=== PATIENT | female | born 1970 | race Caucasian/White ===

== ENCOUNTER 2023-09-16 08:14 | Outpatient (OUT) | payer BC, SELFPAY ==
--- NOTE | 2023-09-16 08:17 | MM_ITS ---
Patient Name: NILDA JONES MR#: [id number] : 1970 Exam Date: 09/16/2023 Ordering Doctor: DR. TOLU FRAGA . RADIOLOGY REPORT PROCEDURE: MM TOMOSYNTHESIS SCREENING BI COMPARISON: MG MAMM SCREEN IRISH W CAD, 04/11/2018. MG MAMM SCREEN 3D IRISH CAD, 01/25/2021. INDICATIONS: Screening Calculator Name NCI Breast Cancer Risk Assessment Tool 5 Year Breast Cancer Risk 0.60% Lifetime Breast Cancer Risk 4.20% Personal Breast Cancer No Personal Ovarian Cancer No Treatments None Family Cancers None LOCATION: [facility] BREAST COMPOSITION: Extremely dense, which lowers the sensitivity of mammography. FINDINGS: DIAGNOSTIC CATEGORY 1--NEGATIVE. NO CHANGE FROM COMPARISON ASSESSMENT. RIGHT BREAST: No significant suspicious finding. LEFT BREAST: No significant suspicious finding. RECOMMENDATIONS: ROUTINE MAMMOGRAM AND CLINICAL EVALUATION IN 12 MONTHS. PLEASE NOTE: A NORMAL MAMMOGRAM DOES NOT EXCLUDE THE POSSIBILITY OF BREAST CANCER. A CLINICALLY SUSPICIOUS PALPABLE LUMP SHOULD BE BIOPSIED. Dictated by: Justin Rodríguez MD on 09/16/2023 at 14:34 Approved by: Justin Rodríguez MD on 09/16/2023 at 14:35
== END 2023-09-16 08:15 | disposition home or self-care (01) ==
LOC: MAMMO 08:14
PROVIDERS: PCP Family Medicine; Visit Provider Family Medicine
DX: Z12.31 Encounter for screening mammogram for malignant neoplasm of breast (principal)
CPT/HCPCS: 77063; 77067

== ENCOUNTER 2025-07-26 10:32 | Outpatient (OUT) | payer BC, SELFPAY ==
--- OUTSIDE RECORDS SUMMARY | 2025-07-26 10:39 | XMS_ITS | Clinical Summary ---
Author Organization [facility] Address [id number] [place] [address] Care Team Providers Care [employer] Dispatcher Name Role Phone Gisela Barry MD Primary Care Provider [phone] Allergies Active AllergyReactionsCriticalityNoted FkvrVppcplwuKndudyzjeai73/19/2018 Medications MedicationSigDispense QuantityRefillsLast FilledStart DateEnd DateStatus ibuprofen (ADVIL,MOTRIN) 400 mg tablet Take 400 mg by mouth every 6 (six) hours as needed for pain.Active doxycycline (VIBRAMYCIN) 100 mg capsule Take 1 capsule (100 mg total) by mouth 2 (two) times a day. 20 capsule 07/30/2019Active Family History Medical HistoryRelationNameCommentsNo Known ProblemsFatherNo Known Problems MotherRelationNameStatusCommentsFatherAliveMotherAlive Social History Tobacco UseTypesPacks/DayYears UsedDateSmoking Tobacco: Every DayCigarettes Smokeless Tobacco: NeverAlcohol UseStandard Drinks/WeekCommentsYes1 (1 standard drink = 0.6 oz pure alcohol)dailyChildcareAnswerDate RecordedChildcareUnknown 03/12/2019EmploymentAnswerDate TxumyhcnRcddcrreqtDxuymcw01/13/2019Purpose - Life AnswerDate RecordedPurpose and direction in waetQzmezqh58/11/2021 CommentsNoSex and Gender InformationValueDate RecordedSex Assigned at BirthNot on fileLegal GqiYkwcfw40/19/2018 12:46 PM EDTGender IdentityNot on fileSexual OrientationNot on file Last Filed Vital Signs Vital SignReadingTime TakenCommentsBlood Tkixidoa125/8710 5:04 PM EDT Tnvty5364/ 6:09 PM HSKInmualolknq07.7 ??C (98 ??F)07/30/2019 3:56 PM EDT Respiratory Jasw1516 6:09 PM EDTOxygen Uzgyjwdsby42%07/30/2019 6:09 PM EDTInhaled Oxygen Concentration--Qlbpnd20.4 kg (120 lb)07/30/2019 3:56 PM EDT Yfkamy905.6 cm (5' 4 )07/30/2019 3:56 PM EDTBody Mass Index20.610 3:56 PM EDT Plan of Treatment Health MaintenanceDue DateLast DoneCommentsDepression Ivtcydvwe72/23/1982Tobacco Axjpasmkq28/23/1982Adult BMI Hsynsijpu85/23/1988DTaP,Tdap and Td Vaccines (1 - Tdap)1988Pap Smear1990Zoster (Shingles) Vaccine (1 of 2)12/21/2019 Influenza Ufahqcu5005/31/2025 Medical Devices Not on file Insurance Care Teams Team MemberRelationshipSpecialtyStart DateEnd Gisela Barry MD PCP - GeneralFamily Medicine12/15/18
--- OUTSIDE RECORDS SUMMARY | 2025-07-26 10:46 | XMS_ITS | CCD ---
Author Organization [facility] Care Team Providers Care Grid Caster Name Role Phone DR GISELA BARRY Admitting Unavailable ROBBI, DR GISELA De Jesus Attending Unavailable ROBBI, DR GISELA De Jesus Consulting Unavailable ROBBI, DR GISELA De Jesus Primary Care Unavailable ROBBI, DR GISELA De Jesus Attending Unavailable ROBBI, DR GISELA De Jesus Consulting Unavailable ROBBI, DR GISELA De Jesus Admitting Unavailable NO FAMILY, PHYSICIAN Primary Care Provider Unava ilable Community, Outreach Attending Provider [facility], Outreach Attending Provider MD Gisela Barry Primary Care Provider MD Gisela Barry Primary Care Provider [phone] [facility], Outreach Attending Provider [facility], Outreach Attending Provider [phone] NO FAMILY, PHYSICIAN Primary Care Provider Unava ilable Thaddeus Mojica Primary Care Physician NO FAMILY, PHYSICIAN Primary Care Provider Unava ilable [facility], Outreach Attending Provider Stacy, SKULL SPLITTER Mara L Admitting Unavailable Stacy, SKULL SPLITTER Mara L Attending Unavailable Stacy, SKULL SPLITTER Mara L Attending Unavailable Stacy, SKULL SPLITTER Mara L Attending Unavailable Stacy, SKULL SPLITTER Mara L Attending Unavailable Stacy, SKULL SPLITTER Mara L Admitting Unavailable Stacy, SKULL SPLITTER Mara L Attending Unavailable Stacy, Mara L Attending Unavailable Stacy, Mara L Admitting Unavailable Jorje VALERIO, Scottie Kinney Attending Jaylin Barry MD, Gisela Francis Primary Care Unavailmarie Recinos MD, Scottie Kinney Attending Jaylin Barry MD, Gisela Francis Primary Care Unavailmarie Barry MD, Gisela Francis Primary Care Unavailmarie Jordan MD, Stephen Carter Attending Jaylin Jordan MD, Stephen Carter Attending Jaylin Barry MD, Gisela Francis Primary Care Unavailabl e NO FAMILY, PHYSICIAN Primary Care Provider Unava ilable Community, Outreach Attending Provider [phone] Community, Outreach Attending Unavailable Community, Outreach Admitting Unavailable NO FAMILY, PHYSICIAN Primary Care Unavailable Allergies Allergy ClassificationReported Allergen(s)Allergy TypeDate of OnsetReaction(s) FacilityPenicillins (antibiotic) (1 source)PenicillinsDrug Zitjokx22-07-5235Ysr [facility] Repository (4 sources)Penicillin; Translations: [penicillin][facility]ergy[facility] Medications Current Medications MedicationDrug Class(es)DatesSig (Normalized)Sig (Original)esomeprazole 40 mg delayed release oral capsule (2 sources)Proton Pump InhibitorStart: 03-12-2024 End: 42-55-5557qztw 1 capsule by mouth once dailyNexium 40 mg Cap-EC 40 mg = 1 cap(s), Oral, Daily, X 90 day(s), # 90 cap(s), Refills(s) 3, Pharmacy: [facility] [id number], 159, cm, 03/09/24 10:08:00 EDT, Height/Length Dosing, 56.9, kg, 03/09/2410:08:00 EDT, Weight Dosing Start Date: 03/12/24 Stop Date: 03/07/25 Status: OrderedStart: 57-07-2425muai 1 capsule by mouth once dailyNexium 40 mg Cap-EC 40 mg = 1 cap(s), Oral, Daily, # 90 cap(s), Refills(s) 1, Pharmacy: [facility]/pharmacy #[id number], 158, cm, 09/09/23 10:57:00 EST, Height/Length Dosing, 58.2, kg, 09/09/23 10:57:00 EST, Weight Dosing Start Date: 09/09/23 Status: Ordered Problems Problem ClassificationProblemDateDocumented DateEpisodic/ChronicAllergic reactions (2 sources)Allergic disorder of jxbi62-38-7799WrbrceyhMwyubqqy of urinary tract (1 source)Renal zmpo61-77-0709OeacfoqvCmmshhvfm of lipid metabolism (3 sources)Hyperlipidemia; Translations: [Hypercholesterolemia]06-24-6389Dvadmbb Esophageal disorders (3 sources)Gastroesophageal reflux disease without esophagitis; Translations: [Gastro-esophageal reflux disease without esophagitis]51-15-0148BuxauroNflxs circulatory disease (2 sources)Raynaud's lfcqppifxk40-57-0802UxiyjfqUyvds screening for suspected conditions (not mental disorders or infectious disease) (8 sources)Encounter for screening mammogram for malignant neoplasm of breast; Translations: [Encounter for screening for malignant neoplasm of cervix]Onset: 01-57-3012KpbfpplwWxjzx upper respiratory disease (2 sources)Allergic isvnchqq18-30-7197YyaiyemXbjvsf media and related conditions (1 source)Finding of fluid behind tympanic kbmpufbb08-72-9382QtlpwoxaBdtkyrzij and history of mental health and substance abuse codes (2 sources)Jr-cniabw88-03tnfqgk14-62-7297ZajcixlcHmyvwmbywsk; intervertebral disc disorders; other back problems (2 sources)Yiyqkpxujsllprdfn68-95-5839HgpjltjTlhiyqsga-zdlcdiy disorders (2 sources)Marijuana phfz35-78-4983CnaqygjrZcdlbdovgamx (2 sources)Body mass index 20-24 - vslgot76-23-2950Rxtqsptlmmyk (4 sources)Patient encounter jaxovi60-36-5137 Results Test NameValueInterpretationReference RangeFacilityAlanine aminotransferase [Enzymatic activity/volume] in Serum or PlasmaOrdered By: OUTREACH COMMUNITY on 60-17-0500JFO [Catalytic activity/Vol]16 U/LNormal7-52[facility] HospitalComment on above:Performed By: #### MARVINNOASHLEERELAKISHA, OUTREACH CMP, OUTREACH LIPID #### [facility] [address] [place] [address] USAAlbumin [Mass/volume] in Serum or Plasma by Bromocresol green (BCG) dye binding methoOrdered By: OUTREACH COMMUNITY on 77-26-1212Nxcpbex BCG dye [Mass/Vol]4.5 g/dL3.5-5.7FLake County Memorial Hospital - WestAlkaline phosphatase [Enzymatic activity/volume] in Serum or PlasmaOrdered By: OUTREACH COMMUNITY on 05-94-7592BZT [Catalytic activity/Vol]73 U/RZcrfht84-930GrzdjbvgfEast [place] Regional HospitalComment on above:Performed By: #### CBCNOOUTREACH, OUTREACH CMP, OUTREACH LIPID #### [facility] [address] [place] [address] USAAspartate aminotransferase [Enzymatic activity/volume] in Serum or PlasmaOrdered By: OUTREACH COMMUNITY on 71-81-4414GJJ [Catalytic activity/Vol]18 U/LOumqam15-14WvtksmqvdEast Ohio Regional HospitalComment on above: Performed By: #### CBCNOOUTREACH, OUTREACH CMP, OUTREACH LIPID #### [facility] [address] [place] [address] USABilirubin.total [Mass/volume] in Serum or PlasmaOrdered By: OUTREACH COMMUNITY on 34-84-3485Akwpxggtw [Mass/Vol]0.4 mg/dLNormal0.3-1.0 [facility] HospitalComment on above:Performed By: #### CBCNOOUTREACH, OUTREACH CMP, OUTREACH LIPID #### [facility] [address] [place] [address] USACBC Without Differentialon 39-49-5928Qkho Corpuscular HGB Conc34.4 g/zNRhvalz02.0-35.0[facility] Physician GroupComment on above: Performed By: #### CBCNOOUTREACH, OUTREACH CMP, OUTREACH LIPID #### [facility] [address] [place] [address] USAWhite Blood Count6.5 [CFU]/mLNormal3.8-11.6[facility] Physician GroupComment on above:Performed By: #### CBCNOOUTREACH, OUTREACH CMP, OUTREACH LIPID #### [facility] [address] [place] [address] USACMP Outreachon 08-72-6353Xnlwoce [Mass/Vol]4.5 g/dLNormal 3.5-5.7[facility] Physician GroupComment on above:Performed By: #### CBCNOOUTREACH, OUTREACH CMP, OUTREACH LIPID #### [facility] [address] [place] [address] USAGFR/1.73 sq M.predicted MDRD (S/P/Bld) [Vol rate/Area] mL/min/{1.73_m2}NormalThe [facility] Hospital Physician GroupComment on above:Performed By: #### CBCNOOUTREACH, OUTREACH CMP, OUTREACH LIPID #### [facility] [address] [place] [address] USACalcium [Mass/volume] in Serum or PlasmaOrdered By: OUTREACH COMMUNITY on 82-72-2484Wwcddpu [Mass/Vol]9.4 mg/dLNormal8.6-10.3 [facility] [place] [facility] HospitalComment on above:Performed By: #### MARVINNOASHLEEREACH, OUTREACH CMP, OUTREACH LIPID #### [facility] [address] [place] [id number] USACarbon dioxide, total [Moles/volume] in Serum or Plasma Ordered By: OUTREACH COMMUNITY on 90-32-0217LR7 [Moles/Vol]31.4 mmol/LHigh 21.0-31.0[facility] HospitalComment on above:Performed By: #### CBCNOOUTREACH, OUTREACH CMP, OUTREACH LIPID #### [facility] [address] [place] [address] USAChloride [Moles/volume] in Serum or PlasmaOrdered By: OUTREACH COMMUNITY on 30-74-1314Fknlbdmy [Moles/Vol]103 mmol/JShadka90-595 [facility] HospitalComment on above:Performed By: #### MARVINNOOUTRELAKISHA, OUTREACH CMP, OUTREACH LIPID #### [facility] [address] [place] [address] USACholesterol [Mass/volume] in Serum or PlasmaOrdered By: OUTREACH COMMUNITY on 02-45-3020Qtgdjzcnqsl [Mass/Vol]256 mg/qZFywm286-508 [facility] HospitalComment on above:Chol less than 200 mg/dl low riskChol 201-239 mg/dl borderline riskChol 240 mg/dl and greater high riskResult Comment: Chol less than 200 mg/dl low risk Chol 201-239 mg/dl borderline risk Chol 240 mg/dl and greater high riskPerformed By: #### CBCNOOUTREACH, OUTREACH CMP, OUTREACH LIPID #### [facility] [address] [place] [address] USACholesterol in HDL [Mass/volume] in Serum or PlasmaOrdered By: OUTREACH COMMUNITY on 22-98-1958Qaquheofztm in HDL [Mass/Vol]73 mg/dLNormal 23-92[facility] [place] [facility] HospitalComment on above:HDL CHOL ATP-III CLASSIFICATION Cardiovascular RiskHDL > or equal to 60 mg/dL LOWHDL < 40 mg/dL HIGHResult Comment: HDL CHOL ATP-III CLASSIFICATION Cardiovascular Risk HDL > or equal to 60 mg/dL LOW HDL < 40 mg/dL HIGHPerformed By: #### MARVINNOASHLEEREACH, OUTREACH CMP, OUTREACH LIPID #### [facility] [address] [place] [id number] USACholesterol in LDL Calc [Mass/Vol]Ordered By: OUTREACH COMMUNITY on 07-50-5032Ifnfcavekkf in LDL [Mass/Vol]164 mg/dLHigh0-100[facility] HospitalComment on above:LDL ATP III CLASSIFICATIONLDL less than 100 mg/dL OptimalLDL 100-129 mg/dL Near or above avbmeyyTGR685-852 mg/dL Borderline highLDL 160-189 mg/dL HighLDL greater than 189 mg/dL Very high Cholesterol in VLDL Calc [Mass/Vol]Ordered By: OUTREACH [facility] on 04-17-2025 Cholesterol in VLDL [Mass/Vol]18 mg/dLEast [facility] Regional Hospital Creatinine [Mass/volume] in Serum or PlasmaOrdered By: [facility] on 93-76-0195Ysscdkewln [Mass/Vol]0.69 mg/dLNormal0.60-1.20[facility] [place] [facility] HospitalComment on above:Performed By: #### MADISYN, OUTREACH CMP, OUTREACH LIPID #### [facility] [address] [place] [address] USAErythrocyte distribution width [Ratio] by Automated count Ordered By: OUTREACH [facility] on 72-88-4918Ekkvxcdmdqn distribution width (RBC) [Ratio]12.9 %Piqoof45.9-15.3FLake County Memorial Hospital - WestComment on above: Performed By: #### MADISYN, OUTREACH CMP, OUTREACH LIPID #### [facility] [address] [place] [id number] USAErythrocytes [#/volume] in Blood by Automated countOrdered By: OUTREACH COMMUNITY on 17-34-1808DYI (Bld) [#/Vol]4.23 10*6/uLNormal 3.60-5.00[facility] [place] [facility] HospitalComment on above:Performed By: #### CBCNOOUTREACH, OUTREACH CMP, OUTREACH LIPID #### [facility] [address] [place] [address] USAGlucose [Mass/volume] in Serum or PlasmaOrdered By: [facility] on 89-17-1582Efllqcq [Mass/Vol]102 mg/eIDfhe63-067DmvdmxxtzEast [place] Regional HospitalComment on above:ADA recommended reference rangeRandom Glucose Reference Range is dependent on time and content of last meal. Glucose of more than 200 mg/dL in a nonstressed, ambulatory subject supports the diagnosisof Diabetes Mellitus.Result Comment: Random Glucose Reference Range is dependent on time and content of last meal. Glucose of more than 200 mg/dL in a nonstressed, ambulatory subject supports the diagnosis of Diabetes Mellitus. ADA recommended reference rangePerformed By: #### CBCNOOUTREACH, OUTREACH CMP, OUTREACH LIPID #### [facility] [address] [place] [address] USAHematocrit [Volume Fraction] of Blood by Automated count Ordered By: [facility] on 54-80-6758Fjdbqkgcpw (Bld) [Volume fraction] 38.9 %Umkdsy82.0-46.4FLake County Memorial Hospital - WestComment on above:Performed By: #### CBCNOOUTREACH, [facility] CMP, OUTREACH LIPID #### [facility] [address] [place] [address] USAHemoglobin [Mass/volume] in BloodOrdered By: [facility] on 34-94-5616Dmzrllchwj (Bld) [Mass/Vol]13.4 g/xVKffkbg74.8-15.4 [facility] [place] [facility] HospitalComment on above:Performed By: #### CBCNOOUTREACH, OUTREACH CMP, OUTREACH LIPID #### [facility] [address] [place] [address] USALeukocytes [#/volume] corrected for nucleated erythrocytes in Blood by Automated counOrdered By: [facility] on 57-69-0761YIV corrected for nucl RBC Auto (Bld) [#/Vol]6.5 10*3/uL3.8-11.6FLake County Memorial Hospital - WestLipid Profile Outreachon 00-63-6279SJC Cholesterol,Beceaygxtj169 mg/dLHigh0-100[facility] Physician [facility] HospitalComment on above:Result Comment: LDL ATP III CLASSIFICATION LDL less than 100 mg/dL Optimal LDL 100-129 mg/dL Near or above optimal LDL 130-159 mg/dL Borderline high LDL 160-189 mg/dL High LDL greater than 189 mg/dL Very highPerformed By: #### CBCNOOUTREACH, OUTREACH CMP, OUTREACH LIPID #### [facility] [address] [place] [address] USATriglyceride w/Qgqtkt77 mg/dLNormal0-149[facility] Physician GroupComment on above:Result Comment: TRIG ATP III CLASSIFICATION TRIG less than 150 mg/dL Normal TRIG 150-199 mg/dL Borderline high TRIG 200-500 mg/dL High TRIG greater than 500 mg/dL Very high Standard traceable to the Center for Disease Conrtrol and Prevention (CDC) test method.Performed By: #### CBCNOOUTREACH, OUTREACH CMP, OUTREACH LIPID #### [facility] [address] [place] [address] USAVLDL FZBESMCJKVL56 mg/dLNormalThe [facility] Physician [facility] HospitalComment on above:Performed By: #### CBCNOOUTREACH, OUTREACH CMP, OUTREACH LIPID #### [facility] [address] [Entitic mass] by Automated countOrdered By: OUTREACH COMMUNITY on 71-92-3567ZWU (RBC) [Entitic mass]31.7 ipLqyrqu11.7-34.3FLake County Memorial Hospital - WestComment on above:Performed By: #### CBCNOOUTREACH, OUTREACH CMP, OUTREACH LIPID #### [facility] [address] [place] [id number] [facility] Auto (RBC) [Mass/Vol]Ordered By: OUTREACH COMMUNITY on 70-25-1203UEWH (RBC) [Mass/Vol]34.4 g/dL32.0-35.0[facility] [place] [facility] HospitalMCV [Entitic volume] by Automated countOrdered By: OUTREACH COMMUNITY on 15-98-0733UYX (RBC) [Entitic vol]92.1 uGGebjvb06-712SyqbhzyopEast Ohio Regional HospitalComment on above:Performed By: #### CBCNOOUTREACH, OUTREACH CMP, OUTREACH LIPID #### [facility] [address] [place] [id number] USANo Panel InformationOrdered By: OUTREACH COMMUNITY on 24-18-1345Okqimmddi GFR (CKD-EPI)> 60.0 mL/MinEast [facility] Regional Hospital Pharmacy Creatinine Clearance (ChemN/AFLake County Memorial Hospital - WestPlatelet mean volume [Entitic volume] in Blood by Automated countOrdered By: OUTREACH COMMUNITY on 72-77-8761Fgazrjgm mean volume (Bld) [Entitic vol]8.0 fLNormal 6.3-10.7FLake County Memorial Hospital - WestComment on above:Result Comment: PERFORMED BY: [place] [address] PATHOLOGIST PELLETIZER TENDER SARAH BETH LORENZO M.D.Performed By: #### CBCNOOUTREACH, OUTREACH CMP, OUTREACH LIPID #### [facility] [address] [place], [place] [address] USAPlatelets [#/volume] in Blood by Automated countOrdered By: [facility] on 04-29-5965Gafqroblf (Bld) [#/Vol]293 10*3/uLNormal 150-450[facility] [place] [facility] HospitalComment on above:Performed By: #### CBCNOOUTREACH, OUTREACH CMP, OUTREACH LIPID #### [place] [id number] USAPotassium [Moles/volume] in Serum or PlasmaOrdered By: OUTREACH COMMUNITY on 08-87-5435Hfenzrgfk [Moles/Vol]4.7 mmol/LNormal3.5-5.1 [facility] HospitalComment on above:Performed By: #### CBCNOOUTREACH, OUTREACH CMP, OUTREACH LIPID #### [facility] [address] [place], [place] [address] USAProtein [Mass/volume] in Serum or PlasmaOrdered By: OUTREACH COMMUNITY on 25-37-5241Uhempqu [Mass/Vol]6.9 g/dLNormal6.4-8.9[facility] HospitalComment on above:Performed By: #### CBCNOOUTREACH, OUTREACH CMP, OUTREACH LIPID #### [facility] [address] [place] [address] USASerum or plasma anion gap determinationOrdered By: [facility] on 95-82-5717Vgjns gap [Moles/Vol]10.3 mmol/LNormal6.0-15.0 [facility] HospitalComment on above:Performed By: #### CBCNOOUTREACH, OUTREACH CMP, OUTREACH LIPID #### [facility] [address] [place] [id number] USASerum or plasma total cholesterol/high density lipoprotein (HDL) cholesterol mass ratOrdered By: [facility] on 04-17-2025 Cholesterol.total/Cholesterol in HDL [Mass ratio]3.5 {ratio}Normal<5.0[facility] HospitalComment on above:Result Comment: PERFORMED BY: [place] [id number] PATHOLOGIST PELLETIZER TENDER SARAH BETH LORENZO M.D.Performed By: #### CBCNOASHLEEREACH, OUTREACH CMP, OUTREACH LIPID #### [address] [address] USASodium [Moles/volume] in Serum or PlasmaOrdered By: [facility] on 33-21-2293Rpvscl [Moles/Vol]140 mmol/OFssyee155-988 [facility] HospitalComment on above:Performed By: #### CBCNOOUTREACH, OUTREACH CMP, OUTREACH LIPID #### [facility] [address] [place] [address] USATriglyceride [Mass/volume] in Serum or PlasmaOrdered By: OUTREACH [facility] on 02-65-5419Lzycifsfmbva [Mass/Vol]93 mg/dL0-149[facility] [place] [facility] HospitalComment on above:TRIG ATP III CLASSIFICATIONTRIG less than 150 mg/dL NormalTRIG 150-199 mg/dL Borderline highTRIG 200-500 mg/dL High TRIG greater than 500 mg/dL Very highStandard traceable to the Center for Disease Conrtrol and Prevention (CDC) test method.Urea nitrogen [Mass/volume] in Serum or PlasmaOrdered By: OUTREACH COMMUNITY on 26-09-3933Hhhs nitrogen [Mass/Vol]14 mg/dLNormal7-25[facility] [place] [facility] HospitalComment on above: Performed By: #### CBCNOOUTREACH, OUTREACH CMP, OUTREACH LIPID #### [facility] [address] [place] [id number] USACT Abdomen w/ IV Contraston 37-65-0588IM Abdomen w/ IV ContrastEXAMINATION: CT Abdomen w/ IV Contrast HISTORY: Other (please specify), abdominal mass, suspected hernia COMPARISON: None. TECHNIQUE: Following IV contrast utilization, helical images were acquired from lung bases through iliac crests Dose reduction techniques were achieved by using automated exposure control and/or adjustment of mAand/or kV according to patient size and/or use of iterative reconstruction technique. FINDINGS: There is granulomatous change in the left lung base. There is no pleural or pericardial effusion. There is no hepatic mass and no biliary ductal dilatation. Liver, spleen, adrenal glands, and pancreas are normal. There is no renal mass, hydronephrosis, renal calculi, or perinephric fluid collection. There is no bowel distention. Normal appendix is visualized. There is no significant adenopathy. There is atherosclerotic change in normal caliber abdominal aorta. There is no abdominal wall hernia. No significant adenopathy. There is no free fluid. There is no free intraperitoneal air. There is no osseous lesion. IMPRESSION: No significant finding. No evidence of abdominal wall hernia. Radiation Dose Estimate: CTDI(mGy):0.980107 / / / kVp:130.293892 / mAs:0.489136 / / / DLP(mGy- cm):3.659816Chxo Part: Abdomen CTDI(mGy):8.971597 / / / kVp:130.714560 / mAs:45.585028 / / / DLP(mGy- cm):264.529016Umsp Part: Abdomen Final Dictated by: Sara Mccarty MD Dictated DT/TM: 09.25.2024 10:04 am Signed by: Sara Mccarty MD Signed (Electronic Signature): 09.25.2024 10:10 am (If Report Is Signed, Electronically Signed in Other Vendor System)Normal [facility] 75-84-1284OilpzgfeuPqfuoyclm From: Mara Rosario To: B - Clinical; Sent: 09/15/2024 08:26:20 EST Show up: 09/15/2024 08:27:00 EST Subject: Ambulatory Reminder Due Date/Time: 09/16/2024 08:26:00 EST Labs look good. kidney function is great! Results: Date Result Name Value Ref Range 09/14/2024 9:18 Glucose Lvl 107 mg/dL (55 - 199) 09/14/2024 9:18 BUN 10 mg/dL (5 - 21) 09/14/2024 9:18 Creatinine 0.6 mg/dL (0.5 - 1.3) 09/14/2024 9:18 eGFR 106 mL/min/1.73 m2 (>=59 - ) 09/14/2024 9:18 BUN/Creat Ratio 17 (10 - 20) 09/14/2024 9:18 Sodium Lvl 139 mmol/L (135 - 145) 09/14/2024 9:18 Potassium Lvl 3.9 mmol/L (3.5 - 5.3) 09/14/2024 9:18 Chloride 101 mmol/L (101 - 111) 09/14/2024 9:18 CO2 28 mmol/L (21 - 31) 09/14/2024 9:18 AGAP 14 mEq/L (6 - 16) 09/14/2024 9:18 Calcium Lvl 10.2 mg/dL (8.9 - 11.1) [facility]ilda called and [facility] Summaryon 20-71-5076Xlvjdyoadj Visit SummaryAmbulatory Visit Summary NILDA ALMARAZ :1970 Visit Date:09/14/2024 Ambulatory Visit Instructions Your Diagnosis Kidney pain Your Care Team Attending Physician - Mara Rosario Primary Care Physician - Thaddeus Mojica MD This Is Your Medications List esomeprazole (Nexium 40 mg Cap-EC) Procedures Performed EGD (esophagogastroduodenoscopic) electrohydraulic lithotripsy of bezoar in stomach (08/30/2022), Colonoscopy, Tympanostomy. Discharge Vitals Temperature (Tympanic) 36.0 ???C Heart Rate (Peripheral) 88 Respiratory Rate 18 Blood Pressure 132/80 Height 159 cm Height 63 in Weight 59.3 kg Weight 130.734 lb BMI 23.46 What to do next You Need to Complete the Following Basic Metabolic Panel, Blood, Routine collect, 09/14/24, Order for future visit, Lab Collect, Kidney pain, Print Label By Order Location Medications What How Much When Instructions Unchanged esomeprazole (Nexium 40 mg Cap-EC) 1 Capsules By Mouth Every day Duration: 90 Days Allergies penicillin Problems Ongoing - Any problem that you are currently receiving treatment for. Acid reflux Allergic dermatitis Allergic rhinitis BMI 23.0-23.9, adult Breast cancer screening Fluid level behind tympanic membrane of both ears Former smoker Gastroesophageal reflux disease without esophagitis HLD (hyperlipidemia) Hypercholesteremia Kidney pain Marijuana user Raynauds phenomenon Spondyloarthritis, cervical region Well woman exam Patient Survey You may receive a survey via text or e-mail asking about your office visit. Please share your experience with us by completing your survey. We appreciate your feedback and thank you for choosing us for your care. NormalTrihealth Bethesda North HospitalBMPon 26-17-7686Qsinq gap [Moles/Vol]14 mmol/LNormal6-16[facility] HospitalComment on above: Performed By: #### [id number] #### [facility] [address] [place], [place] [address]Gbhpreq [Mass/Vol]10.2 mg/dLNormal8.9-11.1[facility] And HospitalComment on above:Performed By: #### [id number] #### [facility] [address] [place], [place] [address]Bxvbbqva [Moles/Vol]101 mmol/HArxnpc812-445DoadfhTrihealth Bethesda North HospitalComment on above:Performed By: #### [id number] #### [facility] [address] [place], [place] [address]HW9 [Moles/Vol]28 mmol/PIafkkc72-58IlrvxrTrihealth Bethesda North Hospital Comment on above:Performed By: #### [id number] #### [facility] [address] [place], [place] [address]Jsjnzpywqt [Mass/Vol]0.6 mg/dLNormal0.5-1.3[facility] And HospitalComment on above:Performed By: #### [id number] #### [facility] [address] [place], [place] [address]Wbrbzpl [Mass/Vol]107 mg/pRHugorn41-428GkdsvkTrihealth Bethesda North HospitalComment on above:Performed By: #### [id number] #### [facility] [address] [place], [place] [address]Ircrdtdsh [Moles/Vol]3.9 mmol/LNormal3.5-5.3[facility] And HospitalComment on above:Performed By: #### [id number] #### [facility] [address] [place], [place] [address]Erxayj [Moles/Vol]139 mmol/IAheppz862-401JzqkobTrihealth Bethesda North HospitalComment on above:Performed By: #### [id number] #### [facility] [address] [place], [place] [address]Nnqk nitrogen [Mass/Vol]10 mg/dLNormal5-21[facility] North HospitalComment on above:Performed By: #### [id number] #### [facility] [address] [place], [place] [address]Fsmn nitrogen/Creatinine [Mass ratio]17 No SiutzWkanaj87-77 [facility] North HospitalComment on above:Performed By: #### [id number] #### [facility] [address] [place], [place] [address]UCXDFMAOXNkpwwzd By: SYSTEM SYSTEM on 62-50-1310Psbbo gap [Moles/Vol]14 mmol/LNormal6 - 16 mEq/LRemisol ChemCalcium [Mass/Vol]10.2 mg/dL Normal8.9 - 11.1 mg/dLRemisol ChemChloride [Moles/Vol]101 mmol/FZchkmu552 - 111 mmol/LRemisol ChemCO2 [Moles/Vol]28 mmol/YStdwwu55 - 31 mmol/LRemisol Chem Creatinine [Mass/Vol]0.6 mg/dLNormal0.5 - 1.3 mg/dLRemisol CdjquHUE092 mL/min/1.73 c1Yfxrxv>=59mL/min/1.73 j9Nntfrym ChemGlucose [Mass/Vol]107 mg/dL Kopilm71 - 199 mg/dLRemisol ChemPotassium [Moles/Vol]3.9 mmol/LNormal3.5 - 5.3 mmol/LRemisol ChemSodium [Moles/Vol]139 mmol/CWpzbfi673 - 145 mmol/LRemisol Chem Urea nitrogen [Mass/Vol]10 mg/dLNormal5 - 21 mg/dLRemisol ChemUrea nitrogen/Creatinine [Mass ratio]17 mg/gzScjgcd41 - 20Remisol ChemFaarbour-hri hospital Medicine Office/Clinic Noteon 04-33-9425Wuaymb Medicine Office/Clinic NoteFaarbour-hri hospital Medicine Office/Clinic Note Chief Complaint Acute Sick Visit HPI Staff Pt presents today for acute sick visit. Has been having intermittent kidney issues for the past month. GI ordered CT due to hernia. Scheduled for 09/25/24 Concerned with the iodine that will be administered. History of Present Illness pt presents today with c/o left lower back pain Review of Systems PHQ Score Initial Depression Screen Score: 0 SCORE Physical Exam Vitals & Measurements T: 36.0 ???C(Tympanic) HR: 88(Peripheral) RR: 18 BP: 132/80 SpO2: 99% HT: 63 in HT: 159 cm WT: 59.3 kg WT: 130.734 lb BMI: 23.46 General: alert, no acute distress ENMT: oral mucosa moist, no pharyngeal erythema or exudate Cardiovascular: regular rate and rhythm, normal peripheral perfusion Respiratory: Lungs CTA, respirations non labored Extremities: no deformity, no trauma Neurological: oriented x 4, LOC appropriate for age, CN II-XII intact, motor strength equal & normal bilaterally, speech normal Assessment/Plan 1. Kidney pain (N23: Unspecified renal colic) pt is scheduled for CT of abdomen and pelvis on 09/24. she is concerned that her kidneys are not working correctly because of this left sided low back ache she is having. will draw BMP in office today to reassure her that her kidneys will tolerate that CT contrast. much reassurance provided. RTC asneeded Ordered: Basic Metabolic Panel 2. BMI 23.0-23.9, adult (Z68.23: Body mass index [BMI] 23.0-23.9, adult) BMI education given Follow-up No qualifying data available Problem List/Past Medical History Ongoing Acid reflux Allergic dermatitis Allergic rhinitis BMI 23.0-23.9, adult Breast cancer screening Fluid level behind tympanic membrane of both ears Former smoker Gastroesophageal reflux disease without esophagitis HLD (hyperlipidemia) Hypercholesteremia Kidney pain Marijuana user Raynauds phenomenon Spondyloarthritis, cervical region Well woman exam Historical No qualifying data Procedure/Surgical History EGD (esophagogastroduodenoscopic) electrohydraulic lithotripsy of bezoar in stomach (08/30/2022), Colonoscopy, Tympanostomy. Medications Nexium 40 mg Cap-EC, 40 mg= 1 cap(s), Oral, Daily, 3 refills Allergies penicillin Social History Tobacco Former smoker, quit more than 30 days ago Tobacco Use:. Never Smokeless Tobacco Use:. Household tobacco concerns: No. Yes, 09/14/2024 Family History Primary malignant neoplasm of female breast: Grandparent. Immunizations Vaccine Date Status Comments SARS-CoV-2 (COVID-19) mRNA-1273 vaccine 01/07/2021 Recorded 2023-08-28: 50 SARS-CoV-2 (COVID-19) mRNA-1273 vaccine 12/10/2020 RecordedNormSalem City HospitalComment on above:Result Comment: Electronically Signed By: Mara Rosario\.br\Date and Time Signed: 09/14/24 09:19 ESTeGFRon 71-92-9665zQRS701 mL/min/1.73 b7Wblqoo>=59[facility] North HospitalComment on above:Performed By: #### [id number] #### [facility] [address], [place] [address]Xrjmmahfudnkawpo Office/Clinic Noteon 09-09-2024 Gastroenterology Office/Clinic NoteChief Complaint f/u constipation History of Present Illness 53-year-old female presents in followup of dysphagia. Patient underwent EGD with findings as below status post dilation of a Schatzki's ring with resolution of symptoms. GERD continues to remain stable on PPI. Constipation stable with prn laxatives. Notes abdominal wall mass present which has increased per her report. Patient notes significant concern. No additional complaints today. [3] EGD 08/30/2022 ?Few linear furrows and circular rings in the esophagus. Biopsied. ? Schatzki's ring. Dilated. ? Gastric erythema. Biopsied. ? Normal duodenum [1] Part A: Stomach, biopsy: Mild chronic inflammation. Part B: Distal esophagus, biopsy: Slight chronic inflammation. Part C: Mid esophagus, biopsy: No significant pathologic change. [1] Physical Exam General: Alert and oriented, well nourished, no acute distress Eye: tracks well, anicteric sclera HENT: Normocephalic, external ear normal, no discharge, moist oral mucosa Neck: Supple, non-tender, trachea midline Lungs: symmetrical expansion, nonlabored respirations Heart: regular rate, distal pulses intact Abdomen: soft, nontender, nondistended Musculoskeletal: no deformity, normal ambulation, no swelling Skin: clean, dry, intact, no jaundice Neurologic: A&Ox3, no focal deficits Psychiatric: Cooperative, appropriate mood and affect Additional Vitals No qualifying data available. Assessment/Plan 53-year-old female with 1. Dysphagia: EGD as above with findings of a Schatzki's ring which was dilated. Symptoms have resolved following. ? Continue PPI as below 2. GERD: Stable ? Continue PPI. Will decrease ppi to 20 mg daily from 40 mg daily. Rx provided for esomeprazole 20 mg daily. Prescription drug management performed. 3. Constipation: stable - miralax, fiber 4. Abdominal wall lump: suspect hernia, patient with significant concerns and requests imaging - obtain ct abd in further workup 5. Screening for malignant neoplasm of colon: ?Patient reports prior colonoscopy, would be due, she will contact us this spring [place]. RTC 1 year [2] Medical Decision Making Chronic conditions NOT treated during this visit that affected my overall medical decision making: [] Treatment plans discussed but not opted for at this time: [] Prescribed medication that requires intensive monitoring for toxicity: [] I have reviewed the patient?s medication list for medication interactions/contraindications and/or for upcoming procedures: [yes or no] Time Spent with the Patient I have personally spent [] minutes on this date, directly related to today's patient visit, including pre and post visit work, for this date of service. Time listed does not include time spent on separately billable services. Problem List/Past Medical History Ongoing Chronic idiopathic constipation Dysphagia High cholesterol Reflux esophagitis Historical No qualifying data Procedure/Surgical History No surgery Medications esomeprazole 40 mg oral delayed release capsule, 40 mg= 1 caps, Oral, Daily, 3 refills Allergies penicillin (unknown) Social History Alcohol Current, Beer, Daily Substance Abuse Current, Marijuana, Daily Tobacco Former smoker, quit more than 1 year ago Use:. Cigarettes, Packs, 10 year(s). Family History Family history is negative [1] Office Visit Note; Stephen Jordan MD 09/11/2023 13:17 EST [2] Office Visit Note; Stephen Jordan MD 09/11/2023 13:17 EST Electronically signed by Stephen Jordan MD 09/09/24 13:49 [facility] Office/Clinic Noteon [id number] Office/Clinic Note Chief Complaint Patient states I am coming in for acid reflux and tongue issues. History of Present Illness The patient returns today anxious in terms of having some irritation on her tongue is concerned there could be something else going on. She is seen the GI people may have done esophagoscopy and dilated her esophagus. Her reflux symptoms seem to be much better and controlled now with the Nexium. Shehas not obtained a bite appliance and states that when she had braces she could not tolerate the retainer. Otherwise her ear pressure symptoms have resolved. Physical Exam Vitals & Measurements T: 36.5 ?C (Temporal Artery) HR: 76 (Peripheral) BP: 156/89 General: [Alert and oriented, well nourished, no acute distress]. Eye: [PERRL, EOMI, normal conjunctiva]. HENT: [Normocephalic OC/OP: Moist mucous membranes. Dental repair is intact with caps and significant repair on her molars. Her anterior incisors of changes significant for bruxism. She also has sammie of the hard palate and mandible. Oropharynx is unremarkable evidence of tonsillectomy with a small left tonsillar tag. Neck: [Supple, non-tender, no lymphadenopathy]. Skin: [Skin is warm, dry and pink, no rashes or lesions]. Neurologic: [Awake, alert, and oriented X3, CN II-XII intact]. Psychiatric: [Cooperative, appropriate mood and affect]. Additional Vitals BP Position/Location: Sitting, Right arm Assessment/Plan 1. LPRD (laryngopharyngeal reflux disease) 2. TMJ pain dysfunction syndrome Recommendation: I have explained the patient at the most likely cause for the tongue irritation is bruxism likely at night when she sleeping. She will make an attempt to try a bite appliance though this may not be successful as she has a history of not tolerating such devices. She is unsatisfied with my explanation and overall is doing much better. We will see her as needed. Medical Decision Making Chronic conditions NOT treated during this visit that affected my overall medical decision making: [] Treatment plans discussed but not opted for at this time: [] Prescribed medication that requires intensive monitoring for toxicity: [] I have reviewed the patient?s medication list for medication interactions/contraindications and/or for upcoming procedures: [yes or no] Time Spent with the Patient I have personally spent [] minutes on this date, directly related to today's patient visit, including pre and post visit work, for this date of service. Time listed does not include time spent on separately billable services. Problem List/Past Medical History Ongoing Chronic idiopathic constipation Dysphagia High cholesterol Reflux esophagitis Historical No qualifying data Procedure/Surgical History No surgery Medications esomeprazole 40 mg oral delayed release capsule, 40 mg= 1 caps, Oral, Daily, 3 refills Allergies penicillin (unknown) Social History Alcohol Current, Beer, Daily Substance Abuse Current, Marijuana, Daily Tobacco Former smoker, quit more than 1 year ago Use:. Cigarettes, Packs, 10 year(s). Family History Family history is negative Electronically signed by Scottie Recinos MD 07/14/24 10:25 [facility] Otolaryngology Office/Clinic Noteon [id number] Office/Clinic Note Chief Complaint Pt states was here for ear fullness, not having problem anymore. Wanted to talk about acid reflux. History of Present Illness This is a very pleasant 53-year-old woman who has been seen in the past been told she has laryngealreflux. She takes Nexium in the morning with a cup of coffee. She normally does not eat until the afternoon. The reason she made this appointment today as she felt she had fullness in her ears but this is since resolved. There is been no associated hearing loss tinnitus or pain with this. She does have symptoms of throat clearing and globus. Review of Systems General Cardiovascular EENMT Dental pain: No Ear drainage: No Ear pain: No Mouth lesions: No Other EENMT: Yes Gastrointestinal Genitourinary Hematologic/Lymphatic Musculoskeletal Neurological Psychiatric Respiratory Skin Physical Exam Vitals & Measurements T: 33.7 ?C (Temporal Artery) HR: 63 (Peripheral) BP: 148/86 General: [Alert and oriented, well nourished, no acute distress]. Eye: [PERRL, EOMI, normal conjunctiva]. HENT: [Normocephalic Ears: Both external ears are healthy without deformity. The canals are clear with normal TMs and aerated middle ear space. Nose: External nose is healthy without deformity. The nasal septum is midline with a patent airway there is no intranasal purulence or stasis. OC/OP: Moist healthy mucous membranes. Good dental repair with Sammie mandibulari. Oropharynx is status post tonsillectomy without evidence of erythema. Neck: [Supple, mild left TMJ pain to palpation worse with jaw motion., no lymphadenopathy]. Lungs: [Clear to auscultation and percussion, non-labored respiration]. Heart: [Normal rate, regular rhythm, no murmur, gallop or edema]. Skin: [Skin is warm, dry and pink, no rashes or lesions]. Neurologic: [Awake, alert, and oriented X3, CN II-XII intact]. Psychiatric: [Cooperative, appropriate mood and affect]. Additional Vitals BP Position/Location: Sitting Assessment/Plan 1. LPRD (laryngopharyngeal reflux disease) 2. TMJ syndrome Recommendation: I have advised the patient to take the Nexium in the morning on an empty stomach. Ihave urged her to use decaf coffee as caffeine can relax the GE sphincter. I also feel that the earfullness she had is most likely related to TMJ I have given her a TMJ handout and discussed this with her. Medical Decision Making Chronic conditions NOT treated during this visit that affected my overall medical decision making: [] Treatment plans discussed but not opted for at this time: [] Prescribed medication that requires intensive monitoring for toxicity: [] I have reviewed the patient?s medication list for medication interactions/contraindications and/or for upcoming procedures: [yes or no] Time Spent with the Patient I have personally spent [] minutes on this date, directly related to today's patient visit, including pre and post visit work, for this date of service. Time listed does not include time spent on separately billable services. Problem List/Past Medical History Ongoing Chronic idiopathic constipation Dysphagia High cholesterol Reflux esophagitis Historical No qualifying data Procedure/Surgical History No surgery Medications esomeprazole 40 mg oral delayed release capsule, 40 mg= 1 caps, Oral, Daily, 3 refills NexIUM 40 mg oral delayed release capsule, 40 mg= 1 caps, Oral, BID Allergies penicillin (unknown) Social History Alcohol Current, Beer, Daily Substance Abuse Current, Marijuana, Daily Tobacco Former smoker, quit more than 1 year ago Use:. Cigarettes, Packs, 10 year(s). Family History Family history is negative Electronically signed by Scottie Recinos MD 03/31/24 08:46 [facility] Lab Reportson [id number] Reports [id number]#1.00[facility] HospitalAmbulatory Visit Summaryon 01-08-4142Sibcnxduja Visit Summary NILDA ALMARAZ :1970 Visit Date:03/09/2024 Ambulatory Visit Instructions Your Diagnosis BMI 22.0-22.9, adult Non-smoker Your Care Team Attending Physician - Mara Rosario Primary Care Physician - Yunior VALERIO, Thaddeus Mcknight This Is Your Medications List esomeprazole (Nexium 40 mg Cap-EC) Procedures Performed EGD (esophagogastroduodenoscopic) electrohydraulic lithotripsy of bezoar in stomach (08/30/2022), Colonoscopy, Tympanostomy. Discharge Vitals Heart Rate (Peripheral) 72 Respiratory Rate 18 Blood Pressure 126/85 Height 159.0 cm Height 63 in Weight 56.9 kg Weight 125.18 lb BMI 22.51 Medications What How Much When Instructions Unchanged esomeprazole (Nexium 40 mg Cap-EC) 1 Capsules By Mouth Every day Allergies penicillin Problems Ongoing - Any problem that you are currently receiving treatment for. Allergic dermatitis Allergic rhinitis BMI 23.0-23.9, adult Breast cancer screening Former smoker Gastroesophageal reflux disease without esophagitis HLD (hyperlipidemia) Marijuana user Raynauds phenomenon Spondyloarthritis, cervical region Well woman exam Patient Survey You may receive a survey via text or e-mail asking about your office visit. Please share your experience with us by completing your survey. We appreciate your feedback and thank you for choosing us for your care. [facility] [id number] [id number]#1.00TIFFNormUniversity Hospitals [facility] Medicine Office/Clinic Noteon [id number] Medicine Office/Clinic NoteI Staff Nilda is a 53 year old female presenting for physical Health Maintenance: Colonoscopy: TB normal 4 year ago Mammo: 08/2023 normal Pap: 01/13/24 Last Labs: 02/15/24 Pt had been on a statin in the past and states she didn't feel good while taking it so hasn't been on it. pt would like to do discuss esomeprazole, Does see GI Pt would like left ear looked at pt states few year ago had to see ENT and had to have her ear drumcut and sucked stuff out. Pt does leave tomorrow on a flight would like a Kenalog shot. History of Present Illness pt presents today to go over lab work. and to discuss medications Review of Systems PHQ Score Initial Depression Screen Score: 0 SCORE Physical Exam Vitals & Measurements HR: 72(Peripheral) RR: 18 BP: 126/85 SpO2: 99% HT: 63 in HT: 159.0 cm WT: 56.9 kg WT: 125.18 lb BMI: 22.51 General: alert, no acute distress ENMT: oral mucosa moist, no pharyngeal erythema or exudate Cardiovascular: regular rate and rhythm, normal peripheral perfusion Respiratory: Lungs CTA, respirations non labored Extremities: no deformity, no trauma Neurological: oriented x 4, LOC appropriate for age, CN II-XII intact, motor strength equal & normal bilaterally, speech normal Assessment/Plan 1. HLD (hyperlipidemia) (E78.5: Hyperlipidemia, unspecified) pt has been monitoring cholesterol for years. Dr. Barry put her on a statin but she did not like i=how it made her feel. reviewed her most recent labs. and discussed pros and cons of not starting back on statin. pt would like to continue monitoring it for now. states If I stop drinking that would probably help. all questions answered. RTC as needed 2. Acid reflux (K21.9: Gastro-esophageal reflux disease without esophagitis) pt has been to GI and was told she had silent acid reflux. refills sent 3. Fluid level behind tympanic membrane of both ears (H65.93: Unspecified nonsuppurative otitis media, bilateral) IRISH TM full of clear fluid 4. Allergies (T78.40XA: Allergy, unspecified, initial encounter) kenalog given in office Ordered: triamcinolone, 40 mg = 1 mL, Injection, IntraMuscular, Once, Stop date 03/09/24 10:46:00 EDT, Routine, Start date 03/09/24 10:46:00 EDT, 03/09/24 10:46:00 EDT 5. BMI 22.0-22.9, adult (Z68.22: Body mass index [BMI] 22.0-22.9, adult) BMI education complete Ordered: triamcinolone, 40 mg = 1 mL, Injection, IntraMuscular, Once, Stop date 03/09/24 10:46:00 EDT, Routine, Start date 03/09/24 10:46:00 EDT, 03/09/24 10:46:00 EDT 6. Non-smoker (Z78.9: Other specified health status) continue not smoking Ordered: triamcinolone, 40 mg = 1 mL, Injection, IntraMuscular, Once, Stop date 03/09/24 10:46:00 EDT, Routine, Start date 03/09/24 10:46:00 EDT, 03/09/24 10:46:00 EDT Orders: esomeprazole, 40 mg = 1 cap(s), Oral, Daily, # 90 cap(s), Refills(s) 1, Pharmacy: [facility]/pharmacy #[id number], 158, cm, 09/09/23 10:57:00 EST, Height/Length Dosing, 58.2, kg, 09/09/23 10:57:00 EST, Weight Dosing esomeprazole, 40 mg = 1 cap(s), Oral, Daily, X 90 day(s), # 90 cap(s), Refills(s) 3, Pharmacy: [facility] #[id number], 159, cm, 03/09/24 10:08:00 EDT, Height/Length Dosing, 56.9, kg, 03/09/24 10:08:00 EDT, Weight Dosing Follow-up No qualifying data available Problem List/Past Medical History Ongoing Acid reflux Allergic dermatitis Allergic rhinitis BMI 23.0-23.9, adult Breast cancer screening Fluid level behind tympanic membrane of both ears Former smoker Gastroesophageal reflux disease without esophagitis HLD (hyperlipidemia) Hypercholesteremia Marijuana user Raynauds phenomenon Spondyloarthritis, cervical region Well woman exam Historical No qualifying data Procedure/Surgical History EGD (esophagogastroduodenoscopic) electrohydraulic lithotripsy of bezoar in stomach (08/30/2022), Colonoscopy, Tympanostomy. Medications Nexium 40 mg Cap-EC, 40 mg= 1 cap(s), Oral, Daily, 3 refills Allergies penicillin Social History Tobacco Former smoker, quit more than 30 days ago Tobacco Use:. Cigarettes, Household tobacco concerns: No., 03/09/2024 Family History Primary malignant neoplasm of female breast: Grandparent. Immunizations Vaccine Date Status Comments SARS-CoV-2 (COVID-19) mRNA-1273 vaccine 01/07/2021 Recorded 2023-08-28: 50 SARS-CoV-2 (COVID-19) mRNA-1273 vaccine 12/10/2020 RecordedBrecksville VA / Crille HospitalComment on above:Result Comment: Electronically Signed By: Mara Rosario.br\Date and Time Signed: 03/09/24 11:18 EDTPatient Logson [id number] [id number] [facility] North HospitalAlanine aminotransferase [Enzymatic activity/volume] in Serum or PlasmaOrdered By: [employer] on 75-39-7890UDD [Catalytic activity/Vol]14 U/L7-52[facility] [place] [facility] HospitalAlbumin [Mass/volume] in Serum or Plasma by Bromocresol green (BCG) dye binding methoOrdered By: [employer] [employer] on 19-91-0153Nawynxj BCG dye [Mass/Vol]4.8 g/dL3.5-5.7 [facility] [place] [facility] HospitalAlkaline phosphatase [Enzymatic activity/volume] in Serum or PlasmaOrdered By: [facility] [employer] on 02-15-2024 ALP [Catalytic activity/Vol]79 U/O65-686JiwlwzfwzEast [place] [facility] Hospital Aspartate aminotransferase [Enzymatic activity/volume] in Serum or PlasmaOrdered By: [facility] [employer] on 59-47-8011EFN [Catalytic activity/Vol]18 U/L13-39 [facility] [place] [facility] HospitalBilirubin.total [Mass/volume] in Serum or PlasmaOrdered By: [employer] on 16-36-3826Ulnwafxaq [Mass/Vol]0.6 mg/dL 0.3-1.0[facility] [place] [facility] HospitalCalcium [Mass/volume] in Serum or Plasma Ordered By: [employer] on 71-15-1303Adjdbff [Mass/Vol]9.8 mg/dL8.6-10.3 [facility] [place] [facility] HospitalCarbon dioxide, total [Moles/volume] in Serum or PlasmaOrdered By: [employer] on 25-21-6336BE4 [Moles/Vol]28.1 mmol/L 21.0-31.0[facility] [place] [facility] HospitalChloride [Moles/volume] in Serum or PlasmaOrdered By: [employer] on 84-88-4384Abbhjfqc [Moles/Vol]101 mmol/L 98-107[facility] [place] [facility] HospitalCholesterol [Mass/volume] in Serum or PlasmaOrdered By: [employer] on 19-98-7721Pthvdjqlyas [Mass/Vol]248 mg/nL123-366SidzveigsEast [place] Regional HospitalComment on above:Chol less than 200 mg/dl low riskChol 201-239 mg/dl borderline riskChol 240 mg/dl and greater high riskCholesterol in LDL Calc [Mass/Vol]Ordered By: [facility] on 71-84-4600Lgyfwzjclhe in LDL [Mass/Vol]154 mg/dL0-100[facility] [place] [facility] HospitalComment on above:LDL ATP III CLASSIFICATIONLDL less than 100 mg/dL OptimalLDL 100-129 mg/dL Near or above zxteqceODG768-950 mg/dL Borderline highLDL 160-189 mg/dL HighLDL greater than 189 mg/dL Very highCholesterol in VLDL Calc [Mass/Vol]Ordered By: [facility] on 53-78-2517Bkyhajrlkjh in VLDL [Mass/Vol]16 mg/dLEast [place] Regional HospitalCreatinine [Mass/volume] in Serum or PlasmaOrdered By: [facility] on 83-48-2907Tefjfvwnbl [Mass/Vol]0.65 mg/dL0.60-1.20[facility] [place] [facility] HospitalErythrocyte distribution width Auto (RBC) [Ratio]Ordered By: [facility] on 06-05-8324Vulameyzekv distribution width (RBC) [Ratio]13.0 %11.9-15.3FLake County Memorial Hospital - WestGlucose [Mass/volume] in Serum or PlasmaOrdered By: [facility] on 95-73-2910Uiaoezn [Mass/Vol]99 mg/xN98-486BznjwvptsEast [place] Regional HospitalComment on above:ADA recommended reference rangeRandom Glucose Reference Range is dependent on time and content of last meal. Glucose of more than 200 mg/dL in a nonstressed, ambulatory subject supports the diagnosisof Diabetes Mellitus.Hematocrit Auto (Bld) [Volume fraction]Ordered By: [facility] on 06-79-9068Umtwapjuya (Bld) [Volume fraction]37.8 % 34.0-46.4FLake County Memorial Hospital - WestHemoglobin [Mass/volume] in Blood Ordered By: [facility] on 65-83-2794Mnpofnnufs (Bld) [Mass/Vol]12.9 g/dL 11.8-15.4FLake County Memorial Hospital - WestLeukocytes [#/volume] corrected for nucleated erythrocytes in Blood by Automated counOrdered By: [facility] on 11-95-2745IJP corrected for nucl RBC Auto (Bld) [#/Vol]8.9 10*3/uL3.8-11.6 [facility] Auto (RBC) [Entitic mass]Ordered By: [employer] on 56-50-7003QDX (RBC) [Entitic mass]31.6 pg24.7-34.3 [facility] HospitalHC Auto (RBC) [Mass/Vol]Ordered By: [employer] on 50-77-9594IFFH (RBC) [Mass/Vol]34.2 g/dL32.0-35.0[facility] HospitalMCV Auto (RBC) [Entitic vol]Ordered By: [facility] on 88-78-7120MWR (RBC) [Entitic vol]92.5 bX24-921GmnujsjaqEast [place] Regional Hospital No Panel InformationOrdered By: [facility]REACH COMMUNITY on 52-73-7374Jjcpryslt GFR (CKD-EPI)> 60.0 mL/MinEast Ohio Regional HospitalPharmacy Creatinine Clearance (ChemN/[facility] HospitalPlatelet mean volume Auto (Bld) [Entitic vol]Ordered By: [facility] on 31-13-9834Fwxzxdrg mean volume (Bld) [Entitic vol]7.7 fL6.3-10.7FLake [facility] Platelets Auto (Bld) [#/Vol]Ordered By: [facility] on 02-15-2024 Platelets (Bld) [#/Vol]297 10*3/zA394-014RltfwzqogEast [place] Regional Hospital Potassium [Moles/volume] in Serum or PlasmaOrdered By: [facility]REACH COMM[facility] on 26-30-5076Sjlggackr [Moles/Vol]4.2 mmol/L3.5-5.1FLake County Memorial Hospital - WestProtein [Mass/volume] in Serum or PlasmaOrdered By: [facility]REACH COMMUNITY on 43-80-9382Oaakokh [Mass/Vol]7.2 g/dL6.4-8.9[facility] [place] [facility] HospitalRBC Auto (Bld) [#/Vol]Ordered By: [facility]ACH COMM[facility] on 06-55-9985RKP (Bld) [#/Vol] 4.08 10*6/uL3.60-5.00[facility] Hospitalerum or plasma anion gap determinationOrdered By: OUTREACH COMMUNITY on 81-11-4271Gmdlb gap [Moles/Vol] 12.1 mmol/L6.0-15.0[facility] Hospitalerum or plasma high density lipoprotein (HDL) cholesterol measurementOrdered By: OUTREACH COMMUNITY on 83-04-9370Ykcdwejwxgr in HDL [Mass/Vol]78 mg/qN85-18TucezhnpqEast [place] Regional HospitalComment on above:HDL CHOL ATP-III CLASSIFICATION Cardiovascular RiskHDL > or equal to 60 mg/dL LOWHDL < 40 mg/dL HIGHSerum or plasma total cholesterol/high density lipoprotein (HDL) cholesterol mass ratOrdered By: [facility]REACH [facility] on 04-19-1592Wssbbylztoi.total/Cholesterol in HDL [Mass ratio]3.2 {ratio}<5.0[facility] Hospitalodium [Moles/volume] in Serum or PlasmaOrdered By: [facility] on 34-95-8319Vatbja [Moles/Vol]137 mmol/W218-883CjyqwvmurEast Ohio Regional HospitalTriglyceride [Mass/volume] in Serum or PlasmaOrdered By: [facility] on 16-34-4463Ahmddiqrstsl [Mass/Vol]82 mg/dL0-149[facility] [place] [facility] HospitalComment on above:TRIG ATP III CLASSIFICATIONTRIG less than 150 mg/dL NormalTRIG 150-199 mg/dL Borderline highTRIG 200-500 mg/dL High TRIG greater than 500 mg/dL Very highStandard traceable to the Center for Disease Conrtrol and Prevention (CDC) test method.Urea nitrogen [Mass/volume] in Serum or PlasmaOrdered By: [facility] on 64-08-6336Yaue nitrogen [Mass/Vol]9 mg/dL7-25[facility] [place] [facility] HospitalReminderson 34-43-8329Iswooohaz From: Mara Rosario To: [facility] - Clinical; Sent: 01/20/2024 08:21:24 EDT Show up: 01/20/2024 08:22:00 EDT Subject: Ambulatory Reminder Due Date/Time: 01/21/2024 08:21:00 EDT Pap and HPV was negative Results: Date Result Name Value Ref Range 01/13/2024 9:08 HPV Aptima Negative (Negative - ) 01/13/2024 9:08 PAP Note Patient informed and voiced understanding.[facility] [id number] 50-40-2028Hbvbyebg report Cyto stain Doc (Cvx/Vag)NoteInvalid Interpretation ChrissyTrihealth Bethesda North HospitalComment on above:Result Comment: TESTS RESULT FLAG UNITS REF RANGE LAB Clinician Provided Cytology Information Source.............Endocervix No. of containers..01 ThinPrep Vial DIAGNOSIS: 01 NEGATIVE FOR INTRAEPITHELIAL LESION OR MALIGNANCY. Specimen adequacy: 01 Satisfactory for evaluation. Endocervical and/or squamous metaplastic cells (endocervical component) are present. Performed by: 01 Marjan Covington, Insurance Case Manager ([facility]) . 01 Note: Note 01 The Pap smear is a screening test designed to aid in the detection of premalignant and malignant conditions of the uterine cervix. It is not a diagnostic procedure and should not be used as the sole means of detecting cervical cancer. Both false-positive and false-negative reports do occur. Test Methodology: Note 01 This liquid based ThinPrep(R) pap test was screened with the use of an image guided system. HPV Genotype Reflex Note 01 Criteria not met, HPV Genotype not performed. FLAG LEGEND: L-Low Normal,H-High Normal,LL-Alert Low,HH-Alert High <-Panic Low,>-Panic High,A-Abnormal,AA-Critical Abnormal Performed at: [facility] Lab[address] [address] Latia Lennon MD, Fkkmhpwya By: #### [id number] ####Josef [facility] [address], [id number] 16+18+31+33+35+39+45+51+52+56+58+59+66+68 DNA Probe+sig amp Ql (Cvx)Negative Invalid Interpretation CodeNegativeTrihealth Bethesda North HospitalComment on above: Result Comment: This nucleic acid amplification test detects fourteen high-risk HPV types (16,18,31,33,35,39,45,51,52,56,58,59,66,68) without differentiation. Performed at: [facility] [address], [place] [id number] MD Saji Jeffery Performed at: =G [facility] [id number] MD Saji JefferyPerformed By: #### [id number] ####Josef [facility] [address], [id number] 01-17-2024 Reminders From: Mara Rosario To: [facility] - Clinical; Sent: 01/17/2024 08:22:42 EDT Show up: 01/17/2024 08:23:00 EDT Subject: Ambulatory Reminder Due Date/Time: 01/18/2024 08:22:00 EDT Pap is negative Results: Date Result Name Value Ref Range 01/13/2024 9:08 HPV Aptima Negative (Negative - ) 01/13/2024 9:08 PAP Note Patient informed and voiced understanding.NormalTrihealth Bethesda North Hospital Ambulatory Visit Summaryon [id number] Visit Summary NILDA ALMARAZ :1970 Visit Date:01/13/2024 Ambulatory Visit Instructions Your Diagnosis BMI 23.0-23.9, adult Former smoker Your Care Team Attending Physician - Mara Rosario Primary Care Physician - Thaddeus Mojica MD This Is Your Medications List esomeprazole (Nexium 40 mg Cap-EC) Procedures Performed EGD (esophagogastroduodenoscopic) electrohydraulic lithotripsy of bezoar in stomach (08/30/2022), Colonoscopy, Tympanostomy. Discharge Vitals Heart Rate (Peripheral) 72 Respiratory Rate 18 Blood Pressure 134/80 Height 159.0 cm Height 63 in Weight 58.9 kg Weight 129.58 lb BMI 23.3 What to do next Scheduled Follow-Up Appointments Saturday 9:15 AM EDT With: Thaddeus Mojica MD Where: [facility] Family Medicine [facility] Medicine Office/Clinic Noteon 77-58-4423Xwluns Medicine Office/Clinic NoteHPI Staff Nilda is a 53 year old female presenting for well woman Woman check up: Last pap: Last Loretta: 09/16/23 negative Results of lap pap: Where was it done: Dr barry hx: # of pregnancies..2. abortions... live births...2 living children...2 menstrual cycle (normal,heavy,ect): n/a History of STD: no Do you want tested for STD today: no Vaginal discharge, odor, itching: no Self breast exam at home? yes Hx of breast, cervical or uterine cancer in the family: great grandma with breast cancer would like order for Loretta to [facility] History of Present Illness pt presents today for well woman exam Review of Systems PHQ Score Initial Depression Screen Score: 0 SCORE Physical Exam Vitals & Measurements HR: 72(Peripheral) RR: 18 BP: 134/80 SpO2: 98% HT: 63 in HT: 159.0 cm WT: 58.9 kg WT: 129.58 lb BMI: 23.3 General: Well developed, well nourished, in no acute distress Neck: Neck supple. No masses or palpable cervical nodes. Trachea midline. Thyroid without nodules, masses, tenderness, or enlargement Breast: No mass, nodule, discharge, or erythema bilaterally, and no axillary lymphadenopathy Lungs: Normal respiratory effort and clear to auscultation Cardio: Regular rate and rhythm, normal S1 and S2, no murmur, no rub Abdomen: Soft, non-distended, non-tender, normal bowel sounds x4 Gyno: normal external genitalia. Urethra no discharge. Vagina normal without lesions, no vaginal discharge. Cervix normal, without lesions. Uterus normal. No adnexal masses. Pap obtained Neurologic: Grossly normal Skin: [place], moist, no tenting Lymph Nodes: No cervical adenopathy, nodes normal Mental Status: Alert and oriented x3. Normal mood and affect Assessment/Plan 1. Well woman exam (Z01.419: Encounter for gynecological examination (general) (routine) without abnormal findings) pt presents today for well woman exam. pt is doing well denies needs. has always had negative paps.pap obtained without difficulty. RTC 1 year. due for mammogram in August 31. BMI 23.0-23.9, adult (Z68.23: Body mass index [BMI] 23.0-23.9, adult) BMI education complete Ordered: PAP w/ HPV and Genotype rflx 3. Former smoker (Z87.891: Personal history of nicotine dependence) continue not smoking Ordered: PAP w/ HPV and Genotype rflx Follow-up No qualifying data available Problem List/Past Medical History Ongoing Allergic dermatitis Allergic rhinitis BMI 23.0-23.9, adult Breast cancer screening Former smoker Gastroesophageal reflux disease without esophagitis HLD (hyperlipidemia) Marijuana user Raynauds phenomenon Spondyloarthritis, cervical region Well woman exam Historical No qualifying data Procedure/Surgical History EGD (esophagogastroduodenoscopic) electrohydraulic lithotripsy of bezoar in stomach (08/30/2022), Colonoscopy, Tympanostomy. Medications Nexium 40 mg Cap-EC, 40 mg= 1 cap(s), Oral, Daily, 1 refills, Still taking, not as prescribed: is taking 20mg OTC Allergies penicillin Social History Tobacco Former smoker, quit more than 30 days ago Tobacco Use:. Cigarettes, Household tobacco concerns: No., 01/13/2024 Family History Primary malignant neoplasm of female breast: Grandparent. Immunizations Vaccine Date Status Comments SARS-CoV-2 (COVID-19) mRNA-1273 vaccine 01/07/2021 Recorded 2023-08-28: 49 SARS-CoV-2 (COVID-19) mRNA-1273 vaccine 12/10/2020 RecordedBrecksville VA / Crille HospitalComment on above:Result Comment: Electronically Signed By: Mara Rosario.thaddeus\Date and Time Signed: 01/13/24 09:28 EDTPAP [id number] 01-13-2024 Gynecological Body SiteENDOCERVIXBrecksville VA / Crille HospitalComment on above:Performed By: #### [id number] ####Bahena [facility] [address], [id number] Mammographyon 09-17-2023 Outside [id number]#1.00Holzer HospitalAlanine aminotransferase [Enzymatic activity/volume] in Serum or PlasmaOrdered By: [facility]ACH [facility] on 62-03-4058QAD [Catalytic activity/Vol]18 U/L7-52[facility] [place] [facility] HospitalAlbumin [Mass/volume] in Serum or Plasma by Bromocresol green (BCG) dye binding methoOrdered By: [facility] COMM[facility] on 29-04-1253Ogxxubw BCG dye [Mass/Vol]4.5 g/dL3.5-5.7 [facility] [place] [facility] HospitalAlkaline phosphatase [Enzymatic activity/volume] in Serum or PlasmaOrdered By: [facility]ACH COMM[facility] on 08-31-2023 ALP [Catalytic activity/Vol]84 U/U52-103SnfnmhawhEast [facility] Regional Hospital Aspartate aminotransferase [Enzymatic activity/volume] in Serum or PlasmaOrdered By: [facility]ACH COMM[facility] on 64-36-9563HXQ [Catalytic activity/Vol]22 U/L13-39 [facility] [place] [facility] HospitalBilirubin.total [Mass/volume] in Serum or PlasmaOrdered By: [facility] on 83-74-4294Jzsbacbte [Mass/Vol]0.3 mg/dL 0.3-1.0[facility] [place] [facility] HospitalCalcium [Mass/volume] in Serum or Plasma Ordered By: [facility] on 35-57-0527Msngtqf [Mass/Vol]9.4 mg/dL8.6-10.3 [facility] [place] [facility] HospitalCarbon dioxide, total [Moles/volume] in Serum or PlasmaOrdered By: [facility] on 15-79-8406KT9 [Moles/Vol]30.5 mmol/L 21.0-31.0[facility] [place] [facility] HospitalChloride [Moles/volume] in Serum or PlasmaOrdered By: [facility] on 60-94-2804Ihvuinzc [Moles/Vol]103 mmol/L 98-107[facility] [place] [facility] HospitalCholesterol [Mass/volume] in Serum or PlasmaOrdered By: OUTREACH [facility] on 38-98-3499Qtzffelowpb [Mass/Vol]230 mg/qL809-914AlwdnrafcEast Ohio Regional HospitalComment on above:Chol less than 200 mg/dl low riskChol 201-239 mg/dl borderline riskChol 240 mg/dl and greater high riskCholesterol in LDL Calc [Mass/Vol]Ordered By: [facility] on 53-88-1316Hjcswfjnqyn in LDL [Mass/Vol]141 mg/dL0-100[facility] [place] [facility] HospitalComment on above:LDL ATP III CLASSIFICATIONLDL less than 100 mg/dL OptimalLDL 100-129 mg/dL Near or above kouzjveNGV767-331 mg/dL Borderline highLDL 160-189 mg/dL HighLDL greater than 189 mg/dL Very highCholesterol in VLDL Calc [Mass/Vol]Ordered By: [facility] on 90-61-5174Htjcoiyznwg in VLDL [Mass/Vol]18 mg/dLEast [place] Regional HospitalCreatinine [Mass/volume] in Serum or PlasmaOrdered By: [facility] on 69-95-5900Gbovegqffm [Mass/Vol]0.65 mg/dL0.60-1.20[facility] [place] [facility] HospitalErythrocyte distribution width Auto (RBC) [Ratio]Ordered By: [facility] on 33-09-1650Zrxdoserqun distribution width (RBC) [Ratio]12.8 %11.9-15.3FLake County Memorial Hospital - WestGlucose [Mass/volume] in Serum or PlasmaOrdered By: OUTREACH [facility] on 82-76-6326Dxlxuvc [Mass/Vol]103 mg/sQ80-962BurhfehknEast Ohio Regional HospitalComment on above:ADA recommended reference rangeRandom Glucose Reference Range is dependent on time and content of last meal. Glucose of more than 200 mg/dL in a nonstressed, ambulatory subject supports the diagnosisof Diabetes Mellitus.Hematocrit Auto (Bld) [Volume fraction]Ordered By: [facility] on 86-62-5640Ofozcmhbme (Bld) [Volume fraction]36.8 % 34.0-46.4FLake County Memorial Hospital - WestHemoglobin [Mass/volume] in Blood Ordered By: [facility] on 66-03-5582Nzqzookgkv (Bld) [Mass/Vol]12.5 g/dL 11.8-15.4FLake County Memorial Hospital - WestLeukocytes [#/volume] corrected for nucleated erythrocytes in Blood by Automated counOrdered By: [facility] COMM[facility] on 95-66-7235ZJO corrected for nucl RBC Auto (Bld) [#/Vol]6.9 10*3/uL3.8-11.6 [facility] HospitalH Auto (RBC) [Entitic mass]Ordered By: OUTREACH [facility] on 25-56-1220CSC (RBC) [Entitic mass]31.6 pg24.7-34.3 [facility] [place] [facility] HospitalMCHC Auto (RBC) [Mass/Vol]Ordered By: OUTREACH [facility] on 30-19-5868YQWX (RBC) [Mass/Vol]33.9 g/dL32.0-35.0[facility] [place] [facility] HospitalMCV Auto (RBC) [Entitic vol]Ordered By: [facility] on 33-55-3448JUI (RBC) [Entitic vol]93.1 aY37-769XkutmsismEast [facility] Regional Hospital No Panel InformationOrdered By: [facility] on 78-31-1505Yoynlhqni GFR (CKD-EPI)> 60.0 mL/MinEast [facility] Regional HospitalPharmacy Creatinine Clearance (ChemN/[facility] HospitalPlatelet mean volume Auto (Bld) [Entitic vol]Ordered By: OUTREACH [facility] on 54-43-4390Misxnpln mean volume (Bld) [Entitic vol]8.1 fL6.3-10.7FLake County Memorial Hospital [facility] West Platelets Auto (Bld) [#/Vol]Ordered By: [facility]ACH COMM[facility]ITY on 08-31-2023 Platelets (Bld) [#/Vol]275 10*3/pZ045-354PdgnxjbgzEast [facility] Hospital Potassium [Moles/volume] in Serum or PlasmaOrdered By: OUTREACH COMMUN[facility] on 46-63-6022Wkkqmavsd [Moles/Vol]4.2 mmol/L3.5-5.1FLake County Memorial Hospital - WestProtein [Mass/volume] in Serum or PlasmaOrdered By: [facility]REACH COMMUNITY on 82-87-0870Frxdnjt [Mass/Vol]6.9 g/dL6.4-8.9[facility] [place] [facility] HospitalRBC Auto (Bld) [#/Vol]Ordered By: [facility] COMM[facility] on 48-08-9032WRS (Bld) [#/Vol] 3.96 10*6/uL3.60-5.00[facility] Hospitalerum or plasma anion gap determinationOrdered By: OUTREACH COMMUNITY on 80-28-5481Dfmlw gap [Moles/Vol] 9.7 mmol/L6.0-15.0[facility] Hospitalerum or plasma high density lipoprotein (HDL) cholesterol measurementOrdered By: OUTREACH COMMUNITY on 67-79-4500Hmyeewrjnzp in HDL [Mass/Vol]70 mg/bP09-59TzfrrwojxEast [place] Regional HospitalComment on above:HDL CHOL ATP-III CLASSIFICATION Cardiovascular RiskHDL > or equal to 60 mg/dL LOWHDL < 40 mg/dL HIGHSerum or plasma total cholesterol/high density lipoprotein (HDL) cholesterol mass ratOrdered By: [facility]ACH COMMUN[facility] on 42-76-0565Ziywgeikefk.total/Cholesterol in HDL [Mass ratio]3.3 {ratio}<5.0[facility] Hospitalodium [Moles/volume] in Serum or PlasmaOrdered By: OUTREACH COMMUNITY on 95-43-5661Agquka [Moles/Vol]139 mmol/Y697-485SgqjaseumEast Ohio Regional HospitalTriglyceride [Mass/volume] in Serum or PlasmaOrdered By: OUTREACH COMMUNITY on 26-66-5672Soseovdekquc [Mass/Vol]93 mg/dL0-149[facility] [place] [facility] HospitalComment on above:TRIG ATP III CLASSIFICATIONTRIG less than 150 mg/dL NormalTRIG 150-199 mg/dL Borderline highTRIG 200-500 mg/dL High TRIG greater than 500 mg/dL Very highStandard traceable to the Center for Disease Conrtrol and Prevention (CDC) test method.Urea nitrogen [Mass/volume] in Serum or PlasmaOrdered By: OUTREACH COMMUNITY on 76-45-8269Frhd nitrogen [Mass/Vol]15 mg/dL7[facility] [place] [facility] HospitalAlanine aminotransferase [Enzymatic activity/volume] in Serum or PlasmaOrdered By: OUTREACH COMMUNITY on 99-63-9197BNP [Catalytic activity/Vol]17 U/L7[facility] [place] [facility] HospitalAlbumin [Mass/volume] in Serum or Plasma by Bromocresol green (BCG) dye binding methoOrdered By: OUTREACH COMMUNITY on 96-99-2912Cukkdyf BCG dye [Mass/Vol]4.8 g/dL3.5-5.7FLake County Memorial Hospital - WestAlkaline phosphatase [Enzymatic activity/volume] in Serum or PlasmaOrdered By: OUTREACH COMMUNITY on 44-87-6935JOF [Catalytic activity/Vol]89 U/L34-104 [facility] [place] [facility] HospitalAspartate aminotransferase [Enzymatic activity/volume] in Serum or PlasmaOrdered By: OUTREACH COMMUNITY on 03-16-2023 AST [Catalytic activity/Vol]19 U/F44-35XebfebrmfEast [facility] Regional Hospital Bilirubin.total [Mass/volume] in Serum or PlasmaOrdered By: OUTREACH COMMUNITY on 44-26-1715Kfqkajokt [Mass/Vol]0.4 mg/dL0.3-1.0[facility] [place] [facility] HospitalCalcium [Mass/volume] in Serum or PlasmaOrdered By: OUTREACH COMMUNITY on 79-47-7371Jhgljrx [Mass/Vol]9.4 mg/dL8.6-10.3FLake County Memorial Hospital - West Carbon dioxide, total [Moles/volume] in Serum or PlasmaOrdered By: OUTREACH COMMUNITY on 41-97-8932TL1 [Moles/Vol]28.6 mmol/L21.0-31.0[facility] [place] [facility] HospitalChloride [Moles/volume] in Serum or PlasmaOrdered By: OUTREACH COMMUNITY on 29-45-0240Xtwaiavx [Moles/Vol]104 mmol/B11-478XffkppcyuEast Ohio Regional HospitalCholesterol [Mass/volume] in Serum or PlasmaOrdered By: OUTREACH COMMUNITY on 08-86-4497Tbefsoxlnfe [Mass/Vol]193 mg/hV390-759BittwddcmEast Ohio Regional HospitalComment on above:Chol less than 200 mg/dl low riskChol 201-239 mg/dl borderline riskChol 240 mg/dl and greater high riskCholesterol in LDL Calc [Mass/Vol]Ordered By: [facility]ACH COMMUNITY on 59-67-7319Ncqvrjupimz in LDL [Mass/Vol]116 mg/dL0-100[facility] [place] [facility] HospitalComment on above:LDL ATP III CLASSIFICATIONLDL less than 100 mg/dL OptimalLDL 100-129 mg/dL Near or above xbzjesgEVM320-468 mg/dL Borderline highLDL 160-189 mg/dL HighLDL greater than 189 mg/dL Very highCholesterol in VLDL Calc [Mass/Vol]Ordered By: [facility] on 16-74-6606Yoohfwkhnwj in VLDL [Mass/Vol]14 mg/dLEast Ohio Regional HospitalCreatinine [Mass/volume] in Serum or PlasmaOrdered By: [facility] on 75-73-0908Xsylqaefdv [Mass/Vol]0.68 mg/dL0.60-1.20[facility] [place] [facility] HospitalErythrocyte distribution width Auto (RBC) [Ratio]Ordered By: [facility] on 11-40-0572Bozcdtcxiom distribution width (RBC) [Ratio] 12.6 %11.9-15.3FLake County Memorial Hospital - WestGlucose [Mass/volume] in Serum or PlasmaOrdered By: [facility] on 28-69-6264Apooxgj [Mass/Vol]98 mg/dL 70-100[facility] [place] [facility] HospitalComment on above:ADA recommended reference rangeRandom Glucose Reference Range is dependent on time and content of last meal. Glucose of more than 200 mg/dL in a nonstressed, ambulatory subject supports the diagnosisof Diabetes Mellitus.Hematocrit Auto (Bld) [Volume fraction]Ordered By: [facility] on 82-38-1286Htqfvcjllz (Bld) [Volume fraction]37.8 %34.0-46.4FLake County Memorial Hospital - WestHemoglobin [Mass/volume] in BloodOrdered By: [facility] on 69-62-1076Qtbkhvxczn (Bld) [Mass/Vol]12.9 g/dL11.8-15.4FLake County Memorial Hospital - WestLeukocytes [#/volume] corrected for nucleated erythrocytes in Blood by Automated coun Ordered By: [facility] on 31-93-4638CQK corrected for nucl RBC Auto (Bld) [#/Vol]7.0 10*3/uL3.8-11.6FAvita Health System [facility] Auto (RBC) [Entitic mass]Ordered By: [facility] on 37-31-2877JQX (RBC) [Entitic mass]31.0 pg24.7-34.3FLake County Memorial Hospital - WestMCHC Auto (RBC) [Mass/Vol] Ordered By: [facility] on 56-35-9687YXPS (RBC) [Mass/Vol]34.1 g/dL 32.0-35.0[facility] [place] [facility] HospitalMCV Auto (RBC) [Entitic vol]Ordered By: [facility] COMM[facility] on 21-58-5023IGA (RBC) [Entitic vol]91.0 aQ16-669 [facility] [place] [facility] HospitalNo Panel InformationOrdered By: [facility]REACH COMMUNITY on 21-28-2426Cmgaeygfm GFR (CKD-EPI)> 60.0 mL/MinEast [facility] Regional HospitalPharmacy Creatinine Clearance (ChemN/[facility]. Vincent HospitalPlatelet mean volume Auto (Bld) [Entitic vol]Ordered By: [facility] on 30-38-0768Omsrbnve mean volume (Bld) [Entitic vol]7.4 fL6.3-10.7 [facility] [place] [facility] HospitalPlatelets Auto (Bld) [#/Vol]Ordered By: OUTREACH [facility] on 22-87-5479Hrgqcncen (Bld) [#/Vol]307 10*3/jZ968-191 [facility] [place] [facility] HospitalPotassium [Moles/volume] in Serum or Plasma Ordered By: [facility] on 39-30-9311Hnbakatie [Moles/Vol]4.5 mmol/L 3.5-5.1FLake County Memorial Hospital - WestProtein [Mass/volume] in Serum or Plasma Ordered By: [facility] on 84-01-8390Xsgopjr [Mass/Vol]6.9 g/dL6.4-8.9 [facility] [place] [facility] HospitalRBC Auto (Bld) [#/Vol]Ordered By: [facility] on 61-15-9416FYM (Bld) [#/Vol]4.15 10*6/uL3.60-5.00[facility] Hospitalerum or plasma anion gap determinationOrdered By: [facility] on 15-84-4471Mjvyi gap [Moles/Vol]11.9 mmol/L6.0-15.0[facility] Hospitalerum or plasma high density lipoprotein (HDL) cholesterol measurementOrdered By: OUTREACH [facility] on 97-36-0963Iuibezfmeog in HDL [Mass/Vol]62 mg/pD27-87NbxnmkmifEast Ohio Regional HospitalComment on above: HDL CHOL ATP-III CLASSIFICATION Cardiovascular RiskHDL > or equal to 60 mg/dL LOWHDL < 40 mg/dL HIGHSerum or plasma total cholesterol/high density lipoprotein (HDL) cholesterol mass ratOrdered By: [facility] on 03-16-2023 Cholesterol.total/Cholesterol in HDL [Mass ratio]3.1 {ratio}<5.0[facility] Hospitalodium [Moles/volume] in Serum or PlasmaOrdered By: [facility] on 16-76-0475Emxadn [Moles/Vol]140 mmol/W688-041OywtpjeezEast [facility] Regional HospitalTriglyceride [Mass/volume] in Serum or PlasmaOrdered By: [facility] on 81-84-5033Qmjjpdcshwbe [Mass/Vol]74 mg/dL0-149[facility] [place] [facility] HospitalComment on above:TRIG ATP III CLASSIFICATIONTRIG less than 150 mg/dL NormalTRIG 150-199 mg/dL Borderline highTRIG 200-500 mg/dL High TRIG greater than 500 mg/dL Very highStandard traceable to the Center for Disease Conrtrol and Prevention (CDC) test method.Urea nitrogen [Mass/volume] in Serum or PlasmaOrdered By: [facility] on 33-13-0185Tsdc nitrogen [Mass/Vol]11 mg/dL7-25[facility] HospitalBody fluid albumin measurement (mass/volume)Ordered By: [facility] on 73-75-2154Iworlwk (Body fld) [Mass/Vol]4.0 g/dL3.2-5.5FLake County Memorial Hospital - WestCholesterol [Mass/volume] in Serum or PlasmaOrdered By: [facility] on 08-04-2022 Cholesterol [Mass/Vol]219 mg/cV768-155SfvxqaemjEast Ohio Regional HospitalComment on above:Chol less than 200 mg/dl low riskChol 201-239 mg/dl borderline riskChol 240 mg/dl and greater high riskCholesterol in LDL Calc [Mass/Vol]Ordered By: [facility] on 32-39-9400Afrktwdymmi in LDL [Mass/Vol]131 mg/dL0-100 [facility] [place] [facility] HospitalComment on above:LDL ATP III CLASSIFICATIONLDL less than 100 mg/dL OptimalLDL 100-129 mg/dL Near or above ifzhpyoACD252-856 mg/dL Borderline highLDL 160-189 mg/dL HighLDL greater than 189 mg/dL Very high Cholesterol in VLDL Calc [Mass/Vol]Ordered By: OUTREACH [facility] on 08-04-2022 Cholesterol in VLDL [Mass/Vol]10 mg/dLEast [facility] Regional Hospital Creatinine and Glomerular filtration rate.predicted panel (S/P/Bld)Ordered By: OUTREACH [facility] on 14-36-9465Gxhbpixhxv [Mass/Vol]0.64 mg/dL0.44-1.03 [facility] [place] [facility] HospitalErythrocyte distribution width Auto (RBC) [Ratio]Ordered By: [facility] on 01-64-9105Nmucsplofnm distribution width (RBC) [Ratio]12.6 %11.9-15.3FLake County Memorial Hospital - WestEstimated glomerular filtration rate (GFR) non- AmericanOrdered By: [facility] on 49-24-6739DVL/1.73 sq M.predicted among non-blacks MDRD (S/P/Bld) [Vol rate/Area]> 60 mL/MinEast [place] Regional HospitalHematocrit Auto (Bld) [Volume fraction]Ordered By: [facility] on 16-47-6704Ssylpclbca (Bld) [Volume fraction]37.9 %34.0-46.4FLake County Memorial Hospital - WestHemoglobin [Mass/volume] in BloodOrdered By: [facility] on 65-51-3587Lqzkkrfcyp (Bld) [Mass/Vol]13.1 g/dL11.8-15.4FAvita Health System [facility] Auto (RBC) [Entitic mass]Ordered By: [facility] on 60-94-6964ZEZ (RBC) [Entitic mass]31.8 pg24.7-34.3FOhioHealthHC Auto (RBC) [Mass/Vol]Ordered By: [facility] on 02-19-7882BQWA (RBC) [Mass/Vol]34.4 g/dL32.0-35.0Del[facility] HospitalV Auto (RBC) [Entitic vol] Ordered By: [facility] on 18-93-5164KWP (RBC) [Entitic vol]92.3 kV00-757 [facility] [place] Regional HospitalNo Panel InformationOrdered By: [facility] on 75-08-1450Grbzkzjll GFR ()> 60 mL/MinEast [place] Regional HospitalComment on above:GFR estimated reference range: According to KDOQI guidelines, <60 ml/min/1.73m2 is sufficient todiagnose a patient with chronic kidney disease.Pharmacy Creatinine Clearance (ChemN/[facility] HospitalTriglycerides Malasp54 mg/rX33-022GyhzewfbmEast [place] Regional HospitalComment on above:TRIG ATP III CLASSIFICATIONTRIG less than 150 mg/dL NormalTRIG 150-199 mg/dL Borderline highTRIG 200-500 mg/dL High TRIG greater than 500 mg/dL Very highStandard traceable to the Center for Disease Conrtrol and Prevention (CDC) test method.Platelet mean volume Auto (Bld) [Entitic vol] Ordered By: [facility] on 39-90-6445Oeirdayl mean volume (Bld) [Entitic vol]7.9 fL6.3-10.7FLake County Memorial Hospital - WestPlatelets Auto (Bld) [#/Vol] Ordered By: [facility] on 80-26-3220Giotyapwc (Bld) [#/Vol]312 10*3/uL 150-450East [place] Regional HospitalProtein [Mass/volume] in Serum or Plasma Ordered By: [facility] on 08-49-5536Eqjbkyh [Mass/Vol]6.7 g/dL6.1-7.9 [facility] [place] Regional HospitalRBC Auto (Bld) [#/Vol]Ordered By: [facility] on 24-34-0942HLB (Bld) [#/Vol]4.11 10*6/uL3.60-5.00UC [facility] Chester Hospitalerum or plasma alanine aminotransferase measurement without P-5'-P (enzymatic activiOrdered By: [facility] on 48-22-9886PTV No additional P-5'-P [Catalytic activity/Vol]29 U/L16-32SzyxpupstUC West Chester Hospitalerum or plasma alkaline phosphatase measurement (enzymatic activity/volume)Ordered By: [facility] on 20-11-6218HDJ [Catalytic activity/Vol]74 U/M49-49XqjyhrfyuUC West Chester Hospitalerum or plasma anion gap determinationOrdered By: [facility] on 31-05-5787Onsbo gap [Moles/Vol]13.1 mmol/L6.0-15.0UC [facility] Hospitalerum or plasma aspartate aminotransferase measurement (enzymatic activity/volume)Ordered By: [facility] on 18-15-2618PER [Catalytic activity/Vol]26 U/A49-51QmocdihttUC West Chester Hospitalerum or plasma calcium measurement (mass/volume)Ordered By: [facility] on 05-62-4536Etzolzo [Mass/Vol]9.7 mg/dL8.2-10.2FSt. Mary's Medical Center, Ironton Campuserum or plasma chloride measurement (moles/volume) Ordered By: [facility] on 56-26-3976Psvleldg [Moles/Vol]102 mmol/L95-114 [facility] Hospitalerum or plasma glucose measurement (mass/volume)Ordered By: [facility] on 06-42-8585Wuknxmv [Mass/Vol]103 mg/hE60-198YidnzqypzEast [place] Regional HospitalComment on above:ADA recommended reference rangeRandom Glucose Reference Range is dependent on time and content of last meal. Glucose of more than 200 mg/dL in a nonstressed, ambulatory subject supports the diagnosisof Diabetes Mellitus.Serum or plasma high density lipoprotein (HDL) cholesterol measurementOrdered By: [facility] on 02-16-6954Vmrpfihzmtp in HDL [Mass/Vol]78 mg/cO47-49LhwcaloicEast [place] Regional HospitalComment on above:HDL CHOL ATP-III CLASSIFICATION Cardiovascular RiskHDL > or equal to 60 mg/dL LOWHDL < 40 mg/dL HIGHSerum or plasma potassium measurement (moles/volume)Ordered By: [facility] on 84-02-1932Csplopims [Moles/Vol] 4.3 mmol/L3.5-5.1FSt. Mary's Medical Center, Ironton Campuserum or plasma sodium measurement (moles/volume)Ordered By: [facility] on 56-18-3274Wpjbkl [Moles/Vol]141 mmol/F623-764CknvonowsUC West Chester Hospitalerum or plasma total bilirubin measurement (mass/volume)Ordered By: [facility] on 42-27-5500Uxuqjbegc [Mass/Vol]0.5 mg/dL0.3-1.2FLake County Memorial Hospital - West Serum or plasma total carbon dioxide measurement (moles/volume)Ordered By: [facility] on 60-30-3451WP7 [Moles/Vol]30.2 mmol/L22.0-30.0UC [facility] Hospitalerum or plasma total cholesterol/high density lipoprotein (HDL) cholesterol mass ratOrdered By: [facility] on 96-49-8112Zqeejzwsufq.total/Cholesterol in HDL [Mass ratio]2.8 {ratio}<5.0 [facility] Hospitalerum or plasma urea nitrogen measurement (mass/volume)Ordered By: [facility] on 67-43-9655Kjcd nitrogen [Mass/Vol]9 mg/dL9-23East [place] Regional HospitalWBC Auto (Bld) [#/Vol] Ordered By: [facility] on 13-36-3647QPC (Bld) [#/Vol]6.0 10*3/uL3.8-11.6 [facility] [place] [facility] HospitalAlbumin [Mass/volume] in Serum or PlasmaOrdered By: [facility] on 91-56-2392Umslmsz [Mass/Vol]4.3 g/dL3.2-5.5FLake County Memorial Hospital - WestBlood hemoglobin measurement (mass/volume)Ordered By: [facility] on 85-67-9969Djqdxmoaqh (Bld) [Mass/Vol]13.0 g/dL11.8-15.4 [facility] [place] [facility] HospitalCholesterol [Mass/volume] in Serum or Plasma Ordered By: [facility] on 29-05-6566Kdhppuajpvs [Mass/Vol]218 mg/dL 140-200East [place] Regional HospitalComment on above:Chol less than 200 mg/dl low risk Chol 201-239 mg/dl borderline risk Chol 240 mg/dl and greater high riskCholesterol in LDL Calc [Mass/Vol]Ordered By: [facility] on 54-90-9265Laxuzubbdwy in LDL [Mass/Vol]126 mg/dL0-100 [facility] [place] [facility] HospitalComment on above:LDL ATP III CLASSIFICATION LDL less than 100 mg/dL Optimal LDL 100-129 mg/dL Near or above optimal LDL 130-159 mg/dL Borderline high LDL 160-189 mg/dL High LDL greater than 189 mg/dL Very highCholesterol in VLDL Calc [Mass/Vol]Ordered By: [facility] on 55-24-9188Vjrefwawpor in VLDL [Mass/Vol]9 mg/dL [facility] [place] [facility] HospitalCreatinine and Glomerular filtration rate.predicted panel (S/P/Bld)Ordered By: [facility] on 02-10-2022 Creatinine [Mass/Vol]0.67 mg/dL0.44-1.03[facility] [place] [facility] Erythrocyte distribution width Auto (RBC) [Ratio]Ordered By: [facility] on 94-38-0820Azqcdldxmyp distribution width (RBC) [Ratio]13.2 %11.9-15.3 [facility] [place] [facility] HospitalEstimated glomerular filtration rate (GFR) non- AmericanOrdered By: [facility] on 96-62-7287OFY/1.73 sq M.predicted among non-blacks MDRD (S/P/Bld) [Vol rate/Area]> 60 mL/MinEast [place] Regional HospitalHematocrit Auto (Bld) [Volume fraction]Ordered By: [facility] on 81-24-4821Uhwihbpany (Bld) [Volume fraction]39.0 % 34.0-46.4FAvita Health System [facility] Hospital Auto (RBC) [Entitic mass]Ordered By: [facility] on 41-12-3291NFO (RBC) [Entitic mass]30.7 pg24.7-34.3 [facility] Auto (RBC) [Mass/Vol]Ordered By: [facility] on 89-76-7837YAOF (RBC) [Mass/Vol]33.4 g/dL32.0-35.0Del[facility] HospitalV Auto (RBC) [Entitic vol]Ordered By: [facility] on 35-19-1442NKR (RBC) [Entitic vol]91.7 xG62-959SygxejjbwEast [place] Regional Hospital No Panel InformationOrdered By: [facility] on 32-64-5620Pdkfjctls GFR ()> 60 mL/MinEast [place] Regional HospitalComment on above: GFR estimated reference range: According to KDOQI guidelines, <60 ml/min/1.73m2 is sufficient todiagnose a patient with chronic kidney disease.Pharmacy Creatinine Clearance (ChemN/[facility]. Vincent HospitalTriglycerides Jujzso79 mg/eK57-398GmbtvmasnEast [place] Regional HospitalComment on above:TRIG ATP III CLASSIFICATION TRIG less than 150 mg/dL Normal TRIG 150-199 mg/dL Borderline high TRIG 200-500 mg/dL High TRIG greater than 500 mg/dL Very high Standard traceable to the Center for Disease Conrtrol and Prevention (CDC) test method.Platelet mean volume Auto (Bld) [Entitic vol]Ordered By: [facility] on 35-51-2491Xzuonpmn mean volume (Bld) [Entitic vol]7.8 fL6.3-10.7 [facility] [place] Regional HospitalPlatelets Auto (Bld) [#/Vol]Ordered By: [facility] on 96-67-3457Xqikmftks (Bld) [#/Vol]277 10*3/kB365-272 [facility] [place] [facility] HospitalProtein [Mass/volume] in Serum or PlasmaOrdered By: [facility] on 42-65-3126Jlznogl [Mass/Vol]7.0 g/dL6.1-7.9East [place] Regional HospitalRBC Auto (Bld) [#/Vol]Ordered By: [facility] on 52-52-1651CHP (Bld) [#/Vol]4.25 10*6/uL3.60-5.00UC [facility] Hospitalerum or plasma alanine aminotransferase measurement without P-5'-P (enzymatic activiOrdered By: [facility] on 20-57-9008VFV No additional P-5'-P [Catalytic activity/Vol]26 U/I93-03AazyqivikUC West Chester Hospitalerum or plasma alkaline phosphatase measurement (enzymatic activity/volume)Ordered By: [facility] on 49-90-8871FZB [Catalytic activity/Vol]74 U/L32-92 [facility] Hospitalerum or plasma aspartate aminotransferase measurement (enzymatic activity/volume)Ordered By: [facility] on 17-87-3989QYY [Catalytic activity/Vol]24 U/H56-22LlrqxusrlUC West Chester Hospitalerum or plasma calcium measurement (mass/volume)Ordered By: [facility] on 10-24-9140Sefrmfc [Mass/Vol]9.4 mg/dL8.2-10.2FSt. Mary's Medical Center, Ironton Campuserum or plasma chloride measurement (moles/volume)Ordered By: [facility] on 00-37-8617Yfrpycih [Moles/Vol]100 mmol/D22-833TdrgfvxotUC West Chester Hospitalerum or plasma glucose measurement (mass/volume)Ordered By: [facility] on 45-95-0759Cwgcgez [Mass/Vol]92 mg/kP78-465EyuarykvcEast [place] Regional HospitalComment on above:ADA recommended reference range Random Glucose Reference Range is dependent on time and content of last meal. Glucose of more than 200 mg/dL in a nonstressed, ambulatory subject supports the diagnosis of Diabetes Mellitus.Serum or plasma high density lipoprotein (HDL) cholesterol measurementOrdered By: [facility] on 18-58-8006Epttdeptyhx in HDL [Mass/Vol]82 mg/zQ52-39XrsobwovlEast [place] Regional HospitalComment on above: HDL CHOL ATP-III CLASSIFICATION Cardiovascular Risk HDL > or equal to 60 mg/dL LOW HDL < 40 mg/dL HIGHSerum or plasma potassium measurement (moles/volume)Ordered By: [facility] on 19-97-4993Uasltzqav [Moles/Vol]4.1 mmol/L3.5-5.1 [facility] Hospitalerum or plasma sodium measurement (moles/volume)Ordered By: [facility] on 57-82-7139Homumo [Moles/Vol]136 mmol/N275-108QmpuijkelUC West Chester Hospitalerum or plasma total bilirubin measurement (mass/volume)Ordered By: [facility] on 28-33-9700Hqhbeawhb [Mass/Vol]0.6 mg/dL0.3-1.2FSt. Mary's Medical Center, Ironton Campuserum or plasma total carbon dioxide measurement (moles/volume)Ordered By: [facility] on 76-89-2600RH4 [Moles/Vol]26.9 mmol/L22.0-30.0[facility] [place] [facility] Serum or plasma total cholesterol/high density lipoprotein (HDL) cholesterol mass ratOrdered By: [facility] on 02-10-2022 Cholesterol.total/Cholesterol in HDL [Mass ratio]2.7 {ratio}[facility] Hospitalerum or plasma urea nitrogen measurement (mass/volume)Ordered By: [facility] on 09-52-4710Rojg nitrogen [Mass/Vol]10 mg/dL9-[facility] [place] Regional HospitalWBC Auto (Bld) [#/Vol]Ordered By: [facility] on 42-00-7440CHK (Bld) [#/Vol]6.2 10*3/uL3.8-11.6FLake County Memorial Hospital - West MG MAMM SCREEN 3D IRISH CADon 04-85-6489SO MAMM SCREEN 3D IRISH CADPatient: NILDA ALMARAZSoren Exam Date: 01/25/2021 : 1970 Gender:F Ordering : DR GISELA BARRY . Admission #: [id number] Family : Order #: [id number] CLICK HERE TO VIEW EXAM 02/15/2021 Admission number added to report [facility] RADIOLOGY REPORT PROCEDURE: MAMMOGRAM SCREENING 3D BILATERAL CAD COMPARISON: MG MAMM IRISH SCRN W CAD DIG, 07/24/2013. MG MAMM SCREEN IRISH W CAD, 04/11/2018. INDICATIONS: Screening exam Calculator Name NCI Breast Cancer Risk Assessment Tool 5 Year Breast Cancer Risk 0.50% Lifetime Breast Cancer Risk 4.40% Personal Breast Cancer No Personal Ovarian Cancer No Treatments None Family Cancers None LOCATION: [facility] BREAST COMPOSITION: Extremely dense, which lowers the sensitivity of mammography. FINDINGS: DIAGNOSTIC CATEGORY 1--NEGATIVE ASSESSMENT. RIGHT BREAST: No significant suspicious finding. No significant change has occurred. LEFT BREAST: No significant suspicious finding. No significant change has occurred. RECOMMENDATIONS: ROUTINE MAMMOGRAM AND CLINICAL EVALUATION IN 12 MONTHS. PLEASE NOTE: A NORMAL MAMMOGRAM DOES NOT EXCLUDE THE POSSIBILITY OF BREAST CANCER. A CLINICALLY SUSPICIOUS PALPABLE LUMP SHOULD BE BIOPSIED. Dictated by: Handy Rivera M.D. on 01/25/2021 at 07:45 Approved by: Handy Rivera M.D. on 01/25/2021 at 07:48Bl[facility] Valley Health SystemOG PANEL 2: 30 to 65on 01-13-2021..NormalUniversity Hospitals Samaritan Medical Center Comment on above:Result Comment: Performed at: WBPerformed By: #### [id number] #### [facility] [address] [id number] Christiane Monae Gdln ACOG Hhurxwb44-32TuswfmTlnVeterans Health AdministrationComment on above:Performed By: #### [id number] #### [facility] [address], [place] [address] Christiane KarenDIAGNOSIS:CommentCentervilleCombrighton hospital on above:Result Comment: NEGATIVE FOR INTRAEPITHELIAL LESION OR MALIGNANCY. Performed at: WBPerformed By: #### [id number] #### [facility] [address], [place] [address] Christiane KarenHPV AptimaNegativeNormalNegativeUniversity Hospitals Samaritan Medical CenterComment on above:Result Comment: This nucleic acid amplification test detects fourteen high-risk HPV types (16,18,31,33,35,39,45,51,52,56,58,59,66,68) without differentiation. Performed at: =GPerformed By: #### [id number] #### [facility] [address] [place] [address] Christiane ConstantindianneMethodology:CommentPaulding County Hospital on above: Result Comment: This liquid based ThinPrep(R) pap test was screened with the use of an image guided system. Performed at: WBPerformed By: #### [id number] #### [facility] [address] [place] [address] Christiane KillianenNote:CommentNoBarberton Citizens Hospital on above:Result Comment: The Pap smear is a screening test designed to aid in the detection of premalignant and malignant conditions of the uterine cervix. It is not a diagnostic procedure and should not be used as the sole means of detecting cervical cancer. Both false-positive and false-negative reports do occur. . Performed at: WBPerformed By: #### [id number] #### [facility] [address] [place] [address] Christiane VieiraPerformed by:CommentPaulding County Hospital on above: Result Comment: Marjan Covington, Insurance Case Manager (ASCP) Performed at: WBPerformed By: #### [id number] #### [facility] [address] [place] [address] Christiane Langstonpecimen adequacy:[facility] on above:Result Comment: Satisfactory for evaluation. Endocervical and/or squamous metaplastic cells (endocervical component) are present. Performed at: WBPerformed By: #### [id number] #### [facility] [address] [place] [address] Christiane Isha Encounters Encounter DateEncounter TypeCare ProviderFacilityStart: 04-17-2025 End: 82-72-3372Dlhoosue ReferredOUTREACH COMMUNITY-Community Outreach Work Phone: Start: 04-17-2025 End: 03-32-7427lzjvbznqxlXVAALFFTW NO [facility] Work Phone: Start: 09-25-2024 End: 19-89-6683qkweiylooxFmxptAmanda Jordan MDFacility:[facility] PracticeStart: 09-14-2024 End: 11-10-7012Cog Drop offJodi L Stacy [facility] Start: 09-14-2024 End: 90-51-4553irevniyaawPJI Mara L SchwabFacility:[facility] FM BellevueStart: 09-09-2024 End: 59-34-9394lihxecmcmgOegRhonda Barry MDFacility:[facility] HospitalStart: 07-14-2024 End: 36-27-6836azouzxnkibYivwNuria Recinos MDFacility:ENT SpecStart: 03-31-2024 End: 51-15-5260rmkpmowiwhGdhiNuria Recinos MDFacility:ENT SpecStart: 03-09-2024 End: 58-88-1733wnvcocixrqZSN Mara L SchwabFacility:[facility] BellevueStart: 02-15-2024 End: 13-80-9277ailvqqenbzFOCGKQQPC NO [facility] Work Phone: Start: 02-15-2024 End: 10-83-3333Lxlosmzf ReferredPHYSICIAN NO [facility]-Community Outreach Work Phone: Start: 01-13-2024 End: 73-73-1556Vfw Drop offJodi L Stacy [facility] Start: 01-13-2024 End: 75-86-6213lezwwvxibzGGO Mara L SchwabFacility:FTMCStart: 08-31-2023 End: 83-58-3361kkdxbjwrgyHJSPFBBFX NO [facility] Work Phone: Start: 08-31-2023 End: 35-31-8420Wwaytaij ReferredPHYSICIAN NO [facility]-Community Outreach Work Phone: Start: 03-16-2023 End: 52-40-5076mtynrzrclqEO Gisela De Jesus Barry Work Phone: [facility] Work Phone: Start: 03-16-2023 End: 20-45-5121Cfazrbdu ReferredMD Gisela Barry Work Phone: [facility] Out[facility] Work Phone: Start: 08-04-2022 End: 71-79-9148nblvsmptliPO Gisela Barry Work Phone: [facility] Work Phone: Start: 08-04-2022 End: 21-92-2928Ojlafwno ReferredMD Gisela Barry Work Phone: [facility] Outreach Start: 02-10-2022 End: 90-71-4301Uuzzbxfh ReferredPHYSICIAN NO [facility]-Community OutreachStart: 01-25-2021 End: 20-15-6381anoyxhjepnPG KIM E KNIGHTFacility:V3Ocmyf: 01-11-2021 End: 50-56-9637rdlgedwmicXM KIM E KNIGHTFacility:H1 Procedures DateProcedureProcedure DetailPerforming ClinicianStart: 08-30-2022 Esophagogastroduodenoscopic electrohydraulic lithotripsy of bezoar in stomach Mara Stacy ColonoscopyJodi Stacy Comment on above:2104 normalTympanostomyJodi Stacy Immunizations Immunization DateImmunizationNotesCare YscvrpppVttasspw51-30-4577DOLW-LoK-2 (COVID-19) mRNA-1273 vaccineJodi Stacy [phone]-XlesqMemorial Health System [facility] Comment on above:Result Comment: 2023-08-28: [id number]-CoV-2 (COVID-19) [id number] Tyesha Ortaab [phone]-BplwxMemorial Health System [facility] Hospital Payers DatePayer CategoryPayerPolicy [id number] 2.16.840.1.763021.3.579.2.01353-82-8550Nfrvheg [id number] 2.840.1.545927.3.57[id number] 2.840.1.658802.3.57[id number] 2..840.1.982028.3.57[id number] 2.0.1.817153.3.57[id number] 2..1.518654.3.57[id number] 2.16840.1.658963.3.57[id number] 2.840.1.204407.3.57[id number] 2.840.1.648839.3.57[id number] 2.0.1.529300.3.57[id number] 2.16.840.1.304061.3.579.[id number] 2.16.840.1.272521.3.579.2.531 Social History DateTypeDetailFacilityTobacco smoking status NHISUnknown if ever smokedCleveland Clinic Ctr Work Phone: Start: 37-29-0657Uqx [facility]igned At [facility]tart: 01-13-2024 End: 36-84-6646Ckuqmdl smoking statusEx-smoker (finding)[facility] HospitalueSex Assigned At [facility] HospitalTobacc smoking statusNeverMemorial Health System Selby General HospitalTothe [facility] smoking status NHISUnknown if ever smokedCleveland Clinic Ctr Work Phone: SexFemale (finding)[facility] [place] [facility] Evaluation + Plan note Note Date & TypeNoteFacilityEvaluation + Plan note Future Appointments Appointment Date:03/09/2024 09:15:00 AM Scheduled Provider:Thaddeus Mojica MD Location:[facility] Appointment Type: Open Diagnostic Tests Pending * PAP w/ HPV and Genotype rflx 01/13/24 [facility] Evaluation note Note Date & TypeNoteFacilityEvaluation noteNo assessment information available [facility] Work Phone: Hospital course Narrative Note Date & TypeNoteFacilityHospital course Narrative No data available for this section [facility] Hospital Discharge instructions Note Date & TypeNoteFacilityHospital Discharge instructions No data available for this section [facility] Progress note Note Date & TypeNoteFacilityProgress note No data available for this section [facility] Reason for referral (narrative) Note Date & TypeNoteFacilityReason for referral (narrative)No reason for referral information availableCleveland Clinic Ctr Work Phone: Summary Purpose Family History No Family History Records Found No data available for this section No Family History Records Found No data available for this section No Family History Records FoundNo Family History Records FoundNo Family History Records FoundNo Family History Records Found Advance Directives No Advanced Directives Records Found Advance Directive Response Recorded Date/ Time Advance Directives No August 02, 2022 4:45pm Advance Directive Response Recorded Date/ Time Advance Directives No August 02, 2022 5:45pm Chief Complaint and Reason for Visit Chief Complaint CBC, metabolic and l ipid panels Chief Complaint complete Chief Complaint cbc Chief Complaint Admit Date cbc April 17, 2025 8:27 am Additional Source Comments INFORMATION SOURCE (unrecogn ized section and content) DATE CREATED AUTHOR 02/22/2021 [facility] DATE CREATED AUTHOR AUTHOR'S ORGANIZ ATION 09/15/2024 [facility] DATE CREATED AUTHOR AUTHOR'S ORGANIZ ATION 09/17/2024 [facility] DATE CREATED AUTHOR AUTHOR'S ORGANIZ ATION 10/11/2024 [facility] DATE CREATED AUTHOR AUTHOR'S ORGANIZ ATION 04/20/2025 [facility] Care Teams (unrecognized sec tion and content) Team Status: Inactive Member Role Status Dates PHYSICIAN NO FAMILY Primary Care Provider Active Outreach CommunityAttending ProviderActive Team Status: Active Member Role Status Dates PHYSICIAN NO FAMILY Primary Care Provider Active Team Status: Inactive Member Role Status Dates Outreach Community Attending Provider Active Nuria Manning Care ProviderActive Team Status: Active Member Role Status Dates Gisela Barry MD Primary Care Provider Active Team Status: Inactive Member Role Status Dates Gisela Barry MD Primary Care Provider Active Outreach CommunityAttending ProviderActive Team Status: Inactive Member Role Status Dates Outreach Community Attending Provider Active PHYSICIAN NO FAMILYPrimary Care ProviderActive Team Status: Inactive Member Role Status Dates PHYSICIAN NO FAMILY Primary Care Provider Active Start: February 15, 2024 End: February 15, 2024Outreach CommunityAttending ProviderActiveStart: February 15, 2024 End: February 15, 2024 Team Status: Inactive Member Role Status Dates PHYSICIAN NO FAMILY Primary Care Provider Active Start: April 17, 2025 End: April 17, 2025Outreach CommunityAttending ProviderActiveStart: April 17, 2025 End: April 17, 2025 Goals (unrecognized section and content) Goals may be documented in a n alternate sectionGoals may be documented in an alternate sectionGoals may be documented in an alternate sectionGoals may be documented in an alternate section No data available for this sectionGoals may be documented in an alternate section No data available for this sectionGoals may be documented in an alternate section FOR RECORDS PERTAINING TO PATIENTS WHO ARE OR HAVE BEEN ENROLLED IN A CHEMICAL DEPENDENCY/SUBSTANCEABUSE PROGRAM, SOME INFORMATION MAY BE OMITTED. This clinical summary was aggregated from multiple sources. Caution should be exercised in using it in the provision of clinical care. This summary normalizes information from multiple sources, and as a consequence, information in this document may materially change the coding, format and clinical context of patient data. In addition, data may be omitted in some cases. CLINICAL DECISIONS SHOULD BE BASED ON THE PRIMARY CLINICAL RECORDS. [facility]. provides no warranty or guarantee of the accuracy or completeness of information in this document.
[2025-07-26 11:45] LABS: Alanine Aminotransferase 30 U/L (14-59); Albumin Globulin Ratio 1.2; Albumin Level 4.3 g/dL (3.4-5.0); Alkaline Phosphatase 97 U/L (46-116); Anion Gap 14.1; Aspartate Amino Transferase 19 U/L (15-37); Blood Urea Nitrogen 9.0 mg/dL (7.0-18.0); Calcium 9.3 mg/dL (8.5-10.1); Carbon Dioxide 30.7 mmol/L (21.0-32.0); Chloride 100 mmol/L (98-107); Cholesterol 246 mg/dL (<=200); Estimated GFR (African America >60 (>=60 mL/min/1.73m^2); Estimated GFR (Non-African Ame >60 (>=60 mL/min/1.73m^2); Globulin 3.5 g/dL; Glucose 102 mg/dL (74-106); HDL Cholesterol 91 mg/dL (40-60); Potassium 3.8 mmol/L (3.5-5.1); Sodium 141 mmol/L (136-145); Thyroid Stimulating Hormone 7.535 uIU/mL (0.358-3.740); Total Protein 7.8 g/dL (6.4-8.2); Triglycerides 88 mg/dL (<=150); VLDL CHOLESTEROL 17.6 mg/dL
== END 2025-07-26 10:33 | disposition home or self-care (01) ==
PROVIDERS: PCP Family Medicine; Visit Provider Family Medicine
DX: Z00.00 Encounter for general adult medical examination without abnormal findings (principal)
CPT/HCPCS: 36415; 80053; 80061; 84439; 84443; 86618

== ENCOUNTER 2025-08-11 07:51 | Outpatient (OUT) | payer BC, SELFPAY ==
--- OUTSIDE RECORDS SUMMARY | 2025-07-28 05:30 | XMS_ITS ---
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 Measuring Machine Operator Name Role Phone Mina Chan Primary Care Provider Allergies Allergen (clinical drug ingredient) Drug/Non Drug Allergy documented on EMR Reaction Allergy Type Onset Date Status PenicillinchildhoodDrug AllergyActive REASON FOR VISIT multiple issues, Discuss best time to take Thyroid medication with other meds, Got andreeold of Dr Jordan in [place]- [place]- wants records sent here- filled out records request- was told has umbilical hernia, Cholesterol elevated still but good cholesterol is done, Would like kindey function retested withrepeat thyroid labs Medications Medication SIG (Take, Route, Frequency, Duration) Notes Start Date End Date Status Atorvastatin Calcium 10 MG 1 tablet Orally Once a day; Duration: 30 days 5ActiveLevothyroxine Sodium 50 MCG1 tablet in the morning on an empty stomach Orally Once a day; Duration: 30 days5ActiveNexIUM 40 MG1 capsule 1/2 to 1 hour before morning meal Orally Once a day; Duration: 30 days 5Active Social History Tobacco Use: Social History Observation Description Date Details (start date - stop date) Former Smoker 03/30/1987 - 03/30/2020 Tobacco Control (Standard) Question Answer Notes Tobacco use: Former smoker When did you start smoking?03/30/1987When did you stop smoking?03/30/2020How long has it been since you last smoked?5-10 yearsAdditional Findings: Tobacco xrz-qduoHv-frnucbse cigarette smoker (10-19/day)Section Notes: Patient does smoke Marijuana Problems Problem Type SNOMED Code ICD Code Onset Dates Problem Status W/U Status Risk Notes Problem Coronary artery disease (97460512) Noriega ry artery disease (I25.10) Activeconfirmed Vital Signs Weight 127.4 lbs 07/28/2025 Height 64 in 07/28/2025 Blood pressure systolic 148 mm Hg 07/28/20 Blood pressure diastolic 82 mm Hg 025 BMI 21.87 kg/m2 07/28/2025 Procedures Procedure Date Ordered Date Performed Result Body Sit e CARDIO Stress Test - Cardiolite 07/28/2025 N/A Encounters Encounter Location Date Provider Diagnosis [facility] [address] [place] [address] 07/28/2025 Mina Chan Coronary artery disease I25.10 Assessments Encounter Date Diagnosis (ICD Code) Assessment Notes Treatment Notes Treatment Clinical Notes Section Notes 07/28/2025 Coronary artery disease (ICD-10 - I25.10) Plan Of Treatment Pending Test Test Name Order Date CARDIO Stress Test - Cardiolite 07/28/20 Progress Notes * Amee ALMARAZ ADOB: 0 (54 yo F)Acc No.[id number]:07/28/2025 Progress Note Patient: Amee GAVIRIA :?Rip Chan ([facility]), MDDOB:1970???Age: 54 Y???Sex:FemaleDate:07/28/2025Phone:[phone]:[address] [place], [place] [id number] In:10:21 AM ESTCheck Out:11:20 AM EST Subjective: * Chief Complaints: * M ultiple issuesDiscuss best time to take Thyroid medication with other medsGot yareli of Dr Jordan in [place]- [place]- wants records sent here- filled out records request- was told has umbilical herniaCholesterol elevated still but good cholesterol is doneWould like kindey function retested with repeat thyroid labs * HPI: ???General:? Getting thyroid labs repeatd more syjpotms disssed chola nd abn calciiuj score. * ROS: ???EENT:?hearing changes?denies.?visual changes?denies. non-healing mouth sores?denies.?swollen glands or neck lumps?denies.?hoarseness?denies.?sore throat?denies.?difficulty swallowing?denies.?nose bleeds?denies.?nasal congestion?denies.?ear ache?denies.?ear discharge denies.?ringing in ears?denies.?light sensitivity?denies.?eye pain?denies.?blurring?denies.?eye irritation?denies.?double vision?denies. vision loss?denies.?General/Constitutional:?Sweats:?Denies.?Fatigue?denies.?Sleep proble ms?denies.?Anorexia?denies.?Malaise?denies.?Weight loss?denies. Fatigue or Weakness?denies.?Fever or Chills?denies.?Cardiovascular:?Shortness of Breath w/lying flat?denies.?Lightheadedne ss/dizziness?denies.?Chest tightness/ heavy pressure?denies.?Swelling of legs, a nkles, or feet?denies.?Waking up with shortness of breath?denies.?Chest pain&#16 0;denies.?Palpitations?denies.?Weight gain?denies.?Respiratory:?Chronic or frequent cough?denies.?Coughing up blood&#1 60;denies.?Difficulty breathing?denies.?Productive cough?denies.?Snoring&#1 60;denies.?Shortness of breath that awakens from sleep (PND)?denies.?Chest pain? denies.?Sputum production?denies.?Wheezing?denies.?Musculoskeletal:?Joint pain?denies.?Joint Fluid?denies.?Backpain?denies.?Knee pain?denies.?Neck pain?denies.?Joint Stiffness?denies.?Muscle cramps?denies.?Weakness of muscles?denies.?Arthritis?denies.?Muscle aches?denies.?Pain in shoulder(s)?denies.?Swollen joints?denies.? * Active Problem List E78.00 Hypercholesteremia Modified On:04/29/2025U Status:ifqmgfufmN38.00Well adult Modified On:04/29/2025U Status:szewmwefwC50.90Hyperthyroidism Modified On:07/27/2025U Status:uxxxcnpenI33.10Coronary artery disease Modified On:07/28/2025 Status:confirmed * Medical History: * Surgical History: D enies Past Surgical History * Hospitalization/Major Diagno stic Procedure: D enies Past Hospitalization * Family History: F ather: , Asthma, Colon Polyp. M other: alive, HTN, Thyroid Disease. B rother(s): Asthma. S on(s): alive, Asthma. P aternal Grandfather: . P aternal Grandmother: . M aternal Grandfather: . M aternal Grandmother: . 2 brother(s) . 2 son(s) - healthy. . 1 Brother . * Social History: ???Tobacco Use:?Tobacco Control (Standard)?Tobacco use:?Former smoker ?When did you start smoking??03/30/1987 ?When did you stop smoking??03/30/2020 ?How long has it been since you last smoked? 5-10 years ?Additional Findings: Tobacco non-user?Ex-moderate cigarette smoker (10-19/day) ???Patient does smoke Marijuana. * Medications: T akingAtorvastatin Calcium 10 MG Tablet 1 tablet Orally Once a day Levothyroxine Sodium 50 MCG Tablet 1 tablet in the morning on an empty stomach Orally Once a day NexIUM(Esomeprazole Magnesium) 40 MG Capsule Delayed Release 1 capsule 1/2 to 1 hour before morning meal Orally Once a day Taking Atorvastatin Calcium 10 MG Tablet 1 tablet Orally Once a day Taking Levothyroxine Sodium 50 MCG Tablet 1 tablet in the morning on an empty stomach Orally Once a day Taking NexIUM(Esomeprazole Magnesium) 40 MG Capsule Delayed Release 1 capsule 1/2 to 1 hour before morning meal Orally Once a day DiscontinuedpredniSONE 20 MG Tablet 3 tablets Orally Once a day Triamcinolone Acetonide 0.1 % Cream 1 application Externally bid Medication List reviewed and reconciled with the patientDiscontinued predniSONE 20 MG Tablet 3 tablets Orally Once a day Discontinued Triamcinolone Acetonide 0.1 % Cream 1 application Externally bid Medication List reviewed and reconciled with the patient * Allergies: P enicillin: childhood - Allergyno[Allergies Verified] Objective: * Vitals: W t:127.4lbs, Ht: 64 in, BP:148/82mm Hg, BMI:21.87Index, Ht-cm: 162.56 cm, Wt-k.79 kg. * Examination: ???Physical Exam: ?GENERAL:?well developed, well nourished, in no acute distress.?HEAD:?normocephalic/atraumatic.?EYES:?pupils equal, round and reactive to light, conjunctivae and sclerae normal.?EARS:?no deformity or lesion of external ear, canals and TM appear normal bilaterally, TM's intact, not inflamed with normal light reflex, hearing grossly normal to conversational speech.?NOSE:?no deformity, discharge, inflammation, or lesions. ?MOUTH:?mucous membranes moist, normal oropharynx and posterior pharynx without lesions or exudates, tongue normal, dentition normal.?NECK:?neck supple, no masses or palpable cervical nodes, trachea midline, thyroid without nodules, masses, tenderness, or enlargement.?CHEST:?no chest wall deformity, no chest wall tenderness. ?LUNGS:?normal respiratory effort and clear to auscultation, no wheezes, rales, or rhonchi, good air exchange.?CARDIO:?regular rate and rhythm, normal S1 and S2, nor murmur, rub, or gallop.?PULSES:?normal capillary refill.?ABDOMEN:?soft, non-distended, non-tender, no masses.?MUSCULOSKELETAL:?no deformity or scoliosis noted, normal range of motion, joints normal, no erythema, edema, effusion, or ecchymosis.?EXTREMITY:?no clubbing, cyanosis, edema, or deformity withnormal ROM in both upper and lower bilateral extremities.?NEUROLOGIC:?grossly normal.?SKIN:?no rashes, ulcerations, or suspicious lesions.?LYMPH NODES:?no cervical adenopathy, nodes normal.?MENTAL STATUS:?alert and oriented x3, normal mood and affect.? Assessment: * Assessment: 1.?Coronary artery disease - I25.10 (Primary)??? Plan: * Treatment: ?Procedure: CARDIO Stress Test - Cardiolite * Procedure Codes: * * Sign off status: CompletedVisit Status:?CHK (Check Out) true * Provider: Brando Chan ([facility])MD Date: 1 Generated for Printing/Faxing/eTransmitting on:?08/11/2025 07:56 AM EST History and Physical Notes * HPI (History of Present Illness) CategorySub-CategoryDetailNotesCategory NotesGeneral Getting thyroid labs repeatd more syjpotms disssed chola nd abn calciiuj score Examination CategorySub-CategoryDetailNotesCategory NotesPhysical ExamGENERAL:well developed, well nourished, in no acute distressHEAD:normocephalic/atraumatic EYES:pupils equal, round and reactive to light, conjunctivae and sclerae normal EARS:no deformity or lesion of external ear, canals and TM appear normal bilaterally, TM's intact, not inflamed with normal light reflex, hearing grossly normal to conversational speechNOSE:no deformity, discharge, inflammation, or lesionsMOUTH:mucous membranes moist, normal oropharynx and posterior pharynx without lesions or exudates, tonguenormal, dentition normalNECK:neck supple, no masses or palpable cervical nodes, trachea midline, thyroid without nodules, masses, tenderness, or enlargementCHEST:no chest wall deformity, no chest wall tendernessLUNGS:normal respiratory effort and clear to auscultation, no wheezes, rales, or rhonchi, good air exchangeCARDIO:regular rate and rhythm, normal S1 and S2, nor murmur, rub, or gallopPULSES:normal capillary refillABDOMEN:soft, non-distended, non-tender, no massesRECTAL:MUSCULOSKELETAL:no deformity or scoliosis noted, normal range of motion, joints normal, no erythema, edema, effusion, or ecchymosisEXTREMITY:no clubbing, cyanosis, edema, or deformity with normal ROM in both upper and lower bilateral extremitiesNEUROLOGIC:grossly normalSKIN:no rashes, ulcerations, or suspicious lesionsLYMPH NODES:no cervical adenopathy, nodes normalMENTAL STATUS:alert and oriented x3, normal mood and affect
--- NOTE | 2025-08-11 07:40 | NM_ITS ---
Patient Name: NILDA JONES MR#: [id number] : 1970 Exam Date: 08/11/2025 Ordering Doctor: DR WHITNEY TSANG . RADIOLOGY REPORT PROCEDURE: NM LIZETT PERF SPECT REST STR COMPARISON: None. INDICATIONS: CORONARY ARTERY DISEASE, FAMILY HISTORY TECHNIQUE: Exam Description: Stress/Rest two day protocol gated SPECT Rest Imagin.9 mCi Tc-99m Cardiolite IV on 08/11/2025 Stress Imaging 30.5 mCi Tc-99m Cardiolite IV on 08/11/2025 Exercise Protocol: Compa Heart Rate (bpm): Rest: 77 Max: 166 PMHR: 100 Blood Pressure: Rest: 158/92 Max: 164/88 Exercise Time: Minutes: 7 Seconds: 38 Stage Reached: Stage: 3 Mets 10.1 Symptoms: Rest and peak stress ECG findings were pending, and the exercise portion of the study was pending per attending physician [facility]. For more details, please see separate cardiac stress test report. FINDINGS: QUALITY OF STUDY: Good PERFUSION DEFECT: LOCATION: N/A SIZE: N/A SEVERITY: N/A TYPE: N/A WALL MOTION: Normal wall motion LV SIZE: 70 mL. TID / TCD: 0.8 LVEF: Calculated EF 71%. SUMMARY: Myocardial perfusion imaging study is normal CONCLUSION: 1. Myocardial perfusion is normal 2. Global left ventricular systolic function is normal; EF 71% 3. No transient ischemic dilatation Dictated by: Beata Segovia M.D. on 08/11/2025 at 15:46 Approved by: Beata Segovia M.D. on 08/11/2025 at 15:48
--- OUTSIDE RECORDS SUMMARY | 2025-08-11 07:56 | XMS_ITS | Clinical Summary ---
Author Organization [facility] Address [id number] [place] [address] Care Team Providers Care Commissioning Engineer Name Role Phone Gisela Barry MD Primary Care Provider [phone] Allergies Active AllergyReactionsCriticalityNoted PxihZnzmodauIpgpgwqrgey05/19/2018 Medications MedicationSigDispense QuantityRefillsLast FilledStart DateEnd DateStatus ibuprofen [...] = 0.6 oz pure alcohol)dailyChildcareAnswerDate RecordedChildcareUnknown 03/12/2019EmploymentAnswerDate ZapscqnbJkuteyqxtjHfmzjaz66/13/2019Purpose - Life AnswerDate RecordedPurpose and direction in dcnmAkovzzg35/11/2021 CommentsNoSex and Gender InformationValueDate RecordedSex Assigned at BirthNot on fileLegal NayHyeopy70/19/2018 12:46 PM EDTGender IdentityNot on fileSexual OrientationNot on file Last Filed Vital Signs Vital SignReadingTime TakenCommentsBlood Vawthlwr288/8710 5:04 PM EDT Csdti5466/ 6:09 PM JIPXklfgjkplnu78.7 ??C (98 ??F)07/30/2019 3:56 PM EDT Respiratory Thoe6522 6:09 PM EDTOxygen Rvotjgpdxe23%07/30/2019 6:09 PM EDTInhaled Oxygen Concentration--Yjfhkj90.4 kg (120 lb)07/30/2019 3:56 PM EDT Zoazln086.6 cm (5' 4 )07/30/2019 3:56 PM EDTBody Mass Index20.610 3:56 PM EDT Plan of Treatment Health MaintenanceDue DateLast DoneCommentsDepression Msfilqyhw94/23/1982Tobacco Cisycuxwv79/23/1982Adult BMI Sjijmaikh98/23/1988DTaP,Tdap and Td Vaccines (1 - Tdap)1988Pap Smear1990Zoster (Shingles) Vaccine (1 of 2)12/21/2019 Influenza Pxpyyam7905/31/2025 Medical Devices Not on file Insurance Care Teams Team MemberRelationshipSpecialtyStart DateEnd Gisela Barry MD PCP - GeneralFamily Medicine12/15/18
--- OUTSIDE RECORDS SUMMARY | 2025-08-11 07:57 | XMS_ITS | Patient Health Record ---
Author Organization [facility] in [place] Address [address] [place] [address] Care Team Providers Care Ticket Machine Operator Name Role Phone Mina Chan Primary Care Provider Allergies Allergen (clinical drug ingredient) Drug/Non Drug Allergy documented on EMR Reaction Allergy Type Onset Date Status PenicillinchildhoodDrug AllergyActive Results Component Value Reference Range Notes Lyme Disease Serology w/Refl ex Reviewed date:07/27/2025 07:22:24 PM Interpretation: Performing Lab: Notes/Report: [facility] , Lyme Total Antibody JONAH Negative Negative recently infected (less than or equal to 14 days) with B. burgdorferi. If recent infection is suspected, repeat Lyme antibodies not detected. Reflex testing is not No laboratory evidence of infection with B. burgdorferi (Lyme disease). Negative results may occur in patients Performed at: - [facility] Automatic Corn Grinder Operator: Luis F Hooper PhD, Phone: [phone] testing on a new sample collected in 7 to 14 days is indicated. recommended. [address], [place] [id number] Performing Lab: see note - [facility] LBTSH Reviewed date:07/26/2025 06:44:46 PM Interpretation: Performing Lab: Notes/Report: [facility] ,Thyroid Stimulating Hormone7.5350.358-3.740 uIU/mLPerforming Lab:see note - [facility] LBPROF 14(COMP METB) Reviewed date:07/26/2025 06:44:46 PM Interpretation: Performing Lab: Notes/Report: [facility] ,Urkzqx137328-118 mmol/LPotassium3.83.5-5.1 mmol/REjpzgjzq77562-486 mmol/LCarbon Vfmztzv88.721.0-32.0 mmol/LAnion Gap14.1Sfweycd77281-080 mg/dLBlood Urea Nitrogen9.07.0-18.0 mg/dLCreatinine0.500.55-1.02 mg/dLEstimated GFR ( Sarah>60>=60 mL/min/1.73m 2Estimated GFR (Non- Debra>60>=60 mL/min/1.73m 2BUN Creatinine Ratio18.8Gavcduf1.38.5-10.1 mg/dLBilirubin Total0.50.2-1.0 mg/dL Aspartate Amino Xjwkagorlyq9378-75 U/LAlanine Dsypfznfxsmeiksu3012-85 U/L Alkaline Rngiigdfvun1928-964 U/LTotal Protein7.86.4-8.2 g/dLAlbumin Level4.33.4- 5.0 g/dLGlobulin3.5Albumin Globulin Ratio1.2Performing Lab:see note - [facility] LBLIPID PROFILE Reviewed date:07/26/2025 06:44:46 PM Interpretation: Performing Lab: Notes/Report: [facility] ,Qmmhckwpzcmoe10<=150 mg/rKZejsqesemdw540<=200 mg/dLHDL Vaqxfwoxxyt1330-80 mg/dL <40 mg/dl - HIGH CARDIOVASCULAR RISK > or =60 mg/dl - LOW CARDIOVASCULAR RISK LDL Cholesterol Hrrlwqypzj984.0 160-189 mg/dl HIGH 100-129 mg/dl NEAR OR ABOVE OPTIMAL <100 mg/dl OPTIMAL >190 mg/dl VERY HIGH 130-159 mg/dl BORDERLINE HIGH VLDL XPQSBABEORZ87.6Chol HDL Ratio2.7 7.1 - 11.0 MODERATE RISK 4.4 - 7.1 AVERAGE RISK >11.0 HIGH RISK 3.3 - 4.4 LOW RISK Performing Lab:see note - [facility] LBFREE T4 Reviewed date:07/26/2025 06:44:46 PM Interpretation: Performing Lab: Notes/Report: [facility] ,Free T40.820.76-1.46 ng/dLPerforming Lab:see noteML - [facility] LB Reason For Referral No Information Medications Medication SIG (Take, Route, Frequency, Duration) [...] since you last smoked?5-10 yearsAdditional Findings: Tobacco nmb-nrljJj-ojnpeobx cigarette smoker (10-19/day)AUDIT-C (Standard) Question Answer Notes Did you have a drink containing alcohol in the p ast year? No Cztcar3FeuzvgklznjtyhLbvqgnkeAhxgwgk Notes: Patient does smoke Marijuana Patient does smoke Marijuana Patient does smoke Marijuana Problems Problem Type SNOMED Code ICD Code Onset Dates Problem Status W/U Status Risk Notes Problem Hypothyroidism (05362111) Hypothyroidism (E03.9) ActiveconfirmedProblemCoronary artery disease (35418512)Coronary artery disease (I25.10)ActiveconfirmedProblemWell adult (615590806)Well adult (Z00.00)Active confirmedProblemhypercholesterolemia (disorder) (74285929)Hypercholesteremia (E78.00)Activeconfirmed Vital Signs Blood pressure diastolic 82 mm Hg 07/28/2025 Qikgqd75 in07/28/2025lood pressure snlbkvyq050 mm Hg07/28/20257067Gwwieh888.4 lbs 07/28/2025BMI21.87 kg/m207/28/2025 Procedures Procedure Date Ordered Date Performed Result Body Sit e CARDIO Stress Test - Cardiolite 07/28/2025 N/A Encounters Encounter Location Date Provider Diagnosis [facility] [address] [place] [address] 04/29/2025 Mina Chan Well adult Z00.00 [facility] [address] [facility] [place] [address] 05/12/2025 Mina Chan Contact dermatitis L25.9 [facility] [address] [facility] [place] [address] 07/28/2025 Mina Chan Coronary artery disease I25.10 [facility] [address] [facility] [place] [address] 04/29/2025 Mina Aly [facility] [facility] [place] [address] 05/14/2025[facility] [facility] [place] [address]/Do HoyHyperthyroidism E05.90[facility] [facility] [place] [address]/[facility] [facility] [place] [address]/12/2024 Mina Melendezelizabeth Assessments Encounter Date Diagnosis (ICD Code) Assessment Notes Treatment Notes Treatment Clinical Notes Section Notes 04/29/2025 Well adult (ICD-10 - Z00.00) 5Contact dermatitis (ICD-10 - L25.9)txehiwd2107/28/2025oronary artery disease (ICD-10 - I25.10)07/26/2025Hyperthyroidism (ICD-10 - E05.90) Plan Of Treatment Pending Test Test Name Order Date CARDIO Stress Test - Cardiolite 07/28/20 25 LIPID PROFILE 04/29/2025 LYME DISEASE, WESTERN BLOT 04/29/2025 PROF 14(COMP METB) 04/29/2025 THYROID PROFILE WITH TSH 04/29/2025 THYROID PANEL (T4/TSH/FREE T3) 5 Insurance Providers Payer Name Payer Address Payer Phone Subscriber Number Group Number Insured Name Patient Relationship to Insured Coverage Start Date Coverage End Date [employer] PPO PLUS LOCAL PLAN [address] [place] [address] [id number] Jim - patient is the spouse of the insured Medications Administered Medication Instructions Date of Administration Dosage Notes Triamcinolone 40 mg/ml mg Medical (General) History Medical History History ICD Code Hypercholesteremia E78.00
--- OUTSIDE RECORDS SUMMARY | 2025-08-11 08:05 | XMS_ITS | CCD ---
Author Organization [facility] Care Team Providers Care Drop Forger Helper Name Role Phone DR GISELA BARRY Admitting Unavailable ROBBI, DR GISELA De Jesus Attending Unavailable ROBBI, DR GISELA De Jesus Consulting Unavailable ROBBI, DR GISELA De Jesus Primary Care Unavailable ROBBI, DR GISELA De Jesus Attending Unavailable ROBBI, DR GISELA De Jesus Consulting Unavailable ROBBI, DR GISELA De Jesus Admitting Unavailable NO FAMILY, PHYSICIAN Primary Care Provider Unava ilable Community, Outreach Attending Provider [facility], Outreach Attending Provider MD Gisela Barry Primary Care Provider [phone] MD Gisela Barry Primary Care Provider [phone] [facility], Outreach Attending Provider [phone] [facility], Outreach Attending Provider [phone] NO FAMILY, PHYSICIAN Primary Care Provider Unava ilable Thaddeus Mojcia Primary Care Physician [phone] NO FAMILY, PHYSICIAN Primary Care Provider Unava ilable [facility], Outreach Attending Provider Stacy, GREEN PLUMBER Mara L Admitting Unavailable Stacy, GREEN PLUMBER Mara L Attending Unavailable Stacy, GREEN PLUMBER Mara L Attending Unavailable Stacy, GREEN PLUMBER Mara L Attending Unavailable Satcy, GREEN PLUMBER Mara L Attending Unavailable Stacy, GREEN PLUMBER Mara L Admitting Unavailable Stacy, GREEN PLUMBER Mara L Attending Unavailable Stacy, Mara L [...] Provider Unava ilable Community, Outreach Attending Provider [phone] Community, Outreach Attending Unavailable Community, Outreach Admitting Unavailable NO FAMILY, PHYSICIAN Primary Care Unavailable Allergies Allergy ClassificationReported Allergen(s)Allergy TypeDate of OnsetReaction(s) FacilityPenicillins (antibiotic) (1 source)PenicillinsDrug Vyduzip70-93-2047Bbx [facility] (4 sources)Penicillin; Translations: [penicillin]Drug [facility]ergyC[facility] Medications Current Medications MedicationDrug Class(es)DatesSig (Normalized)Sig (Original)esomeprazole 40 mg delayed release oral capsule (2 sources)Proton Pump InhibitorStart: 03-12-2024 End: 58-36-7250tzul 1 capsule by mouth once dailyNexium 40 mg Cap-EC 40 mg = 1 cap(s), Oral, Daily, X 90 day(s), # 90 cap(s), Refills(s) 3, Pharmacy: [facility] [id number], 159, cm, 03/09/24 10:08:00 EDT, Height/Length Dosing, 56.9, kg, 03/09/2410:08:00 EDT, Weight Dosing Start Date: 03/12/24 Stop Date: 03/07/25 Status: OrderedStart: 09-93-4539wdqu 1 capsule by mouth once dailyNexium 40 mg Cap-EC 40 mg = 1 cap(s), Oral, Daily, # 90 cap(s), Refills(s) 1, Pharmacy: [facility]/pharmacy #[id number], 158, cm, 09/09/23 10:57:00 EST, Height/Length Dosing, 58.2, kg, 09/09/23 10:57:00 EST, Weight Dosing Start Date: 09/09/23 Status: Ordered Problems Problem ClassificationProblemDateDocumented DateEpisodic/ChronicAllergic reactions (2 sources)Allergic disorder of hwkk49-16-9090ZyrfmvybTikywwzx of urinary tract (1 source)Renal pbit45-75-0538PnkthslhCjhlohaql of lipid metabolism (3 sources)Hyperlipidemia; Translations: [Hypercholesterolemia]81-84-1301Owtondi Esophageal disorders (3 sources)Gastroesophageal reflux disease without esophagitis; Translations: [Gastro-esophageal reflux disease without esophagitis]96-35-8278OwotzmfAhweg circulatory disease (2 sources)Raynaud's xbtmijcrvz35-78-0634SgabaleMtnqz screening for suspected conditions (not mental disorders or infectious disease) (8 sources)Encounter for screening mammogram for malignant neoplasm of breast; Translations: [Encounter for screening for malignant neoplasm of cervix]Onset: 19-03-2978TowmnkquEacqn upper respiratory disease (2 sources)Allergic yncsprqo31-27-5250BnnvaggVzsqea media and related conditions (1 source)Finding of fluid behind tympanic -07-3267XojzehshQxxldsuxc and history of mental health and substance abuse codes (2 sources)Zg-iepdfb79-31eirzfx06-22-0376TbixnyogKnmtnpvcukd; intervertebral disc disorders; other back problems (2 sources)Rrgavslrsyctgjhve71-11-6961PwsjsvpFdetoqqmo-spunhzp disorders (2 sources)Marijuana fhbm58-15-7872SuiloebyFqoolyyndoai (2 sources)Body mass index 20-24 - uscipi50-04-2108Cpplgnajudpg (4 sources)Patient encounter -82-3816 Results Test NameValueInterpretationReference RangeFacilityAlanine aminotransferase [Enzymatic activity/volume] in Serum or PlasmaOrdered By: OUTREACH COMMUNITY on 15-84-0542KNS [Catalytic activity/Vol]16 U/LNormal7-52[facility]'S HospitalComment on above:Performed By: #### MARVINNOASHLEERELAKISHA, OUTREACH CMP, OUTREACH LIPID #### [facility] [address] [place] [address] USAAlbumin [Mass/volume] in Serum or Plasma by Bromocresol green (BCG) dye binding methoOrdered By: OUTREACH COMMUNITY on 20-26-2569Zymkhje BCG dye [Mass/Vol]4.5 g/dL3.5-5.7FSouthern Ohio Medical CenterAlkaline phosphatase [Enzymatic activity/volume] in Serum or PlasmaOrdered By: OUTREACH COMMUNITY on 19-57-0032EZQ [Catalytic activity/Vol]73 U/GVwnwvv22-295VhjejdtixAkron Children'S HospitalComment on above:Performed By: #### CBCNOOUTREACH, OUTREACH CMP, OUTREACH LIPID #### [facility] [address] [place] [address] USAAspartate aminotransferase [Enzymatic activity/volume] in Serum or PlasmaOrdered By: OUTREACH COMMUNITY on 09-40-6394UMW [Catalytic activity/Vol]18 U/BYekbsx33-90CofjswpfeAkron Children'S HospitalComment on above: Performed By: #### CBCNOOUTREACH, OUTREACH CMP, OUTREACH LIPID #### [facility] [address] [place] [address] USABilirubin.total [Mass/volume] in Serum or PlasmaOrdered By: OUTREACH COMMUNITY on 80-61-2702Mgwbqugjq [Mass/Vol]0.4 mg/dLNormal0.3-1.0 [facility] HospitalComment on above:Performed By: #### CBCNOOUTREACH, OUTREACH CMP, OUTREACH LIPID #### [facility] [address] [place] [address] USACBC Without Differentialon 31-43-0356Ersi Corpuscular HGB Conc34.4 g/gCRollbi92.0-35.0[facility] Physician GroupComment on above: Performed By: #### CBCNOOUTREACH, OUTREACH CMP, OUTREACH LIPID #### [facility] [address] [place] [address] USAWhite Blood Count6.5 [CFU]/mLNormal3.8-11.6[facility] Physician GroupComment on above:Performed By: #### CBCNOOUTREACH, OUTREACH CMP, OUTREACH LIPID #### [facility] [address] [place] [address] USACMP Outreachon 92-37-7782Zxtzwjh [Mass/Vol]4.5 g/dLNormal 3.5-5.7[facility] Physician GroupComment on above:Performed By: #### CBCNOOUTREACH, OUTREACH CMP, OUTREACH LIPID #### [facility] [address] [place] [address] USAGFR/1.73 sq M.predicted MDRD (S/P/Bld) [Vol rate/Area] mL/min/{1.73_m2}NormalThe [facility] University Physician GroupComment on above:Performed By: #### CBCNOOUTREACH, OUTREACH CMP, OUTREACH LIPID #### [facility] [address] [place] [address] USACalcium [Mass/volume] in Serum or PlasmaOrdered By: OUTREACH COMMUNITY on 29-18-8970Jhlkdfa [Mass/Vol]9.4 mg/dLNormal8.6-10.3 [facility]S HospitalComment on above:Performed By: #### MARVINNOASHLEEREACH, OUTREACH CMP, OUTREACH LIPID #### [facility] [address] [place] [id number] USACarbon dioxide, total [Moles/volume] in Serum or Plasma Ordered By: OUTREACH COMMUNITY on 34-76-0912OR1 [Moles/Vol]31.4 mmol/LHigh 21.0-31.0[facility]'S HospitalComment on above:Performed By: #### CBCNOOUTREACH, OUTREACH CMP, OUTREACH LIPID #### [facility] [address] [place] [address] USAChloride [Moles/volume] in Serum or PlasmaOrdered By: OUTREACH COMMUNITY on 08-96-5909Vrtkqdgm [Moles/Vol]103 mmol/ILccuby82-567 [facility] HospitalComment on above:Performed By: #### MARVINNOOUTRELAKISHA, OUTREACH CMP, OUTREACH LIPID #### [facility] [address] [place] [address] USACholesterol [Mass/volume] in Serum or PlasmaOrdered By: OUTREACH COMMUNITY on 02-67-9024Wrtnlpndqdp [Mass/Vol]256 mg/cUDsmt952-850 [facility]S HospitalComment on above:Chol less than 200 mg/dl low riskChol 201-239 mg/dl borderline riskChol 240 mg/dl and greater high riskResult Comment: Chol less than 200 mg/dl low risk Chol 201-239 mg/dl borderline risk Chol 240 mg/dl and greater high riskPerformed By: #### CBCNOOUTREACH, OUTREACH CMP, OUTREACH LIPID #### [facility] [address] [place] [address] USACholesterol in HDL [Mass/volume] in Serum or PlasmaOrdered By: OUTREACH COMMUNITY on 25-09-4496Xplchvtqhiv in HDL [Mass/Vol]73 mg/dLNormal 23-92[facility]S HospitalComment on above:HDL CHOL ATP-III CLASSIFICATION Cardiovascular RiskHDL > or equal to 60 mg/dL LOWHDL < 40 mg/dL HIGHResult Comment: HDL CHOL ATP-III CLASSIFICATION Cardiovascular Risk HDL > or equal to 60 mg/dL LOW HDL < 40 mg/dL HIGHPerformed By: #### MARVINNOASHLEEREACH, OUTREACH CMP, OUTREACH LIPID #### [facility] [address] [place] [id number] USACholesterol in LDL Calc [Mass/Vol]Ordered By: OUTREACH COMMUNITY on 16-47-5813Avxycgcfxvt in LDL [Mass/Vol]164 mg/dLHigh0-100[facility]S HospitalComment on above:LDL ATP III CLASSIFICATIONLDL less than 100 mg/dL OptimalLDL 100-129 mg/dL Near or above jtbyamqMFZ943-222 mg/dL Borderline highLDL 160-189 mg/dL HighLDL greater than 189 mg/dL Very high Cholesterol in VLDL Calc [Mass/Vol]Ordered By: OUTREACH [facility] on 04-17-2025 Cholesterol in VLDL [Mass/Vol]18 mg/dLAkron Children'S Hospital Creatinine [Mass/volume] in Serum or PlasmaOrdered By: [facility] on 12-65-4598Vqwkdoerlu [Mass/Vol]0.69 mg/dLNormal0.60-1.20[facility]S HospitalComment on above:Performed By: #### MADISYN, OUTREACH CMP, OUTREACH LIPID #### [facility] [address] [place] [address] USAErythrocyte distribution width [Ratio] by Automated count Ordered By: OUTREACH [facility] on 00-06-8597Bypjlnilgeq distribution width (RBC) [Ratio]12.9 %Cesqjc82.9-15.3FSouthern Ohio Medical CenterComment on above: Performed By: #### MADISYN, OUTREACH CMP, OUTREACH LIPID #### [facility] [address] [place] [id number] USAErythrocytes [#/volume] in Blood by Automated countOrdered By: OUTREACH COMMUNITY on 28-84-3593NNL (Bld) [#/Vol]4.23 10*6/uLNormal 3.60-5.00[facility]S HospitalComment on above:Performed By: #### CBCNOOUTREACH, OUTREACH CMP, OUTREACH LIPID #### [facility] [address] [place] [address] USAGlucose [Mass/volume] in Serum or PlasmaOrdered By: [facility] on 82-63-4213Ucfrlsc [Mass/Vol]102 mg/xYMgch08-436HubbtbinsAkron Children'S HospitalComment on above:ADA recommended reference rangeRandom Glucose [...] #### CBCNOOUTREACH, OUTREACH CMP, OUTREACH LIPID #### [facility] [address] [place] [address] USAHematocrit [Volume Fraction] of Blood by Automated count Ordered By: [facility] on 10-88-2846Vkfvvrqufk (Bld) [Volume fraction] 38.9 %Uykoik34.0-46.4FSouthern Ohio Medical CenterComment on above:Performed By: #### CBCNOOUTREACH, [facility] CMP, OUTREACH LIPID #### [facility] [address] [place] [address] USAHemoglobin [Mass/volume] in BloodOrdered By: [facility] on 28-31-3495Ifqopgmipv (Bld) [Mass/Vol]13.4 g/iWYildqg37.8-15.4 [facility]S HospitalComment on above:Performed By: #### CBCNOOUTREACH, OUTREACH CMP, OUTREACH LIPID #### [facility] [address] [place] [address] USALeukocytes [#/volume] corrected for nucleated erythrocytes in Blood by Automated counOrdered By: [facility] on 27-04-7477MNT corrected for nucl RBC Auto (Bld) [#/Vol]6.5 10*3/uL3.8-11.6FSouthern Ohio Medical CenterLipid Profile Outreachon 68-97-7275ZIP Cholesterol,Mkgnihrjrg130 mg/dLHigh0-100[facility] Physician [facility] HospitalComment on above:Result Comment: LDL ATP III CLASSIFICATION LDL less than 100 mg/dL Optimal LDL 100-129 mg/dL Near or above optimal LDL 130-159 mg/dL Borderline high LDL 160-189 mg/dL High LDL greater than 189 mg/dL Very highPerformed By: #### CBCNOOUTREACH, OUTREACH CMP, OUTREACH LIPID #### [facility] [address] [place] [address] USATriglyceride w/Qiugca06 mg/dLNormal0-149[facility] Physician GroupComment on above:Result Comment: TRIG ATP III CLASSIFICATION TRIG less than 150 mg/dL Normal TRIG 150-199 mg/dL Borderline high TRIG 200-500 mg/dL High TRIG greater than 500 mg/dL Very high Standard traceable to the Center for Disease Conrtrol and Prevention (CDC) test method.Performed By: #### CBCNOOUTREACH, OUTREACH CMP, OUTREACH LIPID #### [facility] [address] [place] [address] USAVLDL VIPFWEDQOUM62 mg/dLNormalThe [facility] Physician [facility] HospitalComment on above:Performed By: #### CBCNOOUTREACH, OUTREACH CMP, OUTREACH LIPID #### [facility] [address] [Entitic mass] by Automated countOrdered By: OUTREACH COMMUNITY on 99-56-5584IKD (RBC) [Entitic mass]31.7 toUbvead36.7-34.3FSouthern Ohio Medical CenterComment on above:Performed By: #### CBCNOOUTREACH, OUTREACH CMP, OUTREACH LIPID #### [facility] [address] [place] [id number] [facility] Auto (RBC) [Mass/Vol]Ordered By: OUTREACH COMMUNITY on 06-43-0338ANMA (RBC) [Mass/Vol]34.4 g/dL32.0-35.0[facility]'S HospitalMCV [Entitic volume] by Automated countOrdered By: OUTREACH COMMUNITY on 35-51-7033FNK (RBC) [Entitic vol]92.1 sENnhuxr34-469SgwznsbhtAkron Children'S HospitalComment on above:Performed By: #### CBCNOOUTREACH, OUTREACH CMP, OUTREACH LIPID #### [facility] [address] [place] [id number] USANo Panel InformationOrdered By: OUTREACH COMMUNITY on 45-89-5010Putmxijcc GFR (CKD-EPI)> 60.0 mL/MinAkron Children'S Hospital Pharmacy Creatinine Clearance (ChemN/AFSouthern Ohio Medical CenterPlatelet mean volume [Entitic volume] in Blood by Automated countOrdered By: OUTREACH COMMUNITY on 18-79-2240Dlsnxsed mean volume (Bld) [Entitic vol]8.0 fLNormal 6.3-10.7FSouthern Ohio Medical CenterComment on above:Result Comment: PERFORMED BY: [place] [id number] PATHOLOGIST MANAGER FORMS SARAH BETH LORENZO M.D.Performed By: #### CBCNOOUTREACH, OUTREACH CMP, OUTREACH LIPID #### [facility] [address] [place], [place] [address] USAPlatelets [#/volume] in Blood by Automated countOrdered By: [facility] on 89-10-4717Dqbqklpfo (Bld) [#/Vol]293 10*3/uLNormal 150-450[facility]'S HospitalComment on above:Performed By: #### CBCNOOUTREACH, OUTREACH CMP, OUTREACH LIPID #### [place] [id number] USAPotassium [Moles/volume] in Serum or PlasmaOrdered By: OUTREACH COMMUNITY on 87-83-3024Zwjqrpfai [Moles/Vol]4.7 mmol/LNormal3.5-5.1 [facility] HospitalComment on above:Performed By: #### CBCNOOUTREACH, OUTREACH CMP, OUTREACH LIPID #### [facility] [address] [place], [place] [address] USAProtein [Mass/volume] in Serum or PlasmaOrdered By: OUTREACH COMMUNITY on 99-53-7482Ezhiuho [Mass/Vol]6.9 g/dLNormal6.4-8.9[facility]S HospitalComment on above:Performed By: #### CBCNOOUTREACH, OUTREACH CMP, OUTREACH LIPID #### [facility] [address] [place] [address] USASerum or plasma anion gap determinationOrdered By: [facility] on 03-78-5735Widpg gap [Moles/Vol]10.3 mmol/LNormal6.0-15.0 [facility] HospitalComment on above:Performed By: #### CBCNOOUTREACH, OUTREACH CMP, OUTREACH LIPID #### [facility] [address] [place] [id number] USASerum or plasma total cholesterol/high density lipoprotein (HDL) cholesterol mass ratOrdered By: [facility] on 04-17-2025 Cholesterol.total/Cholesterol in HDL [Mass ratio]3.5 {ratio}Normal<5.0[facility]'S HospitalComment on above:Result Comment: PERFORMED BY: [place] [id number] PATHOLOGIST MANAGER FORMS SARAH BETH LORENZO M.D.Performed By: #### CBCNOASHLEEREACH, OUTREACH CMP, OUTREACH LIPID #### [address] [address] USASodium [Moles/volume] in Serum or PlasmaOrdered By: [facility] on 14-31-4039Rqmemv [Moles/Vol]140 mmol/SGcwqff407-854 [facility] HospitalComment on above:Performed By: #### CBCNOOUTREACH, OUTREACH CMP, OUTREACH LIPID #### [facility] [address] [place] [address] USATriglyceride [Mass/volume] in Serum or PlasmaOrdered By: OUTREACH [facility] on 85-27-3721Umjrnbliisyg [Mass/Vol]93 mg/dL0-149[facility]S HospitalComment on above:TRIG ATP III CLASSIFICATIONTRIG less than 150 mg/dL NormalTRIG 150-199 mg/dL Borderline highTRIG 200-500 mg/dL High TRIG greater than 500 mg/dL Very highStandard traceable to the Center for Disease Conrtrol and Prevention (CDC) test method.Urea nitrogen [Mass/volume] in Serum or PlasmaOrdered By: OUTREACH COMMUNITY on 67-35-3339Mprs nitrogen [Mass/Vol]14 mg/dLNormal7-25[facility] HospitalComment on above: Performed By: #### CBCNOOUTREACH, OUTREACH CMP, OUTREACH LIPID #### [facility] [address] [place] [id number] USACT Abdomen w/ IV Contraston 22-24-1768YP Abdomen w/ IV ContrastEXAMINATION: CT Abdomen w/ [...] of abdominal wall hernia. Radiation Dose Estimate: CTDI(mGy):0.923085 / / / kVp:130.844169 / mAs:0.995393 / / / DLP(mGy- cm):3.270838Jopg Part: Abdomen CTDI(mGy):8.367522 / / / kVp:130.517063 / mAs:45.578783 / / / DLP(mGy- cm):264.715847Kado Part: Abdomen Final Dictated by: Sara Mccarty MD Dictated DT/TM: 09.25.2024 10:04 am Signed by: Sara Mccarty MD Signed (Electronic Signature): 09.25.2024 10:10 am (If Report Is Signed, Electronically Signed in Other Vendor System)Normal [facility] 51-69-0512WucfomoozVcssoyyzc From: Mara Rosario To: B - Clinical; [...] 11.1) Nilda called and [facility] of [facility]Our [facility] Ambulatory Visit Summaryon 98-61-4895Rphylmmmoh Visit SummaryAmbulatory Visit Summary NILDA ALMARAZ :1970 [...] you for choosing us for your care. NormalMercy HospitalBMPon 19-40-1585Rllzk gap [Moles/Vol]14 mmol/LNormal6-16Mercy HospitalComment on above: Performed By: #### [id number] #### [facility] [address] [place], [place] [address]Rlohsiq [Mass/Vol]10.2 mg/dLNormal8.9-11.1[facility] Medical CenterComment on above:Performed By: #### [id number] #### [facility] [address] [place], [place] [address]Rtzewrad [Moles/Vol]101 mmol/KIcdjuu084-172JwykonMercy HospitalComment on above:Performed By: #### [id number] #### [facility] [address] [place], [place] [address]EM0 [Moles/Vol]28 mmol/XCgdrpb04-18GyiymfMercy Hospital Comment on above:Performed By: #### [id number] #### [facility] [address] [place], [place] [address]Kfzvjtjdjy [Mass/Vol]0.6 mg/dLNormal0.5-1.3[facility] Medical CenterComment on above:Performed By: #### [id number] #### [facility] [address] [place], [place] [address]Yspdlxb [Mass/Vol]107 mg/qERqjkxx56-515WanluvMercy HospitalComment on above:Performed By: #### [id number] #### [facility] [address] [place], [place] [address]Vbryclklg [Moles/Vol]3.9 mmol/LNormal3.5-5.3[facility] Medical CenterComment on above:Performed By: #### [id number] #### [facility] [address] [place], [place] [address]Ysbbfi [Moles/Vol]139 mmol/ZTpesex997-214YncyxiMercy HospitalComment on above:Performed By: #### [id number] #### [facility] [address] [place], [place] [address]Tjiy nitrogen [Mass/Vol]10 mg/dLNormal5-21Mercy HospitalComment on above:Performed By: #### [id number] #### [facility] [address] [place], [place] [address]Brih nitrogen/Creatinine [Mass ratio]17 No ZengmTxlusa18-75 [facility] HospitalComment on above:Performed By: #### [id number] #### [facility] [address] [place], [place] [address]CIWIFFVRUVkdvrcl By: SYSTEM SYSTEM on 21-53-5941Djyaj gap [Moles/Vol]14 mmol/LNormal6 - 16 mEq/LRemisol ChemCalcium [Mass/Vol]10.2 mg/dL Normal8.9 - 11.1 mg/dLRemisol ChemChloride [Moles/Vol]101 mmol/QCvzepg429 - 111 mmol/LRemisol ChemCO2 [Moles/Vol]28 mmol/UKgaiyz16 - 31 mmol/LRemisol Chem Creatinine [Mass/Vol]0.6 mg/dLNormal0.5 - 1.3 mg/dLRemisol JmbilWOX631 mL/min/1.73 n4Wgxsfb>=59mL/min/1.73 g4Wjtymgg ChemGlucose [Mass/Vol]107 mg/dL Aumqgo42 - 199 mg/dLRemisol ChemPotassium [Moles/Vol]3.9 mmol/LNormal3.5 - 5.3 mmol/LRemisol ChemSodium [Moles/Vol]139 mmol/MJofwwa041 - 145 mmol/LRemisol Chem Urea nitrogen [Mass/Vol]10 mg/dLNormal5 - 21 mg/dLRemisol ChemUrea nitrogen/Creatinine [Mass ratio]17 mg/jtJeqbcs40 - 20Remisol ChemFabeth israel [facility] Medicine Office/Clinic Noteon 66-52-9499[place] Medicine Office/Clinic NoteFabeth israel [facility] Medicine Office/Clinic Note Chief Complaint Acute [...] 2023-08-28: 50 SARS-CoV-2 (COVID-19) mRNA-1273 vaccine 12/10/2020 RecordedNormDayton VA Medical CenterComment on above:Result Comment: Electronically Signed By: Mara Rosario\.br\Date and Time Signed: 09/14/24 09:19 ESTeGFRon 57-61-4444oXPY471 mL/min/1.73 t9Ejpeem>=59Mercy HospitalComment on above:Performed By: #### [id number] #### [facility] [address] [place], [place] [address]Ykdpmoyywlzcdlxb Office/Clinic Noteon 09-09-2024 Gastroenterology Office/Clinic NoteChief Complaint [...] contact us this spring [place]. RTC 1 year [2] Medical [...] signed by Stephen Jordan MD 09/09/24 13:49 [facility]Ohio[facility]/Clinic Noteon 90-46-0785Eabslgkodyrmfw Office/Clinic Note Chief Complaint Patient states I [...] signed by Scottie Recinos MD 07/14/24 10:25 [facility] Otolaryngology Office/Clinic Noteon 73-90-0486Isawqztqsinbeo Office/Clinic Note Chief Complaint Pt states was [...] signed by Scottie Recinos MD 03/31/24 08:46 [facility] Lab Reportson 90-04-7158Ezu Reports [id number]#1.00Peoples HospitalAmbulatory Visit Summaryon 09-12-3476Npaejvuszh Visit Summary NILDA ALMARAZ :1970 Visit Date:03/09/2024 [...] you for choosing us for your care. [facility] 57-02-7763Kggjumc [id number]#1.00TIFFNormMercy Health [facility] Hospital Medicine Office/Clinic Noteon 92-05-9442[place] Medicine Office/Clinic NoteI Staff Nilda is a [...] Daily, # 90 cap(s), Refills(s) 1, Pharmacy: [facility]/pharmacy #[id number], 158, cm, 09/09/23 10:57:00 EST, Height/Length Dosing, 58.2, kg, 09/09/23 10:57:00 EST, Weight Dosing esomeprazole, 40 mg = 1 cap(s), Oral, Daily, X 90 day(s), # 90 cap(s), Refills(s) 3, Pharmacy: [id number], 159, cm, 03/09/24 10:08:00 EDT, Height/Length Dosing, [...] 2023-08-28: 50 SARS-CoV-2 (COVID-19) mRNA-1273 vaccine 12/10/2020 RecordedOur Lady of Mercy HospitalComment on above:Result Comment: Electronically Signed By: Mara Rosario.br\Date and Time Signed: 03/09/24 11:18 EDTPatient Logson 87-79-4472Ryqszqk [id number]#1.00TIFFNormal Mercy HospitalAlanine aminotransferase [Enzymatic activity/volume] in Serum or PlasmaOrdered By: OUTREACH COMMUNITY on 68-48-3099BSW [Catalytic activity/Vol]14 U/L7-52[facility]S HospitalAlbumin [Mass/volume] in Serum or Plasma by Bromocresol green (BCG) dye binding methoOrdered By: OUTREACH COMMUNITY on 30-36-5468Wwjfzjd BCG dye [Mass/Vol]4.8 g/dL3.5-5.7 [facility]S HospitalAlkaline phosphatase [Enzymatic activity/volume] in Serum or PlasmaOrdered By: OUTREACH COMMUNITY on 02-15-2024 ALP [Catalytic activity/Vol]79 U/D37-628RejikbnaaAkron Children'S Hospital Aspartate aminotransferase [Enzymatic activity/volume] in Serum or PlasmaOrdered By: OUTREACH COMMUNITY on 94-62-9792YFK [Catalytic activity/Vol]18 U/L13-39 [facility]S HospitalBilirubin.total [Mass/volume] in Serum or PlasmaOrdered By: OUTREACH COMMUNITY on 61-68-3767Xkkscykra [Mass/Vol]0.6 mg/dL 0.3-1.0[facility] HospitalCalcium [Mass/volume] in Serum or Plasma Ordered By: [facility]REACH COMM[facility]ITY on 12-32-0095Bgkfwwo [Mass/Vol]9.8 mg/dL8.6-10.3 [facility] HospitalCarbon dioxide, total [Moles/volume] in Serum or PlasmaOrdered By: OUTREACH COMMUNITY on 60-19-3898WK5 [Moles/Vol]28.1 mmol/L 21.0-31.0[facility] HospitalChloride [Moles/volume] in Serum or PlasmaOrdered By: OUTREACH COMMUNITY on 62-11-7735Xjuecnii [Moles/Vol]101 mmol/L 98-107[facility] HospitalCholesterol [Mass/volume] in Serum or PlasmaOrdered By: OUTREACH COMMUNITY on 92-29-8610Xsbiasaouef [Mass/Vol]248 mg/iP887-930WlmhusgviAkron Children'S HospitalComment on above:Chol less than 200 mg/dl low riskChol 201-239 mg/dl borderline riskChol 240 mg/dl and greater high riskCholesterol in LDL Calc [Mass/Vol]Ordered By: [facility] on 76-47-0324Evjgrlqpcer in LDL [Mass/Vol]154 mg/dL0-100[facility] HospitalComment on above:LDL ATP III CLASSIFICATIONLDL less than 100 mg/dL OptimalLDL 100-129 mg/dL Near or above egtohtcFVZ777-278 mg/dL Borderline highLDL 160-189 mg/dL HighLDL greater than 189 mg/dL Very highCholesterol in VLDL Calc [Mass/Vol]Ordered By: [facility] on 27-59-9943Fqvskybtjnw in VLDL [Mass/Vol]16 mg/dLAkron Children'S HospitalCreatinine [Mass/volume] in Serum or PlasmaOrdered By: [facility] on 43-14-8712Vyvkmmevff [Mass/Vol]0.65 mg/dL0.60-1.20[facility] HospitalErythrocyte distribution width Auto (RBC) [Ratio]Ordered By: [facility] on 56-47-7631Qngevvlnque distribution width (RBC) [Ratio]13.0 %11.9-15.3FSouthern Ohio Medical CenterGlucose [Mass/volume] in Serum or PlasmaOrdered By: [facility] on 22-24-9659Mouaptw [Mass/Vol]99 mg/eT62-121PpjsemszjAkron Children'S HospitalComment on above:ADA recommended reference rangeRandom Glucose Reference Range is dependent on time and content of last meal. Glucose of more than 200 mg/dL in a nonstressed, ambulatory subject supports the diagnosisof Diabetes Mellitus.Hematocrit Auto (Bld) [Volume fraction]Ordered By: [facility] on 82-27-9224Raqueeyuqd (Bld) [Volume fraction]37.8 % 34.0-46.4FSouthern Ohio Medical CenterHemoglobin [Mass/volume] in Blood Ordered By: [facility] on 23-82-4377Tkwdeyssyr (Bld) [Mass/Vol]12.9 g/dL 11.8-15.4FSouthern Ohio Medical CenterLeukocytes [#/volume] corrected for nucleated erythrocytes in Blood by Automated counOrdered By: [facility] on 37-46-8921XAG corrected for nucl RBC Auto (Bld) [#/Vol]8.9 10*3/uL3.8-11.[address] [facility] Auto (RBC) [Entitic mass]Ordered By: OUTREACH COMMUNITY on 93-45-7152LAM (RBC) [Entitic mass]31.6 pg24.7-34.3 [facility] HospitalHC Auto (RBC) [Mass/Vol]Ordered By: OUTREACH COMMUNITY on 18-42-6805TMOX (RBC) [Mass/Vol]34.2 g/dL32.0-35.0[facility] HospitalMCV Auto (RBC) [Entitic vol]Ordered By: [facility]REACH COMMUNITY on 06-79-6368ZXH (RBC) [Entitic vol]92.5 dQ44-949RxhhhvlsnAkron Children'S Hospital No Panel InformationOrdered By: OUTREACH COMMUNITY on 39-37-0554Eoehguyxe GFR (CKD-EPI)> 60.0 mL/MinAkron Children'S HospitalPharmacy Creatinine Clearance (ChemN/[facility] HospitalPlatelet mean volume Auto (Bld) [Entitic vol]Ordered By: OUTREACH COMMUNITY on 65-20-6693Ohipsspe mean volume (Bld) [Entitic vol]7.7 fL6.3-10.7FSouthern [facility] Medical Center Platelets Auto (Bld) [#/Vol]Ordered By: OUTREACH COMMUNITY on 02-15-2024 Platelets (Bld) [#/Vol]297 10*3/qI601-167JaojhjinfAkron Children'S Hospital Potassium [Moles/volume] in Serum or PlasmaOrdered By: OUTREACH COMMUNITY on 32-76-9185Ricqgxlcv [Moles/Vol]4.2 mmol/L3.5-5.1FSouthern Ohio Medical CenterProtein [Mass/volume] in Serum or PlasmaOrdered By: OUTREACH COMMUNITY on 22-76-3413Txwrmlg [Mass/Vol]7.2 g/dL6.4-8.9[facility] HospitalRBC Auto (Bld) [#/Vol]Ordered By: OUTREACH COMMUNITY on 67-31-6973MPT (Bld) [#/Vol] 4.08 10*6/uL3.60-5.00[facility]land District Hospitalerum or plasma anion gap determinationOrdered By: OUTREACH COMMUNITY on 41-80-1211Yaknc gap [Moles/Vol] 12.1 mmol/L6.0-15.0[facility] Hospitalerum or plasma high density lipoprotein (HDL) cholesterol measurementOrdered By: OUTREACH COMMUNITY on 05-37-5356Jlmkywtimkw in HDL [Mass/Vol]78 mg/kN62-76JuubqnimwAkron Children'S HospitalComment on above:HDL CHOL ATP-III CLASSIFICATION Cardiovascular RiskHDL > or equal to 60 mg/dL LOWHDL < 40 mg/dL HIGHSerum or plasma total cholesterol/high density lipoprotein (HDL) cholesterol mass ratOrdered By: OUTREACH COMMUNITY on 39-11-2271Lzkyyekvvvh.total/Cholesterol in HDL [Mass ratio]3.2 {ratio}<5.0[facility] Hospitalodium [Moles/volume] in Serum or PlasmaOrdered By: [facility]ITY on 97-48-4961Advsal [Moles/Vol]137 mmol/O805-327BjhrgmjrrAkron Children'S HospitalTriglyceride [Mass/volume] in Serum or PlasmaOrdered By: [facility] on 27-86-4122Ynkomhyghdsk [Mass/Vol]82 mg/dL0-149[facility] HospitalComment on above:TRIG ATP III CLASSIFICATIONTRIG less than 150 mg/dL NormalTRIG 150-199 mg/dL Borderline highTRIG 200-500 mg/dL High TRIG greater than 500 mg/dL Very highStandard traceable to the Center for Disease Conrtrol and Prevention (CDC) test method.Urea nitrogen [Mass/volume] in Serum or PlasmaOrdered By: [facility] COMMUNITY on 88-70-6585Raqd nitrogen [Mass/Vol]9 mg/dL7-25[facility]S HospitalReminderson 69-69-0905Djjqbpzmj From: Mara Rosario To: [facility] - Clinical; Sent: 01/20/2024 08:21:24 EDT Show up: 01/20/2024 08:22:00 EDT Subject: Ambulatory Reminder Due Date/Time: 01/21/2024 08:21:00 EDT Pap and HPV was negative Results: Date Result Name Value Ref Range 01/13/2024 9:08 HPV Aptima Negative (Negative - ) 01/13/2024 9:08 PAP Note Patient informed and voiced understanding.[facility] 257662mi 47-99-0329Vkvegour report Cyto stain Doc (Cvx/Vag)NoteInvalid Interpretation ChrissyMercy HospitalComment on above:Result Comment: TESTS RESULT FLAG UNITS REF RANGE LAB Clinician Provided Cytology Information Source.............Endocervix No. of containers..01 ThinPrep Vial DIAGNOSIS: 01 NEGATIVE FOR INTRAEPITHELIAL LESION OR MALIGNANCY. Specimen adequacy: 01 Satisfactory for evaluation. Endocervical and/or squamous metaplastic cells (endocervical component) are present. Performed by: 01 Marjan Covington, [employer] [place] [employer] ([facility]) . 01 Note: Note 01 The Pap [...] High <-Panic Low,>-Panic High,A-Abnormal,AA-Critical Abnormal Performed at: [facility] Lab[address] [id number] Latia Lennon MD, Shqaojwfh By: #### [id number] ####Josef [facility] [address] [place], [id number] 16+18+31+33+35+39+45+51+52+56+58+59+66+68 DNA Probe+sig amp Ql (Cvx)Negative Invalid Interpretation CodeNegativeMercy HospitalComment on above: Result Comment: This nucleic acid amplification test detects fourteen high-risk HPV types (16,18,31,33,35,39,45,51,52,56,58,59,66,68) without differentiation. Performed at: [facility] [address] [place], [place] [id number] MD Saji Jeffery Performed at: =[facility] [id number] MD Saji JefferyPerformed By: #### [id number] ####Josef [facility] [address] [place], [id number] 01-17-2024 Reminders From: Mara Rosario To: [facility] - Clinical; Sent: 01/17/2024 08:22:42 EDT Show up: 01/17/2024 08:23:00 EDT Subject: Ambulatory Reminder Due Date/Time: 01/18/2024 08:22:00 EDT Pap is negative Results: Date Result Name Value Ref Range 01/13/2024 9:08 HPV Aptima Negative (Negative - ) 01/13/2024 9:08 PAP Note Patient informed and voiced understanding.NormalMercy Hospital Ambulatory Visit Summaryon [id number] Visit Summary NILDA ALMARAZ :1970 Visit Date:01/13/2024 [...] AM EDT With: Thaddeus Mojica MD Where: [facility] Medicine Office/Clinic Noteon [id number] Medicine Office/Clinic NoteHPI Staff Nilda is a [...] cancer would like order for Loretta to [facility] History of Present Illness pt presents today [...] masses. Pap obtained Neurologic: Grossly normal Skin: [place], moist, no tenting Lymph Nodes: No cervical [...] 2023-08-28: 49 SARS-CoV-2 (COVID-19) mRNA-1273 vaccine 12/10/2020 RecordedOur Lady of Mercy HospitalComment on above:Result Comment: Electronically Signed By: Mara Rosario.thaddeus\Date and Time Signed: 01/13/24 09:28 EDTPAP [id number] 01-13-2024 Gynecological Body SiteENDOCERVIXOur Lady of Mercy HospitalComment on above:Performed By: #### [id number] ####Bahena [facility] [id number] [place], [id number] Mammographyon 09-17-2023 Outside [id number]#1.00Peoples HospitalAlanine aminotransferase [Enzymatic activity/volume] in Serum or PlasmaOrdered By: OUTREACH COMMUNITY on 28-92-6266KCQ [Catalytic activity/Vol]18 U/L7-52[facility] HospitalAlbumin [Mass/volume] in Serum or Plasma by Bromocresol green (BCG) dye binding methoOrdered By: OUTREACH COMMUNITY on 11-68-9836Flpzldx BCG dye [Mass/Vol]4.5 g/dL3.5-5.7 [facility] HospitalAlkaline phosphatase [Enzymatic activity/volume] in Serum or PlasmaOrdered By: OUTREACH COMMUNITY on 08-31-2023 ALP [Catalytic activity/Vol]84 U/I16-303AtvkykhcgAkron Children'S Hospital Aspartate aminotransferase [Enzymatic activity/volume] in Serum or PlasmaOrdered By: OUTREACH COMMUNITY on 83-43-4643OTZ [Catalytic activity/Vol]22 U/L13-39 [facility] HospitalBilirubin.total [Mass/volume] in Serum or PlasmaOrdered By: OUTREACH COMMUNITY on 34-93-7473Yyvinernh [Mass/Vol]0.3 mg/dL 0.3-1.0[facility] HospitalCalcium [Mass/volume] in Serum or Plasma Ordered By: [facility]REACH COMMUNITY on 43-85-5424Hcrygmd [Mass/Vol]9.4 mg/dL8.6-10.3 [facility] HospitalCarbon dioxide, total [Moles/volume] in Serum or PlasmaOrdered By: OUTREACH COMMUNITY on 53-19-0454BS6 [Moles/Vol]30.5 mmol/L 21.0-31.0[facility] HospitalChloride [Moles/volume] in Serum or PlasmaOrdered By: OUTREACH COMMUNITY on 34-31-2805Nvssqfga [Moles/Vol]103 mmol/L 98-107[facility] HospitalCholesterol [Mass/volume] in Serum or PlasmaOrdered By: OUTREACH [facility] on 19-41-5963Ikwsiixknim [Mass/Vol]230 mg/nJ697-701EybozzfnoAkron Children'S HospitalComment on above:Chol less than 200 mg/dl low riskChol 201-239 mg/dl borderline riskChol 240 mg/dl and greater high riskCholesterol in LDL Calc [Mass/Vol]Ordered By: [facility] on 40-77-1260Lbieelgvcsz in LDL [Mass/Vol]141 mg/dL0-100[facility] HospitalComment on above:LDL ATP III CLASSIFICATIONLDL less than 100 mg/dL OptimalLDL 100-129 mg/dL Near or above qtcebkzIZA893-340 mg/dL Borderline highLDL 160-189 mg/dL HighLDL greater than 189 mg/dL Very highCholesterol in VLDL Calc [Mass/Vol]Ordered By: [facility] on 38-77-3977Jlvapjtuygw in VLDL [Mass/Vol]18 mg/dLAkron Children'S HospitalCreatinine [Mass/volume] in Serum or PlasmaOrdered By: [facility] on 76-69-5462Hluxnmfltp [Mass/Vol]0.65 mg/dL0.60-1.20[facility] HospitalErythrocyte distribution width Auto (RBC) [Ratio]Ordered By: [facility] on 50-30-1514Zmnhdnowqnx distribution width (RBC) [Ratio]12.8 %11.9-15.3FSouthern Ohio Medical CenterGlucose [Mass/volume] in Serum or PlasmaOrdered By: OUTREACH [facility] on 73-95-4423Eyocsys [Mass/Vol]103 mg/aR70-318BpqwvijjiAkron Children'S HospitalComment on above:ADA recommended reference rangeRandom Glucose Reference Range is dependent on time and content of last meal. Glucose of more than 200 mg/dL in a nonstressed, ambulatory subject supports the diagnosisof Diabetes Mellitus.Hematocrit Auto (Bld) [Volume fraction]Ordered By: [facility] on 39-69-9361Ltluiakwur (Bld) [Volume fraction]36.8 % 34.0-46.4FSouthern Ohio Medical CenterHemoglobin [Mass/volume] in Blood Ordered By: [facility]REACH COMMUNITY on 98-76-6838Wkkzbnbsfu (Bld) [Mass/Vol]12.5 g/dL 11.8-15.4FSouthern Ohio Medical CenterLeukocytes [#/volume] corrected for nucleated erythrocytes in Blood by Automated counOrdered By: OUTREACH COMMUNITY on 60-13-1576JIL corrected for nucl RBC Auto (Bld) [#/Vol]6.9 10*3/uL3.8-11.6 [facility] HospitalH Auto (RBC) [Entitic mass]Ordered By: OUTREACH [facility] on 59-22-7902JTL (RBC) [Entitic mass]31.6 pg24.7-34.3 [facility]S HospitalMCHC Auto (RBC) [Mass/Vol]Ordered By: OUTREACH [facility] on 32-21-7066KEDF (RBC) [Mass/Vol]33.9 g/dL32.0-35.0[facility] HospitalMCV Auto (RBC) [Entitic vol]Ordered By: OUTREACH COMMUNITY on 74-81-8154WNZ (RBC) [Entitic vol]93.1 kO67-923UczajclvgAkron Children'S Hospital No Panel InformationOrdered By: [facility] on 85-92-3515Kukdrunji GFR (CKD-EPI)> 60.0 mL/MinAkron Children'S HospitalPharmacy Creatinine Clearance (ChemN/[facility] HospitalPlatelet mean volume Auto (Bld) [Entitic vol]Ordered By: OUTREACH [facility] on 70-51-2532Xjmpvahp mean volume (Bld) [Entitic vol]8.1 fL6.3-10.7FSouthern Ohio Medical Center Platelets Auto (Bld) [#/Vol]Ordered By: OUTREACH COMMUNITY on 08-31-2023 Platelets (Bld) [#/Vol]275 10*3/rA204-316WxnsnhkmkAkron Children'S Hospital Potassium [Moles/volume] in Serum or PlasmaOrdered By: OUTREACH COMMUNITY on 18-88-8789Xmqczueqa [Moles/Vol]4.2 mmol/L3.5-5.1FSouthern Ohio Medical CenterProtein [Mass/volume] in Serum or PlasmaOrdered By: OUTREACH COMMUNITY on 66-60-5720Rrvotot [Mass/Vol]6.9 g/dL6.4-8.9[facility] HospitalRBC Auto (Bld) [#/Vol]Ordered By: OUTREACH COMMUNITY on 44-64-8265IWF (Bld) [#/Vol] 3.96 10*6/uL3.60-5.00[facility] Hospitalerum or plasma anion gap determinationOrdered By: OUTREACH COMMUNITY on 41-68-7908Yqxrp gap [Moles/Vol] 9.7 mmol/L6.0-15.0[facility] Hospitalerum or plasma high density lipoprotein (HDL) cholesterol measurementOrdered By: OUTREACH COMMUNITY on 80-41-7579Vkievpihnmx in HDL [Mass/Vol]70 mg/hG55-83PjnwfuldqAkron Children'S HospitalComment on above:HDL CHOL ATP-III CLASSIFICATION Cardiovascular RiskHDL > or equal to 60 mg/dL LOWHDL < 40 mg/dL HIGHSerum or plasma total cholesterol/high density lipoprotein (HDL) cholesterol mass ratOrdered By: OUTREACH COMMUNITY on 48-31-5936Iygintbjbfs.total/Cholesterol in HDL [Mass ratio]3.3 {ratio}<5.0[facility] Hospitalodium [Moles/volume] in Serum or PlasmaOrdered By: OUTREACH COMMUNITY on 00-39-8611Zwvqlt [Moles/Vol]139 mmol/X163-802EznjigrfhAkron Children'S HospitalTriglyceride [Mass/volume] in Serum or PlasmaOrdered By: OUTREACH COMMUNITY on 22-62-8810Eufsnkwgqoto [Mass/Vol]93 mg/dL0-149[facility] HospitalComment on above:TRIG ATP III CLASSIFICATIONTRIG less than 150 mg/dL NormalTRIG 150-199 mg/dL Borderline highTRIG 200-500 mg/dL High TRIG greater than 500 mg/dL Very highStandard traceable to the Center for Disease Conrtrol and Prevention (CDC) test method.Urea nitrogen [Mass/volume] in Serum or PlasmaOrdered By: OUTREACH COMMUNITY on 78-80-0508Bhzj nitrogen [Mass/Vol]15 mg/dL7[facility]S HospitalAlanine aminotransferase [Enzymatic activity/volume] in Serum or PlasmaOrdered By: OUTREACH COMMUNITY on 38-51-4103JSL [Catalytic activity/Vol]17 U/L7[facility] HospitalAlbumin [Mass/volume] in Serum or Plasma by Bromocresol green (BCG) dye binding methoOrdered By: OUTREACH COMMUNITY on 62-63-1112Mjbgbmi BCG dye [Mass/Vol]4.8 g/dL3.5-5.7FSouthern Ohio Medical CenterAlkaline phosphatase [Enzymatic activity/volume] in Serum or PlasmaOrdered By: OUTREACH COMMUNITY on 18-40-3020GSV [Catalytic activity/Vol]89 U/L34-104 [facility] HospitalAspartate aminotransferase [Enzymatic activity/volume] in Serum or PlasmaOrdered By: OUTREACH COMMUNITY on 03-16-2023 AST [Catalytic activity/Vol]19 U/S50-62ErcqcgdisAkron Children'S Hospital Bilirubin.total [Mass/volume] in Serum or PlasmaOrdered By: OUTREACH COMMUNITY on 60-38-8665Jhqwubevl [Mass/Vol]0.4 mg/dL0.3-1.0[facility] HospitalCalcium [Mass/volume] in Serum or PlasmaOrdered By: OUTREACH COMMUNITY on 58-80-1811Vtqcmzm [Mass/Vol]9.4 mg/dL8.6-10.3FSouthern [facility] Center Carbon dioxide, total [Moles/volume] in Serum or PlasmaOrdered By: OUTREACH COMMUNITY on 52-42-9974SM5 [Moles/Vol]28.6 mmol/L21.0-31.0[facility] HospitalChloride [Moles/volume] in Serum or PlasmaOrdered By: OUTREACH COMMUNITY on 51-90-7186Hlrhduxu [Moles/Vol]104 mmol/C08-455LleqqeavbAkron Children'S HospitalCholesterol [Mass/volume] in Serum or PlasmaOrdered By: OUTREACH COMMUNITY on 92-15-9711Kexrfrsrzov [Mass/Vol]193 mg/eO805-955FhpptoxgpAkron Children'S HospitalComment on above:Chol less than 200 mg/dl low riskChol 201-239 mg/dl borderline riskChol 240 mg/dl and greater high riskCholesterol in LDL Calc [Mass/Vol]Ordered By: OUTREACH COMMUNITY on 39-89-6192Mjkaywsjhiq in LDL [Mass/Vol]116 mg/dL0-100[facility] HospitalComment on above:LDL ATP III CLASSIFICATIONLDL less than 100 mg/dL OptimalLDL 100-129 mg/dL Near or above rmltsfvXTD466-928 mg/dL Borderline highLDL 160-189 mg/dL HighLDL greater than 189 mg/dL Very highCholesterol in VLDL Calc [Mass/Vol]Ordered By: [facility] on 73-56-6638Vsbobzikrwo in VLDL [Mass/Vol]14 mg/dLAkron Children'S HospitalCreatinine [Mass/volume] in Serum or PlasmaOrdered By: [facility] on 65-29-4902Qemhmopsjb [Mass/Vol]0.68 mg/dL0.60-1.20[facility] HospitalErythrocyte distribution width Auto (RBC) [Ratio]Ordered By: [facility] on 56-08-4669Hrjoyqpzjcj distribution width (RBC) [Ratio] 12.6 %11.9-15.3FSouthern Ohio Medical CenterGlucose [Mass/volume] in Serum or PlasmaOrdered By: [facility] on 84-58-6127Jwyelmb [Mass/Vol]98 mg/dL 70-100[facility] HospitalComment on above:ADA recommended reference rangeRandom Glucose Reference Range is dependent on time and content of last meal. Glucose of more than 200 mg/dL in a nonstressed, ambulatory subject supports the diagnosisof Diabetes Mellitus.Hematocrit Auto (Bld) [Volume fraction]Ordered By: [facility] on 26-03-3884Lspkisbkrb (Bld) [Volume fraction]37.8 %34.0-46.4FSouthern Ohio Medical CenterHemoglobin [Mass/volume] in BloodOrdered By: [facility] on 98-56-0263Fhiaylzlpr (Bld) [Mass/Vol]12.9 g/dL11.8-15.4FSouthern Ohio Medical CenterLeukocytes [#/volume] corrected for nucleated erythrocytes in Blood by Automated coun Ordered By: [facility] on 86-11-8296OGD corrected for nucl RBC Auto (Bld) [#/Vol]7.0 10*3/uL3.8-11.6FKn[facility] Auto (RBC) [Entitic mass]Ordered By: [facility] on 41-01-8540PLT (RBC) [Entitic mass]31.0 pg24.7-34.3FSouthern Ohio Medical CenterMCHC Auto (RBC) [Mass/Vol] Ordered By: OUTREACH COMMUNITY on 16-35-1845ROYX (RBC) [Mass/Vol]34.1 g/dL 32.0-35.0[facility]S HospitalMCV Auto (RBC) [Entitic vol]Ordered By: OUTREACH COMMUNITY on 40-94-6488PHV (RBC) [Entitic vol]91.0 eX42-067 [facility] HospitalNo Panel InformationOrdered By: OUTREACH COMMUNITY on 93-00-8485Uftlwxqei GFR (CKD-EPI)> 60.0 mL/MinAkron Children'S HospitalPharmacy Creatinine Clearance (ChemN/[facility] HospitalPlatelet mean volume Auto (Bld) [Entitic vol]Ordered By: [facility] on 08-78-1129Gzluacjh mean volume (Bld) [Entitic vol]7.4 fL6.3-10.7 [facility] HospitalPlatelets Auto (Bld) [#/Vol]Ordered By: OUTREACH [facility] on 06-89-3022Arglacbok (Bld) [#/Vol]307 10*3/dF150-712 [facility] HospitalPotassium [Moles/volume] in Serum or Plasma Ordered By: [facility] on 54-77-3304Kgmaqqwav [Moles/Vol]4.5 mmol/L 3.5-5.1FSouthern Ohio Medical CenterProtein [Mass/volume] in Serum or Plasma Ordered By: [facility] on 07-20-0879Hnszmov [Mass/Vol]6.9 g/dL6.4-8.9 [facility] HospitalRBC Auto (Bld) [#/Vol]Ordered By: OUTREACH COMMUNITY on 94-38-9753SUN (Bld) [#/Vol]4.15 10*6/uL3.60-5.00[facility] Hospitalerum or plasma anion gap determinationOrdered By: [facility] on 41-79-2476Hpucq gap [Moles/Vol]11.9 mmol/L6.0-15.0[facility] Hospitalerum or plasma high density lipoprotein (HDL) cholesterol measurementOrdered By: OUTREACH [facility] on 06-99-4665Yvlwofvjfng in HDL [Mass/Vol]62 mg/aO92-40IqpuupnllAkron Children'S HospitalComment on above: HDL CHOL ATP-III CLASSIFICATION Cardiovascular RiskHDL > or equal to 60 mg/dL LOWHDL < 40 mg/dL HIGHSerum or plasma total cholesterol/high density lipoprotein (HDL) cholesterol mass ratOrdered By: [facility] on 03-16-2023 Cholesterol.total/Cholesterol in HDL [Mass ratio]3.1 {ratio}<5.0[facility] Hospitalodium [Moles/volume] in Serum or PlasmaOrdered By: [facility] on 52-15-5894Hmahwz [Moles/Vol]140 mmol/X205-288LmllgredxAkron Children'S HospitalTriglyceride [Mass/volume] in Serum or PlasmaOrdered By: [facility] on 89-46-4674Diuchiykdtmo [Mass/Vol]74 mg/dL0-149[facility]S HospitalComment on above:TRIG ATP III CLASSIFICATIONTRIG less than 150 mg/dL NormalTRIG 150-199 mg/dL Borderline highTRIG 200-500 mg/dL High TRIG greater than 500 mg/dL Very highStandard traceable to the Center for Disease Conrtrol and Prevention (CDC) test method.Urea nitrogen [Mass/volume] in Serum or PlasmaOrdered By: [facility] on 94-50-0815Booa nitrogen [Mass/Vol]11 mg/dL7-25[facility] HospitalBody fluid albumin measurement (mass/volume)Ordered By: [facility] on 57-16-7767Hixfuba (Body fld) [Mass/Vol]4.0 g/dL3.2-5.5FSouthern Ohio Medical CenterCholesterol [Mass/volume] in Serum or PlasmaOrdered By: [facility] on 08-04-2022 Cholesterol [Mass/Vol]219 mg/iS971-265ScxwdytwtAkron Children'S HospitalComment on above:Chol less than 200 mg/dl low riskChol 201-239 mg/dl borderline riskChol 240 mg/dl and greater high riskCholesterol in LDL Calc [Mass/Vol]Ordered By: [facility] on 91-85-0067Xxfkrjxpcjt in LDL [Mass/Vol]131 mg/dL0-100 [facility] HospitalComment on above:LDL ATP III CLASSIFICATIONLDL less than 100 mg/dL OptimalLDL 100-129 mg/dL Near or above gtkzyjyGPV719-176 mg/dL Borderline highLDL 160-189 mg/dL HighLDL greater than 189 mg/dL Very high Cholesterol in VLDL Calc [Mass/Vol]Ordered By: OUTREACH [facility] on 08-04-2022 Cholesterol in VLDL [Mass/Vol]10 mg/dLAkron Children'S Hospital Creatinine and Glomerular filtration rate.predicted panel (S/P/Bld)Ordered By: OUTREACH [facility] on 43-06-3401Rucviisnra [Mass/Vol]0.64 mg/dL0.44-1.03 [facility]S HospitalErythrocyte distribution width Auto (RBC) [Ratio]Ordered By: [facility] on 20-55-1610Vccwfxqgvce distribution width (RBC) [Ratio]12.6 %11.9-15.3FSouthern Ohio Medical CenterEstimated glomerular filtration rate (GFR) non- AmericanOrdered By: [facility] on 52-26-6298UIO/1.73 sq M.predicted among non-blacks MDRD (S/P/Bld) [Vol rate/Area]> 60 mL/MinAkron Children'S HospitalHematocrit Auto (Bld) [Volume fraction]Ordered By: [facility] on 24-08-2843Dxehygiiru (Bld) [Volume fraction]37.9 %34.0-46.4FSouthern [facility] Medical CenterHemoglobin [Mass/volume] in BloodOrdered By: [facility] on 61-85-3658Akfdsmgeua (Bld) [Mass/Vol]13.1 g/dL11.8-15.4FKnox Community Hospital Auto (RBC) [Entitic mass]Ordered By: [facility] on 23-18-4896PVC (RBC) [Entitic mass]31.8 pg24.7-34.3FSelect Medical Specialty Hospital - [facility]-FairhillHC Auto (RBC) [Mass/Vol]Ordered By: [facility] [facility] on 76-55-3823POWX (RBC) [Mass/Vol]34.4 g/dL32.0-35.0[facility] HospitalV Auto (RBC) [Entitic vol] Ordered By: OUTREACH [facility] on 24-90-9090FCP (RBC) [Entitic vol]92.3 dK22-083 [facility] HospitalNo Panel InformationOrdered By: OUTREACH [facility] on 72-80-4921Fgtluucaw GFR ()> 60 mL/MinAkron Children'S HospitalComment on above:GFR estimated reference range: According to KDOQI guidelines, <60 ml/min/1.73m2 is sufficient todiagnose a patient with chronic kidney disease.Pharmacy Creatinine Clearance (ChemN/[facility] HospitalTriglycerides Vlzeok33 mg/hH04-796GzaglojiqAkron Children'S HospitalComment on above:TRIG ATP III CLASSIFICATIONTRIG less than 150 mg/dL NormalTRIG 150-199 mg/dL Borderline highTRIG 200-500 mg/dL High TRIG greater than 500 mg/dL Very highStandard traceable to the Center for Disease Conrtrol and Prevention (CDC) test method.Platelet mean volume Auto (Bld) [Entitic vol] Ordered By: [facility]ACH [facility]ITY on 06-87-0229Eurfzblu mean volume (Bld) [Entitic vol]7.9 fL6.3-10.7FSouthern [place] Medical CenterPlatelets Auto (Bld) [#/Vol] Ordered By: [facility] on 48-24-2115Qhdopcaph (Bld) [#/Vol]312 10*3/uL 150-450[facility]S HospitalProtein [Mass/volume] in Serum or Plasma Ordered By: [facility]ACH [facility] on 86-04-9604Egeomuy [Mass/Vol]6.7 g/dL6.1-7.9 [facility]'S HospitalRBC Auto (Bld) [#/Vol]Ordered By: [facility]REACH COMM[facility] on 43-22-2928KUX (Bld) [#/Vol]4.11 10*6/uL3.60-5.00Highland District Hospitalerum or plasma alanine aminotransferase measurement without P-5'-P (enzymatic activiOrdered By: OUTREACH COMMUNITY on 04-19-3953NEC No additional P-5'-P [Catalytic activity/Vol]29 U/Z51-32HooljmedvHighland District Hospitalerum or plasma alkaline phosphatase measurement (enzymatic activity/volume)Ordered By: [facility]ACH COMM[facility] on 26-51-6853UPL [Catalytic activity/Vol]74 U/X09-72AitqgcypoHighland District Hospitalerum or plasma anion gap determinationOrdered By: OUTREACH COMMUNITY on 05-58-2716Rbxmo gap [Moles/Vol]13.1 mmol/L6.0-15.0[facility] Hospitalerum or plasma aspartate aminotransferase measurement (enzymatic activity/volume)Ordered By: [facility]ACH COMM[facility] on 37-99-7734YJL [Catalytic activity/Vol]26 U/K46-16YohvblmawHighland District Hospitalerum or plasma calcium measurement (mass/volume)Ordered By: [facility] on 52-95-6120Zwugrmc [Mass/Vol]9.7 mg/dL8.2-10.2FMarietta Osteopathic Clinicerum or plasma chloride measurement (moles/volume) Ordered By: OUTREACH [facility] on 55-31-2581Icklckag [Moles/Vol]102 mmol/L95-114 [facility] Hospitalerum or plasma glucose measurement (mass/volume)Ordered By: OUTREACH [facility] on 42-30-5820Kbefyxl [Mass/Vol]103 mg/jW56-557OfuhikvbmAkron Children'S HospitalComment on above:ADA recommended reference rangeRandom Glucose Reference Range is dependent on time and content of last meal. Glucose of more than 200 mg/dL in a nonstressed, ambulatory subject supports the diagnosisof Diabetes Mellitus.Serum or plasma high density lipoprotein (HDL) cholesterol measurementOrdered By: [facility] on 16-60-1767Mdsxeirewuj in HDL [Mass/Vol]78 mg/gV94-84QzqilkqrmAkron Children'S HospitalComment on above:HDL CHOL ATP-III CLASSIFICATION Cardiovascular RiskHDL > or equal to 60 mg/dL LOWHDL < 40 mg/dL HIGHSerum or plasma potassium measurement (moles/volume)Ordered By: [facility] on 09-23-8247Zvaovwyrl [Moles/Vol] 4.3 mmol/L3.5-5.1FMarietta Osteopathic Clinicerum or plasma sodium measurement (moles/volume)Ordered By: OUTREACH [facility] on 24-71-4533Vibrvy [Moles/Vol]141 mmol/B270-394LatcvnlwtHighland District Hospitalerum or plasma total bilirubin measurement (mass/volume)Ordered By: [facility] on 72-62-8197Mrjjbhiap [Mass/Vol]0.5 mg/dL0.3-1.2FSouthern [place] Medical Center Serum or plasma total carbon dioxide measurement (moles/volume)Ordered By: OUTREACH [facility] on 67-61-6569BJ2 [Moles/Vol]30.2 mmol/L22.0-30.0[facility] Hospitalerum or plasma total cholesterol/high density lipoprotein (HDL) cholesterol mass ratOrdered By: OUTREACH [facility] on 70-58-7284Rnjoaofehuk.total/Cholesterol in HDL [Mass ratio]2.8 {ratio}<5.0 [facility] Hospitalerum or plasma urea nitrogen measurement (mass/volume)Ordered By: OUTREACH [facility] on 72-74-8411Yvvf nitrogen [Mass/Vol]9 mg/dL9-23[facility]S HospitalWBC Auto (Bld) [#/Vol] Ordered By: [facility] on 52-40-0816MHZ (Bld) [#/Vol]6.0 10*3/uL3.8-11.6 [facility] HospitalAlbumin [Mass/volume] in Serum or PlasmaOrdered By: [facility] on 05-86-3495Aoyngyg [Mass/Vol]4.3 g/dL3.2-5.5FSouthern [place] Medical CenterBlood hemoglobin measurement (mass/volume)Ordered By: [facility] on 41-00-4850Hgkedwhzxp (Bld) [Mass/Vol]13.0 g/dL11.8-15.4 [facility] HospitalCholesterol [Mass/volume] in Serum or Plasma Ordered By: [facility] on 28-77-5936Kufrsfvqdzh [Mass/Vol]218 mg/dL 140-200[facility]S HospitalComment on above:Chol less than 200 mg/dl low risk Chol 201-239 mg/dl borderline risk Chol 240 mg/dl and greater high riskCholesterol in LDL Calc [Mass/Vol]Ordered By: [facility] on 29-38-2135Gcncicpoqeg in LDL [Mass/Vol]126 mg/dL0-100 [facility] HospitalComment on above:LDL ATP III CLASSIFICATION LDL less than 100 mg/dL Optimal LDL 100-129 mg/dL Near or above optimal LDL 130-159 mg/dL Borderline high LDL 160-189 mg/dL High LDL greater than 189 mg/dL Very highCholesterol in VLDL Calc [Mass/Vol]Ordered By: [facility] on 04-87-5325Oozxkhopnqn in VLDL [Mass/Vol]9 mg/dL [facility] HospitalCreatinine and Glomerular filtration rate.predicted panel (S/P/Bld)Ordered By: [facility] on 02-10-2022 Creatinine [Mass/Vol]0.67 mg/dL0.44-1.03[facility] Erythrocyte distribution width Auto (RBC) [Ratio]Ordered By: [facility] on 90-37-9669Ievoogffgty distribution width (RBC) [Ratio]13.2 %11.9-15.3 [facility] HospitalEstimated glomerular filtration rate (GFR) non- AmericanOrdered By: [facility] on 02-16-9585OXQ/1.73 sq M.predicted among non-blacks MDRD (S/P/Bld) [Vol rate/Area]> 60 mL/MinAkron Children'S HospitalHematocrit Auto (Bld) [Volume fraction]Ordered By: [facility] on 80-48-0309Hknigbjrlh (Bld) [Volume fraction]39.0 % 34.0-46.4FKnox Community Hospital Auto (RBC) [Entitic mass]Ordered By: [facility] on 43-70-1779FSG (RBC) [Entitic mass]30.7 pg24.7-34.3 [facility] Auto (RBC) [Mass/Vol]Ordered By: [facility] on 37-28-4921NJGT (RBC) [Mass/Vol]33.4 g/dL32.0-35.0[facility] HospitalV Auto (RBC) [Entitic vol]Ordered By: [facility] on 96-14-6526TAD (RBC) [Entitic vol]91.7 uZ93-431KzrkglsceAkron Children'S Hospital No Panel InformationOrdered By: [facility] on 44-40-9971Niqubiquv GFR ()> 60 mL/MinAkron Children'S HospitalComment on above: GFR estimated reference range: According to KDOQI guidelines, <60 ml/min/1.73m2 is sufficient todiagnose a patient with chronic kidney disease.Pharmacy Creatinine Clearance (ChemN/[facility] HospitalTriglycerides Sgkeog64 mg/eM03-564XjbksyuliAkron Children'S HospitalComment on above:TRIG ATP III CLASSIFICATION TRIG less than 150 mg/dL Normal TRIG 150-199 mg/dL Borderline high TRIG 200-500 mg/dL High TRIG greater than 500 mg/dL Very high Standard traceable to the Center for Disease Conrtrol and Prevention (CDC) test method.Platelet mean volume Auto (Bld) [Entitic vol]Ordered By: OUTREACH [facility] on 57-50-9714Ttmcbeui mean volume (Bld) [Entitic vol]7.8 fL6.3-10.7 [facility]S HospitalPlatelets Auto (Bld) [#/Vol]Ordered By: [facility]REACH COMM[facility] on 52-87-5552Bmwmsztjp (Bld) [#/Vol]277 10*3/sK478-048 [facility] HospitalProtein [Mass/volume] in Serum or PlasmaOrdered By: [facility]REACH [facility] on 52-31-4634Yqfjxcu [Mass/Vol]7.0 g/dL6.1-7.9[facility]S HospitalRBC Auto (Bld) [#/Vol]Ordered By: OUTREACH COMM[facility] on 22-44-1964MUO (Bld) [#/Vol]4.25 10*6/uL3.60-5.00[facility] Hospitalerum or plasma alanine aminotransferase measurement without P-5'-P (enzymatic activiOrdered By: [facility]REACH [facility] on 45-80-3619KAQ No additional P-5'-P [Catalytic activity/Vol]26 U/M96-84QxomcthphHighland District Hospitalerum or plasma alkaline phosphatase measurement (enzymatic activity/volume)Ordered By: OUTREACH [facility] on 72-69-9240FAF [Catalytic activity/Vol]74 U/L32-92 [facility] Hospitalerum or plasma aspartate aminotransferase measurement (enzymatic activity/volume)Ordered By: OUTREACH [facility] on 58-98-7663KVU [Catalytic activity/Vol]24 U/T57-19ErnhsgrbjHighland District Hospitalerum or plasma calcium measurement (mass/volume)Ordered By: [facility] on 66-77-9392Gqocxpg [Mass/Vol]9.4 mg/dL8.2-10.2FMarietta Osteopathic Clinicerum or plasma chloride measurement (moles/volume)Ordered By: OUTREACH [facility] on 78-99-6809Skvowdus [Moles/Vol]100 mmol/G45-482SskhtgwsbHighland District Hospitalerum or plasma glucose measurement (mass/volume)Ordered By: [facility]ACH COMM[facility] on 07-67-9440Rnujcvp [Mass/Vol]92 mg/xK86-117PgbjfnecfAkron Children'S HospitalComment on above:ADA recommended reference range Random Glucose Reference Range is dependent on time and content of last meal. Glucose of more than 200 mg/dL in a nonstressed, ambulatory subject supports the diagnosis of Diabetes Mellitus.Serum or plasma high density lipoprotein (HDL) cholesterol measurementOrdered By: OUTREACH [facility] on 48-63-9933Kdumbgqlbcb in HDL [Mass/Vol]82 mg/mN22-09RsojffqziAkron Children'S HospitalComment on above: HDL CHOL ATP-III CLASSIFICATION Cardiovascular Risk HDL > or equal to 60 mg/dL LOW HDL < 40 mg/dL HIGHSerum or plasma potassium measurement (moles/volume)Ordered By: OUTREACH [facility] on 02-44-4949Ajatdcnla [Moles/Vol]4.1 mmol/L3.5-5.1 [facility] Hospitalerum or plasma sodium measurement (moles/volume)Ordered By: OUTREACH [facility] on 09-78-9406Ibmkat [Moles/Vol]136 mmol/Y095-283ZsgvecnfbHighland District Hospitalerum or plasma total bilirubin measurement (mass/volume)Ordered By: [facility] on 58-48-9149Bgloftceg [Mass/Vol]0.6 mg/dL0.3-1.2FMarietta Osteopathic Clinicerum or plasma total carbon dioxide measurement (moles/volume)Ordered By: OUTREACH [facility] on 09-66-4101ES8 [Moles/Vol]26.9 mmol/L22.0-30.0[facility] Serum or plasma total cholesterol/high density lipoprotein (HDL) cholesterol mass ratOrdered By: [facility] on 02-10-2022 Cholesterol.total/Cholesterol in HDL [Mass ratio]2.7 {ratio}[facility] Hospitalerum or plasma urea nitrogen measurement (mass/volume)Ordered By: OUTREACH [facility] on 85-85-9964Nszu nitrogen [Mass/Vol]10 mg/dL9-[facility]'S HospitalWBC Auto (Bld) [#/Vol]Ordered By: OUTREACH COMMUNITY on 96-77-0139LFG (Bld) [#/Vol]6.2 10*3/uL3.8-11.6FSouthern [place] Medical Center MG MAMM SCREEN 3D IRISH CADon 09-03-8927YE MAMM SCREEN 3D IRISH CADPatient: NILDA ALMARAZSoren Exam Date: 01/25/2021 : 1970 Gender:F Ordering : DR GISELA BARRY . Admission #: [id number] Family : Order #: [id number] CLICK HERE TO VIEW EXAM 02/15/2021 Admission number added to report [facility] RADIOLOGY REPORT PROCEDURE: MAMMOGRAM SCREENING 3D BILATERAL CAD COMPARISON: MG MAMM IRISH SCRN W CAD DIG, 07/24/2013. MG MAMM SCREEN IRISH W CAD, 04/11/2018. INDICATIONS: Screening exam Calculator Name NCI Breast Cancer Risk Assessment Tool 5 Year Breast Cancer Risk 0.50% Lifetime Breast Cancer Risk 4.40% Personal Breast Cancer No Personal Ovarian Cancer No Treatments None Family Cancers None LOCATION: [facility] BREAST COMPOSITION: Extremely dense, which lowers the [...] by: Handy Rivera M.D. on 01/25/2021 at 07:48Prem[facility] Atrium Medical CenterOG PANEL 2: 30 to 65on 01-13-2021..NormalMartins Ferry Hospital Comment on above:Result Comment: Performed at: WBPerformed By: #### [id number] #### [facility] [address] [address] Christiane Monae Gdln ACOG Uxbodit53-72GpjqetHwqMercy Health Anderson HospitalComment on above:Performed By: #### [id number] #### [facility] [address] [place], [place] [address] Christiane KarenDIAGNOSIS:CommentTrinity Health System West CampusComhawthorn center on above:Result Comment: NEGATIVE FOR INTRAEPITHELIAL LESION OR MALIGNANCY. Performed at: WBPerformed By: #### [id number] #### [facility] [address], [place] [address] Christiane KarenHPV AptimaNegativeNormalNegativeMartins Ferry HospitalComment on above:Result Comment: This nucleic acid amplification test detects fourteen high-risk HPV types (16,18,31,33,35,39,45,51,52,56,58,59,66,68) without differentiation. Performed at: =GPerformed By: #### [id number] #### [facility] [address] [place] [address] Christiane ConstantindianneMethodology:CommentSelect Medical Specialty Hospital - Trumbull on above: Result Comment: This liquid based ThinPrep(R) pap test was screened with the use of an image guided system. Performed at: WBPerformed By: #### [id number] #### [facility] [address] [place] [address] Christiane KillianenNote:CommentNoFlower Hospital on above:Result Comment: The Pap smear is a screening test designed to aid in the detection of premalignant and malignant conditions of the uterine cervix. It is not a diagnostic procedure and should not be used as the sole means of detecting cervical cancer. Both false-positive and false-negative reports do occur. . Performed at: WBPerformed By: #### [id number] #### [facility] [address] [place] [address] Christiane VieiraPerformed by:CommentSelect Medical Specialty Hospital - Trumbull on above: Result Comment: Marjan Covington, [employer] (ASCP) Performed at: WBPerformed By: #### [id number] #### [facility] [address] [place] [address] Christiane Langstonpecimen adequacy:[facility] on above:Result Comment: Satisfactory for evaluation. Endocervical and/or squamous metaplastic cells (endocervical component) are present. Performed at: WBPerformed By: #### [id number] #### [facility] [address] [place] [address] Christiane Isha Encounters Encounter DateEncounter TypeCare ProviderFacilityStart: 04-17-2025 End: 88-66-6056Cjfxvxfp ReferredOUTREACH COMMUNITY-Community Outreach Work Phone: Start: 04-17-2025 End: 95-49-3215emeucmtqfdOVSJPZJQX NO [facility] Work Phone: Start: 09-25-2024 End: 20-31-0034yqpwbbtjnkKaeskAmanda Jordan MDFacility:[facility] PracticeStart: 09-14-2024 End: 01-67-3104Yrs Drop offJodi L Stacy [facility] Start: 09-14-2024 End: 88-87-8254mlyrwxoofnTQF Mara L SchwabFacility:[facility] BellevueStart: 09-09-2024 End: 10-63-0887umriebparrJzcRhonda Barry MDFacility:[facility] SouthStart: 07-14-2024 End: 08-66-3232mvlpghthvnTjyaNuria Recinos MDFacility:ENT SpecStart: 03-31-2024 End: 82-18-7327iqgueeqebcGbggNuria Recinos MDFacility:ENT SpecStart: 03-09-2024 End: 64-37-3798zqcqzkjhdnCCI Mara L SchwabFacility:[facility] BellevueStart: 02-15-2024 End: 83-33-4090tjsnbazwwhECTHQEWCO NO [facility] Work Phone: Start: 02-15-2024 End: 39-08-3543Bmbgurww ReferredPHYSICIAN NO [facility]-Community Outreach Work Phone: Start: 01-13-2024 End: 92-49-8268Oea Drop offJodi L Stacy [facility] Start: 01-13-2024 End: 46-55-4072gssafafdnrUJE Mara L SchwabFacility:FTMCStart: 08-31-2023 End: 32-82-0434phpkrzbxwdFDXOKJZZK NO [facility] Work Phone: Start: 08-31-2023 End: 79-95-3522Sxpvranq ReferredPHYSICIAN NO [facility]-Community Outreach Work Phone: Start: 03-16-2023 End: 28-58-3707bnppxxgzhoAU Gisela De Jesus Barry Work Phone: [facility] Work Phone: Start: 03-16-2023 End: 78-13-1425Awcuhqoe ReferredMD Gisela Barry Work Phone: [facility]-Community Outreach Work Phone: Start: 08-04-2022 End: 83-56-9116hmicnsonugTA Gisela Barry Work Phone: [facility] Work Phone: Start: 08-04-2022 End: 52-25-8520Wtjsqlym ReferredMD Gisela Barry Work Phone: [facility] Outreach Start: 02-10-2022 End: 39-75-8170Ebsdpjxe ReferredPHYSICIAN NO [facility]-Community OutreachStart: 01-25-2021 End: 77-47-7915wioxciuaktTQ KIM E KNIGHTFacility:H5Xtocf: 01-11-2021 End: 95-95-1787efnhxsfhqhKT KIM E KNIGHTFacility:H1 Procedures DateProcedureProcedure DetailPerforming ClinicianStart: 08-30-2022 Esophagogastroduodenoscopic electrohydraulic lithotripsy of bezoar in stomach Mara Stacy ColonoscopyJodi Stacy Comment on above:2104 normalTympanostomyJodi Stacy Immunizations Immunization DateImmunizationNotesCare NklwnujhFekvzqjx88-49-9710OXHS-YiW-7 (COVID-19) mRNA-1273 vaccineJodi Stacy [phone]-WudklCleveland Clinic South Pointe Hospital Comment on above:Result Comment: 2023-08-28: [id number]-CoV-2 (COVID-19) [id number] Tyesha Ortaab [phone]-HzpkcCleveland Clinic South Pointe Hospital Payers DatePayer CategoryPayerPolicy [id number] 2.16.840.1.015109.3.579.2.71371-93-5304Ongcisx [id number] 2.840.1.375720.3.57[id number] 2.840.1.569914.3.57[id number] 2..840.1.284367.3.57[id number] 2.0.1.888760.3.57[id number] 2..1.170639.3.57[id number] 2.16840.1.490168.3.57[id number] 2.840.1.313555.3.57[id number] 2.840.1.875266.3.57[id number] 2.0.1.912444.3.57[id number] 2.16.840.1.715859.3.579.[id number] 2.16.840.1.210399.3.579.2.531 Social History DateTypeDetailFacilityTobacco smoking status NHISUnknown if ever smokedChildren'S Hospital [facility]tr Work Phone: Start: 65-58-3856Tqy Assigned At [facility] Hospitaltart: 01-13-2024 End: 89-80-7513Mwayczo smoking statusEx-smoker (finding)[facility] HealthueSex Assigned At [facility] HospitalTobacc smoking statusNeverCleveland Clinic South Pointe HospitalTowaterbury hospital smoking status NHISUnknown if ever smokedChildren'S Hospital [facility] Work Phone: SexFemale (finding)[facility] Evaluation + Plan note Note Date & TypeNoteFacilityEvaluation + Plan note Future Appointments Appointment Date:03/09/2024 09:15:00 AM Scheduled Provider:Thaddeus Mojica MD Location:[facility] Appointment Type: Open Diagnostic Tests Pending * PAP w/ HPV and Genotype rflx 01/13/24 [facility] Evaluation note Note Date & TypeNoteFacilityEvaluation noteNo assessment information available [facility] Work Phone: Hospital course Narrative Note Date & TypeNoteFacilityHospital course Narrative No data available for this section [facility] Hospital Discharge instructions Note Date & TypeNoteFacilityHospital Discharge instructions No data available for this section [facility] Progress note Note Date & TypeNoteFacilityProgress note No data available for this section [facility] Reason for referral (narrative) Note Date & TypeNoteFacilityReason for referral (narrative)No reason for referral information availableChildren'S [facility]tr Work Phone: Summary Purpose Family History [...] section and content) DATE CREATED AUTHOR 02/22/2021 [facility] DATE CREATED AUTHOR AUTHOR'S ORGANIZ ATION 09/15/2024 [facility] DATE CREATED AUTHOR AUTHOR'S ORGANIZ ATION 09/17/2024 [facility] DATE CREATED AUTHOR AUTHOR'S ORGANIZ ATION 10/11/2024 [facility] DATE CREATED AUTHOR AUTHOR'S ORGANIZ ATION 04/20/2025 [facility] Care Teams (unrecognized sec tion [...] BE BASED ON THE PRIMARY CLINICAL RECORDS. [employer] [facility]. provides no warranty or guarantee of the accuracy or completeness of information in this document.
--- NOTE | 2025-08-11 09:48 | PC.NURSE ---
Patient tolerated walking cardiolyte stress test without problems. SOB with exertion which resolved with rest. Denies chest pain. Patient symptom free when leaving the stress lab.
--- NOTE | 2025-08-11 12:17 | PM.STRESS ---
Stress Test Stress Test Requesting physician: Rip Chan Procedure: Treadmill Cardiolite stress test General Information: Reason for Stress Test: [Coronary artery disease] Cardiac History and Risk Factors: [History of CAD, dyslipidemia] Resting 12 - Lead Electrocardiogram: Normal sinus rhythm Normal ECG Stress Test: Protocol: [Compa protocol; the patient exercised for 7 minutes and 38 seconds reaching stage III of the Compa protocol. He achieved 10.10 METS. Resting heart rate was 77 bpm increasing to a maximum of 166 bpm which is 100% of maximum predicted heart rate. Resting blood pressure was 158/92 with a peak blood pressure of 164/88] Exercise Capacity: [Functional capacity is good] Blood Pressure Response: [Resting hypertension, appropriate response] Rhythm: [Sinus rhythm, premature ventricular contractions] ST - Response: [No significant ST-T wave abnormalities] Patient Response: [No chest pain] Interpretation: 1. No ischemic ST-T wave abnormalities on treadmill exercise stress test. 2. Appropriate heart rate and blood pressure response to exercise. 3. Ricahrd Treadmill Score: +7.4. Estimated 1-Year Mortality: 0.5-0.6 %. Risk Category: Low Risk. Angiography: Usually not indicated. 4. Nuclear images to be read, interpreted, and reported separately.
== END 2025-08-11 07:52 | disposition home or self-care (01) ==
LOC: NM 07:51
PROVIDERS: PCP Family Medicine; Visit Provider Family Medicine
DX: I25.10 Atherosclerotic heart disease of native coronary artery without angina pectoris (principal)
CPT/HCPCS: 78452; 93017; A9500

== ENCOUNTER 2025-08-27 14:03 | Outpatient (OUT) | payer BC, SELFPAY ==
--- OUTSIDE RECORDS SUMMARY | 2025-08-27 14:06 | XMS_ITS | CCD ---
Author Organization [facility] Care Team Providers Care Director Of Planning Name Role Phone DR GISELA BARRY Admitting Unavailable ROBBI, DR GISELA De Jesus Attending Unavailable ROBBI, DR GISELA De Jesus Consulting Unavailable ROBBI, DR GISELA De Jesus Primary Care Unavailable ROBBI, DR GISELA De Jesus Attending Unavailable ROBBI, DR GISELA De Jesus Consulting Unavailable ROBBI, DR GISELA De Jesus Admitting Unavailable NO FAMILY, PHYSICIAN Primary Care Provider Unava ilable Community, Outreach Attending Provider [facility], Outreach Attending Provider MD Gisela Barry Primary Care Provider MD Gisela Barry Primary Care Provider [phone] [facility], Outreach Attending Provider [phone] [facility], Outreach Attending Provider [phone] NO FAMILY, PHYSICIAN Primary Care Provider Unava ilable Thaddeus Mojica Primary Care Physician [phone] NO FAMILY, PHYSICIAN Primary Care Provider Unava ilable [facility], Outreach Attending Provider [phone] Stacy, SENIOR TECHNICAL EDITOR Mara L Admitting Unavailable Stacy, SENIOR TECHNICAL EDITOR Mara L Attending Unavailable Stacy, SENIOR TECHNICAL EDITOR Mara L Attending Unavailable Stacy, SENIOR TECHNICAL EDITOR Mara L Attending Unavailable Stacy, SENIOR TECHNICAL EDITOR Mara L Attending Unavailable Stacy, SENIOR TECHNICAL EDITOR Mara L Admitting Unavailable Stacy, SENIOR TECHNICAL EDITOR Mara L Attending Unavailable Stacy, Mara L [...] Provider Unava ilable Community, Outreach Attending Provider Community, Outreach Attending Unavailable Community, Outreach Admitting Unavailable NO FAMILY, PHYSICIAN Primary Care Unavailable Allergies Allergy ClassificationReported Allergen(s)Allergy TypeDate of OnsetReaction(s) FacilityPenicillins (antibiotic) (1 source)PenicillinsDrug Kuwbsoe03-70-5285Ite [facility] Repository (4 sources)Penicillin; Translations: [penicillin]D[facility]Way[facility] Medications Current Medications MedicationDrug Class(es)DatesSig (Normalized)Sig (Original)esomeprazole 40 mg delayed release oral capsule (2 sources)Proton Pump InhibitorStart: 03-12-2024 End: 71-62-6261wytv 1 capsule by mouth once dailyNexium 40 mg Cap-EC 40 mg = 1 cap(s), Oral, Daily, X 90 day(s), # 90 cap(s), Refills(s) 3, Pharmacy: [facility] [id number], 159, cm, 03/09/24 10:08:00 EDT, Height/Length Dosing, 56.9, kg, 03/09/2410:08:00 EDT, Weight Dosing Start Date: 03/12/24 Stop Date: 03/07/25 Status: OrderedStart: 97-70-8209pfte 1 capsule by mouth once dailyNexium 40 mg Cap-EC 40 mg = 1 cap(s), Oral, Daily, # 90 cap(s), Refills(s) 1, Pharmacy: [facility]/pharmacy #[id number], 158, cm, 09/09/23 10:57:00 EST, Height/Length Dosing, 58.2, kg, 09/09/23 10:57:00 EST, Weight Dosing Start Date: 09/09/23 Status: Ordered Problems Problem ClassificationProblemDateDocumented DateEpisodic/ChronicAllergic reactions (2 sources)Allergic disorder of rsmw27-59-8011KizgmhxyXnfjuisc of urinary tract (1 source)Renal yzgm87-21-3933KlcanwnlLahrxjszj of lipid metabolism (3 sources)Hyperlipidemia; Translations: [Hypercholesterolemia]46-72-6235Pdjjnzz Esophageal disorders (3 sources)Gastroesophageal reflux disease without esophagitis; Translations: [Gastro-esophageal reflux disease without esophagitis]79-61-4686VdrdtyuIaxdt circulatory disease (2 sources)Raynaud's -18-2969LewhckuDstff screening for suspected conditions (not mental disorders or infectious disease) (8 sources)Encounter for screening mammogram for malignant neoplasm of breast; Translations: [Encounter for screening for malignant neoplasm of cervix]Onset: 79-46-4342BjhnpqrdMchha upper respiratory disease (2 sources)Allergic -35-5810FgjjnaaKzoxuq media and related conditions (1 source)Finding of fluid behind tympanic urqzaakh14-32-4891DvigvqlcYzgzgikdr and history of mental health and substance abuse codes (2 sources)Ml-jzeygp88-55kxgvqc63-11-4642OpabqxviNatvdbaesdn; intervertebral disc disorders; other back problems (2 sources)Uajycpeqjjwlkjfaz59-77-2983XqalvmfNwukgjofx-takektv disorders (2 sources)Marijuana nbju25-80-0515MwirszybSalrlrkhjotd (2 sources)Body mass index 20-24 - wynmoj48-85-4533Nzdjegwmxpja (4 sources)Patient encounter acfsbc34-40-6953 Results Test NameValueInterpretationReference RangeFacilityAlanine aminotransferase [Enzymatic activity/volume] in Serum or PlasmaOrdered By: OUTREACH COMMUNITY on 72-15-4602KGF [Catalytic activity/Vol]16 U/LNormal7-52Ohio[facility]len[facility] HospitalComment on above:Performed By: #### MARVINNOASHLEERELAKISHA, OUTREACH CMP, OUTREACH LIPID #### [facility] [address] [place] [address] USAAlbumin [Mass/volume] in Serum or Plasma by Bromocresol green (BCG) dye binding methoOrdered By: OUTREACH COMMUNITY on 86-30-9508Cbjtjck BCG dye [Mass/Vol]4.5 g/dL3.5-5.7FJ.W. Ruby Memorial HospitalAlkaline phosphatase [Enzymatic activity/volume] in Serum or PlasmaOrdered By: OUTREACH COMMUNITY on 16-41-5616ZZA [Catalytic activity/Vol]73 U/POiqjza39-886IbolkpbclOhiohealth O'Bleness HospitalComment on above:Performed By: #### CBCNOOUTREACH, OUTREACH CMP, OUTREACH LIPID #### [facility] [address] [place] [address] USAAspartate aminotransferase [Enzymatic activity/volume] in Serum or PlasmaOrdered By: OUTREACH COMMUNITY on 66-66-0401CNW [Catalytic activity/Vol]18 U/ZBceyzo69-87FtzvjpdbbOhiohealth O'Bleness HospitalComment on above: Performed By: #### CBCNOOUTREACH, OUTREACH CMP, OUTREACH LIPID #### [facility] [address] [place] [address] USABilirubin.total [Mass/volume] in Serum or PlasmaOrdered By: OUTREACH COMMUNITY on 79-59-7219Zhcpkkryh [Mass/Vol]0.4 mg/dLNormal0.3-1.0 [facility]len[facility] HospitalComment on above:Performed By: #### CBCNOOUTREACH, OUTREACH CMP, OUTREACH LIPID #### [facility] [address] [place] [address] USACBC Without Differentialon 71-07-5922Hyqj Corpuscular HGB Conc34.4 g/cFEvvcos78.0-35.0The [facility] Access Hospital Physician GroupComment on above: Performed By: #### CBCNOOUTREACH, OUTREACH CMP, OUTREACH LIPID #### [facility] [address] [place] [address] USAWhite Blood Count6.5 [CFU]/mLNormal3.8-11.6The [facility] Hospital Physician GroupComment on above:Performed By: #### CBCNOOUTREACH, OUTREACH CMP, OUTREACH LIPID #### [facility] [address] [place] [address] USACMP Outreachon 21-69-8222Ecqizkq [Mass/Vol]4.5 g/dLNormal 3.5-5.7The [facility] Hospital Physician GroupComment on above:Performed By: #### CBCNOOUTREACH, OUTREACH CMP, OUTREACH LIPID #### [facility] [address] [place] [address] USAGFR/1.73 sq M.predicted MDRD (S/P/Bld) [Vol rate/Area] mL/min/{1.73_m2}NormalThe Critical Access Hospital Physician GroupComment on above:Performed By: #### CBCNOOUTREACH, OUTREACH CMP, OUTREACH LIPID #### [facility] [address] [place] [address] USACalcium [Mass/volume] in Serum or PlasmaOrdered By: OUTREACH COMMUNITY on 20-90-2904Pymxqom [Mass/Vol]9.4 mg/dLNormal8.6-10.3 [facility]leness HospitalComment on above:Performed By: #### MARVINNOASHLEEREACH, OUTREACH CMP, OUTREACH LIPID #### [facility] [address] [place] [id number] USACarbon dioxide, total [Moles/volume] in Serum or Plasma Ordered By: OUTREACH COMMUNITY on 31-80-0330FH6 [Moles/Vol]31.4 mmol/LHigh 21.0-31.0Ohio[facility] O'Bleness HospitalComment on above:Performed By: #### CBCNOOUTREACH, OUTREACH CMP, OUTREACH LIPID #### [facility] [address] [place] [address] USAChloride [Moles/volume] in Serum or PlasmaOrdered By: OUTREACH COMMUNITY on 75-37-4427Dmkfkqbv [Moles/Vol]103 mmol/TOaeikt45-514 [facility] HospitalComment on above:Performed By: #### MARVINNOOUTRELAKISHA, OUTREACH CMP, OUTREACH LIPID #### [facility] [address] [place] [address] USACholesterol [Mass/volume] in Serum or PlasmaOrdered By: OUTREACH COMMUNITY on 72-36-2864Joyagcbkado [Mass/Vol]256 mg/qDLqxe426-791 [facility] HospitalComment on above:Chol less than 200 mg/dl low riskChol 201-239 mg/dl borderline riskChol 240 mg/dl and greater high riskResult Comment: Chol less than 200 mg/dl low risk Chol 201-239 mg/dl borderline risk Chol 240 mg/dl and greater high riskPerformed By: #### CBCNOOUTREACH, OUTREACH CMP, OUTREACH LIPID #### [facility] [address] [place] [address] USACholesterol in HDL [Mass/volume] in Serum or PlasmaOrdered By: OUTREACH COMMUNITY on 34-20-0297Yxsmkwkocgv in HDL [Mass/Vol]73 mg/dLNormal 23-92Ohio[facility] O'Bleness HospitalComment on above:HDL CHOL ATP-III CLASSIFICATION Cardiovascular RiskHDL > or equal to 60 mg/dL LOWHDL < 40 mg/dL HIGHResult Comment: HDL CHOL ATP-III CLASSIFICATION Cardiovascular Risk HDL > or equal to 60 mg/dL LOW HDL < 40 mg/dL HIGHPerformed By: #### MARVINNOASHLEEREACH, OUTREACH CMP, OUTREACH LIPID #### [facility] [address] [place] [id number] USACholesterol in LDL Calc [Mass/Vol]Ordered By: OUTREACH COMMUNITY on 69-80-3265Bkbkdohbkub in LDL [Mass/Vol]164 mg/dLHigh0-100[facility]'Bleness HospitalComment on above:LDL ATP III CLASSIFICATIONLDL less than 100 mg/dL OptimalLDL 100-129 mg/dL Near or above bccocpjKVM043-032 mg/dL Borderline highLDL 160-189 mg/dL HighLDL greater than 189 mg/dL Very high Cholesterol in VLDL Calc [Mass/Vol]Ordered By: OUTREACH [facility] on 04-17-2025 Cholesterol in VLDL [Mass/Vol]18 mg/dLOhiohealth O'Bleness Hospital Creatinine [Mass/volume] in Serum or PlasmaOrdered By: [facility] on 32-23-9082Khqdnqqsbk [Mass/Vol]0.69 mg/dLNormal0.60-1.20[facility] HospitalComment on above:Performed By: #### MADISYN, OUTREACH CMP, OUTREACH LIPID #### [facility] [address] [place] [address] USAErythrocyte distribution width [Ratio] by Automated count Ordered By: OUTREACH [facility] on 50-38-0737Zndfkzsvhiz distribution width (RBC) [Ratio]12.9 %Axikpz08.9-15.3FJ.W. Ruby Memorial HospitalComment on above: Performed By: #### MADISYN, OUTREACH CMP, OUTREACH LIPID #### [facility] [address] [place] [id number] USAErythrocytes [#/volume] in Blood by Automated countOrdered By: OUTREACH COMMUNITY on 81-46-5450NKK (Bld) [#/Vol]4.23 10*6/uLNormal 3.60-5.00[facility]len[facility] HospitalComment on above:Performed By: #### CBCNOOUTREACH, OUTREACH CMP, OUTREACH LIPID #### [facility] [address] [place] [address] USAGlucose [Mass/volume] in Serum or PlasmaOrdered By: [facility] on 48-75-2259Ooggcmy [Mass/Vol]102 mg/eSApuo93-773HzcrlzvttOhiohealth O'Bleness HospitalComment on above:ADA recommended reference rangeRandom Glucose [...] #### CBCNOOUTREACH, OUTREACH CMP, OUTREACH LIPID #### [facility] [address] [place] [address] USAHematocrit [Volume Fraction] of Blood by Automated count Ordered By: [facility] on 44-45-0421Fcvjocmkgu (Bld) [Volume fraction] 38.9 %Imembl93.0-46.4FJ.W. Ruby Memorial HospitalComment on above:Performed By: #### CBCNOOUTREACH, [facility] CMP, OUTREACH LIPID #### [facility] [address] [place] [address] USAHemoglobin [Mass/volume] in BloodOrdered By: [facility] on 25-47-6521Wneggonnfu (Bld) [Mass/Vol]13.4 g/iYGalbvj74.8-15.4 [facility] HospitalComment on above:Performed By: #### CBCNOOUTREACH, OUTREACH CMP, OUTREACH LIPID #### [facility] [address] [place] [address] USALeukocytes [#/volume] corrected for nucleated erythrocytes in Blood by Automated counOrdered By: [facility] on 94-63-5133BJV corrected for nucl RBC Auto (Bld) [#/Vol]6.5 10*3/uL3.8-11.6FJ.W. Ruby Memorial HospitalLipid Profile Outreachon 61-38-8278RWH Cholesterol,Utpxlltxuq291 mg/dLHigh0-100[facility] Physician [facility] MeridianComment on above:Result Comment: LDL ATP III CLASSIFICATION LDL less than 100 mg/dL Optimal LDL 100-129 mg/dL Near or above optimal LDL 130-159 mg/dL Borderline high LDL 160-189 mg/dL High LDL greater than 189 mg/dL Very highPerformed By: #### CBCNOOUTREACH, OUTREACH CMP, OUTREACH LIPID #### [facility] [address] [place] [address] USATriglyceride w/Virjfr32 mg/dLNormal0-149[facility] Physician GroupComment on above:Result Comment: TRIG ATP III CLASSIFICATION TRIG less than 150 mg/dL Normal TRIG 150-199 mg/dL Borderline high TRIG 200-500 mg/dL High TRIG greater than 500 mg/dL Very high Standard traceable to the Center for Disease Conrtrol and Prevention (CDC) test method.Performed By: #### CBCNOOUTREACH, OUTREACH CMP, OUTREACH LIPID #### [facility] [address] [place] [address] USAVLDL POTFOWHCUHG25 mg/dLNormalThe Critical Access Hospital Physician [facility] MeridianComment on above:Performed By: #### CBCNOOUTREACH, OUTREACH CMP, OUTREACH LIPID #### [facility] [address] [Entitic mass] by Automated countOrdered By: OUTREACH COMMUNITY on 95-29-4925AZI (RBC) [Entitic mass]31.7 wwExrzkg43.7-34.3FJ.W. Ruby Memorial HospitalComment on above:Performed By: #### CBCNOOUTREACH, OUTREACH CMP, OUTREACH LIPID #### [facility] [address] [place] [id number] [facility] Auto (RBC) [Mass/Vol]Ordered By: OUTREACH COMMUNITY on 97-34-7999TUZJ (RBC) [Mass/Vol]34.4 g/dL32.0-35.0Ohio[facility]'Bleness HospitalMCV [Entitic volume] by Automated countOrdered By: OUTREACH COMMUNITY on 50-84-5912XAG (RBC) [Entitic vol]92.1 xTDutgpb21-706NgclccjujOhiohealth O'Bleness HospitalComment on above:Performed By: #### CBCNOOUTREACH, OUTREACH CMP, OUTREACH LIPID #### [facility] [address] [place] [id number] USANo Panel InformationOrdered By: OUTREACH COMMUNITY on 82-27-7511Rsqoqdwjs GFR (CKD-EPI)> 60.0 mL/MinOhiohealth O'Bleness Hospital Pharmacy Creatinine Clearance (ChemN/AFJ.W. Ruby Memorial HospitalPlatelet mean volume [Entitic volume] in Blood by Automated countOrdered By: OUTREACH COMMUNITY on 21-62-2936Imyybsfy mean volume (Bld) [Entitic vol]8.0 fLNormal 6.3-10.7FJ.W. Ruby Memorial HospitalComment on above:Result Comment: PERFORMED BY: [place] [address] PATHOLOGIST OIL FIELD ROUSTABOUT SARAH BETH LORENZO M.D.Performed By: #### CBCNOOUTREACH, OUTREACH CMP, OUTREACH LIPID #### [facility] [address] [place], [place] [address] USAPlatelets [#/volume] in Blood by Automated countOrdered By: [facility] on 59-12-7709Yskeebkhm (Bld) [#/Vol]293 10*3/uLNormal 150-450Ohio[facility] O'Bleness HospitalComment on above:Performed By: #### CBCNOOUTREACH, OUTREACH CMP, OUTREACH LIPID #### [place] [id number] USAPotassium [Moles/volume] in Serum or PlasmaOrdered By: OUTREACH COMMUNITY on 38-02-6535Fkyowzntg [Moles/Vol]4.7 mmol/LNormal3.5-5.1 [facility] HospitalComment on above:Performed By: #### CBCNOOUTREACH, OUTREACH CMP, OUTREACH LIPID #### [facility] [address] [place], [place] [address] USAProtein [Mass/volume] in Serum or PlasmaOrdered By: OUTREACH COMMUNITY on 48-17-4598Cbxbkuh [Mass/Vol]6.9 g/dLNormal6.4-8.9[facility] HospitalComment on above:Performed By: #### CBCNOOUTREACH, OUTREACH CMP, OUTREACH LIPID #### [facility] [address] [place] [address] USASerum or plasma anion gap determinationOrdered By: [facility] on 71-45-8113Rujir gap [Moles/Vol]10.3 mmol/LNormal6.0-15.0 [facility]len[facility] HospitalComment on above:Performed By: #### CBCNOOUTREACH, OUTREACH CMP, OUTREACH LIPID #### [facility] [address] [place] [id number] USASerum or plasma total cholesterol/high density lipoprotein (HDL) cholesterol mass ratOrdered By: [facility] on 04-17-2025 Cholesterol.total/Cholesterol in HDL [Mass ratio]3.5 {ratio}Normal<5.0Ohio[facility] O'Bleness HospitalComment on above:Result Comment: PERFORMED BY: [place] [id number] PATHOLOGIST OIL FIELD ROUSTABOUT SARAH BETH LORENZO M.D.Performed By: #### CBCNOASHLEEREACH, OUTREACH CMP, OUTREACH LIPID #### [address] [address] USASodium [Moles/volume] in Serum or PlasmaOrdered By: [facility] on 80-21-1234Wyidbs [Moles/Vol]140 mmol/POsvyzg616-238 [facility] HospitalComment on above:Performed By: #### CBCNOOUTREACH, OUTREACH CMP, OUTREACH LIPID #### [facility] [address] [place] [address] USATriglyceride [Mass/volume] in Serum or PlasmaOrdered By: OUTREACH [facility] on 19-46-1411Taivluhmgbap [Mass/Vol]93 mg/dL0-149[facility]len[facility] HospitalComment on above:TRIG ATP III CLASSIFICATIONTRIG less than 150 mg/dL NormalTRIG 150-199 mg/dL Borderline highTRIG 200-500 mg/dL High TRIG greater than 500 mg/dL Very highStandard traceable to the Center for Disease Conrtrol and Prevention (CDC) test method.Urea nitrogen [Mass/volume] in Serum or PlasmaOrdered By: OUTREACH COMMUNITY on 23-35-7333Adem nitrogen [Mass/Vol]14 mg/dLNormal7-25[facility]leness HospitalComment on above: Performed By: #### CBCNOOUTREACH, OUTREACH CMP, OUTREACH LIPID #### [facility] [address] [place] [id number] USACT Abdomen w/ IV Contraston 90-06-2361PJ Abdomen w/ IV ContrastEXAMINATION: CT Abdomen w/ [...] of abdominal wall hernia. Radiation Dose Estimate: CTDI(mGy):0.955619 / / / kVp:130.254824 / mAs:0.107991 / / / DLP(mGy- cm):3.201559Htlu Part: Abdomen CTDI(mGy):8.356921 / / / kVp:130.628033 / mAs:45.098052 / / / DLP(mGy- cm):264.737036Wyek Part: Abdomen Final Dictated by: Sara Mccarty MD Dictated DT/TM: 09.25.2024 10:04 am Signed by: Sara Mccarty MD Signed (Electronic Signature): 09.25.2024 10:10 am (If Report Is Signed, Electronically Signed in Other Vendor System)Normal [facility] 32-80-2947ZodoeefuaPpawuoill From: Mara Rosario To: B - Clinical; [...] 11.1) Nilda called and advised of [facility] resultsSelect [facility] Visit Summaryon 05-84-4730Sokdncoiwd Visit SummaryAmbulatory Visit Summary NILDA ALMARAZ :1970 [...] for choosing us for your care. NormalMercy Health – The Jewish HospitalBMPon 61-91-8050Vhbkq gap [Moles/Vol]14 mmol/LNormal6-16[facility] HospitalComment on above: Performed By: #### [id number] #### [facility] [address] [place], [place] [address]Xppziyr [Mass/Vol]10.2 mg/dLNormal8.9-11.1[facility] Medical CenterComment on above:Performed By: #### [id number] #### [facility] [address] [place], [place] [address]Kacdqdde [Moles/Vol]101 mmol/TXwtuiu851-023CyrfexMercy Health – The Jewish HospitalComment on above:Performed By: #### [id number] #### [facility] [address] [place], [place] [address]EX8 [Moles/Vol]28 mmol/EYjldgc42-69EizivkMercy Health – The Jewish Hospital Comment on above:Performed By: #### [id number] #### [facility] [address] [place], [place] [address]Zlfohxasiy [Mass/Vol]0.6 mg/dLNormal0.5-1.3[facility] CenterComment on above:Performed By: #### [id number] #### [facility] [address] [place], [place] [address]Kecuxgy [Mass/Vol]107 mg/tKZnhjhj26-582MagxpgMercy Health – The Jewish HospitalComment on above:Performed By: #### [id number] #### [facility] [address] [place], [place] [address]Qxwkmtqnr [Moles/Vol]3.9 mmol/LNormal3.5-5.3[facility] CenterComment on above:Performed By: #### [id number] #### [facility] [address] [place], [place] [address]Xzfqox [Moles/Vol]139 mmol/TZbaace505-074WwsaudMercy Health – The Jewish HospitalComment on above:Performed By: #### [id number] #### [facility] [address] [place], [place] [address]Sozq nitrogen [Mass/Vol]10 mg/dLNormal5-21[facility] Jewish HospitalComment on above:Performed By: #### [id number] #### [facility] [address] [place], [place] [address]Wfqh nitrogen/Creatinine [Mass ratio]17 No AqeasOklbli69-17 [facility] HospitalComment on above:Performed By: #### [id number] #### [facility] [address] [place], [place] [address]TYSBPZGABWfxlhhg By: SYSTEM SYSTEM on 38-60-9149Xfjfx gap [Moles/Vol]14 mmol/LNormal6 - 16 mEq/LRemisol ChemCalcium [Mass/Vol]10.2 mg/dL Normal8.9 - 11.1 mg/dLRemisol ChemChloride [Moles/Vol]101 mmol/GKocjsk455 - 111 mmol/LRemisol ChemCO2 [Moles/Vol]28 mmol/ALontvr72 - 31 mmol/LRemisol Chem Creatinine [Mass/Vol]0.6 mg/dLNormal0.5 - 1.3 mg/dLRemisol QugusRZQ199 mL/min/1.73 n0Iggylj>=59mL/min/1.73 u8Lekgpoz ChemGlucose [Mass/Vol]107 mg/dL Yuuisy85 - 199 mg/dLRemisol ChemPotassium [Moles/Vol]3.9 mmol/LNormal3.5 - 5.3 mmol/LRemisol ChemSodium [Moles/Vol]139 mmol/LDhdijs989 - 145 mmol/LRemisol Chem Urea nitrogen [Mass/Vol]10 mg/dLNormal5 - 21 mg/dLRemisol ChemUrea nitrogen/Creatinine [Mass ratio]17 mg/wpTpxwov03 - 20Remisol ChemFavibra hospital of [facility] Medicine Office/Clinic Noteon 72-49-0062Zbickl Medicine Office/Clinic NoteFavibra hospital of [facility] Medicine Office/Clinic Note Chief Complaint Acute Sick [...] 2023-08-28: 50 SARS-CoV-2 (COVID-19) mRNA-1273 vaccine 12/10/2020 RecordedNormRegency Hospital Cleveland WestComment on above:Result Comment: Electronically Signed By: Mara Rosario\.br\Date and Time Signed: 09/14/24 09:19 ESTeGFRon 40-53-8618gFMV763 mL/min/1.73 k1Yylqxq>=59Mer[facility] Jewish HospitalComment on above:Performed By: #### [id number] #### [facility] [address] [place], [place] [address]Xwehcdyjmkwwqkio Office/Clinic Noteon 09-09-2024 Gastroenterology Office/Clinic NoteChief Complaint [...] contact us this spring [place]. RTC 1 year [2] Medical [...] signed by Stephen Jordan MD 09/09/24 13:49 [facility]/Clinic Noteon 17-75-3958Edbqycywjqmjis Office/Clinic Note Chief Complaint Patient states I [...] signed by Scottie Recinos MD 07/14/24 10:25 [facility] Otolaryngology Office/Clinic Noteon 51-14-3024Jxnyxwsoibfehy Office/Clinic Note Chief Complaint Pt states was [...] signed by Scottie Recinos MD 03/31/24 08:46 [facility] Lab Reportson 08-55-3698Pua Reports [id number]#1.00[facility] HospitalAmbulatory Visit Summaryon 24-97-6879Wqpnvllrnl Visit Summary NILDA ALMARAZ :1970 Visit Date:03/09/2024 [...] you for choosing us for your care. [facility] 34-01-3170Zirtqzm [id number]#1.00TIFFNormKettering Health Hamilton Medicine Office/Clinic Noteon 40-54-4199Kbydni Medicine Office/Clinic NoteI Staff Nilda is a [...] # 90 cap(s), Refills(s) 3, Pharmacy: [id number], 159, cm, 03/09/24 10:08:00 EDT, Height/Length Dosing, [...] 2023-08-28: 50 SARS-CoV-2 (COVID-19) mRNA-1273 vaccine 12/10/2020 RecordedSelect Medical Specialty Hospital - AkronComment on above:Result Comment: Electronically Signed By: Mara Rosario.br\Date and Time Signed: 03/09/24 11:18 EDTPatient Logson 62-07-9645Ovvoyjk [id number]#1.00TIFFNormal [facility] Jewish HospitalAlanine aminotransferase [Enzymatic activity/volume] in Serum or PlasmaOrdered By: OUTREACH COMMUNITY on 48-69-6386ORZ [Catalytic activity/Vol]14 U/L7-52[facility]leness HospitalAlbumin [Mass/volume] in Serum or Plasma by Bromocresol green (BCG) dye binding methoOrdered By: OUTREACH COMMUNITY on 08-93-9631Gxxynuz BCG dye [Mass/Vol]4.8 g/dL3.5-5.7 [facility]leness HospitalAlkaline phosphatase [Enzymatic activity/volume] in Serum or PlasmaOrdered By: OUTREACH COMMUNITY on 02-15-2024 ALP [Catalytic activity/Vol]79 U/R10-155PspzcmfoaOhiohealth O'Bleness Hospital Aspartate aminotransferase [Enzymatic activity/volume] in Serum or PlasmaOrdered By: OUTREACH COMMUNITY on 82-72-8782XFX [Catalytic activity/Vol]18 U/L13-39 [facility]leness HospitalBilirubin.total [Mass/volume] in Serum or PlasmaOrdered By: OUTREACH COMMUNITY on 98-92-7057Mxpfcmngy [Mass/Vol]0.6 mg/dL 0.3-1.0[facility]Bleness HospitalCalcium [Mass/volume] in Serum or Plasma Ordered By: OUTREACH COMMUNITY on 13-11-6149Uvsyhdp [Mass/Vol]9.8 mg/dL8.6-10.3 [facility]leness HospitalCarbon dioxide, total [Moles/volume] in Serum or PlasmaOrdered By: [facility] on 92-12-7479FF7 [Moles/Vol]28.1 mmol/L 21.0-31.0[facility] HospitalChloride [Moles/volume] in Serum or PlasmaOrdered By: [facility] on 47-31-0150Jdlplvjx [Moles/Vol]101 mmol/L 98-107[facility] HospitalCholesterol [Mass/volume] in Serum or PlasmaOrdered By: [facility] on 35-52-3374Vqrilbhytfx [Mass/Vol]248 mg/aA573-464IlmubcbxnOhiohealth O'Bleness HospitalComment on above:Chol less than 200 mg/dl low riskChol 201-239 mg/dl borderline riskChol 240 mg/dl and greater high riskCholesterol in LDL Calc [Mass/Vol]Ordered By: [facility] on 27-32-9466Mrmqqauujzb in LDL [Mass/Vol]154 mg/dL0-100[facility] HospitalComment on above:LDL ATP III CLASSIFICATIONLDL less than 100 mg/dL OptimalLDL 100-129 mg/dL Near or above yzienohCAP709-606 mg/dL Borderline highLDL 160-189 mg/dL HighLDL greater than 189 mg/dL Very highCholesterol in VLDL Calc [Mass/Vol]Ordered By: [facility] on 28-22-3063Kadxlcvjefx in VLDL [Mass/Vol]16 mg/dLOhiohealth O'Bleness HospitalCreatinine [Mass/volume] in Serum or PlasmaOrdered By: [facility] on 56-01-7243Utqvabcawo [Mass/Vol]0.65 mg/dL0.60-1.20[facility] HospitalErythrocyte distribution width Auto (RBC) [Ratio]Ordered By: [facility] on 83-91-2415Iclfrmicnmx distribution width (RBC) [Ratio]13.0 %11.9-15.3FJ.W. Ruby Memorial HospitalGlucose [Mass/volume] in Serum or PlasmaOrdered By: [facility] on 63-75-2106Ppcvvcl [Mass/Vol]99 mg/mW48-974CgroqsgxvOhiohealth O'Bleness HospitalComment on above:ADA recommended reference rangeRandom Glucose Reference Range is dependent on time and content of last meal. Glucose of more than 200 mg/dL in a nonstressed, ambulatory subject supports the diagnosisof Diabetes Mellitus.Hematocrit Auto (Bld) [Volume fraction]Ordered By: [facility] on 99-28-4324Bwrajgnasz (Bld) [Volume fraction]37.8 % 34.0-46.4FJ.W. Ruby Memorial HospitalHemoglobin [Mass/volume] in Blood Ordered By: [facility] on 58-30-3441Oyjxbzgpgk (Bld) [Mass/Vol]12.9 g/dL 11.8-15.4FJ.W. Ruby Memorial HospitalLeukocytes [#/volume] corrected for nucleated erythrocytes in Blood by Automated counOrdered By: [facility] on 84-93-3990FRY corrected for nucl RBC Auto (Bld) [#/Vol]8.9 10*3/uL3.8-11.6 [facility] Auto (RBC) [Entitic mass]Ordered By: [facility] on 08-07-9378YVW (RBC) [Entitic mass]31.6 pg24.7-34.3 [facility] CenterHC Auto (RBC) [Mass/Vol]Ordered By: [facility] on 47-65-4017BUZQ (RBC) [Mass/Vol]34.2 g/dL32.0-35.0[facility] HospitalMCV Auto (RBC) [Entitic vol]Ordered By: [facility] on 22-44-5469RAK (RBC) [Entitic vol]92.5 iW61-166NiddscwseOhiohealth O'Bleness Hospital No Panel InformationOrdered By: [facility] on 65-13-7332Ybctixrsn GFR (CKD-EPI)> 60.0 mL/MinOhiohealth O'Bleness HospitalPharmacy Creatinine Clearance (ChemN/[facility]ita Health SystemPlatelet mean volume Auto (Bld) [Entitic vol]Ordered By: [facility] on 23-28-0640Jacrrlsx mean volume (Bld) [Entitic vol]7.7 fL6.3-10.7FJ.W. [facility] Hospital Platelets Auto (Bld) [#/Vol]Ordered By: [facility] on 02-15-2024 Platelets (Bld) [#/Vol]297 10*3/yT595-624RnefoxbrfOhiohealth O'Bleness Hospital Potassium [Moles/volume] in Serum or PlasmaOrdered By: [facility] on 94-06-7420Afxbiygpw [Moles/Vol]4.2 mmol/L3.5-5.1FJ.W. Ruby Memorial HospitalProtein [Mass/volume] in Serum or PlasmaOrdered By: [facility] on 91-48-9124Tchmlql [Mass/Vol]7.2 g/dL6.4-8.9[facility] HospitalRBC Auto (Bld) [#/Vol]Ordered By: [facility] on 83-61-5903WDP (Bld) [#/Vol] 4.08 10*6/uL3.60-5.00[facility] Hospitalerum or plasma anion gap determinationOrdered By: [facility] on 61-66-3677Ibpfc gap [Moles/Vol] 12.1 mmol/L6.0-15.0[facility] Hospitalerum or plasma high density lipoprotein (HDL) cholesterol measurementOrdered By: [facility] on 23-68-6754Dqwdtrzgnbd in HDL [Mass/Vol]78 mg/zP72-77MedtobjciOhiohealth O'Bleness HospitalComment on above:HDL CHOL ATP-III CLASSIFICATION Cardiovascular RiskHDL > or equal to 60 mg/dL LOWHDL < 40 mg/dL HIGHSerum or plasma total cholesterol/high density lipoprotein (HDL) cholesterol mass ratOrdered By: [facility] on 45-12-8954Stekzemnocg.total/Cholesterol in HDL [Mass ratio]3.2 {ratio}<5.0[facility] Hospitalodium [Moles/volume] in Serum or PlasmaOrdered By: [facility] on 44-30-4540Iwzhbj [Moles/Vol]137 mmol/R812-672VrxxaqjprOhiohealth O'Bleness HospitalTriglyceride [Mass/volume] in Serum or PlasmaOrdered By: [facility] on 96-42-0387Jwpctqxxjjly [Mass/Vol]82 mg/dL0-149[facility] HospitalComment on above:TRIG ATP III CLASSIFICATIONTRIG less than 150 mg/dL NormalTRIG 150-199 mg/dL Borderline highTRIG 200-500 mg/dL High TRIG greater than 500 mg/dL Very highStandard traceable to the Center for Disease Conrtrol and Prevention (CDC) test method.Urea nitrogen [Mass/volume] in Serum or PlasmaOrdered By: [facility] on 14-97-6743Zhcz nitrogen [Mass/Vol]9 mg/dL7-25[facility] HospitalReminderson 62-21-0547Rnucidcrd From: Mara Rosario To: [facility] - Clinical; Sent: 01/20/2024 08:21:24 EDT Show up: 01/20/2024 08:22:00 EDT Subject: Ambulatory Reminder Due Date/Time: 01/21/2024 08:21:00 EDT Pap and HPV was negative Results: Date Result Name Value Ref Range 01/13/2024 9:08 HPV Aptima Negative (Negative - ) 01/13/2024 9:08 PAP Note Patient informed and voiced understanding.[facility] [id number] 50-86-7260Qzniuatl report Cyto stain Doc (Cvx/Vag)NoteInvalid Interpretation ChrissyMercy Health – The Jewish HospitalComment on above:Result Comment: TESTS RESULT FLAG UNITS REF RANGE LAB Clinician Provided Cytology Information Source.............Endocervix No. of containers..01 ThinPrep Vial DIAGNOSIS: 01 NEGATIVE FOR INTRAEPITHELIAL LESION OR MALIGNANCY. Specimen adequacy: 01 Satisfactory for evaluation. Endocervical and/or squamous metaplastic cells (endocervical component) are present. Performed by: 01 Marjan Covington, Cafe Server ([facility]) . 01 Note: Note 01 The [...] High <-Panic Low,>-Panic High,A-Abnormal,AA-Critical Abnormal Performed at: [facility] [address] Latia Lennon MD, Occypextr By: #### [id number] ####Josef [facility] [address], [id number] 16+18+31+33+35+39+45+51+52+56+58+59+66+68 DNA Probe+sig amp Ql (Cvx)Negative Invalid Interpretation CodeNegativeMercy Health – The Jewish HospitalComment on above: Result Comment: This nucleic acid amplification test detects fourteen high-risk HPV types (16,18,31,33,35,39,45,51,52,56,58,59,66,68) without differentiation. Performed at: [facility] [address] [place], [place] [id number] MD Saji Jeffery Performed at: =[facility] [id number] MD Saji JefferyPerformed By: #### [id number] ####Josef [facility] [address], [id number] 01-17-2024 Reminders From: Mara Rosario To: [facility] - Clinical; Sent: 01/17/2024 08:22:42 EDT Show up: 01/17/2024 08:23:00 EDT Subject: Ambulatory Reminder Due Date/Time: 01/18/2024 08:22:00 EDT Pap is negative Results: Date Result Name Value Ref Range 01/13/2024 9:08 HPV Aptima Negative (Negative - ) 01/13/2024 9:08 PAP Note Patient informed and voiced understanding.NormalMercy Health – The Jewish Hospital Ambulatory Visit Summaryon [id number] Visit Summary NILDA ALMARAZ :1970 Visit Date:01/13/2024 [...] AM EDT With: Thaddeus Mojica MD Where: [facility] Medicine Office/Clinic Noteon 22-07-9639Tyuykk Medicine Office/Clinic NoteHPI Staff Nilda is a [...] cancer would like order for Loretta to [facility] History of Present Illness pt presents today [...] masses. Pap obtained Neurologic: Grossly normal Skin: [place], moist, no tenting Lymph Nodes: No cervical [...] 2023-08-28: 49 SARS-CoV-2 (COVID-19) mRNA-1273 vaccine 12/10/2020 RecordedSelect Medical Specialty Hospital - AkronComment on above:Result Comment: Electronically Signed By: Mara Rosario.thaddeus\Date and Time Signed: 01/13/24 09:28 EDTPAP [id number] 01-13-2024 Gynecological Body SiteENDOCERVIXSelect Medical Specialty Hospital - AkronComment on above:Performed By: #### [id number] ####Bahena [facility] [address], [id number] Mammographyon 09-17-2023 Outside [id number]#1.00[facility] HospitalAlanine aminotransferase [Enzymatic activity/volume] in Serum or PlasmaOrdered By: [facility] on 42-79-3847JMN [Catalytic activity/Vol]18 U/L7-52[facility] HospitalAlbumin [Mass/volume] in Serum or Plasma by Bromocresol green (BCG) dye binding methoOrdered By: [facility] on 67-65-0191Pyibpym BCG dye [Mass/Vol]4.5 g/dL3.5-5.7 [facility] HospitalAlkaline phosphatase [Enzymatic activity/volume] in Serum or PlasmaOrdered By: [facility] on 08-31-2023 ALP [Catalytic activity/Vol]84 U/Y47-406AmybktlnyOhiohealth O'Bleness Hospital Aspartate aminotransferase [Enzymatic activity/volume] in Serum or PlasmaOrdered By: [facility] on 21-09-0963BZN [Catalytic activity/Vol]22 U/L13-39 [facility] HospitalBilirubin.total [Mass/volume] in Serum or PlasmaOrdered By: [facility] on 36-30-3934Ikuszuxwe [Mass/Vol]0.3 mg/dL 0.3-1.0[facility] HospitalCalcium [Mass/volume] in Serum or Plasma Ordered By: [facility] on 03-45-1356Cgtpvce [Mass/Vol]9.4 mg/dL8.6-10.3 [facility] HospitalCarbon dioxide, total [Moles/volume] in Serum or PlasmaOrdered By: [facility] on 33-75-9148LG6 [Moles/Vol]30.5 mmol/L 21.0-31.0[facility] HospitalChloride [Moles/volume] in Serum or PlasmaOrdered By: [facility] on 68-82-2369Wvvdphjj [Moles/Vol]103 mmol/L 98-107[facility] HospitalCholesterol [Mass/volume] in Serum or PlasmaOrdered By: [facility] on 20-11-6977Udrojyckznr [Mass/Vol]230 mg/nP012-016RrwxowwuvOhiohealth O'Bleness HospitalComment on above:Chol less than 200 mg/dl low riskChol 201-239 mg/dl borderline riskChol 240 mg/dl and greater high riskCholesterol in LDL Calc [Mass/Vol]Ordered By: [facility] on 35-04-2326Jlwyddarhnx in LDL [Mass/Vol]141 mg/dL0-100[facility] HospitalComment on above:LDL ATP III CLASSIFICATIONLDL less than 100 mg/dL OptimalLDL 100-129 mg/dL Near or above pxyrbsyBVE007-444 mg/dL Borderline highLDL 160-189 mg/dL HighLDL greater than 189 mg/dL Very highCholesterol in VLDL Calc [Mass/Vol]Ordered By: [facility] on 66-03-6669Stvgutsldgf in VLDL [Mass/Vol]18 mg/dLOhiohealth O'Bleness HospitalCreatinine [Mass/volume] in Serum or PlasmaOrdered By: [facility] on 08-04-0460Hunavrhgba [Mass/Vol]0.65 mg/dL0.60-1.20[facility] HospitalErythrocyte distribution width Auto (RBC) [Ratio]Ordered By: [facility] on 32-69-3859Dfzhtkybxcs distribution width (RBC) [Ratio]12.8 %11.9-15.3FJ.W. Ruby Memorial HospitalGlucose [Mass/volume] in Serum or PlasmaOrdered By: [facility] on 79-22-1400Jvzgifu [Mass/Vol]103 mg/pL17-028PrakdfjevOhiohealth O'Bleness HospitalComment on above:ADA recommended reference rangeRandom Glucose Reference Range is dependent on time and content of last meal. Glucose of more than 200 mg/dL in a nonstressed, ambulatory subject supports the diagnosisof Diabetes Mellitus.Hematocrit Auto (Bld) [Volume fraction]Ordered By: [facility] on 11-75-9497Xdaxofdbnk (Bld) [Volume fraction]36.8 % 34.0-46.4FJ.W. Ruby Memorial HospitalHemoglobin [Mass/volume] in Blood Ordered By: [facility] on 53-84-5161Bdrsfsubao (Bld) [Mass/Vol]12.5 g/dL 11.8-15.4FJ.W. Ruby Memorial HospitalLeukocytes [#/volume] corrected for nucleated erythrocytes in Blood by Automated counOrdered By: [facility] on 66-10-9584CHB corrected for nucl RBC Auto (Bld) [#/Vol]6.9 10*3/uL3.8-11.6 [facility] CenterH Auto (RBC) [Entitic mass]Ordered By: [facility] on 94-69-4231HEY (RBC) [Entitic mass]31.6 pg24.7-34.3 [facility] HospitalMCHC Auto (RBC) [Mass/Vol]Ordered By: [facility] on 74-12-6533WRWG (RBC) [Mass/Vol]33.9 g/dL32.0-35.0[facility] HospitalMCV Auto (RBC) [Entitic vol]Ordered By: [facility] on 88-66-3458QRD (RBC) [Entitic vol]93.1 xK40-976BlwlzdpjhOhiohealth O'Bleness Hospital No Panel InformationOrdered By: [facility] on 05-59-8550Eibdnmxyk GFR (CKD-EPI)> 60.0 mL/MinOhiohealth O'Bleness HospitalPharmacy Creatinine Clearance (ChemN/Avita Health SystemPlatelet mean volume Auto (Bld) [Entitic vol]Ordered By: [facility] on 57-49-4315Ktxrfaek mean volume (Bld) [Entitic vol]8.1 fL6.3-10.7FJ.[facility]. [facility] Platelets Auto (Bld) [#/Vol]Ordered By: [facility] on 08-31-2023 Platelets (Bld) [#/Vol]275 10*3/dY217-095TcfflkwewOhiohealth O'Bleness Hospital Potassium [Moles/volume] in Serum or PlasmaOrdered By: [facility] on 09-20-0860Jybthilub [Moles/Vol]4.2 mmol/L3.5-5.1FJ.W. Ruby Memorial HospitalProtein [Mass/volume] in Serum or PlasmaOrdered By: [facility] on 59-08-7315Zokqyle [Mass/Vol]6.9 g/dL6.4-8.9[facility] HospitalRBC Auto (Bld) [#/Vol]Ordered By: [facility] on 22-80-3518TFM (Bld) [#/Vol] 3.96 10*6/uL3.60-5.00[place] Hospitalerum or plasma anion gap determinationOrdered By: [facility] on 41-48-3461Wkerp gap [Moles/Vol] 9.7 mmol/L6.0-15.0[facility] Hospitalerum or plasma high density lipoprotein (HDL) cholesterol measurementOrdered By: [facility] on 94-46-2062Wrfinxnyxqc in HDL [Mass/Vol]70 mg/nP52-33ZnurfbmeqOhiohealth O'Bleness HospitalComment on above:HDL CHOL ATP-III CLASSIFICATION Cardiovascular RiskHDL > or equal to 60 mg/dL LOWHDL < 40 mg/dL HIGHSerum or plasma total cholesterol/high density lipoprotein (HDL) cholesterol mass ratOrdered By: [facility] on 20-25-3681Wllkjrucytm.total/Cholesterol in HDL [Mass ratio]3.3 {ratio}<5.0[facility] Hospitalodium [Moles/volume] in Serum or PlasmaOrdered By: [facility] on 57-43-0946Dtoebw [Moles/Vol]139 mmol/P817-012RocznuwhsOhiohealth O'Bleness HospitalTriglyceride [Mass/volume] in Serum or PlasmaOrdered By: [facility] on 80-77-0274Thhvjyabdkwd [Mass/Vol]93 mg/dL0-149[facility] HospitalComment on above:TRIG ATP III CLASSIFICATIONTRIG less than 150 mg/dL NormalTRIG 150-199 mg/dL Borderline highTRIG 200-500 mg/dL High TRIG greater than 500 mg/dL Very highStandard traceable to the Center for Disease Conrtrol and Prevention (CDC) test method.Urea nitrogen [Mass/volume] in Serum or PlasmaOrdered By: [facility] on 21-55-1889Vjtk nitrogen [Mass/Vol]15 mg/dL7[facility] HospitalAlanine aminotransferase [Enzymatic activity/volume] in Serum or PlasmaOrdered By: [facility] on 48-70-6118HXU [Catalytic activity/Vol]17 U/L7[facility] HospitalAlbumin [Mass/volume] in Serum or Plasma by Bromocresol green (BCG) dye binding methoOrdered By: [facility] on 61-65-2085Lqezirc BCG dye [Mass/Vol]4.8 g/dL3.5-5.7FJ.W. Ruby Memorial HospitalAlkaline phosphatase [Enzymatic activity/volume] in Serum or PlasmaOrdered By: [facility] on 11-79-6731XQP [Catalytic activity/Vol]89 U/L34-104 [facility] HospitalAspartate aminotransferase [Enzymatic activity/volume] in Serum or PlasmaOrdered By: [facility] on 03-16-2023 AST [Catalytic activity/Vol]19 U/N21-18WrkcsjxcgOhiohealth O'Bleness Hospital Bilirubin.total [Mass/volume] in Serum or PlasmaOrdered By: [facility] on 27-56-5505Sviapdivt [Mass/Vol]0.4 mg/dL0.3-1.0[facility] HospitalCalcium [Mass/volume] in Serum or PlasmaOrdered By: [facility] on 31-21-7462Lzwefec [Mass/Vol]9.4 mg/dL8.6-10.3FJ.W. [facility] Hospital Carbon dioxide, total [Moles/volume] in Serum or PlasmaOrdered By: [facility] on 00-58-7734FA7 [Moles/Vol]28.6 mmol/L21.0-31.0[facility] HospitalChloride [Moles/volume] in Serum or PlasmaOrdered By: [facility] on 20-62-3828Nxhnxrji [Moles/Vol]104 mmol/Z26-771BiesfajdwOhiohealth O'Bleness HospitalCholesterol [Mass/volume] in Serum or PlasmaOrdered By: [facility] on 33-78-5269Hoboqbezyvn [Mass/Vol]193 mg/bO124-035OepiwedtyOhiohealth O'Bleness HospitalComment on above:Chol less than 200 mg/dl low riskChol 201-239 mg/dl borderline riskChol 240 mg/dl and greater high riskCholesterol in LDL Calc [Mass/Vol]Ordered By: [facility] on 31-79-4184Dbytriwiziz in LDL [Mass/Vol]116 mg/dL0-100[facility] HospitalComment on above:LDL ATP III CLASSIFICATIONLDL less than 100 mg/dL OptimalLDL 100-129 mg/dL Near or above jibvymrLRV755-069 mg/dL Borderline highLDL 160-189 mg/dL HighLDL greater than 189 mg/dL Very highCholesterol in VLDL Calc [Mass/Vol]Ordered By: [facility] on 01-28-3433Jxyqrwlhgiy in VLDL [Mass/Vol]14 mg/dLOhiohealth O'Bleness HospitalCreatinine [Mass/volume] in Serum or PlasmaOrdered By: [facility] on 18-84-7356Kcbuuushkm [Mass/Vol]0.68 mg/dL0.60-1.20[facility] HospitalErythrocyte distribution width Auto (RBC) [Ratio]Ordered By: [facility] on 51-66-2652Rploxjwhyul distribution width (RBC) [Ratio] 12.6 %11.9-15.3FJ.W. Ruby Memorial HospitalGlucose [Mass/volume] in Serum or PlasmaOrdered By: [facility] on 45-04-9905Nbfmyrt [Mass/Vol]98 mg/dL 70-100[facility] HospitalComment on above:ADA recommended reference rangeRandom Glucose Reference Range is dependent on time and content of last meal. Glucose of more than 200 mg/dL in a nonstressed, ambulatory subject supports the diagnosisof Diabetes Mellitus.Hematocrit Auto (Bld) [Volume fraction]Ordered By: [facility] on 79-44-1033Cigmjiwnct (Bld) [Volume fraction]37.8 %34.0-46.4FJ.W. Ruby Memorial HospitalHemoglobin [Mass/volume] in BloodOrdered By: [facility] on 72-14-9170Eamhzryggq (Bld) [Mass/Vol]12.9 g/dL11.8-15.4FJ.W. Ruby Memorial HospitalLeukocytes [#/volume] corrected for nucleated erythrocytes in Blood by Automated coun Ordered By: [facility] on 13-37-4299GAQ corrected for nucl RBC Auto (Bld) [#/Vol]7.0 10*3/uL3.8-11.6FWay[facility] Auto (RBC) [Entitic mass]Ordered By: [facility] on 70-04-5079RRL (RBC) [Entitic mass]31.0 pg24.7-34.3FJ.W. Ruby Memorial HospitalMCHC Auto (RBC) [Mass/Vol] Ordered By: [facility] on 30-70-7349BNAB (RBC) [Mass/Vol]34.1 g/dL 32.0-35.0[facility] HospitalMCV Auto (RBC) [Entitic vol]Ordered By: [facility] on 19-29-6861OCX (RBC) [Entitic vol]91.0 pA03-171 [facility] HospitalNo Panel InformationOrdered By: [facility] on 74-15-5330Gmrlolfet GFR (CKD-EPI)> 60.0 mL/MinOhiohealth O'Bleness HospitalPharmacy Creatinine Clearance (ChemN/[facility]ita Health SystemPlatelet mean volume Auto (Bld) [Entitic vol]Ordered By: [facility] on 46-17-2983Smfakzel mean volume (Bld) [Entitic vol]7.4 fL6.3-10.7 [facility] HospitalPlatelets Auto (Bld) [#/Vol]Ordered By: OUTREACH [facility] on 50-83-8270Zbctxcsky (Bld) [#/Vol]307 10*3/fP522-497 [facility] HospitalPotassium [Moles/volume] in Serum or Plasma Ordered By: [facility] on 38-19-5346Mmenkrjhg [Moles/Vol]4.5 mmol/L 3.5-5.1FJ.W. Ruby Memorial HospitalProtein [Mass/volume] in Serum or Plasma Ordered By: [facility] on 54-29-8342Rexhmmb [Mass/Vol]6.9 g/dL6.4-8.9 [facility] HospitalRBC Auto (Bld) [#/Vol]Ordered By: [facility] on 87-77-0409XKM (Bld) [#/Vol]4.15 10*6/uL3.60-5.00[place] Hospitalerum or plasma anion gap determinationOrdered By: [facility] on 51-27-5263Icynv gap [Moles/Vol]11.9 mmol/L6.0-15.0[facility] Hospitalerum or plasma high density lipoprotein (HDL) cholesterol measurementOrdered By: OUTREACH [facility] on 90-78-3004Eryxundhodr in HDL [Mass/Vol]62 mg/lG94-92MnbjeymtgOhiohealth O'Bleness HospitalComment on above: HDL CHOL ATP-III CLASSIFICATION Cardiovascular RiskHDL > or equal to 60 mg/dL LOWHDL < 40 mg/dL HIGHSerum or plasma total cholesterol/high density lipoprotein (HDL) cholesterol mass ratOrdered By: [facility] on 03-16-2023 Cholesterol.total/Cholesterol in HDL [Mass ratio]3.1 {ratio}<5.0[facility] Hospitalodium [Moles/volume] in Serum or PlasmaOrdered By: [facility] on 30-72-0170Uhurhr [Moles/Vol]140 mmol/N820-820IdcbijwrwOhiohealth O'Bleness HospitalTriglyceride [Mass/volume] in Serum or PlasmaOrdered By: [facility] on 41-15-4792Hsukxbfesahg [Mass/Vol]74 mg/dL0-149[facility] HospitalComment on above:TRIG ATP III CLASSIFICATIONTRIG less than 150 mg/dL NormalTRIG 150-199 mg/dL Borderline highTRIG 200-500 mg/dL High TRIG greater than 500 mg/dL Very highStandard traceable to the Center for Disease Conrtrol and Prevention (CDC) test method.Urea nitrogen [Mass/volume] in Serum or PlasmaOrdered By: [facility] on 46-91-7846Vsfe nitrogen [Mass/Vol]11 mg/dL7-25[facility] HospitalBody fluid albumin measurement (mass/volume)Ordered By: [facility] on 90-76-3499Bfwgfwt (Body fld) [Mass/Vol]4.0 g/dL3.2-5.5FJ.W. Ruby Memorial HospitalCholesterol [Mass/volume] in Serum or PlasmaOrdered By: [facility] on 08-04-2022 Cholesterol [Mass/Vol]219 mg/rO679-602ChxjtzurrOhiohealth O'Bleness HospitalComment on above:Chol less than 200 mg/dl low riskChol 201-239 mg/dl borderline riskChol 240 mg/dl and greater high riskCholesterol in LDL Calc [Mass/Vol]Ordered By: [facility] on 99-29-5888Grbyuvztgxg in LDL [Mass/Vol]131 mg/dL0-100 [facility] HospitalComment on above:LDL ATP III CLASSIFICATIONLDL less than 100 mg/dL OptimalLDL 100-129 mg/dL Near or above agsvmogWZD954-030 mg/dL Borderline highLDL 160-189 mg/dL HighLDL greater than 189 mg/dL Very high Cholesterol in VLDL Calc [Mass/Vol]Ordered By: OUTREACH [facility] on 08-04-2022 Cholesterol in VLDL [Mass/Vol]10 mg/dLOhiohealth O'Bleness Hospital Creatinine and Glomerular filtration rate.predicted panel (S/P/Bld)Ordered By: OUTREACH [facility] on 53-41-0232Xtsgpszjmg [Mass/Vol]0.64 mg/dL0.44-1.03 [facility] HospitalErythrocyte distribution width Auto (RBC) [Ratio]Ordered By: [facility] on 90-82-2852Fhfyztenazd distribution width (RBC) [Ratio]12.6 %11.9-15.3FJ.W. Ruby Memorial HospitalEstimated glomerular filtration rate (GFR) non- AmericanOrdered By: [facility] on 22-35-7974GDC/1.73 sq M.predicted among non-blacks MDRD (S/P/Bld) [Vol rate/Area]> 60 mL/MinOhiohealth O'Bleness HospitalHematocrit Auto (Bld) [Volume fraction]Ordered By: [facility] on 13-54-8375Vhcrxxmzin (Bld) [Volume fraction]37.9 %34.0-46.4FJ.W. Ruby Memorial HospitalHemoglobin [Mass/volume] in BloodOrdered By: [facility] on 60-60-4969Mwoozymwtk (Bld) [Mass/Vol]13.1 g/dL11.8-15.4FWayne [facility] Auto (RBC) [Entitic mass]Ordered By: [facility] on 89-03-1638SIH (RBC) [Entitic mass]31.8 pg24.7-34.3FLouis Stokes Cleveland VA Medical CenterHC Auto (RBC) [Mass/Vol]Ordered By: [facility] on 03-66-5731NSBT (RBC) [Mass/Vol]34.4 g/dL32.0-35.0[facility] Medical CenterV Auto (RBC) [Entitic vol] Ordered By: [facility] on 43-75-0977EEO (RBC) [Entitic vol]92.3 qY74-401 [facility]leness HospitalNo Panel InformationOrdered By: OUTREACH [facility] on 67-21-7251Zduicdzmm GFR ()> 60 mL/MinOhiohealth O'Bleness HospitalComment on above:GFR estimated reference range: According to KDOQI guidelines, <60 ml/min/1.73m2 is sufficient todiagnose a patient with chronic kidney disease.Pharmacy Creatinine Clearance (ChemN/[facility] Health SystemTriglycerides Zlwqca40 mg/mC39-654WtrkpqpjoOhiohealth O'Bleness HospitalComment on above:TRIG ATP III CLASSIFICATIONTRIG less than 150 mg/dL NormalTRIG 150-199 mg/dL Borderline highTRIG 200-500 mg/dL High TRIG greater than 500 mg/dL Very highStandard traceable to the Center for Disease Conrtrol and Prevention (CDC) test method.Platelet mean volume Auto (Bld) [Entitic vol] Ordered By: [facility] on 34-67-5368Nxxusgpe mean volume (Bld) [Entitic vol]7.9 fL6.3-10.7FJ.W. Ruby Memorial HospitalPlatelets Auto (Bld) [#/Vol] Ordered By: [facility] on 88-40-5468Jaozmjwpx (Bld) [#/Vol]312 10*3/uL 150-450Ohiohealth O'Bleness HospitalProtein [Mass/volume] in Serum or Plasma Ordered By: [facility] on 09-42-3953Qzehuud [Mass/Vol]6.7 g/dL6.1-7.9 [facility]leness HospitalRBC Auto (Bld) [#/Vol]Ordered By: [facility] on 04-27-7880BYP (Bld) [#/Vol]4.11 10*6/uL3.60-5.00M[place]letown Hospitalerum or plasma alanine aminotransferase measurement without P-5'-P (enzymatic activiOrdered By: [facility] on 76-84-3624PYH No additional P-5'-P [Catalytic activity/Vol]29 U/W76-29LjtztsamkMiddletown Hospitalerum or plasma alkaline phosphatase measurement (enzymatic activity/volume)Ordered By: [facility] on 71-95-2347KKZ [Catalytic activity/Vol]74 U/N24-16SyjyparhuMiddletown Hospitalerum or plasma anion gap determinationOrdered By: [facility] on 92-26-2327Eukek gap [Moles/Vol]13.1 mmol/L6.0-15.0[facility] Hospitalerum or plasma aspartate aminotransferase measurement (enzymatic activity/volume)Ordered By: [facility] on 67-53-0897IWO [Catalytic activity/Vol]26 U/A25-21GmvvopzmsMiddletown Hospitalerum or plasma calcium measurement (mass/volume)Ordered By: [facility] on 12-46-8971Rezizxy [Mass/Vol]9.7 mg/dL8.2-10.2FSumma Health Wadsworth - Rittman Medical Centererum or plasma chloride measurement (moles/volume) Ordered By: OUTREACH [facility] on 06-14-7030Klljyxgp [Moles/Vol]102 mmol/L95-114 [facility] Hospitalerum or plasma glucose measurement (mass/volume)Ordered By: OUTREACH [facility] on 74-17-8831Oeqbldk [Mass/Vol]103 mg/oP51-262KhmaddrymOhiohealth O'Bleness HospitalComment on above:ADA recommended reference rangeRandom Glucose Reference Range is dependent on time and content of last meal. Glucose of more than 200 mg/dL in a nonstressed, ambulatory subject supports the diagnosisof Diabetes Mellitus.Serum or plasma high density lipoprotein (HDL) cholesterol measurementOrdered By: [facility] on 85-59-1720Jgrbezwaumk in HDL [Mass/Vol]78 mg/lL17-08SguygpqtuOhiohealth O'Bleness HospitalComment on above:HDL CHOL ATP-III CLASSIFICATION Cardiovascular RiskHDL > or equal to 60 mg/dL LOWHDL < 40 mg/dL HIGHSerum or plasma potassium measurement (moles/volume)Ordered By: [facility] on 32-80-9031Jqdacpgkx [Moles/Vol] 4.3 mmol/L3.5-5.1FSumma Health Wadsworth - Rittman Medical Centererum or plasma sodium measurement (moles/volume)Ordered By: OUTREACH [facility] on 81-01-0656Nfnsvp [Moles/Vol]141 mmol/C117-494QdvxwbctmMiddletown Hospitalerum or plasma total bilirubin measurement (mass/volume)Ordered By: [facility] on 99-46-4287Eimdbxflo [Mass/Vol]0.5 mg/dL0.3-1.2FJ.W. [facility] Hospital Serum or plasma total carbon dioxide measurement (moles/volume)Ordered By: OUTREACH [facility] on 53-35-2572WF2 [Moles/Vol]30.2 mmol/L22.0-30.0[facility] Hospitalerum or plasma total cholesterol/high density lipoprotein (HDL) cholesterol mass ratOrdered By: OUTREACH [facility] on 06-60-1109Bwjjqkmymqa.total/Cholesterol in HDL [Mass ratio]2.8 {ratio}<5.0 [facility] Hospitalerum or plasma urea nitrogen measurement (mass/volume)Ordered By: OUTREACH [facility] on 52-89-7165Dvpd nitrogen [Mass/Vol]9 mg/dL9-23Ohiohealth O'Bleness HospitalWBC Auto (Bld) [#/Vol] Ordered By: [facility] on 80-07-7940KNQ (Bld) [#/Vol]6.0 10*3/uL3.8-11.6 [facility] HospitalAlbumin [Mass/volume] in Serum or PlasmaOrdered By: [facility] on 59-38-1119Uqocbdl [Mass/Vol]4.3 g/dL3.2-5.5FJ.W. Ruby Memorial HospitalBlood hemoglobin measurement (mass/volume)Ordered By: [facility] on 56-39-9467Ppmqgrrzdy (Bld) [Mass/Vol]13.0 g/dL11.8-15.4 [facility] HospitalCholesterol [Mass/volume] in Serum or Plasma Ordered By: [facility] on 48-01-5521Qeumwjixwci [Mass/Vol]218 mg/dL 140-200Ohiohealth O'Bleness HospitalComment on above:Chol less than 200 mg/dl low risk Chol 201-239 mg/dl borderline risk Chol 240 mg/dl and greater high riskCholesterol in LDL Calc [Mass/Vol]Ordered By: [facility] on 57-58-7509Ukclakcwqsv in LDL [Mass/Vol]126 mg/dL0-100 [facility]len[facility] HospitalComment on above:LDL ATP III CLASSIFICATION LDL less than 100 mg/dL Optimal LDL 100-129 mg/dL Near or above optimal LDL 130-159 mg/dL Borderline high LDL 160-189 mg/dL High LDL greater than 189 mg/dL Very highCholesterol in VLDL Calc [Mass/Vol]Ordered By: [facility] on 69-57-7172Suztpjfjqog in VLDL [Mass/Vol]9 mg/dL [facility] HospitalCreatinine and Glomerular filtration rate.predicted panel (S/P/Bld)Ordered By: [facility] on 02-10-2022 Creatinine [Mass/Vol]0.67 mg/dL0.44-1.03[facility] Erythrocyte distribution width Auto (RBC) [Ratio]Ordered By: [facility] on 78-02-0748Wthibkrcuap distribution width (RBC) [Ratio]13.2 %11.9-15.3 [facility] HospitalEstimated glomerular filtration rate (GFR) non- AmericanOrdered By: [facility] on 75-24-9024TNG/1.73 sq M.predicted among non-blacks MDRD (S/P/Bld) [Vol rate/Area]> 60 mL/MinOhiohealth O'Bleness HospitalHematocrit Auto (Bld) [Volume fraction]Ordered By: [facility] on 91-55-1355Bjcyksparu (Bld) [Volume fraction]39.0 % 34.0-46.4FWayne HealthCare [facility] Auto (RBC) [Entitic mass]Ordered By: [facility] on 28-53-7124DJC (RBC) [Entitic mass]30.7 pg24.7-34.3 [facility] Auto (RBC) [Mass/Vol]Ordered By: [facility] on 73-03-1569ETME (RBC) [Mass/Vol]33.4 g/dL32.0-35.0Main Campus Medical CenterV Auto (RBC) [Entitic vol]Ordered By: [facility] on 18-52-2601EVI (RBC) [Entitic vol]91.7 lY55-457WweokksowOhiohealth O'Bleness Hospital No Panel InformationOrdered By: [facility] on 07-82-9924Nluaesqve GFR ()> 60 mL/MinOhiohealth O'Bleness HospitalComment on above: GFR estimated reference range: According to KDOQI guidelines, <60 ml/min/1.73m2 is sufficient todiagnose a patient with chronic kidney disease.Pharmacy Creatinine Clearance (ChemN/[facility]ita Health SystemTriglycerides Vrdbxj26 mg/gE48-600HkgfgmipsOhiohealth O'Bleness HospitalComment on above:TRIG ATP III CLASSIFICATION TRIG less than 150 mg/dL Normal TRIG 150-199 mg/dL Borderline high TRIG 200-500 mg/dL High TRIG greater than 500 mg/dL Very high Standard traceable to the Center for Disease Conrtrol and Prevention (CDC) test method.Platelet mean volume Auto (Bld) [Entitic vol]Ordered By: OUTREACH [facility] on 24-74-2415Vavteltu mean volume (Bld) [Entitic vol]7.8 fL6.3-10.7 [facility]'Bleness HospitalPlatelets Auto (Bld) [#/Vol]Ordered By: [facility] on 07-68-5386Poikyiopt (Bld) [#/Vol]277 10*3/jU019-346 [facility] HospitalProtein [Mass/volume] in Serum or PlasmaOrdered By: [facility] on 67-84-8679Ntjidka [Mass/Vol]7.0 g/dL6.1-7.9Ohio[facility] O'Bleness HospitalRBC Auto (Bld) [#/Vol]Ordered By: [facility] on 90-57-2881CSX (Bld) [#/Vol]4.25 10*6/uL3.60-5.00[place] Hospitalerum or plasma alanine aminotransferase measurement without P-5'-P (enzymatic activiOrdered By: [facility] on 70-02-3548HMX No additional P-5'-P [Catalytic activity/Vol]26 U/Y22-93IkkhrfukmMiddletown Hospitalerum or plasma alkaline phosphatase measurement (enzymatic activity/volume)Ordered By: OUTREACH [facility] on 64-34-9108KHS [Catalytic activity/Vol]74 U/L32-92 [facility] Hospitalerum or plasma aspartate aminotransferase measurement (enzymatic activity/volume)Ordered By: OUTREACH [facility] on 77-93-3266QOL [Catalytic activity/Vol]24 U/W41-42StflzewaxMiddletown Hospitalerum or plasma calcium measurement (mass/volume)Ordered By: [facility] on 98-60-5724Scrnsch [Mass/Vol]9.4 mg/dL8.2-10.2FSumma Health Wadsworth - Rittman Medical Centererum or plasma chloride measurement (moles/volume)Ordered By: OUTREACH [facility] on 23-62-9918Flzlfrmi [Moles/Vol]100 mmol/Y86-669MgljebewyMiddletown Hospitalerum or plasma glucose measurement (mass/volume)Ordered By: [facility] on 74-17-6616Bxmgcef [Mass/Vol]92 mg/vI95-450NhxahiwubOhiohealth O'Bleness HospitalComment on above:ADA recommended reference range Random Glucose Reference Range is dependent on time and content of last meal. Glucose of more than 200 mg/dL in a nonstressed, ambulatory subject supports the diagnosis of Diabetes Mellitus.Serum or plasma high density lipoprotein (HDL) cholesterol measurementOrdered By: OUTREACH [facility] on 10-61-3053Aspweovytve in HDL [Mass/Vol]82 mg/lX29-13GtlitzbmnOhiohealth O'Bleness HospitalComment on above: HDL CHOL ATP-III CLASSIFICATION Cardiovascular Risk HDL > or equal to 60 mg/dL LOW HDL < 40 mg/dL HIGHSerum or plasma potassium measurement (moles/volume)Ordered By: OUTREACH [facility] on 55-89-7617Jjbkbquxw [Moles/Vol]4.1 mmol/L3.5-5.1 [facility] Hospitalerum or plasma sodium measurement (moles/volume)Ordered By: OUTREACH [facility] on 91-81-5921Udsmak [Moles/Vol]136 mmol/M840-454NcfudjihiMiddletown Hospitalerum or plasma total bilirubin measurement (mass/volume)Ordered By: [facility] on 99-63-5847Aglvhacbj [Mass/Vol]0.6 mg/dL0.3-1.2FSumma Health Wadsworth - Rittman Medical Centererum or plasma total carbon dioxide measurement (moles/volume)Ordered By: OUTREACH [facility] on 29-53-3212LM6 [Moles/Vol]26.9 mmol/L22.0-30.0[facility] Serum or plasma total cholesterol/high density lipoprotein (HDL) cholesterol mass ratOrdered By: [facility] on 02-10-2022 Cholesterol.total/Cholesterol in HDL [Mass ratio]2.7 {ratio}[facility] Hospitalerum or plasma urea nitrogen measurement (mass/volume)Ordered By: OUTREACH [facility] on 57-12-8466Klyg nitrogen [Mass/Vol]10 mg/dL9-[facility]'Bleness HospitalWBC Auto (Bld) [#/Vol]Ordered By: [facility] on 69-08-1997PHM (Bld) [#/Vol]6.2 10*3/uL3.8-11.6FJ.W. [facility] MG MAMM SCREEN 3D IRISH CADon 55-40-2679NO MAMM SCREEN 3D IRISH CADPatient: NILDA ALMARAZSoren Exam Date: 01/25/2021 : 1970 Gender:F Ordering : DR GISELA BARRY . Admission #: [id number] Family : Order #: [id number] CLICK HERE TO VIEW EXAM 02/15/2021 Admission number added to report [facility] RADIOLOGY REPORT PROCEDURE: MAMMOGRAM SCREENING 3D BILATERAL CAD COMPARISON: MG MAMM IRISH SCRN W CAD DIG, 07/24/2013. MG MAMM SCREEN IRISH W CAD, 04/11/2018. INDICATIONS: Screening exam Calculator Name NCI Breast Cancer Risk Assessment Tool 5 Year Breast Cancer Risk 0.50% Lifetime Breast Cancer Risk 4.40% Personal Breast Cancer No Personal Ovarian Cancer No Treatments None Family Cancers None LOCATION: [facility] BREAST COMPOSITION: Extremely dense, which lowers the [...] by: Handy Rivera M.D. on 01/25/2021 at 07:48[facility] SpringfieldOG PANEL 2: 30 to 65on 01-13-2021..NormalWooster Community Hospital Comment on above:Result Comment: Performed at: WBPerformed By: #### [id number] #### [facility] [address] [id number] Christiane Monae Gdln ACOG Vdyzvxq78-66HywkhfTroKettering Health Main CampusComment on above:Performed By: #### [id number] #### [facility] [address] [place], [place] [address] Christiane KarenDIAGNOSIS:CommentMercy Health St. Rita's Medical CenterCominsight surgical hospital on above:Result Comment: NEGATIVE FOR INTRAEPITHELIAL LESION OR MALIGNANCY. Performed at: WBPerformed By: #### [id number] #### [facility] [address] [place], [place] [address] Christiane KarenHPV AptimaNegativeNormalNegativeWooster Community HospitalComment on above:Result Comment: This nucleic acid amplification test detects fourteen high-risk HPV types (16,18,31,33,35,39,45,51,52,56,58,59,66,68) without differentiation. Performed at: =GPerformed By: #### [id number] #### [facility] [address] [place] [address] Christiane ConstantindianneMethodology:CommentMetroHealth Parma Medical Center on above: Result Comment: This liquid based ThinPrep(R) pap test was screened with the use of an image guided system. Performed at: WBPerformed By: #### [id number] #### [facility] [address] [place] [address] Christiane KillianenNote:CommentNoParkview Health Montpelier Hospital on above:Result Comment: The Pap smear is a screening test designed to aid in the detection of premalignant and malignant conditions of the uterine cervix. It is not a diagnostic procedure and should not be used as the sole means of detecting cervical cancer. Both false-positive and false-negative reports do occur. . Performed at: WBPerformed By: #### [id number] #### [facility] [address] [place] [address] Christiane VieiraPerformed by:CommentMetroHealth Parma Medical Center on above: Result Comment: Marjan Covington, Cafe Server (ASCP) Performed at: WBPerformed By: #### [id number] #### [facility] [address] [place] [address] Christiane Langstonpecimen adequacy:[facility] on above:Result Comment: Satisfactory for evaluation. Endocervical and/or squamous metaplastic cells (endocervical component) are present. Performed at: WBPerformed By: #### [id number] #### [facility] [address] [place] [address] Christiane Isha Encounters Encounter DateEncounter TypeCare ProviderFacilityStart: 04-17-2025 End: 57-51-9199Fhhszqyw ReferredOUTREACH COMMUNITY-Community Outreach Work Phone: Start: 04-17-2025 End: 79-86-4493saywafcvrnUIVNKVBJI NO [facility] Work Phone: Start: 09-25-2024 End: 03-46-6382yeetebtbqxJswpkAmanda Jordan MDFacility:[facility] PracticeStart: 09-14-2024 End: 69-51-9400Kwl Drop offJodi L Stacy [facility] Start: 09-14-2024 End: 12-54-2420mlqocvjrxlLNX Mara L SchwabFacility:[facility] BellevueStart: 09-09-2024 End: 03-02-3065yyblkmrkvzQehRhonda Barry MDFacility:[facility] CenterStart: 07-14-2024 End: 90-71-1187bimypylfqcZlqlNuria Recinos MDFacility:ENT SpecStart: 03-31-2024 End: 79-16-7261xepgolqozhDnucNuria Recinos MDFacility:ENT SpecStart: 03-09-2024 End: 79-26-3300ijztlfxndlIAB Mara L SchwabFacility:[facility] BellevueStart: 02-15-2024 End: 96-45-4482abwspawymzRZGDHRHIB NO [facility] Work Phone: Start: 02-15-2024 End: 14-82-8501Wkutkabk ReferredPHYSICIAN NO [facility]-Community Outreach Work Phone: Start: 01-13-2024 End: 96-23-2037Snh Drop offJodi L Stacy [facility] Start: 01-13-2024 End: 20-56-4138vzeahimjkcIBK Mara L SchwabFacility:FTMCStart: 08-31-2023 End: 84-52-9476hoykkttrfeAWDZHVPPL NO [facility] Work Phone: Start: 08-31-2023 End: 70-93-5372Tnoaehhw ReferredPHYSICIAN NO [facility]-Community Outreach Work Phone: Start: 03-16-2023 End: 51-84-8000aqkfviiyrsCL Gisela De Jesus Barry Work Phone: [facility] Work Phone: Start: 03-16-2023 End: 52-69-2582Atufspnk ReferredMD Gisela Barry Work Phone: [facility] Outreach Work Phone: Start: 08-04-2022 End: 71-36-4732uhvvtkeqdyXZ Gisela Barry Work Phone: [facility] Work Phone: Start: 08-04-2022 End: 64-39-4659Uuhykckk ReferredMD Gisela Barry Work Phone: [facility] Outreach Start: 02-10-2022 End: 54-10-3451Tpvyumhi ReferredPHYSICIAN NO [facility]-Community OutreachStart: 01-25-2021 End: 53-53-5109qzwnlzenlsGU KIM E KNIGHTFacility:E2Juami: 01-11-2021 End: 65-48-3397gkwaioilltTU KIM E KNIGHTFacility:H1 Procedures DateProcedureProcedure DetailPerforming ClinicianStart: 08-30-2022 Esophagogastroduodenoscopic electrohydraulic lithotripsy of bezoar in stomach Mara Stacy ColonoscopyJodi Stacy Comment on above:2104 normalTympanostomyJodi Stacy Immunizations Immunization DateImmunizationNotesCare TrozsihyFdoejfrr80-63-9878TOBB-ZdT-4 (COVID-19) mRNA-1273 vaccineJodi Stacy [phone]-PfsndWayne Healthcare Main Campus Comment on above:Result Comment: 2023-08-28: 0203-26-7057GZNL-CoV-2 (COVID-19) [id number] Tyesha Ortaab [phone]-ImhwaWayne Healthcare Main Campus Payers DatePayer CategoryPayerPolicy [id number]-eth [id number] 2.16.840.1.788484.3.579.2.34950-52-1414Ojvpeca [id number] 2.840.1.628406.3.57[id number] 2.840.1.344317.3.57[id number] 2..840.1.958206.3.57[id number] 2.0.1.348867.3.57[id number] 2..1.200792.3.57[id number] 2.16840.1.133765.3.57[id number] 2.840.1.301259.3.57[id number] 2.840.1.215320.3.57[id number] 2.0.1.487142.3.57[id number] 2.16.840.1.777798.3.579.[id number] 2.16.840.1.490483.3.579.2.531 Social History DateTypeDetailFacilityTobacco smoking status NHISUnknown if ever smokedMiddletown Hospital Ctr Work Phone: Start: 17-59-4627Ylc Assigned At [facility] Hospitaltart: 01-13-2024 End: 16-23-4253Abcbhkz smoking statusEx-smoker (finding)[facility] HospitalueSex Assigned At [facility] CenterTobacc smoking statusNeverWayne Healthcare Main CampusTowindham hospital smoking status NHISUnknown if ever smokedMiddletown Hospital Ctr Work Phone: SexFemale (finding)[facility] Evaluation + Plan note Note Date & TypeNoteFacilityEvaluation + Plan note Future Appointments Appointment Date:03/09/2024 09:15:00 AM Scheduled Provider:Thaddeus Mojica MD Location:[facility] Appointment Type: Open Diagnostic Tests Pending * PAP w/ HPV and Genotype rflx 01/13/24 [facility] Evaluation note Note Date & TypeNoteFacilityEvaluation noteNo assessment information available [facility] Work Phone: Hospital course Narrative Note Date & TypeNoteFacilityHospital course Narrative No data available for this section [facility] Hospital Discharge instructions Note Date & TypeNoteFacilityHospital Discharge instructions No data available for this section [facility] Progress note Note Date & TypeNoteFacilityProgress note No data available for this section [facility] Reason for referral (narrative) Note Date & TypeNoteFacilityReason for referral (narrative)No reason for referral information availableMiddletown Hospital Ctr Work Phone: Summary Purpose Family History [...] section and content) DATE CREATED AUTHOR 02/22/2021 [facility] DATE CREATED AUTHOR AUTHOR'S ORGANIZ ATION 09/15/2024 [facility] DATE CREATED AUTHOR AUTHOR'S ORGANIZ ATION 09/17/2024 [facility] DATE CREATED AUTHOR AUTHOR'S ORGANIZ ATION 10/11/2024 [facility] DATE CREATED AUTHOR AUTHOR'S ORGANIZ ATION 04/20/2025 [facility] Care Teams (unrecognized sec [...] BE BASED ON THE PRIMARY CLINICAL RECORDS. [facility]. provides no warranty or guarantee of the accuracy or completeness of information in this document.
--- OUTSIDE RECORDS SUMMARY | 2025-08-27 14:07 | XMS_ITS | Patient Health Record ---
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 Ordering Physician: Rip Tsang M.D. Date of Service: 08/11/25 Procedure(s): NM lizett perf SPECT rest str Accession Number(s): [id number] cc: Rip Tsang M.D. Patient Name: AMEE ALMARAZ MR#: [id number] : 1970 Exam Date: 08/11/2025 Ordering Doctor: DR RIP TSANG . RADIOLOGY REPORT PROCEDURE: NM LIZETT PERF SPECT REST STR COMPARISON: None. INDICATIONS: CORONARY ARTERY DISEASE, FAMILY HISTORY TECHNIQUE: Exam Description: Stress/Rest two day protocol gated SPECT Rest Imagin.9 mCi Tc-99m Cardiolite IV on 08/11/2025 Stress Imaging 30.5 mCi Tc-99m Cardiolite IV on 08/11/2025 Exercise Protocol: Compa Heart Rate (bpm): Rest: 77 Max: 166 PMHR: 100 Blood Pressure: Rest: 158/92 Max: 164/88 Exercise Time: Minutes: 7 Seconds: 38 Stage Reached: Stage: 3 Mets 10.1 Symptoms: Rest and peak stress ECG findings were pending, and the exercise portion of the study was pending per attending physician [facility]. For more details, please see separate cardiac stress test report. FINDINGS: QUALITY OF STUDY: Good PERFUSION DEFECT: LOCATION: N/A SIZE: N/A SEVERITY: N/A TYPE: N/A WALL MOTION: Normal wall motion LV SIZE: 70 mL. TID / TCD: 0.8 LVEF: Calculated EF 71%. SUMMARY: Myocardial perfusion imaging study is normal CONCLUSION: 1. Myocardial perfusion is normal 2. Global left ventricular systolic function is normal; EF 71% 3. No transient ischemic dilatation Dictated by: Beata Segovia M.D. on 08/11/2025 at 15:46 Approved by: Beata Segovia M.D. on 08/11/2025 at 15:48 Dictated By: Beata Segovia M.D. 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 recommended. [address] [place] [phone] Performing Lab: see note [facility] LBTS Reviewed date:07/26/2025 06:44:46 PM Interpretation: Performing Lab: Notes/Report: [facility] ,Thyroid Stimulating Hormone7.5350.358-3.740 uIU/mLPerforming Lab:see noteML - [facility] LBPROF 14(COMP METB) Reviewed date:07/26/2025 06:44:46 PM Interpretation: Performing Lab: Notes/Report: [facility] ,Xixxiz339543-624 mmol/LPotassium3.83.5-5.1 mmol/YUjlxzkwj95085-813 mmol/LCarbon Whfzvuo70.721.0-32.0 mmol/LAnion Gap14.3Ddelcrh99828-758 mg/dLBlood Urea Nitrogen9.07.0-18.0 mg/dLCreatinine0.500.55-1.02 mg/dLEstimated GFR ( Sarah>60>=60 mL/min/1.73m 2Estimated GFR (Non- Debra>60>=60 mL/min/1.73m 2BUN Creatinine Ratio18.7Bgubudk7.38.5-10.1 mg/dLBilirubin Total0.50.2-1.0 mg/dL Aspartate Amino Ekmfovrbkko9040-87 U/LAlanine Jadmtspbidvklete5206-52 U/L Alkaline Fsvthemouvr1096-838 U/LTotal Protein7.86.4-8.2 g/dLAlbumin Level4.33.4- 5.0 g/dLGlobulin3.5Albumin Globulin Ratio1.2Performing Lab:see noteML - [facility] LBLIPID PROFILE Reviewed date:07/26/2025 06:44:46 PM Interpretation: Performing Lab: Notes/Report: [facility] ,Uqfldppbmluuj83<=150 mg/iPXpbmqhecbve012<=200 mg/dLHDL Xfbyshixucg0778-30 mg/dL <40 mg/dl - HIGH CARDIOVASCULAR RISK > or =60 mg/dl - LOW CARDIOVASCULAR RISK LDL Cholesterol Fttfadavxl021.0 160-189 mg/dl HIGH 100-129 mg/dl NEAR OR ABOVE OPTIMAL <100 mg/dl OPTIMAL >190 mg/dl VERY HIGH 130-159 mg/dl BORDERLINE HIGH VLDL XXUISIZOFMA03.6Chol HDL Ratio2.7 7.1 - 11.0 MODERATE RISK 4.4 - 7.1 AVERAGE RISK >11.0 HIGH RISK 3.3 - 4.4 LOW RISK Performing Lab:see noteML - [facility] LBFREE T4 Reviewed date:07/26/2025 06:44:46 PM Interpretation: Performing Lab: Notes/Report: [facility] Yaritza T40.820.76-1.46 ng/dLPerforming Lab:see noteML - [facility] LB Reason For Referral No Information Medications [...] since you last smoked?5-10 yearsAdditional Findings: Tobacco slc-hobnUo-eudyqbcf cigarette smoker (10-19/day)AUDIT-C (Standard) Question Answer Notes Did you have a drink containing alcohol in the p ast year? No Sjehxz7IalpzrmaukvmwqTmttcrdfErfneke Notes: Patient does smoke Marijuana Patient does smoke Marijuana Patient does smoke Marijuana Problems Problem Type SNOMED Code ICD Code Onset Dates Problem Status W/U Status Risk Notes Problem Hypothyroidism (91536005) Hypothyroidism (E03.9) ActiveconfirmedProblemCoronary artery disease (37021349)Coronary artery disease (I25.10)ActiveconfirmedProblemWell adult (559574577)Well adult (Z00.00)Active confirmedProblemhypercholesterolemia (disorder) (52107459)Hypercholesteremia (E78.00)Activeconfirmed Vital Signs Blood pressure diastolic 82 mm Hg 07/28/2025 Ufjlnj48 in07/28/2025lood pressure nomqvdom412 mm Hg07/28/20255062Hijwhy641.4 lbs 07/28/2025BMI21.87 kg/m210/ Procedures Procedure Date Ordered Date Performed Result Body Sit e CARDIO Stress Test - Cardiolite 07/28/2025 N/A Encounters Encounter Location Date Provider Diagnosis [facility] [address] [place] [address] 04/29/2025 Mina Tsang Well adult Z00.00 [facility] [address] [place] [address], [place] [address] 05/12/2025 Mina Tsang Contact dermatitis L25.9 [facility] [address] [facility] [place] [address] 07/28/2025 Mina Tsang Coronary artery disease I25.10 [facility] [address] [place] [facility] [place] [address] 04/29/2025 Mina Tsang [facility] [facility] [place] [address] 05/14/2025[facility] [place] [address]/Doug HoyHyperthyroidism E05.90[facility] [place] [address]/[facility] [place] [address]/12/2024 Mina [facility] [place] [address]/08/2025Mina Tsang Assessments Encounter Date Diagnosis (ICD Code) Assessment Notes Treatment Notes Treatment Clinical Notes Section Notes 04/29/2025 Well adult (ICD-10 - Z00.00) 05/12/2025ontact dermatitis (ICD-10 - L25.9)dwcxpaa8307/28/2025oronary artery disease (ICD-10 - I25.10)07/26/2025Hyperthyroidism (ICD-10 - [...] ACCESS PPO PLUS LOCAL PLAN [address] [place] [address] [id number] Jim - patient is the spouse of the insured Medications Administered Medication Instructions Date of Administration Dosage Notes Triamcinolone 40 mg/ml mg Medical (General) History Medical History History ICD Code Hypercholesteremia E78.00
--- OUTSIDE RECORDS SUMMARY | 2025-08-27 14:07 | XMS_ITS | Clinical Summary ---
Author Organization [facility] Address [id number] [place] [address] Care Team Providers Care Emt I/99 Name Role Phone Gisela Barry MD Primary Care Provider [phone] Allergies Active AllergyReactionsCriticalityNoted RurmUupxcxjaIifyjkqncoy61/19/2018 Medications MedicationSigDispense QuantityRefillsLast FilledStart DateEnd DateStatus ibuprofen [...] = 0.6 oz pure alcohol)dailyChildcareAnswerDate RecordedChildcareUnknown 03/12/2019EmploymentAnswerDate SddejktdCwejfwbbblMshxikx99/13/2019Purpose - Life AnswerDate RecordedPurpose and direction in ksgnPllvupy90/11/2021 CommentsNoSex and Gender InformationValueDate RecordedSex Assigned at BirthNot on fileLegal UslMixnya14/19/2018 12:46 PM EDTGender IdentityNot on fileSexual OrientationNot on file Last Filed Vital Signs Vital SignReadingTime TakenCommentsBlood Pkjgualr868/8710 5:04 PM EDT Eopqd4582/ 6:09 PM CZIWoohjzujoup43.7 ??C (98 ??F)07/30/2019 3:56 PM EDT Respiratory Mnmd2655 6:09 PM EDTOxygen Zrkvdksmoq40%07/30/2019 6:09 PM EDTInhaled Oxygen Concentration--Ltafvn80.4 kg (120 lb)07/30/2019 3:56 PM EDT Dcddpb384.6 cm (5' 4 )07/30/2019 3:56 PM EDTBody Mass Index20.610 3:56 PM EDT Plan of Treatment Health MaintenanceDue DateLast DoneCommentsDepression Kaluznnrg49/23/1982Tobacco Apnwftoze63/23/1982Adult BMI Rtynuadfq08/23/1988DTaP,Tdap and Td Vaccines (1 - Tdap)1988Pap Smear1990Zoster (Shingles) Vaccine (1 of 2)12/21/2019 Influenza Ikprfon1105/31/2025 Medical Devices Not on file Insurance Care Teams Team MemberRelationshipSpecialtyStart DateEnd Gisela Barry MD PCP - GeneralFamily Medicine12/15/18
[2025-08-27 15:06] LABS: Free T3 2.04 pg/mL (2.18-3.98); Thyroid Stimulating Hormone 2.706 uIU/mL (0.358-3.740)
== END 2025-08-27 14:04 | disposition home or self-care (01) ==
LOC: LAB 14:04
PROVIDERS: PCP Family Medicine; Visit Provider Family Medicine
DX: E05.90 Thyrotoxicosis, unspecified without thyrotoxic crisis or storm (principal)
CPT/HCPCS: 36415; 84436; 84443; 84481

== ENCOUNTER 2025-09-25 11:32 | Outpatient (OUT) | payer BC, SELFPAY ==
--- OUTSIDE RECORDS SUMMARY | 2025-09-15 06:15 | XMS_ITS ---
Author Organization [facility] in [place] Address [address] [place] [address] Care Team Providers Care Silk Finisher Name Role Phone Mina Chan Primary Care Provider [phone] Results Component Value Reference Range Notes UA (Urinalysis, Dipstix only - w/o micro) Reviewed date:09/15/2025 11:26:40 AM Interpretation: Performing Lab: Notes/Report: COLOR yellow Yellow - Janet - CLARITYcloudyClear - ClearGLUCOSE-0 - 133 MG/DLALBUMIN-NEG - NEG MG/DLBILIRUBIN- NEG - NEG MG/DLSPECIFIC GRAVITY1.0201.001 - 1.035KETONES-NEG - NEG MG/DLBLOOD, UR-PH, UR6.05 - 9UROBILNOGEN-0.2 - 1 MG/DLNITRITE-NEG - NEGESTERASE (MERVAT)+NEG - NEG MG/DL REASON FOR VISIT urine dip Encounters Encounter Location Date Provider Diagnosis [facility] [address] [place] [address] 09/15/2025 Mina Chan UTI symptoms R39.9 Assessments Encounter Date Diagnosis (ICD Code) Assessment Notes Treatment Notes Treatment Clinical Notes Section Notes 09/15/2025 UTI symptoms (ICD-10 - R39.9) Plan Of Treatment No Information Progress Notes * Amee ALMARAZ ADOB: 0 (54 yo F)Acc No.[id number]:09/15/2025 Nurse Visit Patient: Amee GAVIRIA :?iRp Chan ([facility]), MDDOB:1970???Age: 54 Y???Sex:FemaleDate:09/15/2025Phone:[phone]:[address] [place] [address] DHIRAJ Molina [place]-[id number] In:11:16 AM ESTCheck Out:11:38 AM EST Subjective: * Chief Complaints: * U rine dip * HPI: ???General:? nurse visit for ua. * Active Problem List E78.00 Hypercholesteremia Modified On:04/29/2025/U Status:dduqynhpfB42.00Well adult Modified On:04/29/2025U Status:zgtldwmytV94.10Coronary artery disease Modified On:07/28/2025/U Status:emcjfwychE04.9Hypothyroidism Modified On:08/03/2025 Status:confirmed * Medical History: * Surgical History: * Hospitalization/Major Diagno stic Procedure: * Medications: Objective: * Vitals: Assessment: * Assessment: 1.?UTI symptoms - R39.9 (Primary)??? Plan: * Treatment: ?LAB: UA (Urinalysis, Dipstix only - w/o micro) (Collection Date & Time - 09/15/2025) * Labs: * L ab: UA (Urinalysis, Dipstix only - w/o micro) (Collection Date & Time - 09/15/2025) ?ValueReference Range?COLORyellowYellow - Janet - * C LARITY cloudy Clear - Clear * G LUCOSE - 0 - 133 MG/DL * A LBUMIN - NEG - NEG MG/DL * B ILIRUBIN - NEG - NEG MG/DL * S PECIFIC GRAVITY 1.020 1.001 - 1.035 * K ETONES - NEG - NEG MG/DL * B LOOD, UR - * P H, UR 6.0 5 - 9 * U ROBILNOGEN - 0.2 - 1 MG/DL * N ITRITE - NEG - NEG * E STERASE (MERVAT) + NEG - NEG MG/DL * Procedure Codes: 8 1002 URINALYSIS WO MICRO * * Sign off status: CompletedVisit Status:?CHK (Check Out) true * Provider: Brando Chan ([facility])MD Date: 1 11/16/2024 Generated for Printing/Faxing/eTransmitting on:?09/25/2025 11:37 AM EST History and Physical Notes * HPI (History of Present Illness) CategorySub-CategoryDetailNotesCategory NotesGeneralnurse visit for ua
--- OUTSIDE RECORDS SUMMARY | 2025-09-15 06:26 | XMS_ITS ---
Author Organization [facility] in [place] Address [address] [place] [address] Care Team Providers Care Team Guide Name Role Phone Dustin Mina Primary Care Provider REASON FOR VISIT nurse visit Medications Medication SIG (Take, Route, Frequency, Duration) Notes Start Date End Date Status Pyridium 200 MG 1 tablet after meals Orally Thre e times a day; Duration: 2 days 09/15/2025tiveMacrobid 100 MG1 capsule with food Orally every 12 hrs; Duration: 5 day(s)5Active Encounters Encounter Location Date Provider Diagnosis [address] [address] 09/15/2025 Mina Dustin Plan Of Treatment Medication Medication Name Sig Start Date Stop Date Notes Pyridium 200 MG 1 tablet after meals Orally Three times a day; Duration: 2 days 09/15/2025 Macrobid 100 MG1 capsule with food Orally every 12 hrs; Duration: 5 day(s) 09/15/2025 Progress Notes * ROBERT Amee ADOB: 0 (54 yo F)Acc No.[id number]:09/15/2025 Patient:?Christianne JONESi Luís :1970???Age:54 Y???Sex:FemalePhone:[phone] Address:[address] [place] [address], [place], [address] * Refills Start Macrobid Capsule, 100 MG, Orally, 10, 1 capsule with food, every 12 hrs, 5 day(s) Start Pyridium Tablet, 200 MG, Orally, 9, 1 tablet after meals, Three times a day, 2 days Subjective: * Chief Complaints: * N urse visit * Medical History: * Surgical History: * Hospitalization/Major Diagno stic Procedure: * Medications: Objective: * Vitals: * P ast Orders: L ab:UA (Urinalysis, Dipstix only - w/o micro) (Order Date - 09/15/2025) (Collection Date & Time - 09/15/2025) Value Reference Range COLOR yellow Yellow - Janet -?CLARITYcloudyClear - Clear?GLUCOSE-0 - 133 MG/DL ?ALBUMIN-NEG - NEG MG/DL?BILIRUBIN-NEG - NEG MG/DL?SPECIFIC GRAVITY1.0201.001 - 1.035?KETONES-NEG - NEG MG/DL?BLOOD, UR- ?PH, UR6.05 - 9?UROBILNOGEN-0.2 - 1 MG/DL?NITRITE-NEG - NEG ?ESTERASE (MERVAT)+NEG - NEG MG/DL * Physical Examination: ??? Assessment: Plan: * Treatment: Start Macrobid Capsule, 100 MG, 1 capsule with food, Orally, every 12 hrs, 5 day(s), 10;?StartPyridium Tablet, 200 MG, 1 tablet after meals, Orally, Three times a day, 2 days, 9.?? * Procedure Codes: * true * Date:?Generated for Printing/Faxing/eTransmitting on:?09/25/2025 11:37 AM EST
--- OUTSIDE RECORDS SUMMARY | 2025-09-25 11:36 | XMS_ITS | CCD ---
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 Name Role Phone DR GISELA BARRY Admitting Unavailable ROBBI, DR GISELA De Jesus Attending Unavailable ROBBI, DR GISELA De Jesus Consulting Unavailable ROBBI, DR GISELA De Jesus Primary Care Unavailable ROBBI, DR GISELA De Jesus Attending Unavailable ROBBI, DR GISELA De Jesus Consulting Unavailable ROBBI, DR GISELA De Jesus Admitting Unavailable NO FAMILY, PHYSICIAN Primary Care Provider Unava ilable Community, Outreach Attending Provider [facility], Outreach Attending Provider MD Gisela Barry Primary Care Provider [phone] MD Gisela Barry Primary Care Provider [facility], Outreach Attending Provider [facility], Outreach Attending Provider NO FAMILY, PHYSICIAN Primary Care Provider Unava ilable Thaddeus Mojica Primary Care Physician NO FAMILY, PHYSICIAN Primary Care Provider Unava ilable [facility], Outreach Attending Provider [phone] Stacy, VIDEOTAPE RECORDING ENGINEER Mara L Admitting Unavailable Stacy, VIDEOTAPE RECORDING ENGINEER Mara L Attending Unavailable Stacy, VIDEOTAPE RECORDING ENGINEER Mara L Attending Unavailable Stacy, VIDEOTAPE RECORDING ENGINEER Mara L Attending Unavailable Stacy, VIDEOTAPE RECORDING ENGINEER Mara L Attending Unavailable Stacy, VIDEOTAPE RECORDING ENGINEER Mara L Admitting Unavailable Stacy, VIDEOTAPE RECORDING ENGINEER Mara L Attending Unavailable Stacy, Mara L [...] Provider Unava ilable Community, Outreach Attending Provider [phone] Community, Outreach Attending Unavailable Community, Outreach Admitting Unavailable NO FAMILY, PHYSICIAN Primary Care Unavailable Allergies Allergy ClassificationReported Allergen(s)Allergy TypeDate of OnsetReaction(s) FacilityPenicillins (antibiotic) (1 source)PenicillinsDrug Nxtqxjz34-94-1251Ltx [facility] Repository (4 sources)Penicillin; Translations: [penicillin]Drug AllergySelect [facility] Medications Current Medications MedicationDrug Class(es)DatesSig (Normalized)Sig (Original)esomeprazole 40 mg delayed release oral capsule (2 sources)Proton Pump InhibitorStart: 03-12-2024 End: 96-86-0085zidm 1 capsule by mouth once dailyNexium 40 mg Cap-EC 40 mg = 1 cap(s), Oral, Daily, X 90 day(s), # 90 cap(s), Refills(s) 3, Pharmacy: [facility] [id number], 159, cm, 03/09/24 10:08:00 EDT, Height/Length Dosing, 56.9, kg, 03/09/2410:08:00 EDT, Weight Dosing Start Date: 03/12/24 Stop Date: 03/07/25 Status: OrderedStart: 39-70-3047hqcu 1 capsule by mouth once dailyNexium 40 mg Cap-EC 40 mg = 1 cap(s), Oral, Daily, # 90 cap(s), Refills(s) 1, Pharmacy: [facility]/pharmacy #[id number], 158, cm, 09/09/23 10:57:00 EST, Height/Length Dosing, 58.2, kg, 09/09/23 10:57:00 EST, Weight Dosing Start Date: 09/09/23 Status: Ordered Problems Problem ClassificationProblemDateDocumented DateEpisodic/ChronicAllergic reactions (2 sources)Allergic disorder of qoam83-51-9434WnycqkgtNvtfqfqp of urinary tract (1 source)Renal echy93-51-9122FcmpfoeaKllodgukd of lipid metabolism (3 sources)Hyperlipidemia; Translations: [Hypercholesterolemia]76-95-8249Cbnzbtc Esophageal disorders (3 sources)Gastroesophageal reflux disease without esophagitis; Translations: [Gastro-esophageal reflux disease without esophagitis]43-99-5565RylnnjwRwhwx circulatory disease (2 sources)Raynaud's hxdaijqybd37-63-6702MibrrdzMllvl screening for suspected conditions (not mental disorders or infectious disease) (8 sources)Encounter for screening mammogram for malignant neoplasm of breast; Translations: [Encounter for screening for malignant neoplasm of cervix]Onset: 22-81-2012EkbtnxbaVmmem upper respiratory disease (2 sources)Allergic ylxqiurl53-33-4323NxfzzhwGrwtan media and related conditions (1 source)Finding of fluid behind tympanic pqzisxhl73-91-8423JxctvjrvKhoyylpci and history of mental health and substance abuse codes (2 sources)Br-atdqpx81-71sveczj08-94-8448QgdkdgjcAtvssywtkps; intervertebral disc disorders; other back problems (2 sources)Ebcnuomrekmbpejxd11-16-9040FoknwtgOkfknvisz-imcfnzh disorders (2 sources)Marijuana rnju49-76-3431UkepcjnwEeqjavehrdyl (2 sources)Body mass index 20-24 - swbltu11-41-4933Jeinnlebkmhd (4 sources)Patient encounter dajfbb92-11-2225 Results Test NameValueInterpretationReference RangeFacilityAlanine aminotransferase [Enzymatic activity/volume] in Serum or PlasmaOrdered By: OUTREACH COMMUNITY on 39-01-8911PWN [Catalytic activity/Vol]16 U/LNormal7-52[facility] HospitalComment on above:Performed By: #### MARVINNOASHLEERELAKISHA, OUTREACH CMP, OUTREACH LIPID #### [facility] [address] [place] [address] USAAlbumin [Mass/volume] in Serum or Plasma by Bromocresol green (BCG) dye binding methoOrdered By: OUTREACH COMMUNITY on 49-76-9384Sudamoq BCG dye [Mass/Vol]4.5 g/dL3.5-5.7FCleveland Clinic Mentor HospitalAlkaline phosphatase [Enzymatic activity/volume] in Serum or PlasmaOrdered By: OUTREACH COMMUNITY on 97-58-0191ZJN [Catalytic activity/Vol]73 U/TAbpnrl62-365NfenmhnwqCleveland Clinic Mentor HospitalComment on above:Performed By: #### CBCNOOUTREACH, OUTREACH CMP, OUTREACH LIPID #### [facility] [address] [place] [address] USAAspartate aminotransferase [Enzymatic activity/volume] in Serum or PlasmaOrdered By: OUTREACH COMMUNITY on 86-48-5234NZO [Catalytic activity/Vol]18 U/TUbprpj04-20JjdgzjdklCleveland Clinic Mentor HospitalComment on above: Performed By: #### CBCNOOUTREACH, OUTREACH CMP, OUTREACH LIPID #### [facility] [address] [place] [address] USABilirubin.total [Mass/volume] in Serum or PlasmaOrdered By: OUTREACH COMMUNITY on 82-09-8719Sojyazfmx [Mass/Vol]0.4 mg/dLNormal0.3-1.0 [facility] HospitalComment on above:Performed By: #### CBCNOOUTREACH, OUTREACH CMP, OUTREACH LIPID #### [facility] [address] [place] [address] USACBC Without Differentialon 90-06-8494Niiv Corpuscular HGB Conc34.4 g/jHKecnyu70.0-35.0[facility] Physician GroupComment on above: Performed By: #### CBCNOOUTREACH, OUTREACH CMP, OUTREACH LIPID #### [facility] [address] [place] [address] USAWhite Blood Count6.5 [CFU]/mLNormal3.8-11.6The [facility] Physician GroupComment on above:Performed By: #### CBCNOOUTREACH, OUTREACH CMP, OUTREACH LIPID #### [facility] [address] [place] [address] USACMP Outreachon 99-38-0935Gijeupj [Mass/Vol]4.5 g/dLNormal 3.5-5.7The [facility] Physician GroupComment on above:Performed By: #### CBCNOOUTREACH, OUTREACH CMP, OUTREACH LIPID #### [facility] [address] [place] [address] USAGFR/1.73 sq M.predicted MDRD (S/P/Bld) [Vol rate/Area] mL/min/{1.73_m2}NormalThe [facility] Physician GroupComment on above:Performed By: #### CBCNOOUTREACH, OUTREACH CMP, OUTREACH LIPID #### [facility] [address] [place] [address] USACalcium [Mass/volume] in Serum or PlasmaOrdered By: OUTREACH COMMUNITY on 36-37-6873Xlbizoy [Mass/Vol]9.4 mg/dLNormal8.6-10.3 [facility] HospitalComment on above:Performed By: #### MARVINNOASHLEEREACH, OUTREACH CMP, OUTREACH LIPID #### [facility] [address] [place] [id number] USACarbon dioxide, total [Moles/volume] in Serum or Plasma Ordered By: OUTREACH COMMUNITY on 47-43-2593HN0 [Moles/Vol]31.4 mmol/LHigh 21.0-31.0[facility] HospitalComment on above:Performed By: #### CBCNOOUTREACH, OUTREACH CMP, OUTREACH LIPID #### [facility] [address] [place] [address] USAChloride [Moles/volume] in Serum or PlasmaOrdered By: OUTREACH COMMUNITY on 17-79-2971Ioqudpnz [Moles/Vol]103 mmol/UFfwmhc95-421 [facility] HospitalComment on above:Performed By: #### MARVINNOOUTRELAKISHA, OUTREACH CMP, OUTREACH LIPID #### [facility] [address] [place] [address] USACholesterol [Mass/volume] in Serum or PlasmaOrdered By: OUTREACH COMMUNITY on 57-46-1601Yyobrpurkei [Mass/Vol]256 mg/iPBnxc760-262 [facility] HospitalComment on above:Chol less than 200 mg/dl low riskChol 201-239 mg/dl borderline riskChol 240 mg/dl and greater high riskResult Comment: Chol less than 200 mg/dl low risk Chol 201-239 mg/dl borderline risk Chol 240 mg/dl and greater high riskPerformed By: #### CBCNOOUTREACH, OUTREACH CMP, OUTREACH LIPID #### [facility] [address] [place] [address] USACholesterol in HDL [Mass/volume] in Serum or PlasmaOrdered By: OUTREACH COMMUNITY on 63-36-1471Jyvrymceqxo in HDL [Mass/Vol]73 mg/dLNormal 23-92[facility] HospitalComment on above:HDL CHOL ATP-III CLASSIFICATION Cardiovascular RiskHDL > or equal to 60 mg/dL LOWHDL < 40 mg/dL HIGHResult Comment: HDL CHOL ATP-III CLASSIFICATION Cardiovascular Risk HDL > or equal to 60 mg/dL LOW HDL < 40 mg/dL HIGHPerformed By: #### MARVINNOASHLEEREACH, OUTREACH CMP, OUTREACH LIPID #### [facility] [address] [place] [id number] USACholesterol in LDL Calc [Mass/Vol]Ordered By: OUTREACH COMMUNITY on 42-17-1822Wyaddlgumnc in LDL [Mass/Vol]164 mg/dLHigh0-100[facility] HospitalComment on above:LDL ATP III CLASSIFICATIONLDL less than 100 mg/dL OptimalLDL 100-129 mg/dL Near or above ocknrvnFLH235-433 mg/dL Borderline highLDL 160-189 mg/dL HighLDL greater than 189 mg/dL Very high Cholesterol in VLDL Calc [Mass/Vol]Ordered By: OUTREACH [facility] on 04-17-2025 Cholesterol in VLDL [Mass/Vol]18 mg/dLCleveland Clinic Mentor Hospital Creatinine [Mass/volume] in Serum or PlasmaOrdered By: [facility] on 73-37-6413Qejvidtphb [Mass/Vol]0.69 mg/dLNormal0.60-1.20[facility] HospitalComment on above:Performed By: #### MADISYN, OUTREACH CMP, OUTREACH LIPID #### [facility] [address] [place] [address] USAErythrocyte distribution width [Ratio] by Automated count Ordered By: OUTREACH [facility] on 96-56-6453Nkiwisluziu distribution width (RBC) [Ratio]12.9 %Mdzyip77.9-15.3FCleveland Clinic Mentor HospitalComment on above: Performed By: #### MADISYN, OUTREACH CMP, OUTREACH LIPID #### [facility] [address] [place] [id number] USAErythrocytes [#/volume] in Blood by Automated countOrdered By: OUTREACH COMMUNITY on 67-30-5865FMN (Bld) [#/Vol]4.23 10*6/uLNormal 3.60-5.00[facility] HospitalComment on above:Performed By: #### CBCNOOUTREACH, OUTREACH CMP, OUTREACH LIPID #### [facility] [address] [place] [address] USAGlucose [Mass/volume] in Serum or PlasmaOrdered By: [facility] on 72-23-9934Yjlzpxq [Mass/Vol]102 mg/uZEywo16-670JlamstagbCleveland Clinic Mentor HospitalComment on above:ADA recommended reference rangeRandom Glucose [...] #### CBCNOOUTREACH, OUTREACH CMP, OUTREACH LIPID #### [facility] [address] [place] [address] USAHematocrit [Volume Fraction] of Blood by Automated count Ordered By: [facility] on 08-72-6277Ucgsofyzru (Bld) [Volume fraction] 38.9 %Chgbor69.0-46.4FCleveland Clinic Mentor HospitalComment on above:Performed By: #### CBCNOOUTREACH, [facility] CMP, OUTREACH LIPID #### [facility] [address] [place] [address] USAHemoglobin [Mass/volume] in BloodOrdered By: [facility] on 39-07-4411Aruuuoywyc (Bld) [Mass/Vol]13.4 g/jUIigyea99.8-15.4 [facility] HospitalComment on above:Performed By: #### CBCNOOUTREACH, OUTREACH CMP, OUTREACH LIPID #### [facility] [address] [place] [address] USALeukocytes [#/volume] corrected for nucleated erythrocytes in Blood by Automated counOrdered By: [facility] on 90-99-4900WHA corrected for nucl RBC Auto (Bld) [#/Vol]6.5 10*3/uL3.8-11.6FCleveland Clinic Mentor HospitalLipid Profile Outreachon 87-90-8428TZV Cholesterol,Cpvlwubnht410 mg/dLHigh0-100The [facility] Physician [facility] HospitalComment on above:Result Comment: LDL ATP III CLASSIFICATION LDL less than 100 mg/dL Optimal LDL 100-129 mg/dL Near or above optimal LDL 130-159 mg/dL Borderline high LDL 160-189 mg/dL High LDL greater than 189 mg/dL Very highPerformed By: #### CBCNOOUTREACH, OUTREACH CMP, OUTREACH LIPID #### [facility] [address] [place] [address] USATriglyceride w/Bohqrt03 mg/dLNormal0-149[facility] Physician GroupComment on above:Result Comment: TRIG ATP III CLASSIFICATION TRIG less than 150 mg/dL Normal TRIG 150-199 mg/dL Borderline high TRIG 200-500 mg/dL High TRIG greater than 500 mg/dL Very high Standard traceable to the Center for Disease Conrtrol and Prevention (CDC) test method.Performed By: #### CBCNOOUTREACH, OUTREACH CMP, OUTREACH LIPID #### [facility] [address] [place] [address] USAVLDL CEQIXJUTOOT33 mg/dLNormalThe [facility] Physician [facility] HospitalComment on above:Performed By: #### CBCNOOUTREACH, OUTREACH CMP, OUTREACH LIPID #### [facility] [address] [Entitic mass] by Automated countOrdered By: OUTREACH COMMUNITY on 44-67-7211FNS (RBC) [Entitic mass]31.7 hiTjwnwh35.7-34.3FCleveland Clinic Mentor HospitalComment on above:Performed By: #### CBCNOOUTREACH, OUTREACH CMP, OUTREACH LIPID #### [facility] [address] [place] [id number] [facility] Auto (RBC) [Mass/Vol]Ordered By: OUTREACH COMMUNITY on 30-48-4214JPCN (RBC) [Mass/Vol]34.4 g/dL32.0-35.0[facility] Mentor HospitalMCV [Entitic volume] by Automated countOrdered By: OUTREACH COMMUNITY on 21-31-9045VYC (RBC) [Entitic vol]92.1 eRAybxlu82-762QqsmlnwojCleveland Clinic Mentor HospitalComment on above:Performed By: #### CBCNOOUTREACH, OUTREACH CMP, OUTREACH LIPID #### [facility] [address] [place] [id number] USANo Panel InformationOrdered By: OUTREACH COMMUNITY on 30-34-4773Sphldnfeb GFR (CKD-EPI)> 60.0 mL/MinCleveland Clinic Mentor Hospital Pharmacy Creatinine Clearance (ChemN/AFCleveland Clinic Mentor HospitalPlatelet mean volume [Entitic volume] in Blood by Automated countOrdered By: OUTREACH COMMUNITY on 24-59-5278Ccwioqqt mean volume (Bld) [Entitic vol]8.0 fLNormal 6.3-10.7FCleveland Clinic Mentor HospitalComment on above:Result Comment: PERFORMED BY: [place] [address] PATHOLOGIST [employer]ROLL TAX SPECIALIST SARAH BETH LORENZO M.D.Performed By: #### CBCNOOUTREACH, OUTREACH CMP, OUTREACH LIPID #### [facility] [address] [place], [place] [address] USAPlatelets [#/volume] in Blood by Automated countOrdered By: [facility] on 85-55-8160Iqxsesayl (Bld) [#/Vol]293 10*3/uLNormal 150-450[facility] HospitalComment on above:Performed By: #### CBCNOOUTREACH, OUTREACH CMP, OUTREACH LIPID #### [place] [id number] USAPotassium [Moles/volume] in Serum or PlasmaOrdered By: OUTREACH COMMUNITY on 12-25-7978Wixpbidqb [Moles/Vol]4.7 mmol/LNormal3.5-5.1 [facility] HospitalComment on above:Performed By: #### CBCNOOUTREACH, OUTREACH CMP, OUTREACH LIPID #### [facility] [address] [place], [place] [address] USAProtein [Mass/volume] in Serum or PlasmaOrdered By: OUTREACH COMMUNITY on 43-68-5600Ksdfnak [Mass/Vol]6.9 g/dLNormal6.4-8.9[facility] HospitalComment on above:Performed By: #### CBCNOOUTREACH, OUTREACH CMP, OUTREACH LIPID #### [facility] [address] [place] [address] USASerum or plasma anion gap determinationOrdered By: [facility] on 39-36-8198Bboli gap [Moles/Vol]10.3 mmol/LNormal6.0-15.0 [facility] HospitalComment on above:Performed By: #### CBCNOOUTREACH, OUTREACH CMP, OUTREACH LIPID #### [facility] [address] [place] [id number] USASerum or plasma total cholesterol/high density lipoprotein (HDL) cholesterol mass ratOrdered By: [facility] on 04-17-2025 Cholesterol.total/Cholesterol in HDL [Mass ratio]3.5 {ratio}Normal<5.0[facility] HospitalComment on above:Result Comment: PERFORMED BY: [place] [id number] PATHOLOGIST PA[employer]ROLL TAX SPECIALIST SARAH BETH LORENZO M.D.Performed By: #### CBCNOASHLEEREACH, OUTREACH CMP, OUTREACH LIPID #### [address] [address] USASodium [Moles/volume] in Serum or PlasmaOrdered By: [facility] on 58-27-6772Btzmpx [Moles/Vol]140 mmol/ARapsnj269-589 [facility] HospitalComment on above:Performed By: #### CBCNOOUTREACH, OUTREACH CMP, OUTREACH LIPID #### [facility] [address] [place] [address] USATriglyceride [Mass/volume] in Serum or PlasmaOrdered By: OUTREACH [facility] on 54-65-9115Qyiarqqgkanr [Mass/Vol]93 mg/dL0-149[facility] HospitalComment on above:TRIG ATP III CLASSIFICATIONTRIG less than 150 mg/dL NormalTRIG 150-199 mg/dL Borderline highTRIG 200-500 mg/dL High TRIG greater than 500 mg/dL Very highStandard traceable to the Center for Disease Conrtrol and Prevention (CDC) test method.Urea nitrogen [Mass/volume] in Serum or PlasmaOrdered By: OUTREACH COMMUNITY on 33-63-9903Smdt nitrogen [Mass/Vol]14 mg/dLNormal7-25[facility] HospitalComment on above: Performed By: #### CBCNOOUTREACH, OUTREACH CMP, OUTREACH LIPID #### [facility] [address] [place] [id number] USACT Abdomen w/ IV Contraston 88-81-6930BX Abdomen w/ IV ContrastEXAMINATION: CT Abdomen w/ [...] of abdominal wall hernia. Radiation Dose Estimate: CTDI(mGy):0.680022 / / / kVp:130.235806 / mAs:0.030057 / / / DLP(mGy- cm):3.559959Tftb Part: Abdomen CTDI(mGy):8.116387 / / / kVp:130.425900 / mAs:45.836881 / / / DLP(mGy- cm):264.902474Busr Part: Abdomen Final Dictated by: Sara Mccarty MD Dictated DT/TM: 09.25.2024 10:04 am Signed by: Sara Mccarty MD Signed (Electronic Signature): 09.25.2024 10:10 am (If Report Is Signed, Electronically Signed in Other Vendor System)Normal [facility] 06-27-5293VfrtjmckjBxfwqrwlb From: Mara Rosario To: B - Clinical; [...] 11.1) Nilda [facility] and [facility] of [facility] Visit Summaryon 27-98-1213Suhivmesgs Visit SummaryAmbulatory Visit Summary NILDA ALMARAZ :1970 [...] you for choosing us for your care. NormalAvita Health SystemBMPon 55-68-4369Rcpei gap [Moles/Vol]14 mmol/LNormal6-16[facility] Health SystemComment on above: Performed By: #### [id number] #### [facility] [address] [place], [place] [address]Xxgichz [Mass/Vol]10.2 mg/dLNormal8.9-11.1[facility] Medical CenterComment on above:Performed By: #### [id number] #### [facility] [address] [place], [place] [address]Rsoxkttc [Moles/Vol]101 mmol/XTsezlo952-723XzxrmzAvita Health SystemComment on above:Performed By: #### [id number] #### [facility] [address] [place], [place] [address]BB7 [Moles/Vol]28 mmol/IGezbom61-33ErndkbAvita Health System Comment on above:Performed By: #### [id number] #### [facility] [address] [place], [place] [address]Qatdmlwmsh [Mass/Vol]0.6 mg/dLNormal0.5-1.3[facility] Medical CenterComment on above:Performed By: #### [id number] #### [facility] [address] [place], [place] [address]Yuryyju [Mass/Vol]107 mg/nPDgyurl92-563FoialwAvita Health SystemComment on above:Performed By: #### [id number] #### [facility] [address] [place], [place] [address]Lmihabuol [Moles/Vol]3.9 mmol/LNormal3.5-5.3[facility] Medical CenterComment on above:Performed By: #### [id number] #### [facility] [address] [place], [place] [address]Oribio [Moles/Vol]139 mmol/RLaaqve960-884RfxkgyAvita Health SystemComment on above:Performed By: #### [id number] #### [facility] [address] [place], [place] [address]Vgqa nitrogen [Mass/Vol]10 mg/dLNormal5-21[facility] Health SystemComment on above:Performed By: #### [id number] #### [facility] [address] [place], [place] [address]Shwe nitrogen/Creatinine [Mass ratio]17 No DryqcOqozgz43-19 [facility] Health SystemComment on above:Performed By: #### [id number] #### [facility] [address] [place], [place] [address]NWTTTRWJBWzxpfcu By: SYSTEM SYSTEM on 08-52-9073Xpkeq gap [Moles/Vol]14 mmol/LNormal6 - 16 mEq/LRemisol ChemCalcium [Mass/Vol]10.2 mg/dL Normal8.9 - 11.1 mg/dLRemisol ChemChloride [Moles/Vol]101 mmol/NHvmkjm969 - 111 mmol/LRemisol ChemCO2 [Moles/Vol]28 mmol/KXcmuuj33 - 31 mmol/LRemisol Chem Creatinine [Mass/Vol]0.6 mg/dLNormal0.5 - 1.3 mg/dLRemisol FtkueWBG138 mL/min/1.73 p0Dcuwdt>=59mL/min/1.73 n8Zknhgad ChemGlucose [Mass/Vol]107 mg/dL Aishkx10 - 199 mg/dLRemisol ChemPotassium [Moles/Vol]3.9 mmol/LNormal3.5 - 5.3 mmol/LRemisol ChemSodium [Moles/Vol]139 mmol/JOajfpu322 - 145 mmol/LRemisol Chem Urea nitrogen [Mass/Vol]10 mg/dLNormal5 - 21 mg/dLRemisol ChemUrea nitrogen/Creatinine [Mass ratio]17 mg/wvGvmwxs86 - 20Remisol ChemFacollis p. [facility] Office/Clinic Noteon 45-68-7857Elzvkd Medicine Office/Clinic NoteFacollis p. [facility] Medicine Office/Clinic Note Chief Complaint Acute [...] 2023-08-28: 50 SARS-CoV-2 (COVID-19) mRNA-1273 vaccine 12/10/2020 RecordedNormMercy Health Springfield Regional Medical CenterComment on above:Result Comment: Electronically Signed By: Mara Rosario\.br\Date and Time Signed: 09/14/24 09:19 ESTeGFRon 85-29-6848uWQL324 mL/min/1.73 v2Ueunvw>=59Av[facility] Health SystemComment on above:Performed By: #### [id number] #### [facility] [address] [place], [place] [address]Ltvqtalscrguafyh Office/Clinic Noteon 09-09-2024 Gastroenterology Office/Clinic NoteChief Complaint [...] contact us this spring [place]. RTC 1 year [2] Medical [...] by Stephen Jordan MD 09/09/24 13:49 [facility]Ohio[facility]/Clinic Noteon 82-46-1026Czoxtltblmirxd Office/Clinic Note Chief Complaint Patient states I [...] signed by Scottie Recinos MD 07/14/24 10:25 [facility] Otolaryngology Office/Clinic Noteon 37-06-7847Kdecoxrkdpgcdz Office/Clinic Note Chief Complaint Pt states was [...] signed by Scottie Recinos MD 03/31/24 08:46 [facility] Lab Reportson 00-57-9560Rgo Reports [id number]#1.00[facility] CenterAmbulatory Visit Summaryon 21-23-1120Icgfnxbqlf Visit Summary NILDA ALMARAZ :1970 Visit Date:03/09/2024 [...] you for choosing us for your care. [facility] 01-40-4436Zwgfjue [id number]#1.00TIFFNormOhioHealth Nelsonville Health Center Medicine Office/Clinic Noteon 10-14-5351Fdgzum Medicine Office/Clinic NoteI Staff Nilda is a [...] Daily, # 90 cap(s), Refills(s) 1, Pharmacy: [facility]/pharmacy #[id number], 158, cm, 09/09/23 10:57:00 EST, Height/Length Dosing, 58.2, kg, 09/09/23 10:57:00 EST, Weight Dosing esomeprazole, 40 mg = 1 cap(s), Oral, Daily, X 90 day(s), # 90 cap(s), Refills(s) 3, Pharmacy: [id number], 159, cm, 03/09/24 10:08:00 EDT, Height/Length Dosing, [...] 2023-08-28: 50 SARS-CoV-2 (COVID-19) mRNA-1273 vaccine 12/10/2020 RecordedMiddletown HospitalComment on above:Result Comment: Electronically Signed By: Mara Rosario.br\Date and Time Signed: 03/09/24 11:18 EDTPatient Logson 38-85-2702Rnedkdm [id number]#1.00TIFFNormal Avita Health SystemAlanine aminotransferase [Enzymatic activity/volume] in Serum or PlasmaOrdered By: OUTREACH COMMUNITY on 39-81-4569CMZ [Catalytic activity/Vol]14 U/L7-52[facility] HospitalAlbumin [Mass/volume] in Serum or Plasma by Bromocresol green (BCG) dye binding methoOrdered By: OUTREACH COMMUNITY on 65-01-6062Ahvomyc BCG dye [Mass/Vol]4.8 g/dL3.5-5.7 [facility] HospitalAlkaline phosphatase [Enzymatic activity/volume] in Serum or PlasmaOrdered By: OUTREACH COMMUNITY on 02-15-2024 ALP [Catalytic activity/Vol]79 U/V81-891AtpvvapqzCleveland Clinic Mentor [facility] Aspartate aminotransferase [Enzymatic activity/volume] in Serum or PlasmaOrdered By: [facility] on 86-04-1186KPD [Catalytic activity/Vol]18 U/L13-39 [facility] HospitalBilirubin.total [Mass/volume] in Serum or PlasmaOrdered By: [facility] on 32-67-6965Yvdondpxi [Mass/Vol]0.6 mg/dL 0.3-1.0[facility] HospitalCalcium [Mass/volume] in Serum or Plasma Ordered By: [facility] on 40-83-4764Ixffomh [Mass/Vol]9.8 mg/dL8.6-10.3 [facility] HospitalCarbon dioxide, total [Moles/volume] in Serum or PlasmaOrdered By: [facility] on 10-62-0771RB8 [Moles/Vol]28.1 mmol/L 21.0-31.0[facility] HospitalChloride [Moles/volume] in Serum or PlasmaOrdered By: [facility] on 59-39-3623Vekgozrs [Moles/Vol]101 mmol/L 98-107[facility] HospitalCholesterol [Mass/volume] in Serum or PlasmaOrdered By: [facility] on 25-18-9310Nflwwsnqkff [Mass/Vol]248 mg/uA470-263NdwloyzsjCleveland Clinic Mentor HospitalComment on above:Chol less than 200 mg/dl low riskChol 201-239 mg/dl borderline riskChol 240 mg/dl and greater high riskCholesterol in LDL Calc [Mass/Vol]Ordered By: [facility] on 81-96-6950Mzmxgokwwuq in LDL [Mass/Vol]154 mg/dL0-100[facility] HospitalComment on above:LDL ATP III CLASSIFICATIONLDL less than 100 mg/dL OptimalLDL 100-129 mg/dL Near or above gajitigUTN681-178 mg/dL Borderline highLDL 160-189 mg/dL HighLDL greater than 189 mg/dL Very highCholesterol in VLDL Calc [Mass/Vol]Ordered By: [facility] on 12-41-6550Rfrhpzxfxej in VLDL [Mass/Vol]16 mg/dLCleveland Clinic Mentor HospitalCreatinine [Mass/volume] in Serum or PlasmaOrdered By: [facility] on 99-12-3645Kkonbkooms [Mass/Vol]0.65 mg/dL0.60-1.20[facility] HospitalErythrocyte distribution width Auto (RBC) [Ratio]Ordered By: [facility] on 05-13-2563Bljhjahlezj distribution width (RBC) [Ratio]13.0 %11.9-15.3FCleveland Clinic Mentor HospitalGlucose [Mass/volume] in Serum or PlasmaOrdered By: [facility] on 88-23-4931Uvbmygj [Mass/Vol]99 mg/aR09-694UemqgzkdhCleveland Clinic Mentor HospitalComment on above:ADA recommended reference rangeRandom Glucose Reference Range is dependent on time and content of last meal. Glucose of more than 200 mg/dL in a nonstressed, ambulatory subject supports the diagnosisof Diabetes Mellitus.Hematocrit Auto (Bld) [Volume fraction]Ordered By: [facility] on 58-69-5485Bkmmllaitz (Bld) [Volume fraction]37.8 % 34.0-46.4FCleveland Clinic Mentor HospitalHemoglobin [Mass/volume] in Blood Ordered By: [facility] on 26-35-5604Xnyctebnfy (Bld) [Mass/Vol]12.9 g/dL 11.8-15.4FCleveland Clinic Mentor HospitalLeukocytes [#/volume] corrected for nucleated erythrocytes in Blood by Automated counOrdered By: [facility] on 16-07-6774TXP corrected for nucl RBC Auto (Bld) [#/Vol]8.9 10*3/uL3.8-11.6 [facility] Auto (RBC) [Entitic mass]Ordered By: [facility] on 33-43-0902FQO (RBC) [Entitic mass]31.6 pg24.7-34.3 [facility]HC Auto (RBC) [Mass/Vol]Ordered By: [facility] on 80-42-8060TPFQ (RBC) [Mass/Vol]34.2 g/dL32.0-35.0[facility] HospitalMCV Auto (RBC) [Entitic vol]Ordered By: [facility] on 33-28-3133HRP (RBC) [Entitic vol]92.5 vP35-887AdaymzngpCleveland Clinic Mentor Hospital No Panel InformationOrdered By: [facility] on 11-17-8685Hfwiurrsn GFR (CKD-EPI)> 60.0 mL/MinCleveland Clinic Mentor HospitalPharmacy Creatinine Clearance (ChemN/[facility] Medical CenterPlatelet mean volume Auto (Bld) [Entitic vol]Ordered By: [facility] on 14-97-2712Vtqtwfpd mean volume (Bld) [Entitic vol]7.7 fL6.3-10.7FC[facility] Platelets Auto (Bld) [#/Vol]Ordered By: [facility] on 02-15-2024 Platelets (Bld) [#/Vol]297 10*3/hB215-201YwarpgjhfC[facility] Clinic Mentor Hospital Potassium [Moles/volume] in Serum or PlasmaOrdered By: [facility] on 05-85-5174Camwfmnrk [Moles/Vol]4.2 mmol/L3.5-5.1FCleveland Clinic Mentor HospitalProtein [Mass/volume] in Serum or PlasmaOrdered By: [facility] on 59-50-5858Bpaqsti [Mass/Vol]7.2 g/dL6.4-8.9[facility] HospitalRBC Auto (Bld) [#/Vol]Ordered By: [facility] on 03-41-0809UOU (Bld) [#/Vol] 4.08 10*6/uL3.60-5.00[facility] Hospitalerum or plasma anion gap determinationOrdered By: [facility] on 98-91-2776Uqcbr gap [Moles/Vol] 12.1 mmol/L6.0-15.0[facility]. [facility] Hospitalerum or plasma high density lipoprotein (HDL) cholesterol measurementOrdered By: [facility] on 01-80-8467Wyzfauqzzox in HDL [Mass/Vol]78 mg/eR76-79TbwprvooqCleveland Clinic Mentor HospitalComment on above:HDL CHOL ATP-III CLASSIFICATION Cardiovascular RiskHDL > or equal to 60 mg/dL LOWHDL < 40 mg/dL HIGHSerum or plasma total cholesterol/high density lipoprotein (HDL) cholesterol mass ratOrdered By: [facility] on 04-56-1784Rzddfjulodk.total/Cholesterol in HDL [Mass ratio]3.2 {ratio}<5.0St. Vincent Hospitalodium [Moles/volume] in Serum or PlasmaOrdered By: [facility] on 13-08-6883Zxdfpm [Moles/Vol]137 mmol/Y480-692LspdlnqjwCleveland Clinic Mentor HospitalTriglyceride [Mass/volume] in Serum or PlasmaOrdered By: [facility] on 71-88-3682Rnlricvdyjky [Mass/Vol]82 mg/dL0-149[facility] HospitalComment on above:TRIG ATP III CLASSIFICATIONTRIG less than 150 mg/dL NormalTRIG 150-199 mg/dL Borderline highTRIG 200-500 mg/dL High TRIG greater than 500 mg/dL Very highStandard traceable to the Center for Disease Conrtrol and Prevention (CDC) test method.Urea nitrogen [Mass/volume] in Serum or PlasmaOrdered By: [facility] on 30-25-5387Bcyd nitrogen [Mass/Vol]9 mg/dL7-25[facility] HospitalReminderson 50-52-2353Bxyaimcuu From: Mara Rosario To: [facility] - Clinical; Sent: 01/20/2024 08:21:24 EDT Show up: 01/20/2024 08:22:00 EDT Subject: Ambulatory Reminder Due Date/Time: 01/21/2024 08:21:00 EDT Pap and HPV was negative Results: Date Result Name Value Ref Range 01/13/2024 9:08 HPV Aptima Negative (Negative - ) 01/13/2024 9:08 PAP Note Patient informed and voiced understanding.[facility] [id number] 84-00-4578Nxqxntyf report Cyto stain Doc (Cvx/Vag)NoteInvalid Interpretation ChrissyAvita Health SystemComment on above:Result Comment: TESTS RESULT FLAG UNITS REF RANGE LAB Clinician Provided Cytology Information Source.............Endocervix No. of containers..01 ThinPrep Vial DIAGNOSIS: 01 NEGATIVE FOR INTRAEPITHELIAL LESION OR MALIGNANCY. Specimen adequacy: 01 Satisfactory for evaluation. Endocervical and/or squamous metaplastic cells (endocervical component) are present. Performed by: 01 Marjan Covington, Facilities Technician ([facility]) . 01 Note: Note 01 The [...] High <-Panic Low,>-Panic High,A-Abnormal,AA-Critical Abnormal Performed at: [facility] [address] Latia Lennon MD, Yvraboflc By: #### [id number] ####[facility] [address], [id number] 16+18+31+33+35+39+45+51+52+56+58+59+66+68 DNA Probe+sig amp Ql (Cvx)Negative Invalid Interpretation CodeNegativeAvita Health SystemComment on above: Result Comment: This nucleic acid amplification test detects fourteen high-risk HPV types (16,18,31,33,35,39,45,51,52,56,58,59,66,68) without differentiation. Performed at: [facility] [address] [place], [place] [id number] MD Saji Jeffery Performed at: =[address] [facility] [id number] MD Saji JefferyPerformed By: #### [id number] ####[facility] [address], [id number] 01-17-2024 Reminders From: Mara Rosario To: [facility] - Clinical; Sent: 01/17/2024 08:22:42 EDT Show up: 01/17/2024 08:23:00 EDT Subject: Ambulatory Reminder Due Date/Time: 01/18/2024 08:22:00 EDT Pap is negative Results: Date Result Name Value Ref Range 01/13/2024 9:08 HPV Aptima Negative (Negative - ) 01/13/2024 9:08 PAP Note Patient informed and voiced understanding.NormalAvita Health System Ambulatory Visit Summaryon 33-20-1653Fmmlhrxhed Visit Summary NILDA ALMARAZ :1970 Visit Date:01/13/2024 [...] AM EDT With: Thaddeus Mojica MD Where: [facility] Office/Clinic Noteon 12-41-8530[facility] Medicine Office/Clinic NoteHPI Staff Nilda is a [...] cancer would like order for Loretta to [facility] History of Present Illness pt presents [...] masses. Pap obtained Neurologic: Grossly normal Skin: [place], moist, no tenting Lymph Nodes: No cervical [...] 2023-08-28: 49 SARS-CoV-2 (COVID-19) mRNA-1273 vaccine 12/10/2020 RecordedMiddletown HospitalComment on above:Result Comment: Electronically Signed By: Mara Rosario.thaddeus\Date and Time Signed: 01/13/24 09:28 EDTPAP [id number] 01-13-2024 Gynecological Body SiteENDOCERVIXMiddletown HospitalComment on above:Performed By: #### [id number] ####[place] [facility] [address], [id number] Mammographyon 09-17-2023 Outside [id number]#1.00[facility] Medical CenterAlanine aminotransferase [Enzymatic activity/volume] in Serum or PlasmaOrdered By: [facility] on 99-54-7487ZAM [Catalytic activity/Vol]18 U/L7-52[facility] HospitalAlbumin [Mass/volume] in Serum or Plasma by Bromocresol green (BCG) dye binding methoOrdered By: [facility] on 66-50-5475Ghthqph BCG dye [Mass/Vol]4.5 g/dL3.5-5.7 [facility] HospitalAlkaline phosphatase [Enzymatic activity/volume] in Serum or PlasmaOrdered By: [facility] on 08-31-2023 ALP [Catalytic activity/Vol]84 U/R29-446GsdsxcwflC[facility] Clinic [facility] Hospital Aspartate aminotransferase [Enzymatic activity/volume] in Serum or PlasmaOrdered By: [facility] on 35-34-6830QXL [Catalytic activity/Vol]22 U/L13-39 [facility] HospitalBilirubin.total [Mass/volume] in Serum or PlasmaOrdered By: [facility] on 65-22-2642Sgbtyrtmx [Mass/Vol]0.3 mg/dL 0.3-1.0[facility] HospitalCalcium [Mass/volume] in Serum or Plasma Ordered By: [facility] on 21-46-3109Xzxmtfj [Mass/Vol]9.4 mg/dL8.6-10.3 [facility] HospitalCarbon dioxide, total [Moles/volume] in Serum or PlasmaOrdered By: [facility] on 07-35-2885BX3 [Moles/Vol]30.5 mmol/L 21.0-31.0[facility] HospitalChloride [Moles/volume] in Serum or PlasmaOrdered By: [facility] on 54-00-1707Lcvirtgj [Moles/Vol]103 mmol/L 98-107[facility] HospitalCholesterol [Mass/volume] in Serum or PlasmaOrdered By: OUTREACH [facility] on 11-62-7453Omkscsqrimv [Mass/Vol]230 mg/wO297-642PikrgbymdCleveland Clinic Mentor HospitalComment on above:Chol less than 200 mg/dl low riskChol 201-239 mg/dl borderline riskChol 240 mg/dl and greater high riskCholesterol in LDL Calc [Mass/Vol]Ordered By: [facility] on 11-44-2120Shpnbcsmokv in LDL [Mass/Vol]141 mg/dL0-100[facility] HospitalComment on above:LDL ATP III CLASSIFICATIONLDL less than 100 mg/dL OptimalLDL 100-129 mg/dL Near or above dcggqumQBH356-114 mg/dL Borderline highLDL 160-189 mg/dL HighLDL greater than 189 mg/dL Very highCholesterol in VLDL Calc [Mass/Vol]Ordered By: [facility] on 07-93-6052Prxeslazqrt in VLDL [Mass/Vol]18 mg/dLCleveland Clinic Mentor HospitalCreatinine [Mass/volume] in Serum or PlasmaOrdered By: [facility] on 30-23-6984Bkmtaayqyk [Mass/Vol]0.65 mg/dL0.60-1.20[facility] HospitalErythrocyte distribution width Auto (RBC) [Ratio]Ordered By: [facility] on 80-36-7531Orcnopuqzra distribution width (RBC) [Ratio]12.8 %11.9-15.3FCleveland Clinic Mentor HospitalGlucose [Mass/volume] in Serum or PlasmaOrdered By: OUTREACH [facility] on 62-51-2292Fnmuilq [Mass/Vol]103 mg/aA95-593MtyyhgnkbCleveland Clinic Mentor HospitalComment on above:ADA recommended reference rangeRandom Glucose Reference Range is dependent on time and content of last meal. Glucose of more than 200 mg/dL in a nonstressed, ambulatory subject supports the diagnosisof Diabetes Mellitus.Hematocrit Auto (Bld) [Volume fraction]Ordered By: [facility] on 56-79-5098Eluqxfohao (Bld) [Volume fraction]36.8 % 34.0-46.4FCleveland Clinic Mentor HospitalHemoglobin [Mass/volume] in Blood Ordered By: [facility] on 69-80-6465Mvsefqhuia (Bld) [Mass/Vol]12.5 g/dL 11.8-15.4FCleveland Clinic Mentor HospitalLeukocytes [#/volume] corrected for nucleated erythrocytes in Blood by Automated counOrdered By: [facility] on 83-98-3609QYE corrected for nucl RBC Auto (Bld) [#/Vol]6.9 10*3/uL3.8-11.6 [facility] HospitalH Auto (RBC) [Entitic mass]Ordered By: OUTREACH [facility] on 01-16-0877GRB (RBC) [Entitic mass]31.6 pg24.7-34.3 [facility] HospitalMCHC Auto (RBC) [Mass/Vol]Ordered By: OUTREACH [facility] on 54-57-1421TGLO (RBC) [Mass/Vol]33.9 g/dL32.0-35.0[facility] HospitalMCV Auto (RBC) [Entitic vol]Ordered By: [facility] on 71-58-9069RYO (RBC) [Entitic vol]93.1 pR54-999NfwqtrlwuC[facility] Clinic [facility] Hospital No Panel InformationOrdered By: [facility] on 53-12-6852Drygqkuif GFR (CKD-EPI)> 60.0 mL/MinCleveland Clinic Mentor HospitalPharmacy Creatinine Clearance (ChemN/[facility] Medical CenterPlatelet mean volume Auto (Bld) [Entitic vol]Ordered By: OUTREACH [facility] on 09-13-6425Ozatejir mean volume (Bld) [Entitic vol]8.1 fL6.3-10.7FC[facility] Hospital Platelets Auto (Bld) [#/Vol]Ordered By: [facility] on 08-31-2023 Platelets (Bld) [#/Vol]275 10*3/tS851-382PuvnajxxhCleveland Clinic [facility]or Hospital Potassium [Moles/volume] in Serum or PlasmaOrdered By: [facility] on 81-29-6168Wrzfhloee [Moles/Vol]4.2 mmol/L3.5-5.1FCleveland Clinic Mentor HospitalProtein [Mass/volume] in Serum or PlasmaOrdered By: [facility] on 22-62-7670Phbniiy [Mass/Vol]6.9 g/dL6.4-8.9[facility] HospitalRBC Auto (Bld) [#/Vol]Ordered By: [facility] on 24-62-3947ZNU (Bld) [#/Vol] 3.96 10*6/uL3.60-5.00[facility]. [facility] Hospitalerum or plasma anion gap determinationOrdered By: [facility] on 16-08-0904Makih gap [Moles/Vol] 9.7 mmol/L6.0-15.0St. [facility] Hospitalerum or plasma high density lipoprotein (HDL) cholesterol measurementOrdered By: [facility] on 87-88-3660Ozeduizycfo in HDL [Mass/Vol]70 mg/uJ39-08VgucmxvquCleveland Clinic Mentor HospitalComment on above:HDL CHOL ATP-III CLASSIFICATION Cardiovascular RiskHDL > or equal to 60 mg/dL LOWHDL < 40 mg/dL HIGHSerum or plasma total cholesterol/high density lipoprotein (HDL) cholesterol mass ratOrdered By: [facility] on 05-47-4742Jxdfxzmnnbv.total/Cholesterol in HDL [Mass ratio]3.3 {ratio}<5.0[facility]. Vincent Hospitalodium [Moles/volume] in Serum or PlasmaOrdered By: [facility] on 73-45-1627Uthxub [Moles/Vol]139 mmol/F803-318KemyfftqkCleveland Clinic Mentor HospitalTriglyceride [Mass/volume] in Serum or PlasmaOrdered By: [facility] on 86-90-2604Frtrovihrxgv [Mass/Vol]93 mg/dL0-149[facility] HospitalComment on above:TRIG ATP III CLASSIFICATIONTRIG less than 150 mg/dL NormalTRIG 150-199 mg/dL Borderline highTRIG 200-500 mg/dL High TRIG greater than 500 mg/dL Very highStandard traceable to the Center for Disease Conrtrol and Prevention (CDC) test method.Urea nitrogen [Mass/volume] in Serum or PlasmaOrdered By: [facility] on 95-37-1175Reeo nitrogen [Mass/Vol]15 mg/dL7[facility] HospitalAlanine aminotransferase [Enzymatic activity/volume] in Serum or PlasmaOrdered By: [facility] on 18-64-3628LUZ [Catalytic activity/Vol]17 U/L7[facility] HospitalAlbumin [Mass/volume] in Serum or Plasma by Bromocresol green (BCG) dye binding methoOrdered By: [facility] on 78-77-0032Oalqxyz BCG dye [Mass/Vol]4.8 g/dL3.5-5.7FCleveland Clinic Mentor HospitalAlkaline phosphatase [Enzymatic activity/volume] in Serum or PlasmaOrdered By: [facility] on 19-78-6051PRE [Catalytic activity/Vol]89 U/L34-104 [facility] HospitalAspartate aminotransferase [Enzymatic activity/volume] in Serum or PlasmaOrdered By: [facility] on 03-16-2023 AST [Catalytic activity/Vol]19 U/I06-95ZwzmsojdqC[facility] Clinic [facility] Hospital Bilirubin.total [Mass/volume] in Serum or PlasmaOrdered By: [facility] on 86-52-1707Cvsywenqo [Mass/Vol]0.4 mg/dL0.3-1.0[facility] HospitalCalcium [Mass/volume] in Serum or PlasmaOrdered By: [facility] on 36-47-4510Snoeaoh [Mass/Vol]9.4 mg/dL8.6-10.3FC[facility] Hospital Carbon dioxide, total [Moles/volume] in Serum or PlasmaOrdered By: [facility] on 78-81-4527KK6 [Moles/Vol]28.6 mmol/L21.0-31.0[facility] HospitalChloride [Moles/volume] in Serum or PlasmaOrdered By: [facility] on 65-62-3778Tvuaxoae [Moles/Vol]104 mmol/Y40-009CboqhgmhlCleveland Clinic Mentor HospitalCholesterol [Mass/volume] in Serum or PlasmaOrdered By: [facility] on 00-99-7066Hxibxggpmvk [Mass/Vol]193 mg/eB339-547CjqyztjkzCleveland Clinic Mentor HospitalComment on above:Chol less than 200 mg/dl low riskChol 201-239 mg/dl borderline riskChol 240 mg/dl and greater high riskCholesterol in LDL Calc [Mass/Vol]Ordered By: [facility] on 21-11-7690Vcqtltqgvak in LDL [Mass/Vol]116 mg/dL0-100[facility] HospitalComment on above:LDL ATP III CLASSIFICATIONLDL less than 100 mg/dL OptimalLDL 100-129 mg/dL Near or above gllmsetCEJ171-151 mg/dL Borderline highLDL 160-189 mg/dL HighLDL greater than 189 mg/dL Very highCholesterol in VLDL Calc [Mass/Vol]Ordered By: [facility] on 40-57-9893Ifkbrpqrhgb in VLDL [Mass/Vol]14 mg/dLCleveland Clinic Mentor HospitalCreatinine [Mass/volume] in Serum or PlasmaOrdered By: [facility] on 77-69-8129Zpoyogzqtr [Mass/Vol]0.68 mg/dL0.60-1.20[facility] HospitalErythrocyte distribution width Auto (RBC) [Ratio]Ordered By: [facility] on 83-31-2441Isopxxrzdoq distribution width (RBC) [Ratio] 12.6 %11.9-15.3FC[facility] Clinic Ment[facility] HospitalGlucose [Mass/volume] in Serum or PlasmaOrdered By: [facility] on 07-45-7428Bqfifir [Mass/Vol]98 mg/dL 70-100[facility] HospitalComment on above:ADA recommended reference rangeRandom Glucose Reference Range is dependent on time and content of last meal. Glucose of more than 200 mg/dL in a nonstressed, ambulatory subject supports the diagnosisof Diabetes Mellitus.Hematocrit Auto (Bld) [Volume fraction]Ordered By: [facility] on 35-85-6926Niyyyiyjiq (Bld) [Volume fraction]37.8 %34.0-46.4FCleveland Clinic Mentor HospitalHemoglobin [Mass/volume] in BloodOrdered By: [facility] on 39-09-8192Ymsnmluzzg (Bld) [Mass/Vol]12.9 g/dL11.8-15.4FCleveland Clinic Mentor HospitalLeukocytes [#/volume] corrected for nucleated erythrocytes in Blood by Automated coun Ordered By: [facility] on 60-05-4512TQU corrected for nucl RBC Auto (Bld) [#/Vol]7.0 10*3/uL3.8-11.6FTrinity Health System [facility] Campus Auto (RBC) [Entitic mass]Ordered By: [facility] on 09-17-4521OYQ (RBC) [Entitic mass]31.0 pg24.7-34.3FCleveland Clinic Mentor HospitalMCHC Auto (RBC) [Mass/Vol] Ordered By: [facility] on 77-53-9948BZFB (RBC) [Mass/Vol]34.1 g/dL 32.0-35.0[facility] HospitalMCV Auto (RBC) [Entitic vol]Ordered By: [facility] on 35-42-9316MHQ (RBC) [Entitic vol]91.0 iM66-186 [facility] HospitalNo Panel InformationOrdered By: [facility] on 86-89-3429Tkslywehb GFR (CKD-EPI)> 60.0 mL/MinCleveland Clinic Mentor HospitalPharmacy Creatinine Clearance (ChemN/[facility] Medical CenterPlatelet mean volume Auto (Bld) [Entitic vol]Ordered By: [facility] on 70-08-2899Ozyusika mean volume (Bld) [Entitic vol]7.4 fL6.3-10.7 [facility] HospitalPlatelets Auto (Bld) [#/Vol]Ordered By: OUTREACH [facility] on 60-65-1525Ccpsmshig (Bld) [#/Vol]307 10*3/jL090-173 [facility] HospitalPotassium [Moles/volume] in Serum or Plasma Ordered By: [facility] on 63-23-3460Xxxqznqci [Moles/Vol]4.5 mmol/L 3.5-5.1FCleveland Clinic Mentor HospitalProtein [Mass/volume] in Serum or Plasma Ordered By: [facility] on 56-57-1662Okuwddz [Mass/Vol]6.9 g/dL6.4-8.9 [facility] HospitalRBC Auto (Bld) [#/Vol]Ordered By: [facility] on 38-34-1811YOV (Bld) [#/Vol]4.15 10*6/uL3.60-5.00St. [facility] Hospitalerum or plasma anion gap determinationOrdered By: [facility] on 51-87-5450Pjhem gap [Moles/Vol]11.9 mmol/L6.0-15.0St. [facility] Hospitalerum or plasma high density lipoprotein (HDL) cholesterol measurementOrdered By: OUTREACH [facility] on 17-81-1874Zgtybfvwpzi in HDL [Mass/Vol]62 mg/yH75-68LvfyaubupCleveland Clinic Mentor HospitalComment on above: HDL CHOL ATP-III CLASSIFICATION Cardiovascular RiskHDL > or equal to 60 mg/dL LOWHDL < 40 mg/dL HIGHSerum or plasma total cholesterol/high density lipoprotein (HDL) cholesterol mass ratOrdered By: [facility] on 03-16-2023 Cholesterol.total/Cholesterol in HDL [Mass ratio]3.1 {ratio}<5.0St. Vincent Hospitalodium [Moles/volume] in Serum or PlasmaOrdered By: [facility] on 46-17-4984Gdscpd [Moles/Vol]140 mmol/M829-406IovekxjcgCleveland Clinic Mentor HospitalTriglyceride [Mass/volume] in Serum or PlasmaOrdered By: [facility] on 36-77-9425Ickrtisdztxj [Mass/Vol]74 mg/dL0-149[facility] HospitalComment on above:TRIG ATP III CLASSIFICATIONTRIG less than 150 mg/dL NormalTRIG 150-199 mg/dL Borderline highTRIG 200-500 mg/dL High TRIG greater than 500 mg/dL Very highStandard traceable to the Center for Disease Conrtrol and Prevention (CDC) test method.Urea nitrogen [Mass/volume] in Serum or PlasmaOrdered By: [facility] on 64-91-1257Vtds nitrogen [Mass/Vol]11 mg/dL7-25[facility] HospitalBody fluid albumin measurement (mass/volume)Ordered By: [facility] on 18-48-6316Hsihebq (Body fld) [Mass/Vol]4.0 g/dL3.2-5.5FCleveland Clinic Mentor HospitalCholesterol [Mass/volume] in Serum or PlasmaOrdered By: [facility] on 08-04-2022 Cholesterol [Mass/Vol]219 mg/wO730-129EdbtxdsycCleveland Clinic Mentor HospitalComment on above:Chol less than 200 mg/dl low riskChol 201-239 mg/dl borderline riskChol 240 mg/dl and greater high riskCholesterol in LDL Calc [Mass/Vol]Ordered By: [facility] on 75-25-6138Cfiullcacwa in LDL [Mass/Vol]131 mg/dL0-100 [facility] HospitalComment on above:LDL ATP III CLASSIFICATIONLDL less than 100 mg/dL OptimalLDL 100-129 mg/dL Near or above gihxwauMNP622-443 mg/dL Borderline highLDL 160-189 mg/dL HighLDL greater than 189 mg/dL Very high Cholesterol in VLDL Calc [Mass/Vol]Ordered By: OUTREACH [facility] on 08-04-2022 Cholesterol in VLDL [Mass/Vol]10 mg/dLCleveland Clinic Mentor Hospital Creatinine and Glomerular filtration rate.predicted panel (S/P/Bld)Ordered By: OUTREACH [facility] on 51-52-6811Rxojfeqyvj [Mass/Vol]0.64 mg/dL0.44-1.03 [facility] HospitalErythrocyte distribution width Auto (RBC) [Ratio]Ordered By: [facility] on 38-74-0941Hfveqbmyhbw distribution width (RBC) [Ratio]12.6 %11.9-15.3FCleveland Clinic Mentor HospitalEstimated glomerular filtration rate (GFR) non- AmericanOrdered By: [facility] on 28-13-8267BCU/1.73 sq M.predicted among non-blacks MDRD (S/P/Bld) [Vol rate/Area]> 60 mL/MinCleveland Clinic Mentor HospitalHematocrit Auto (Bld) [Volume fraction]Ordered By: [facility] on 10-31-9142Cnwnrvddyg (Bld) [Volume fraction]37.9 %34.0-46.4FCleveland Clinic Mentor HospitalHemoglobin [Mass/volume] in BloodOrdered By: [facility] on 73-23-1475Cyfydfwumx (Bld) [Mass/Vol]13.1 g/dL11.8-15.4FTrinity Health System West Campus Auto (RBC) [Entitic mass]Ordered By: [facility] on 15-29-2962RXM (RBC) [Entitic mass]31.8 pg24.7-34.3FJoint Township District Memorial HospitalHC Auto (RBC) [Mass/Vol]Ordered By: [facility]REACH [facility] on 91-83-2252CASU (RBC) [Mass/Vol]34.4 g/dL32.0-35.0[facility] HospitalV Auto (RBC) [Entitic vol] Ordered By: OUTREACH [facility] on 02-17-4086KFK (RBC) [Entitic vol]92.3 nE01-846 [facility] HospitalNo Panel InformationOrdered By: OUTREACH [facility] on 24-23-6661Ihjowlirj GFR ()> 60 mL/MinCleveland Clinic Mentor HospitalComment on above:GFR estimated reference range: According to KDOQI guidelines, <60 ml/min/1.73m2 is sufficient todiagnose a patient with chronic kidney disease.Pharmacy Creatinine Clearance (ChemN/[facility] Medical CenterTriglycerides Poldgu62 mg/qP81-733GydvekrwcCleveland Clinic Mentor HospitalComment on above:TRIG ATP III CLASSIFICATIONTRIG less than 150 mg/dL NormalTRIG 150-199 mg/dL Borderline highTRIG 200-500 mg/dL High TRIG greater than 500 mg/dL Very highStandard traceable to the Center for Disease Conrtrol and Prevention (CDC) test method.Platelet mean volume Auto (Bld) [Entitic vol] Ordered By: [facility] on 67-94-0325Yxjieywt mean volume (Bld) [Entitic vol]7.9 fL6.3-10.7FCleveland Clinic Mentor HospitalPlatelets Auto (Bld) [#/Vol] Ordered By: [facility] on 87-21-8345Ozvzfodsc (Bld) [#/Vol]312 10*3/uL 150-450C[facility]or HospitalProtein [Mass/volume] in Serum or Plasma Ordered By: [facility] on 06-87-7214Jsirrsh [Mass/Vol]6.7 g/dL6.1-7.9 [facility] HospitalRBC Auto (Bld) [#/Vol]Ordered By: [facility] on 58-93-2550GKN (Bld) [#/Vol]4.11 10*6/uL3.60-5.00St. Vincent Hospitalerum or plasma alanine aminotransferase measurement without P-5'-P (enzymatic activiOrdered By: [facility] on 40-70-9456VCH No additional P-5'-P [Catalytic activity/Vol]29 U/Q35-46ZqasjtafzSt. Vincent Hospitalerum or plasma alkaline phosphatase measurement (enzymatic activity/volume)Ordered By: [facility] on 57-83-5612LYG [Catalytic activity/Vol]74 U/F38-34LxuoisqioSt. Vincent Hospitalerum or plasma anion gap determinationOrdered By: [facility] on 56-69-5008Jkhmq gap [Moles/Vol]13.1 mmol/L6.0-15.0St. Vincent Hospitalerum or plasma aspartate aminotransferase measurement (enzymatic activity/volume)Ordered By: [facility] on 98-83-1028OVX [Catalytic activity/Vol]26 U/B65-00VtggtafpaSt. Vincent Hospitalerum or plasma calcium measurement (mass/volume)Ordered By: [facility] on 41-32-7836Yhjzwko [Mass/Vol]9.7 mg/dL8.2-10.2FBlanchard Valley Health Systemerum or plasma chloride measurement (moles/volume) Ordered By: OUTREACH [facility] on 22-70-5632Smsblyzh [Moles/Vol]102 mmol/L95-114 [facility] Hospitalerum or plasma glucose measurement (mass/volume)Ordered By: OUTREACH [facility] on 17-80-5113Eidhvjz [Mass/Vol]103 mg/lU98-618LxugggbadCleveland Clinic Mentor HospitalComment on above:ADA recommended reference rangeRandom Glucose Reference Range is dependent on time and content of last meal. Glucose of more than 200 mg/dL in a nonstressed, ambulatory subject supports the diagnosisof Diabetes Mellitus.Serum or plasma high density lipoprotein (HDL) cholesterol measurementOrdered By: [facility] on 45-54-3075Wkiojbapzpf in HDL [Mass/Vol]78 mg/xL03-85FgxcawifvCleveland Clinic Mentor HospitalComment on above:HDL CHOL ATP-III CLASSIFICATION Cardiovascular RiskHDL > or equal to 60 mg/dL LOWHDL < 40 mg/dL HIGHSerum or plasma potassium measurement (moles/volume)Ordered By: [facility] on 88-28-6984Llxavsvhk [Moles/Vol] 4.3 mmol/L3.5-5.1FBlanchard Valley Health Systemerum or plasma sodium measurement (moles/volume)Ordered By: OUTREACH [facility] on 21-39-3163Ntpexk [Moles/Vol]141 mmol/X611-586MyfeoupggSt. Vincent Hospitalerum or plasma total bilirubin measurement (mass/volume)Ordered By: [facility] on 53-47-3838Xwhgijfnh [Mass/Vol]0.5 mg/dL0.3-1.2FCleveland Clinic Mentor Hospital Serum or plasma total carbon dioxide measurement (moles/volume)Ordered By: OUTREACH [facility] on 85-90-3938FE7 [Moles/Vol]30.2 mmol/L22.0-30.0St. Vincent Hospitalerum or plasma total cholesterol/high density lipoprotein (HDL) cholesterol mass ratOrdered By: OUTREACH [facility] on 91-13-0859Uekzfxzyuuq.total/Cholesterol in HDL [Mass ratio]2.8 {ratio}<5.[address] [facility] [facility] Hospitalerum or plasma urea nitrogen measurement (mass/volume)Ordered By: OUTREACH [facility] on 28-15-2045Wifd nitrogen [Mass/Vol]9 mg/dL9-23C[facility] Clinic Mentor HospitalWBC Auto (Bld) [#/Vol] Ordered By: [facility] on 94-22-7811QDJ (Bld) [#/Vol]6.0 10*3/uL3.8-11.6 [facility] HospitalAlbumin [Mass/volume] in Serum or PlasmaOrdered By: [facility] on 13-14-3056Bfjekkv [Mass/Vol]4.3 g/dL3.2-5.5FCleveland Clinic Mentor HospitalBlood hemoglobin measurement (mass/volume)Ordered By: [facility] on 16-31-3977Ddspsyurae (Bld) [Mass/Vol]13.0 g/dL11.8-15.4 [facility] HospitalCholesterol [Mass/volume] in Serum or Plasma Ordered By: [facility] on 55-17-6272Tlnmcnncfwa [Mass/Vol]218 mg/dL 140-200C[facility] Clinic Mentor HospitalComment on above:Chol less than 200 mg/dl low risk Chol 201-239 mg/dl borderline risk Chol 240 mg/dl and greater high riskCholesterol in LDL Calc [Mass/Vol]Ordered By: [facility] on 44-87-8179Zqmybiqtfnp in LDL [Mass/Vol]126 mg/dL0-100 [facility] HospitalComment on above:LDL ATP III CLASSIFICATION LDL less than 100 mg/dL Optimal LDL 100-129 mg/dL Near or above optimal LDL 130-159 mg/dL Borderline high LDL 160-189 mg/dL High LDL greater than 189 mg/dL Very highCholesterol in VLDL Calc [Mass/Vol]Ordered By: [facility] on 12-14-2851Qcblknpkxvz in VLDL [Mass/Vol]9 mg/dL [facility] HospitalCreatinine and Glomerular filtration rate.predicted panel (S/P/Bld)Ordered By: [facility] on 02-10-2022 Creatinine [Mass/Vol]0.67 mg/dL0.44-1.03[facility] Erythrocyte distribution width Auto (RBC) [Ratio]Ordered By: [facility] on 31-38-5945Bsmelhhecwo distribution width (RBC) [Ratio]13.2 %11.9-15.3 [facility] HospitalEstimated glomerular filtration rate (GFR) non- AmericanOrdered By: [facility] on 30-62-6103ICC/1.73 sq M.predicted among non-blacks MDRD (S/P/Bld) [Vol rate/Area]> 60 mL/MinCleveland Clinic Mentor HospitalHematocrit Auto (Bld) [Volume fraction]Ordered By: [facility] on 51-65-0585Gddhjrfzwj (Bld) [Volume fraction]39.0 % 34.0-46.4FTrinity Health System West Campus Auto (RBC) [Entitic mass]Ordered By: [facility] on 49-63-6167PNR (RBC) [Entitic mass]30.7 pg24.7-34.3 [facility] Auto (RBC) [Mass/Vol]Ordered By: [facility] on 38-96-3659ITFD (RBC) [Mass/Vol]33.4 g/dL32.0-35.0[facility] Community HospitalV Auto (RBC) [Entitic vol]Ordered By: [facility] on 07-21-4537SYX (RBC) [Entitic vol]91.7 bE50-514TzamygellCleveland Clinic Mentor Hospital No Panel InformationOrdered By: [facility] on 92-17-1236Elhmhrrpl GFR ()> 60 mL/MinCleveland Clinic Mentor HospitalComment on above: GFR estimated reference range: According to KDOQI guidelines, <60 ml/min/1.73m2 is sufficient todiagnose a patient with chronic kidney disease.Pharmacy Creatinine Clearance (ChemN/[facility] CenterTriglycerides Uobdic40 mg/xY39-253SjgurkplnCleveland Clinic Mentor HospitalComment on above:TRIG ATP III CLASSIFICATION TRIG less than 150 mg/dL Normal TRIG 150-199 mg/dL Borderline high TRIG 200-500 mg/dL High TRIG greater than 500 mg/dL Very high Standard traceable to the Center for Disease Conrtrol and Prevention (CDC) test method.Platelet mean volume Auto (Bld) [Entitic vol]Ordered By: OUTREACH [facility] on 29-41-9629Xjhspwog mean volume (Bld) [Entitic vol]7.8 fL6.3-10.7 [facility] HospitalPlatelets Auto (Bld) [#/Vol]Ordered By: [facility] on 65-76-8413Azjcwskgc (Bld) [#/Vol]277 10*3/vT240-495 [facility] HospitalProtein [Mass/volume] in Serum or PlasmaOrdered By: [facility] on 53-48-5544Lrjmcte [Mass/Vol]7.0 g/dL6.1-7.9C[facility] HospitalRBC Auto (Bld) [#/Vol]Ordered By: [facility] on 53-16-7758QYN (Bld) [#/Vol]4.25 10*6/uL3.60-5.00St. Vincent Hospitalerum or plasma alanine aminotransferase measurement without P-5'-P (enzymatic activiOrdered By: [facility] on 52-66-0904RSC No additional P-5'-P [Catalytic activity/Vol]26 U/G61-71LewsdudpaSt. Vincent Hospitalerum or plasma alkaline phosphatase measurement (enzymatic activity/volume)Ordered By: OUTREACH [facility] on 33-39-0330JMN [Catalytic activity/Vol]74 U/L32-92 [facility] Hospitalerum or plasma aspartate aminotransferase measurement (enzymatic activity/volume)Ordered By: OUTREACH [facility] on 13-92-5797IPM [Catalytic activity/Vol]24 U/D39-89HyakjgtffSt. Vincent Hospitalerum or plasma calcium measurement (mass/volume)Ordered By: [facility] on 66-25-5453Sxfkymr [Mass/Vol]9.4 mg/dL8.2-10.2FBlanchard Valley Health Systemerum or plasma chloride measurement (moles/volume)Ordered By: OUTREACH [facility] on 08-46-5994Kvgbvoqo [Moles/Vol]100 mmol/S14-640QgxtcjfxxSt. Vincent Hospitalerum or plasma glucose measurement (mass/volume)Ordered By: [facility] on 64-01-5195Rvtjtxc [Mass/Vol]92 mg/zN52-824QgwmluktnCleveland Clinic Mentor HospitalComment on above:ADA recommended reference range Random Glucose Reference Range is dependent on time and content of last meal. Glucose of more than 200 mg/dL in a nonstressed, ambulatory subject supports the diagnosis of Diabetes Mellitus.Serum or plasma high density lipoprotein (HDL) cholesterol measurementOrdered By: OUTREACH [facility] on 28-23-4992Wdvsyxxfdix in HDL [Mass/Vol]82 mg/iH88-48NckqkbkifCleveland Clinic Mentor HospitalComment on above: HDL CHOL ATP-III CLASSIFICATION Cardiovascular Risk HDL > or equal to 60 mg/dL LOW HDL < 40 mg/dL HIGHSerum or plasma potassium measurement (moles/volume)Ordered By: OUTREACH [facility] on 26-88-2899Fdcswcaai [Moles/Vol]4.1 mmol/L3.5-5.1 [facility] Hospitalerum or plasma sodium measurement (moles/volume)Ordered By: OUTREACH [facility] on 80-41-2680Bpxsad [Moles/Vol]136 mmol/Q853-055ZktaazuqeSt. Vincent Hospitalerum or plasma total bilirubin measurement (mass/volume)Ordered By: [facility] on 75-93-5208Rbuhmsgds [Mass/Vol]0.6 mg/dL0.3-1.2FBlanchard Valley Health Systemerum or plasma total carbon dioxide measurement (moles/volume)Ordered By: OUTREACH [facility] on 44-60-3475HT3 [Moles/Vol]26.9 mmol/L22.0-30.0[facility] Serum or plasma total cholesterol/high density lipoprotein (HDL) cholesterol mass ratOrdered By: [facility] on 02-10-2022 Cholesterol.total/Cholesterol in HDL [Mass ratio]2.7 {ratio}[facility]. Vincent Hospitalerum or plasma urea nitrogen measurement (mass/volume)Ordered By: OUTREACH [facility] on 25-56-7879Poha nitrogen [Mass/Vol]10 mg/dL9-[facility] HospitalWBC Auto (Bld) [#/Vol]Ordered By: [facility] on 91-69-5480ASZ (Bld) [#/Vol]6.2 10*3/uL3.8-11.6FCleveland Clinic Mentor Hospital MG MAMM SCREEN 3D IRISH CADon 71-79-0161KA MAMM SCREEN 3D IRISH CADPatient: NILDA ALMARAZSoren Exam Date: 01/25/2021 : 1970 Gender:F Ordering : DR GISELA BARRY . Admission #: [id number] Family : Order #: [id number] CLICK HERE TO VIEW EXAM 02/15/2021 Admission number added to report [facility] RADIOLOGY REPORT PROCEDURE: MAMMOGRAM SCREENING 3D BILATERAL CAD COMPARISON: MG MAMM IRISH SCRN W CAD DIG, 07/24/2013. MG MAMM SCREEN IRSIH W CAD, 04/11/2018. INDICATIONS: Screening exam Calculator Name NCI Breast Cancer Risk Assessment Tool 5 Year Breast Cancer Risk 0.50% Lifetime Breast Cancer Risk 4.40% Personal Breast Cancer No Personal Ovarian Cancer No Treatments None Family Cancers None LOCATION: [facility] BREAST COMPOSITION: Extremely dense, which lowers [...] by: Handy Rivera M.D. on 01/25/2021 at 07:48Doctors HospitalOG PANEL 2: 30 to 65on 01-13-2021..NormalThe [facility] Comment on above:Result Comment: Performed at: WBPerformed By: #### [id number] #### [facility] [address] [id number] Christiane Monae Gdln ACOG Utdjhlc71-33ByljlgVzdSt. Elizabeth HospitalComment on above:Performed By: #### [id number] #### [facility] [address] [place], [place] [address] Christiane KarenDIAGNOSIS:CommentCleveland Clinic Medina HospitalComtrinity health muskegon hospital on above:Result Comment: NEGATIVE FOR INTRAEPITHELIAL LESION OR MALIGNANCY. Performed at: WBPerformed By: #### [id number] #### [facility] [address] [place], [place] [address] Christiane KarenHPV AptimaNegativeNormalNegativeThe Surgical Hospital At SouthwoodsComment on above:Result Comment: This nucleic acid amplification test detects fourteen high-risk HPV types (16,18,31,33,35,39,45,51,52,56,58,59,66,68) without differentiation. Performed at: =GPerformed By: #### [id number] #### [facility] [address] [place] [address] Christiane ConstantindianneMethodology:CommentSt. Anthony's Hospital on above: Result Comment: This liquid based ThinPrep(R) pap test was screened with the use of an image guided system. Performed at: WBPerformed By: #### [id number] #### [facility] [address] [place] [address] Christiane KillianenNote:CommentNoGrand Lake Joint Township District Memorial Hospital on above:Result Comment: The Pap smear is a screening test designed to aid in the detection of premalignant and malignant conditions of the uterine cervix. It is not a diagnostic procedure and should not be used as the sole means of detecting cervical cancer. Both false-positive and false-negative reports do occur. . Performed at: WBPerformed By: #### [id number] #### [facility] [address] [place] [address] Christiane VieiraPerformed by:CommentSt. Anthony's Hospital on above: Result Comment: Marjan Covington, Facilities Technician (ASCP) Performed at: WBPerformed By: #### [id number] #### [facility] [address] [place] [address] Christiane Langstonpecimen adequacy:[facility] on above:Result Comment: Satisfactory for evaluation. Endocervical and/or squamous metaplastic cells (endocervical component) are present. Performed at: WBPerformed By: #### [id number] #### [facility] [address] [place] [address] Christiane Isha Encounters Encounter DateEncounter TypeCare ProviderFacilityStart: 04-17-2025 End: 87-68-7715Zylcielz ReferredOUTREACH COMMUNITY-Community Outreach Work Phone: Start: 04-17-2025 End: 38-44-6788uycovuiqxzXMVXALXJI NO [facility] Work Phone: Start: 09-25-2024 End: 63-75-5056mywgzcwuhqQmxzpAmanda Jordan MDFacility:[facility] PracticeStart: 09-14-2024 End: 27-88-1259Yei Drop offJodi L Stacy [facility] Start: 09-14-2024 End: 21-69-8987mwgsdlqcsnTQU Mara L SchwabFacility:[facility] FM BellevueStart: 09-09-2024 End: 75-04-9904vedzedxeafVekRhonda Barry MDFacility:[facility] HospitalStart: 07-14-2024 End: 32-58-7941henasggolgVmxnNuria Recinos MDFacility:ENT SpecStart: 03-31-2024 End: 05-95-5945mpyjolrabsEctpNuria Recinos MDFacility:ENT SpecStart: 03-09-2024 End: 14-10-6121vagyosztxsTQT Mara L SchwabFacility:[facility] FM BellevueStart: 02-15-2024 End: 76-53-4581dvgwporiloJNFOWCJHX NO [facility] Work Phone: Start: 02-15-2024 End: 36-21-7050Bxnmldmw ReferredPHYSICIAN NO [facility]-Community Outreach Work Phone: Start: 01-13-2024 End: 50-43-2520Gbg Drop offJodi L Stacy [facility] Start: 01-13-2024 End: 90-77-8782yljumgdpveXYB Mara L SchwabFacility:FTMCStart: 08-31-2023 End: 83-84-6420tgmjkszoguLITDVFMYQ NO [facility] Work Phone: Start: 08-31-2023 End: 02-46-5959Ullwaxcr ReferredPHYSICIAN NO [facility]-Community Outreach Work Phone: Start: 03-16-2023 End: 68-70-1416cqvsprnkjpEK Gisela De Jesus Barry Work Phone: [facility] Work Phone: Start: 03-16-2023 End: 74-41-3664Oofxwluu ReferredMD Gisela Barry Work Phone: [facility]-Community Outreach Work Phone: Start: 08-04-2022 End: 22-58-5542hhyhuwajzgFY Gisela Barry Work Phone: [facility] Work Phone: Start: 08-04-2022 End: 88-42-0379Tymaxetl ReferredMD Gisela Barry Work Phone: [facility]-Community Outreach Start: 02-10-2022 End: 25-38-7424Kwhyrgwd ReferredPHYSICIAN NO [facility]-Community OutreachStart: 01-25-2021 End: 20-60-9326jxxkfbppjwNH KIM E KNIGHTFacility:D5Bpkxl: 01-11-2021 End: 60-71-1829hmmdgbsjdnFN KIM E KNIGHTFacility:H1 Procedures DateProcedureProcedure DetailPerforming ClinicianStart: 08-30-2022 Esophagogastroduodenoscopic electrohydraulic lithotripsy of bezoar in stomach Mara Stacy ColonoscopyJodi Stacy Comment on above:2104 normalTympanostomyJodi Stacy Immunizations Immunization DateImmunizationNotesCare VepbjhdoExuqvquz50-44-1277STGN-XjZ-6 (COVID-19) mRNA-1273 vaccineJodi Stacy [id number]-XuhdtSelect Medical [place] Rehabilitation Hospital Comment on above:Result Comment: 2023-08-28: 6550-36-6120JOIW-CoV-2 (COVID-19) [id number] Tyesha Ortaab [id number]-LyzpeSelect Medical [place]health Rehabilitation Hospital Payers DatePayer CategoryPayerPolicy [id number] 2.16.840.1.071057.3.579.2.86875-47-4642Opkjksx [id number] 2.840.1.248202.3.57[id number] 2.840.1.272690.3.57[id number] 2..840.1.144946.3.57[id number] 2.0.1.041702.3.57[id number] 2..1.232780.3.57[id number] 2.16840.1.586447.3.57[id number] 2.840.1.779927.3.57[id number] 2.840.1.830458.3.57[id number] 2.0.1.579639.3.57[id number] 2.16.840.1.679831.3.579.[id number] 2.16.840.1.878842.3.579.2.531 Social History DateTypeDetailFacilityTobacco smoking status NHISUnknown if ever smokedWilson Street Hospital Ctr Work Phone: Start: 26-49-5416Upa Assigned At [facility] Hospitaltart: 01-13-2024 End: 79-03-3072Jehsuwu smoking statusEx-smoker (finding)[facility] HospitalueSex Assigned At [facility] HospitalTobacc smoking statusNeverSelect Medical [place] Rehabilitation HospitalTolawrence[facility] smoking status NHISUnknown if ever smokedWilson Street Hospital Ctr Work Phone: SexFemale (finding)[facility] Evaluation + Plan note Note Date & TypeNoteFacilityEvaluation + Plan note Future Appointments Appointment Date:03/09/2024 09:15:00 AM Scheduled Provider:Thaddeus Mojica MD Location:[facility] Appointment Type: Open Diagnostic Tests Pending * PAP w/ HPV and Genotype rflx 01/13/24 [facility] Evaluation note Note Date & TypeNoteFacilityEvaluation noteNo assessment information available [facility] Work Phone: Hospital course Narrative Note Date & TypeNoteFacilityHospital course Narrative No data available for this section [facility] Hospital Discharge instructions Note Date & TypeNoteFacilityHospital Discharge instructions No data available for this section [facility] Progress note Note Date & TypeNoteFacilityProgress note No data available for this section [facility] Reason for referral (narrative) Note Date & TypeNoteFacilityReason for referral (narrative)No reason for referral information availableWilson Street Hospital Ctr Work Phone: Summary Purpose Family [...] section and content) DATE CREATED AUTHOR 02/22/2021 [facility] DATE CREATED AUTHOR AUTHOR'S ORGANIZ ATION 09/15/2024 [facility] DATE CREATED AUTHOR AUTHOR'S ORGANIZ ATION 09/17/2024 [facility] DATE CREATED AUTHOR AUTHOR'S ORGANIZ ATION 10/11/2024 [facility] DATE CREATED AUTHOR AUTHOR'S ORGANIZ ATION 04/20/2025 [facility] Care Teams (unrecognized sec [...] BE BASED ON THE PRIMARY CLINICAL RECORDS. [employer] ([email or web address]) [facility]. provides no warranty or guarantee of the accuracy or completeness of information in this document.
--- OUTSIDE RECORDS SUMMARY | 2025-09-25 11:37 | XMS_ITS | Patient Health Record ---
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 Reflex testing is not (Lyme disease). Negative results may occur in patients No laboratory evidence of infection with B. burgdorferi Performed at: [facility] Dean: Luis F Hooper PhD, Phone: [phone] testing on a new sample collected in 7 to 14 days is indicated. recommended. [address] [place], [place] [id number] Performing Lab: see note LC - [facility] janina perf SPECT rest str Reviewed date:08/11/2025 07:11:11 PM Interpretation: Performing Lab: Notes/Report: Source Facility: [place] [address] [place] [address] Nuclear Medicine Report Signed Patient: NILDA ALMARAZ MR#: [id number] : 1970 Acct:[id number] Age/Sex: 54 / F ADM Date: 08/11/25 Loc: [place] Attending Dr: Whitney Chan M.D. Ordering Physician: Whitney Chan M.D. Date of Service: 08/11/25 Procedure(s): NM janina perf SPECT rest str Accession Number(s): [id number] cc: Whitney Chan M.D. Patient Name: NILDA ALMARAZ MR#: [id number] : 1970 Exam Date: 08/11/2025 Ordering Doctor: DR WHITNEY CHAN . RADIOLOGY REPORT PROCEDURE: NM JANINA PERF SPECT REST STR COMPARISON: None. INDICATIONS: [...] the study was pending per attending physician [facility]. For more details, please see separate cardiac [...] Signed By: 08/11/25 1549 DD/ 1548 TD/TT: Sheet Pile Hammer Operator:ALETHA Reviewed date:07/26/2025 06:44:46 PM Interpretation: Performing Lab: Notes/Report: [facility] ,Thyroid Stimulating Hormone7.5350.358-3.740 uIU/mLPerforming Lab:see noteML - [facility] LBPROF 14(COMP METB) Reviewed date:07/26/2025 06:44:46 PM Interpretation: Performing Lab: Notes/Report: [facility] ,Btxlab631429-847 mmol/LPotassium3.83.5-5.1 mmol/EYsanaxns24194-569 mmol/LCarbon Lglzmlj55.721.0-32.0 mmol/LAnion Gap14.5Imxdyro05352-536 mg/dLBlood Urea Nitrogen9.07.0-18.0 mg/dLCreatinine0.500.55-1.02 mg/dLEstimated GFR ( Sarah>60>=60 mL/min/1.73m 2Estimated GFR (Non- Debra>60>=60 mL/min/1.73m 2BUN Creatinine Ratio18.6Foneifo3.38.5-10.1 mg/dLBilirubin Total0.50.2-1.0 mg/dL Aspartate Amino Zqvyvdpffqg9064-86 U/LAlanine Uxxlmoiwahmjpafu8565-64 U/L Alkaline Agbowsnppek9504-604 U/LTotal Protein7.86.4-8.2 g/dLAlbumin Level4.33.4- 5.0 g/dLGlobulin3.5Albumin Globulin Ratio1.2Performing Lab:see noteML - [facility] LBLIPID PROFILE Reviewed date:07/26/2025 06:44:46 PM Interpretation: Performing Lab: Notes/Report: [facility] ,Jvpiputteylyu71<=150 mg/bARtmcwbxaqdq101<=200 mg/dLHDL Lamkulaqvov7952-34 mg/dL <40 mg/dl - HIGH CARDIOVASCULAR RISK > or =60 mg/dl - LOW CARDIOVASCULAR RISK LDL Cholesterol Exlfzhfcre660.0 160-189 mg/dl HIGH 100-129 mg/dl NEAR OR ABOVE OPTIMAL <100 mg/dl OPTIMAL >190 mg/dl VERY HIGH 130-159 mg/dl BORDERLINE HIGH VLDL CTFFRNCOAED48.6Chol HDL Ratio2.7 7.1 - 11.0 MODERATE RISK 4.4 - 7.1 AVERAGE RISK >11.0 HIGH RISK 3.3 - 4.4 LOW RISK Performing Lab:see noteML - [facility] LBFREE T4 Reviewed date:07/26/2025 06:44:46 PM Interpretation: Performing Lab: Notes/Report: [facility] ,Free T40.820.76-1.46 ng/dLPerforming Lab:see noteML - [facility] LB UA (Urinalysis, Dipstix only - w/o micro) Reviewed date:09/15/2025 11:26:40 AM Interpretation: Performing Lab: Notes/Report: COLORyellowYellow - Janet -CLARITYcloudyClear - ClearGLUCOSE-0 - 133 MG/DL ALBUMIN-NEG - NEG MG/DLBILIRUBIN-NEG - NEG MG/DLSPECIFIC GRAVITY1.0201.001 - 1.035KETONES-NEG - NEG MG/DLBLOOD, UR-PH, UR6.05 - 9UROBILNOGEN-0.2 - 1 MG/DL NITRITE-NEG - NEGESTERASE (MERVAT)+NEG - NEG MG/DLTSH Reviewed date:08/30/2025 02:41:40 PM Interpretation: Performing Lab: Notes/Report: [facility] ,Thyroid Stimulating Hormone2.7060.358-3.740 uIU/mLPerforming Lab:see noteML - [facility] LBT4 Reviewed date:08/30/2025 02:41:40 PM Interpretation: Performing Lab: Notes/Report: [facility] ,T4 Thyroxine7.804.80-13.90 ug/dLPerforming Lab:see noteML - [facility] LBFREE T3 Reviewed date:08/30/2025 02:41:40 PM Interpretation: Performing Lab: Notes/Report: [facility] ,Free T32.042.18-3.98 pg/mLPerforming Lab:see noteML - [facility] LB Reason For Referral No Information Medications Medication SIG (Take, Route, Frequency, Duration) Notes Start Date End Date Status Pyridium 200 MG 1 tablet after meals Orally Thre e times a day; Duration: 2 days 5ActiveMacrobid 100 MG1 capsule with food Orally every 12 hrs; Duration: 5 day(s)5ActiveLevothyroxine Sodium 50 MCG1 tablet in the morning on an empty stomach Orally Once a day; Duration: 90 days5Active NexIUM 40 MG1 capsule 1/2 to 1 hour before morning meal Orally Once a day; Duration: 90 days5ActiveAtorvastatin Calcium 10 MG1 tablet Orally Once a day; Duration: 90 days5Active Social History Tobacco Use: Social History Observation Description Date Details (start date - stop date) Former Smoker 03/30/1987 - 03/30/2020 Tobacco Control (Standard) Question Answer Notes Tobacco use: Former smoker When did you start smoking?03/30/1987When did you stop smoking?03/30/2020How long has it been since you last smoked?5-10 yearsAdditional Findings: Tobacco acj-heowVt-bkxdurxu cigarette smoker (10-19/day)AUDIT-C (Standard) Question Answer Notes Did you have a drink containing alcohol in the p ast year? No Kmklcx8RimcdtjfzmbutzIjgqpslvOkbtjmc Notes: Patient does smoke Marijuana Patient does smoke Marijuana Patient does smoke Marijuana Problems Problem Type SNOMED Code ICD Code Onset Dates Problem Status W/U Status Risk Notes Problem Hypothyroidism (24225885) Hypothyroidism (E03.9) ActiveconfirmedProblemCoronary artery disease (25432195)Coronary artery disease (I25.10)ActiveconfirmedProblemWell adult (880001775)Well adult (Z00.00)Active confirmedProblemhypercholesterolemia (disorder) (13000803)Hypercholesteremia (E78.00)Activeconfirmed Vital Signs Blood pressure diastolic 82 mm Hg 07/28/2025 Yfmvfl68 in07/28/2025lood pressure etjzemzy791 mm Hg07/28/20251514Afsznl382.4 lbs 07/28/2025BMI21.87 kg/m207/28/2025 Procedures Procedure Date Ordered Date Performed Result Body Sit e CARDIO Stress Test - Cardiolite 07/28/2025 N/A Encounters Encounter Location Date Provider Diagnosis [facility] [address] [place] [address] 04/29/2025 Mina Dustin Well adult Z00.00 [facility] [address] [place] [address] 05/12/2025 Mina Melendezy Contact dermatitis L25.9 [facility] [address] [place] [facility] [place] [address] 07/28/2025 iMna Melendezy Coronary artery disease I25.10 [facility] [address] [place] [facility] [place] [address] 09/15/2025 Mina Chan UTI symptoms R39.9 [facility] [address] [place] [place] [address] 04/29/2025 Mina Hoy [facility] [place] [facility] [place] [address] 05/14/2025[facility] [place] [place] [place] [address]/Doug HoyHyperthyroidism E05.90[facility] [place] [facility] [place] [place] [address]/[facility] [place] [place] [place] [address]/12/2024 [facility] [place] [place] [place] [address]/08/2025[facility] [place] [facility] [place] [address]/09/2024Doug HoyAbnormal thyroid blood test R79.89 and Well [facility]00.00[facility] [place] [address]/Doug Hoy Assessments Encounter Date Diagnosis (ICD Code) Assessment Notes Treatment Notes Treatment Clinical Notes Section Notes 04/29/2025 Well adult (ICD-10 - Z00.00) 5Contact dermatitis (ICD-10 - L25.9)lvumcca1707/28/2025oronary artery disease (ICD-10 - I25.10)09/15/2025UTI symptoms (ICD-10 - R39.9)07/26/2025 Hyperthyroidism (ICD-10 - E05.90)08/30/2025bnormal thyroid blood test (ICD-10 - R79.89)08/30/2025Well adult (ICD-10 - Z00.00) Plan Of Treatment Pending Test Test Name Order Date CARDIO Stress Test - Cardiolite 07/28/20 25 LIPID PROFILE 04/29/2025 LYME DISEASE, WESTERN BLOT 04/29/2025 PROF 14(COMP METB) 04/29/2025 THYROID PROFILE WITH TSH 04/29/2025 THYROID PANEL (T4/TSH/FREE T3) 5 THYROID PANEL (T4/TSH/FREE T3) 5 Insurance Providers Payer Name Payer Address Payer Phone Subscriber Number Group Number Insured Name Patient Relationship to Insured Coverage Start Date Coverage End Date [employer] PPO PLUS LOCAL PLAN [address] [place] [address] [id number] Jim - patient is the spouse of the insured Medications Administered Medication Instructions Date of Administration Dosage Notes Triamcinolone 40 mg/ml 0 mg Medical (General) History Medical History History ICD Code Hypercholesteremia E78.00
--- OUTSIDE RECORDS SUMMARY | 2025-09-25 11:37 | XMS_ITS | Clinical Summary ---
Author Organization [facility] Address [id number] [place] [address] Care Team Providers Care Wildlife Policy Professional Name Role Phone Gisela Barry MD Primary Care Provider [phone] Allergies Active AllergyReactionsCriticalityNoted SgkpZtlxomzzHshamapqbub67/19/2018 Medications MedicationSigDispense QuantityRefillsLast FilledStart DateEnd DateStatus ibuprofen [...] = 0.6 oz pure alcohol)dailyChildcareAnswerDate RecordedChildcareUnknown 03/12/2019EmploymentAnswerDate VdwrnctnUvhbhjwusdNbhqksj59/13/2019Purpose - Life AnswerDate RecordedPurpose and direction in kqjiFlahpkh25/11/2021 CommentsNoSex and Gender InformationValueDate RecordedSex Assigned at BirthNot on fileLegal BhhVabyzc19/19/2018 12:46 PM EDTGender IdentityNot on fileSexual OrientationNot on file Last Filed Vital Signs Vital SignReadingTime TakenCommentsBlood Apgrvkld211/8710 5:04 PM EDT Vdafc1575/ 6:09 PM SCEZatektmpbqc40.7 ??C (98 ??F)07/30/2019 3:56 PM EDT Respiratory Jmgq4770 6:09 PM EDTOxygen Gzgbcimazy15%07/30/2019 6:09 PM EDTInhaled Oxygen Concentration--Qbnrup51.4 kg (120 lb)07/30/2019 3:56 PM EDT Wugxbv079.6 cm (5' 4 )07/30/2019 3:56 PM EDTBody Mass Index20.610 3:56 PM EDT Plan of Treatment Health MaintenanceDue DateLast DoneCommentsDepression Zncrnnxjx87/23/1982Tobacco Zcfmyfwka80/23/1982Adult BMI Baejcmtcw52/23/1988DTaP,Tdap and Td Vaccines (1 - Tdap)1988Pap Smear1990Zoster (Shingles) Vaccine (1 of 2)12/21/2019 Influenza Mvstdlr8305/31/2025 Medical Devices Not on file Insurance Care Teams Team MemberRelationshipSpecialtyStart DateEnd Gisela Barry MD PCP - GeneralFamily Medicine12/15/18
[2025-09-25 12:29] LABS: Free T3 2.19 pg/mL (2.18-3.98); Thyroid Stimulating Hormone 0.465 uIU/mL (0.358-3.740)
== END 2025-09-25 11:33 | disposition home or self-care (01) ==
LOC: LAB 11:33
PROVIDERS: PCP Family Medicine; Visit Provider Family Medicine
DX: E03.9 Hypothyroidism, unspecified (principal); R53.83 Other fatigue
CPT/HCPCS: 36415; 84436; 84443; 84481